=== PATIENT | male | born 1975 | race Caucasian/White ===

== ENCOUNTER → 2016-08-25 | Outpatient (CLI) | payer MEDICARE | LOC: CARD 11:16 | PROVIDERS: ATTEND Physician Assistant | DX: I10 Essential (primary) hypertension (principal); R79.89 Other specified abnormal findings of blood chemistry; H91.8X3 Other specified hearing loss, bilateral; Z72.0 Tobacco use | CPT/HCPCS: 93306 ==

== ENCOUNTER → 2016-10-26 | Outpatient (CLI) | payer MEDICARE | LOC: CARD 08:36 | PROVIDERS: ATTEND Internal Medicine Cardiovascular Disease | DX: I50.1 Left ventricular failure, unspecified (principal); I11.0 Hypertensive heart disease with heart failure; I51.7 Cardiomegaly; L02.214 Cutaneous abscess of groin; Z72.0 Tobacco use | CPT/HCPCS: 93306 ==

== ENCOUNTER → 2018-02-04 | Outpatient (CLI) | payer MEDICARE | LOC: CARD 11:31 | PROVIDERS: ATTEND Internal Medicine Cardiovascular Disease | DX: I11.9 Hypertensive heart disease without heart failure (principal); Z72.0 Tobacco use | CPT/HCPCS: 93306 ==

== ENCOUNTER 2018-04-18 11:38 | Inpatient (IN) | payer MEDICARE ==
[~2018-04-18] VITALS: Ht 160 cm; Wt 38.2 kg
[2018-04-18 12:02] LABS: BASOPHILS # (AUTO) 0.1 10^3/uL (0.0-0.1); BASOPHILS % (AUTO) 1 % (0-10); EOSINOPHILS # (AUTO) 0.1 10^3/uL (0.0-0.3); EOSINOPHILS % (AUTO) 1 % (0-10); HEMATOCRIT 38 % (40-54); HEMOGLOBIN 13.9 G/DL (13.3-17.7); LYMPHOCYTES # (AUTO) 1.9 X 10^3 (1.0-4.0); LYMPHOCYTES % (AUTO) 18 % (12-44); MEAN CORPUSCULAR HEMOGLOBIN 32 PG (25-34); MEAN CORPUSCULAR HGB CONC 37 G/DL (32-36); MEAN CORPUSCULAR VOLUME 88 FL (80-99); MEAN PLATELET VOLUME 11.1 FL (7.4-10.4); MONOCYTES # (AUTO) 0.9 X 10^3 (0.0-1.0); MONOCYTES % (AUTO) 8 % (0-12); NEUTROPHILS # (AUTO) 7.6 X 10^3 (1.8-7.8); NEUTROPHILS % (AUTO) 73 % (42-75); PLATELET COUNT 377 10^3/uL (130-400); RED CELL DISTRIBUTION WIDTH 12.5 % (10.0-14.5); WHITE BLOOD COUNT 10.5 10^3/uL (4.3-11.0)
--- NOTE | 2018-04-18 12:04 | NUR ---
ATTEMPTED FINGER STICK GLUCOSE. TOO HIGH FOR METER TO READ.
[2018-04-18] MEDS ORDERED: NS IV 1000 ML 1,000 ML IV ONE ×2 (12:22)
[2018-04-18 12:23] LABS: BILIRUBIN,URINE NEGATIVE (NEGATIVE); CLARITY,URINE CLEAR; COLOR,URINE YELLOW; GLUCOSE, URINE (UA) 4+ (NEGATIVE); KETONES,URINE 2+ (NEGATIVE); LEUKOCYTE ESTERASE ,URINE NEGATIVE (NEGATIVE); NITRITE,URINE NEGATIVE (NEGATIVE); PH,URINE 5 (5-9); PROTEIN,URINE NEGATIVE (NEGATIVE); UROBILINOGEN,URINE NORMAL (NORMAL)
[2018-04-18 12:25] LABS: ALANINE AMINOTRANSFERASE 27 U/L (0-55); ALBUMIN 4.8 GM/DL (3.2-4.5); ALKALINE PHOSPHATASE 88 U/L (40-136); BILIRUBIN,TOTAL 0.7 MG/DL (0.1-1.0); BUN/CREATININE RATIO 23; CALCIUM 10.2 MG/DL (8.5-10.1); CARBON DIOXIDE 20 MMOL/L (21-32); CHLORIDE 87 MMOL/L (98-107); CREATINE KINASE 187 U/L (30-200); CREATININE SERUM 1.55 MG/DL (0.60-1.30); GFR ESTIMATED 49; POTASSIUM 6.3 MMOL/L (3.6-5.0); TOTAL PROTEIN 7.9 GM/DL (6.4-8.2)
[2018-04-18] MEDS ORDERED: inSUlin (REGULAR) HUMAN 1 UNIT/0.01 ML (CHARGE PER UNIT) IV ONE (12:30)
[2018-04-18 12:31] LABS: GLUCOSE 732 MG/DL (70-105); MYOGLOBIN SERUM 100.3 NG/ML (10.0-92.0); SODIUM 122 MMOL/L (135-145)
[2018-04-18 12:35] LABS: BACTERIA,URINE NEGATIVE /HPF; RBC,URINE RARE /HPF
--- NOTE | 2018-04-18 15:03 | ED General ---
General Chief Complaint: Glucose Problems Stated Complaint: HIGH BLOOD SUGAR-HIGH POTAS Nursing Triage Note: PT SENT FROM [facility] WITH BLOOD SUGAR TO HIGH TO READ. PTS MOTHER STATES THAT HE HAS BEEN LOSING WEIGHT SO DR TOLD THEM HE COULD EAT WHATEVER HE WANTED TO ATTEMPT TO GAIN WEIGHT. PTS DIET HAS CONSISTED OF FAST FOOD INCLUDING A TON OF FRIED CHICKEN AND BANANAS. [facility] ALSO STATED TO PT AND MOTHER THAT HIS POTASSIM WAS ELEVATED. Nursing Sepsis Screen: No Definite Risk Source of Information: Patient Exam Limitations: No Limitations History of Present Illness Date Seen by Provider: Apr 18, 2018 Time Seen by Provider: 11:46 Initial Comments This 42-year-old man presents to the emergency room as directed by the [facility] clinic for reasons of hyperglycemia and hyperkalemia. Labs have been monitored on an outpatient basis. His condition is felt to be too far uncontrolled to be managed as an outpatient. He is diabetic and uses metformin. He has recently had a dental infection and is on clindamycin. He has schizophrenia and possibly some other neuropsych disorders but he does live independently with some assistance from his mother. He has been on Entresto due to history of CHF. Dr. Nash asked him to stop this medication because of the hyperglycemia for at least 3 days. Patient was concerned that he may go back into congestive heart failure, so he took his dose this Entresto dose morning. Blood sugar on initial assessment is too high to read. Patient has never been on insulin in the past. Mother reports that they initially tried to significantly restrict his diet to reduce carbs. She reports this resulted in weight loss and then they tried to increase his caloric intake which probably contributed to his hyperglycemia. Compliance is difficult because who is neuropsych situation. Patient was also reportedly told to stop his statin therapy recently because of proximal leg weakness and elevated CK levels. Allergies and Home Medications Allergies Coded Allergies: No Known Drug Allergies (Unverified , 03/03/13) Patient Home Medication List Home Medication List Reviewed: Yes Review of Systems Review of Systems Constitutional: see HPI, weight loss EENTM: see HPI Respiratory: no symptoms reported Cardiovascular: see HPI Gastrointestinal: no symptoms reported Genitourinary: no symptoms reported Musculoskeletal: see HPI Skin: no symptoms reported Psychiatric/Neurological: No Symptoms Reported Hematologic/Lymphatic: No Symptoms Reported Immunological/Allergic: no symptoms reported Past Wkkzofv-Tbmjrv-Mwqojl Hx Past Med/Social Hx: Reviewed and Corrections made Patient Social History Alcohol Use: Denies Use Recreational Drug Use: No Type Used: Cigarettes Recent Foreign Travel: No Contact w/Someone Who Travel: No Recent Infectious Disease Expo: No Recent Hopitalizations: No Seasonal Allergies Seasonal Allergies: No Past Medical History Surgeries: No Respiratory: Yes Asthma Cardiac: Yes Neurological: No Reproductive Disorders: No Gastrointestinal: No Musculoskeletal: No Endocrine: Yes Diabetes, Non-Insulin dep HEENT: No Cancer: No Psychosocial: Yes (Learning disability) Anxiety, Schizophrenia, Depression Integumentary: No Blood Disorders: No Physical Exam Vital Signs Vital Signs - First Documented 04/18/18 04/18/18 11:46 16:45 Temp 98.0 Pulse 67 Resp 18 B/P (MAP) 137/88 (104) Pulse Ox 99 O2 Delivery Room Air Capillary Refill : Less Than 3 Seconds Height, Weight, BMI Height: 5'3.00" Weight: 79lbs. oz. 35.785832ny; BMI Method:Stated General Appearance: No Apparent Distress, WD/WN, Thin, Other (disheveled) HEENT: PERRL/EOMI, Normal ENT Inspection, Other (mucous membranes moist) Neck: Normal Inspection Respiratory: Lungs Clear, Normal Breath Sounds, No Accessory Muscle Use, No Respiratory Distress Cardiovascular: Regular Rate, Rhythm, No Edema, No Murmur Gastrointestinal: Non Tender, Soft Extremity: Normal Inspection, No Pedal Edema Neurologic/Psychiatric: Alert, Oriented x3, No Motor/Sensory Deficits, Normal Mood/Affect, firmware developer II-XII Norm as Tested Skin: Normal Color, Warm/Dry Progress/Results/Core Measures Suspected Sepsis Recent Fever Within 48 Hours: No Infection Criteria Present: None New/Unexplained Altered Menta: No Sepsis Screen: No Definite Risk SIRS Temperature:98.0 Pulse: 67 Respiratory Rate: 18 Laboratory Tests 04/18/18 11:55: White Blood Count 10.5 Blood Pressure 137 /88 Mean: 104 Laboratory Tests 04/18/18 11:55: Creatinine 1.55H, Platelet Count 377, Total Bilirubin 0.7 Results/Orders Lab Results Laboratory Tests Test 04/18/18 11:55 04/18/18 12:03 04/18/18 12:18 04/18/18 14:07 Range/Units White Blood Count 10.5 4.3-11.0 10^3/uL Red Blood Count 4.31 L 4.35-5.85 10^6/uL Hemoglobin 13.9 13.3-17.7 G/DL Hematocrit 38 L 40-54 % Mean Corpuscular Volume 88 80-99 FL Mean Corpuscular Hemoglobin 32 25-34 PG Mean Corpuscular Hemoglobin Concent 37 H 32-36 G/DL Red Cell Distribution Width 12.5 10.0-14.5 % Platelet Count 377 130-400 10^3/uL Mean Platelet Volume 11.1 H 7.4-10.4 FL Neutrophils (%) (Auto) 73 42-75 % Lymphocytes (%) (Auto) 18 12-44 % Monocytes (%) (Auto) 8 0-12 % Eosinophils (%) (Auto) 1 0-10 % Basophils (%) (Auto) 1 0-10 % Neutrophils # (Auto) 7.6 1.8-7.8 X 10^3 Lymphocytes # (Auto) 1.9 1.0-4.0 X 10^3 Monocytes # (Auto) 0.9 0.0-1.0 X 10^3 Eosinophils # (Auto) 0.1 0.0-0.3 10^3/uL Basophils # (Auto) 0.1 0.0-0.1 10^3/uL Sodium Level 122 *L 135-145 MMOL/L Potassium Level 6.3 H 3.6-5.0 MMOL/L Chloride Level 87 L 98-107 MMOL/L Carbon Dioxide Level 20 L 21-32 MMOL/L Anion Gap 15 H 5-14 MMOL/L Blood Urea Nitrogen 35 H 7-18 MG/DL Creatinine 1.55 H 0.60-1.30 MG/DL Estimat Glomerular Filtration Rate 49 BUN/Creatinine Ratio 23 Glucose Level 732 *H 70-105 MG/DL Calcium Level 10.2 H 8.5-10.1 MG/DL Corrected Calcium 8.5-10.1 MG/DL Total Bilirubin 0.7 0.1-1.0 MG/DL Aspartate Amino Transf (AST/SGOT) 31 5-34 U/L Alanine Aminotransferase (ALT/SGPT) 27 0-55 U/L Alkaline Phosphatase 88 40-136 U/L Total Creatine Kinase 187 30-200 U/L Myoglobin 100.3 H 10.0-92.0 NG/ML Total Protein 7.9 6.4-8.2 GM/DL Albumin 4.8 H 3.2-4.5 GM/DL Beta-Hydroxybutyrate (Chem panel) 1.69 H 0.00-0.27 MMOL/L Glucometer > 600 *H 167 H 70-110 MG/DL Urine Color YELLOW Urine Clarity CLEAR Urine pH 5 5-9 Urine Specific [place] 1.010 L 1.016-1.022 Urine Protein NEGATIVE NEGATIVE Urine Glucose (UA) 4+ H NEGATIVE Urine Ketones 2+ H NEGATIVE Urine Nitrite NEGATIVE NEGATIVE Urine Bilirubin NEGATIVE NEGATIVE Urine Urobilinogen NORMAL NORMAL MG/DL Urine Leukocyte Esterase NEGATIVE NEGATIVE Urine RBC (Auto) NEGATIVE NEGATIVE Urine RBC RARE /HPF Urine WBC NONE /HPF Urine Crystals NONE /LPF Urine Bacteria NEGATIVE /HPF Urine Casts NONE /LPF Urine Mucus NEGATIVE /LPF Urine Culture Indicated NO Test 04/18/18 15:08 04/18/18 16:48 Range/Units Glucometer 120 H 254 H 70-110 MG/DL My Orders Orders - JANICE TARANGO MD Saline Lock/Iv-Start (04/18/18 12:22) Ns Iv 1000 Ml (Sodium Chloride 0.9%) (04/18/18 12:22) Ns Iv 1000 Ml (Sodium Chloride 0.9%) (04/18/18 12:22) Insulin (Regular) Human (Humulin R (Per (04/18/18 12:30) Accucheck Stat ONCE (04/18/18 13:26) Cho 60g/M 3snack (16-2000 Carlton) (04/18/18 Dinner) Accucheck Stat ONCE (04/18/18 15:03) Medications Given in ED Current Medications Medications Dose Ordered Sig/Elan Route Start Time Stop Time Status Last Admin Dose Admin Insulin Human Regular 10 unit ONCE ONCE IV 04/18/18 12:30 04/18/18 12:31 DC 04/18/18 12:30 10 UNIT Sodium Chloride 1,000 ml @ 0 mls/hr Q0M ONCE IV 04/18/18 12:22 04/18/18 12:25 DC 04/18/18 12:30 1,000 MLS/HR Sodium Chloride 1,000 ml @ 0 mls/hr Q0M ONCE IV 04/18/18 12:22 04/18/18 12:25 DC 04/18/18 13:04 1,000 MLS/HR Vital Signs/I&O 04/18/18 04/18/18 04/18/18 04/18/18 11:46 16:36 16:45 16:57 Temp 98.0 98.0 98.4 Pulse 67 67 65 Resp 18 18 14 B/P (MAP) 137/88 (104) 137/88 (104) 111/68 (82) Pulse Ox 99 99 98 98 O2 Delivery Room Air Room Air 04/18/18 04/18/18 17:00 17:29 Temp 98.4 Pulse 65 85 Resp 14 B/P (MAP) 111/68 Pulse Ox 98 O2 Delivery Room Air Capillary Refill : Less Than 3 Seconds Blood Pressure Mean: 104 Point of Care Testing Finger Stick Blood Glucose: 167 Blood Glucose Action Taken: rn notified Progress Note : Progress Note Patient was hydrated with 2 L of IV normal saline and insulin 10 units was administered by IV route. This brought his blood sugar down to 167 and then down to 120. He was allowed to have a meal. Case was discussed with Dr. Nash who requested that he be admitted for assistance in stabilizing his electrolytes and blood sugar. Case was discussed with Dr. Carrion who agreed to admission. Dr. Durand was consulted to help manage congestive heart failure since Entresto may not be a viable treatment option given his hyperkalemia. Departure Communication (Admissions) Time/Spoke to Admitting Phy: 14:50 Dr. Carrion Time/Spoke to Consulting Phy: 15:00 Dr. Durand Impression Primary Impression: Hyperglycemia Additional Impressions: Hyperkalemia Hypovolemia Renal insufficiency Disposition: ADMITTED INPATIENT Condition: Improved Admissions Decision to Admit Reason: Admit from ER (General) Decision to Admit/Date: Apr 18, 2018 Time/Decision to Admit Time: 14:45 Departure-Patient Inst. Referrals: [facility] (PCP/Family) Primary Care Physician JANICE TARANGO MD Apr 18, 2018 15:03
--- NOTE | 2018-04-18 15:53 | NUR ---
ER CALLED AND GOT REPORT FROM [facility]TER
--- NOTE | 2018-04-18 16:50 | NUR ---
TORIE CAMPOS admitted to room 412-1, with an admitting diagnosis of hypoglycemia, hypokalemia, hypovolemia, on 04/18/18 from ER via W/C, accompanied by ER STAFF.TORIE CAMPOS introduced to surroundings, call light, bed controls, phone, TV, temperature control, lights, meal times, smoking policy, visitor policy, side rail policy, bathrooms and showers. Patient Rights given to patient in the handbook. TORIE CAMPOS verbalizes understanding that [facility] is not responsible for the loss or damage to any personal effects or valuables that are kept in the patients posession during their hospitalization. The following Patient Care Plans were discussed with the PT: Discharge Planning, ALT NUTRITION<BODY REQUIRES, FL VOL DEFICIT, IMP SKIN INTEGRITY, ACT INTOL, HIGH RISK OF INJURY, ANXIETY, AND RISK FOR INEFF MGMT OF DIAB. TORIE CAMPOS verbalizes understanding of Interdisciplinary Patient Education. Patient and/or family were informed about the Rapid Response Team and its purpose. CAME TO FLOOR FROM ER W/ SL IN R AC --
[2018-04-18 16:57] VITALS: BP 111/68
[2018-04-18 17:00] VITALS: BP 111/68
[2018-04-18] MEDS ORDERED: NS IV 1000 ML 1,000 ML ONE (17:34)
[2018-04-18] MEDS: NS IV 1000 ML 1,000 ML IV SCH (17:48)
[2018-04-18 20:00] VITALS: BP 118/71
[2018-04-18] MEDS: CLINDAMYCIN 150 MG (CLEOCIN) CAP PO SCH (20:41)
[2018-04-18] MEDS: inSUlin ASPART (NovoLOG) 1 UNIT/0.01 ML (CHARGE PER UNIT) SC SCH (20:41)
[2018-04-19] VITALS: BP 101/64
[2018-04-19] MEDS: NS IV 1000 ML 1,000 ML IV SCH ×3 (01:00→18:07)
[2018-04-19 03:56] VITALS: BP 130/82
[2018-04-19] MEDS: inSUlin ASPART (NovoLOG) 1 UNIT/0.01 ML (CHARGE PER UNIT) SC SCH ×4 (06:08→21:20)
[2018-04-19 08:00] VITALS: BP 114/70
[2018-04-19] MEDS ORDERED: CLIN300C11 PO (08:49)
[2018-04-19] MEDS ORDERED: ALBU18HF2 INH (08:49)
[2018-04-19] MEDS ORDERED: ARIP30TA10 PO (08:49)
[2018-04-19] MEDS ORDERED: SACU1TAB7 PO (08:49)
[2018-04-19] MEDS ORDERED: SERT50TA9 PO (08:49)
[2018-04-19] MEDS ORDERED: METO-333 PO (08:49)
[2018-04-19] MEDS ORDERED: ATOR20TA66 PO (08:49)
[2018-04-19] MEDS ORDERED: NFBIOT1000 PO (08:49)
[2018-04-19] MEDS ORDERED: METF500T8 PO (08:49)
[2018-04-19] MEDS ORDERED: METO-370 PO (08:49)
[2018-04-19] MEDS ORDERED: CYAN10006 PO (08:49)
--- NOTE | 2018-04-19 09:36 | NUR ---
SPOKE WITH THE PATIENT ABOUT HIS MEDICATIONS. I WENT OVER THE EXT MED HX WITH THE PATIENT AND HE VERIFIED HOW HE TAKES THEM. HE FILLED METFORMIN ER 750MG #180 02-20-18 THEN ON 04-02-18 HE FILLED METFORMIN ER 500MG #360 - THE NURSE AT [facility] STATES THE DOSE WAS INCREASED FROM 750MG BID TO 1000MG BID HOWEVER THE PATIENT STATES HE HAS ONLY BEEN TAKING 1 500MG TABLET BID, HE STATES HE DID NOT READ THE DIRECTIONS ON THE BOTTLE. HE STATES HE WAS TAKING SEROQUEL AT BEDTIME HOWEVER HE IS PAST DUE FOR REFILLS. I CALLED AND SPOKE WITH A NURSE, SHE STATES ACCORDING TO THE NOTES THE PATIENT WAS TITRATED OFF HE SEROQUEL AND STARTED ON ABILITY. I DID NOT INCLUDE THE SEROQUEL ON THE MED REC AT THIS TIME. HE TAKES BIOTIN AND B12 OTC DAILY.
[2018-04-19] MEDS: CLINDAMYCIN 150 MG (CLEOCIN) CAP PO SCH ×3 (09:53→21:32)
--- NOTE | 2018-04-19 10:15 | Short Stay Summary-Hospitalist ---
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 Nash at [facility]. PT is very hard of hearing and cannot tell me really any reliable history and he wants to go home and take care of his cats. His mother is involved. He appears to need some sort of assisted living facility so I will consult social work . Pt sugars have been improved but still high. Source: RN/MD, old records Exam Limitations: physical impairment Date Seen 04/19/18 Time Seen by a Provider: 10:00 Attending Physician Tanika Carrion DO [facility] Referring Physician Date of Admission Apr 18, 2018 at 15:00 Home Medications & Allergies Home Medications Reviewed patient Home Medication Reconciliation performed by pharmacy medication reconciliations alarm installation technician and/or nursing. Patients Allergies have been reviewed. Allergies Allergies Coded Allergies No Known Drug Allergies (Unverified03/03/13) Past Yduznyn-Jpzsbq-Rwryww Hx Past Med/Social Hx: Reviewed Nursing Past Med/Soc Hx, Reviewed and Corrections made Patient Social History Marrital Status: single Employed/Student: unemployed Alcohol Use: Denies Use Recreational Drug Use: No Smoking Status: Current Everyday Smoker Type Used: Cigarettes Physical Abuse Screen: No Sexual Abuse: No Recent Hopitalizations: No Immunizations Up To Date Date of Influenza Vaccine: Nov 19, 2017 Seasonal Allergies Seasonal Allergies: No Past Medical History Reproductive: No Endocrine: Diabetes, Non-Insulin dep Psychosocial: Anxiety, Schizophrenia, Depression History of Blood Disorders: No Review of Systems ROS-Unable to Obtain: refuses to answer Constitutional: see HPI Physical Exam Physical Exam Vital Signs Vital Signs - First Documented 04/18/18 04/18/18 11:46 16:45 Temp 98.0 Pulse 67 Resp 18 B/P (MAP) 137/88 (104) Pulse Ox 99 O2 Delivery Room Air Capillary Refill : Less Than 3 Seconds Height, Weight, BMI Height: 5'3.00" Weight: 84lbs. 7.0oz. 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 Short Stay Diagnosis Discharge Diagnosis-Short Stay Admission Diagnosis Severe hyperglycemia Non-compliant DM HTN Smoker Mentally challenged Final Discharge Diagnosis Severe hyperglycemia Non-compliant DM HTN Smoker Mentally challenged Conclusion Plan Insulin administration Appears to need NHP Monitor closely DM education SW consult Diagnosis/Problems Diagnosis/Problems (1) Hyperglycemia Status: Acute (2) Mentally disabled Status: Chronic (3) Renal insufficiency Status: Acute Clinical Quality Measures DVT/VTE Risk/Contraindication: Risk Factor Score Per Nursin RFS Level Per Nursing on Admit: 4+=Very High TANIKA CARRION DO Apr 19, 2018 10:15
[2018-04-19 11:01] LABS: ALANINE AMINOTRANSFERASE 20 U/L (0-55); ALBUMIN 3.4 GM/DL (3.2-4.5); ALKALINE PHOSPHATASE 59 U/L (40-136); BILIRUBIN,TOTAL 0.4 MG/DL (0.1-1.0); BUN/CREATININE RATIO 21; CALCIUM 8.1 MG/DL (8.5-10.1); CARBON DIOXIDE 17 MMOL/L (21-32); CHLORIDE 102 MMOL/L (98-107); CREATININE SERUM 0.92 MG/DL (0.60-1.30); GFR ESTIMATED > 60; GLUCOSE 250 MG/DL (70-105); POTASSIUM 4.9 MMOL/L (3.6-5.0); SODIUM 129 MMOL/L (135-145); TOTAL PROTEIN 5.5 GM/DL (6.4-8.2)
--- NOTE | 2018-04-19 11:22 | NUR ---
Was asked to speak to pt by RN caring for pt in reference Diabetes. During discussion with pt he kept nodding off and didn't appear to comprehend all of our discussion. Pt is [place] so during our teaching I sat at eye level with pt. Pt appeared to hear some things spoke about. Pt was not able to give clear answers of what his normal diet consist of. Spoke with pt the importance of eating 3 times a day no longer than 4 to 5 hours between meals. The importance of 50 to 70 carbs per meal. Attempted to explain to pt how to count carbs but pt appeared to not be interested. Spoke with pt briefly about the possibility of insulin on discharge. Pt did not seem to comprehend short discussion about how to administer insulin injections. Will wait until discharge orders are done and attempted to educate pt further on diet and insulin (if ordered).
[2018-04-19 12:00] VITALS: BP 124/79
--- NOTE | 2018-04-19 13:20 | Consultation-Cardiology ---
HPI-Cardiology Cardiology Consultation Date of Consultation 04/19/18 Date of Admission Time Seen by Provider: 08:00 Indication: Heart failure HPI 42 years old gentleman with history of diabetes, admitted for electrolytes imbalance and renal failure, denied any chest pain or shortness of breath, has history of Depression and heart failure, noted to have hyperkalemia Home Medications & Allergies Allergies: Coded Allergies: No Known Drug Allergies (Unverified , 03/03/13) Home Medication List Reviewed: Yes YEF-Tqfrdi-Nttpzw Hx Patient Social History Marital Status: single Alcohol Use: Denies Use Recreational Drug Use: No Type Used: Cigarettes Recent Hopitalizations: No Physical Abuse Screen: No Sexual Abuse: No Immunizations Up To Date Date of Influenza Vaccine: Nov 19, 2017 Past Medical History Discussed below Family Medical History Family Medical Hx Non contributory Review of Systems Constitutional: see HPI, malaise, weakness EENTM: see HPI, no symptoms reported Respiratory: see HPI; No cough, No dyspnea on exertion, No hemoptysis, No orthopnea, No phlegm, No short of breath, No stridor, No wheezing, No other Cardiovascular: see HPI; No chest pain, No edema, No Hx of Intervention, No palpitations, No syncope, No vascular heart diseas, No other Gastrointestinal: no symptoms reported, see HPI Genitourinary: no symptoms reported, see HPI Musculoskeletal: no symptoms reported, see HPI Skin: no symptoms reported, see HPI Psychiatric/Neurological: See HPI, Depressed, Emotional Problems Reviewed Test Results Reviewed Test Results Lab Laboratory Tests Test 04/18/18 14:07 04/18/18 15:08 04/18/18 16:48 04/18/18 20:18 Range/Units Glucometer 167 H 120 H 254 H 398 H 70-110 MG/DL Test 04/19/18 05:25 04/19/18 10:40 04/19/18 11:13 Range/Units Glucometer 302 H 283 H 70-110 MG/DL Sodium Level 129 L 135-145 MMOL/L Potassium Level 4.9 3.6-5.0 MMOL/L Chloride Level 102 98-107 MMOL/L Carbon Dioxide Level 17 L 21-32 MMOL/L Anion Gap 10 5-14 MMOL/L Blood Urea Nitrogen 19 H 7-18 MG/DL Creatinine 0.92 0.60-1.30 MG/DL Estimat Glomerular Filtration Rate > 60 BUN/Creatinine Ratio 21 Glucose Level 250 H 70-105 MG/DL Calcium Level 8.1 L 8.5-10.1 MG/DL Corrected Calcium 8.6 8.5-10.1 MG/DL Total Bilirubin 0.4 0.1-1.0 MG/DL Aspartate Amino Transf (AST/SGOT) 36 H 5-34 U/L Alanine Aminotransferase (ALT/SGPT) 20 0-55 U/L Alkaline Phosphatase 59 40-136 U/L Total Protein 5.5 L 6.4-8.2 GM/DL Albumin 3.4 3.2-4.5 GM/DL Physical Exam Vital Signs Vital Signs - First Documented 04/18/18 04/18/18 11:46 16:45 Temp 98.0 Pulse 67 Resp 18 B/P (MAP) 137/88 (104) Pulse Ox 99 O2 Delivery Room Air Capillary Refill : Less Than 3 Seconds Height, Weight, BMI Height: 5'3.00" Weight: 84lbs. 7.0oz. 38.555244pa; 14.0 BMI Method:Stated General Appearance: No Apparent Distress, WD/WN Eyes: Bilateral Eye Normal Inspection, Bilateral Eye PERRL, Bilateral Eye EOMI HEENT: PERRL/EOMI, TMs Normal, Normal ENT Inspection, Pharynx Normal Neck: Full Range of Motion, Normal Inspection, Non Tender, Supple, Carotid Bruit Respiratory: Chest Non Tender, Lungs Clear, Normal Breath Sounds, No Accessory Muscle Use, No Respiratory Distress Cardiovascular: Regular Rate, Rhythm, No Edema, No Gallop, No JVD, No Murmur, Normal Peripheral Pulses Gastrointestinal: Normal Bowel Sounds, No Organomegaly, No Pulsatile Mass, Non Tender, Soft Back: Normal Inspection, No CVA Tenderness, No Vertebral Tenderness Extremity: Normal Capillary Refill, Normal Inspection, Normal Range of Motion, Non Tender, No Calf Tenderness, No Pedal Edema Neurologic/Psychiatric: Alert, Oriented x3, No Motor/Sensory Deficits, Normal Mood/Affect Skin: Normal Color, Warm/Dry Lymphatic: No Adenopathy A/P-Cardiology Admission Diagnosis Acute renal failure Diabetes Hyperkalemia Hypertension Assessment/Plan Acute renal failure, dehydration, better now Hyperkalemia, better now Diabetes, poor control, managed by primary care physician History of Coronary artery disease, status post cardiac catheterization February 2013 due to an elevated troponin level. Showing mild disease nonobstructive disease, continue to monitor, no changes. History of Congestive heart failure, Last echo done in January 2018 showing normal LV function, resolved, stop Entresto, continue Metoprolol History of Right groin abscess-resolved. Hypertension, continue Metoprolol and monitor blood pressure Tobaccoism, patient was educated and instructed on smoking cessation. Alcoholism, patient reported that he has stopped drinking, educated on avoiding any alcohol products Bronchial asthma, clinically stable. Continue to monitor. Significant hearing loss. Clinical Quality Measures DVT/VTE Risk/Contraindication: Risk Factor Score Per Nursin RFS Level Per Nursing on Admit: 4+=Very High GLO MCLEOD MD Apr 19, 2018 13:20
[2018-04-19 16:45] VITALS: BP 119/80
[2018-04-19 21:17] VITALS: BP 124/80
[2018-04-19] MEDS ORDERED: inSUlin DETERMIR 1 UNIT/0.01 ML (LEVEMIR) CHARGE PER UNIT SQ ONE (21:28)
[2018-04-19] MEDS: meTOprolol TARTRATE 25 MG (LOPRESSOR) TABLET PO SCH (21:31)
[2018-04-19] MEDS: inSUlin DETERMIR 1 UNIT/0.01 ML (LEVEMIR) CHARGE PER UNIT SQ SCH (21:31)
[2018-04-20] VITALS: BP 120/87
[2018-04-20 04:35] VITALS: BP 101/69
[2018-04-20] MEDS: inSUlin ASPART (NovoLOG) 1 UNIT/0.01 ML (CHARGE PER UNIT) SC SCH ×4 (05:27→21:50)
[2018-04-20 05:54] LABS: BASOPHILS % (AUTO) 0 % (0-10); EOSINOPHILS # (AUTO) 0.3 10^3/uL (0.0-0.3); EOSINOPHILS % (AUTO) 3 % (0-10); HEMATOCRIT 38 % (40-54); HEMOGLOBIN 13.6 G/DL (13.3-17.7); LYMPHOCYTES # (AUTO) 2.2 X 10^3 (1.0-4.0); LYMPHOCYTES % (AUTO) 19 % (12-44); MEAN CORPUSCULAR HEMOGLOBIN 33 PG (25-34); MEAN CORPUSCULAR HGB CONC 36 G/DL (32-36); MEAN CORPUSCULAR VOLUME 90 FL (80-99); MEAN PLATELET VOLUME 10.9 FL (7.4-10.4); MONOCYTES # (AUTO) 0.9 X 10^3 (0.0-1.0); MONOCYTES % (AUTO) 8 % (0-12); NEUTROPHILS # (AUTO) 8.2 X 10^3 (1.8-7.8); NEUTROPHILS % (AUTO) 70 % (42-75); PLATELET COUNT 321 10^3/uL (130-400); RED CELL DISTRIBUTION WIDTH 12.9 % (10.0-14.5); WHITE BLOOD COUNT 11.7 10^3/uL (4.3-11.0)
[2018-04-20 06:13] LABS: CARBON DIOXIDE 20 MMOL/L (21-32); CHLORIDE 108 MMOL/L (98-107); POTASSIUM 4.2 MMOL/L (3.6-5.0); SODIUM 136 MMOL/L (135-145)
[2018-04-20 06:14] LABS: ALANINE AMINOTRANSFERASE 21 U/L (0-55); ALBUMIN 3.5 GM/DL (3.2-4.5); ALKALINE PHOSPHATASE 50 U/L (40-136); BILIRUBIN,TOTAL 0.5 MG/DL (0.1-1.0); BUN/CREATININE RATIO 25; CALCIUM 8.7 MG/DL (8.5-10.1); CREATININE SERUM 0.76 MG/DL (0.60-1.30); GFR ESTIMATED > 60; GLUCOSE 115 MG/DL (70-105); TOTAL PROTEIN 5.7 GM/DL (6.4-8.2)
[2018-04-20 07:23] VITALS: BP 108/66
[2018-04-20] MEDS: CLINDAMYCIN 150 MG (CLEOCIN) CAP PO SCH ×3 (09:19→21:49)
[2018-04-20] MEDS: meTOprolol TARTRATE 25 MG (LOPRESSOR) TABLET PO SCH ×2 (09:19→21:49)
[2018-04-20 11:40] VITALS: BP 127/75
--- NOTE | 2018-04-20 12:48 | Progress Note-Hospitalist ---
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 Nash at [facility]. PT is very hard of hearing and cannot tell me really any reliable history and he wants to go home and take care of his cats. His mother is involved. He appears to need some sort of assisted living facility so I will consult social work . Pt sugars have been improved but still high. Subjective/Events-last exam Wants to go home but the mother refuses to come to hospital to facilitate DC on insulin Patient walking around since IVF were heplocked Sugars are improved but low doses of insulin initiated to prevent complexity once DC is finalized Review of Systems General: Fatigue Objective Exam Vital Signs Vital Signs Date Time Temp Pulse Resp B/P (MAP) Pulse Ox O2 Delivery O2 Flow Rate FiO2 04/20/18 11:40 98.2 57 18 127/75 (92) 98 Room Air Capillary Refill : Less Than 3 Seconds General Appearance: No Apparent Distress, WD/WN, Chronically ill, Thin, Other ( disheveled) HEENT: PERRL/EOMI, Normal ENT Inspection, Other (mucous membranes moist, [place]) Neck: Normal Inspection Respiratory: Lungs Clear, Normal Breath Sounds, No Accessory Muscle Use, No Respiratory Distress Cardiovascular: Regular Rate, Rhythm, No Edema, No Murmur Gastrointestinal: Non Tender, Soft Back: Normal Inspection, No CVA Tenderness, No Vertebral Tenderness Extremity: Normal Inspection, No Pedal Edema Neurologic/Psychiatric: Alert, No Motor/Sensory Deficits, Normal Mood/Affect, whiskey 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 Assessment/Plan Assessment and Plan Assess & Plan/Chief Complaint Assessment: Severe hyperglycemia in need of insulin maintenance Severe mental challenges Insulin administration Appears to need NHP Monitor closely DM education SW consult Diagnosis/Problems Diagnosis/Problems (1) Hyperglycemia Status: Acute (2) Mentally disabled Status: Chronic (3) Renal insufficiency Status: Acute Clinical Quality Measures DVT/VTE Risk/Contraindication: Risk Factor Score Per Nursin RFS Level Per Nursing on Admit: 4+=Very High JOHNATHAN LEOS DO Apr 20, 2018 12:48
[2018-04-20 16:36] VITALS: BP 108/66
[2018-04-20 21:21] VITALS: BP 149/78
[2018-04-20] MEDS: inSUlin DETERMIR 1 UNIT/0.01 ML (LEVEMIR) CHARGE PER UNIT SQ SCH (21:49)
[2018-04-21 01:16] VITALS: BP 111/74
--- OUTSIDE RECORDS SUMMARY | 2018-04-21 02:29 | XMS REPORT ---
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 Name Role Phone ARIC, DAWJOHN Unavailable PROBLEMS Type Condition ICD9-CM Code CQL99-HZ Code Onset Dates Condition Status SNOMED Code Problem Schizoaffective disorder F25.9 Active 35143457 Problem Tobacco use Z72.0 Active 846135520 Problem Elevated cholesterol E78.0 Active 125445880 Problem Type 2 diabetes mellitus with other specified complication E11.69 Active 40738109 Problem Hyperlipidemia, unspecified E78.5 Active 47043510 Problem Schizoaffective disorder, unspecified type F25.9 Active 76085100 Problem Underweight R63.6 Active 722046527 Problem Left ventricular failure I50.1 Active 78910115 Problem Anxiety F41.9 Active 81267218 Problem Essential hypertension I10 Active 59887375 Problem Hearing loss, unspecified laterality H91.90 Active 40121321 Problem Major depressive disorder, recurrent episode, unspecified severity F33.9 Active 95279878 Problem History of alcoholism F10.21 Active 052882174 Problem Left ventricular hypertrophy I51.7 Active 58981238 Problem Mild intermittent asthma without complication J45.20 Active 131068614 ALLERGIES No Information ENCOUNTERS Encounter Location Date Diagnosis [facility] [id number], [place] [address] Feb, [facility] [id number], [place] [address] Jan, Schizoaffective disorder, unspecified type F25.9 [facility] [id number], [place] [address] Jan, [facility] [id number], [place] [address] Dec, Type 2 diabetes mellitus with other specified complication E11.69 and Hyperlipidemia, unspecified E78.5 [facility] [address], [place] [address] Dec, [facility] [address], [place] [address] Dec, [facility] [id number] [place] [address]- [address] Nov, Type 2 diabetes mellitus with other specified complication E11.69 and Hyperlipidemia, unspecified E78.5 [facility] [address], [place] [address] Nov, Type 2 diabetes mellitus with other specified complication E11.69 [facility] [id number], [place] [address] Nov, [facility] [id number] [place] [address]- [address] Nov, [facility] [address], [place] [address] Nov, Schizoaffective disorder, unspecified type F25.9 ; Anxiety F41.9 and 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 [facility] [address], [place] [address] Nov, [facility] [address], [place] [address] Oct, [facility] [id number], [place] [address] Oct, [facility] [id number] [place] [address]- 8942 Oct, Schizoaffective disorder, unspecified type F25.9 ; Anxiety F41.9 and 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 [facility] [address], [place] [address] Oct, Essential hypertension I10 ; Schizoaffective disorder F25.9 ; Left ventricular failure I50.1 ; Type 2 diabetes mellitus with other specified complication E11.69 and Hyperlipidemia, unspecified E78.5 [address] [facility] [id number] [place] [address]- 5007 Aug, Schizoaffective disorder F25.9 [facility] [id number] [place] [address] 9[address]- 78[address] Aug, [address] [address] [address] June, Medicare annual wellness visit, initial Z00.00 ; Type 2 diabetes mellitus with other specified complication E11.69 ; Major depressive disorder, recurrent episode, unspecified severity F33.9 ; Anxiety F41.9 ; Schizoaffective disorder F25.9 ; Hyperlipidemia, unspecified E78.5 ; Mild intermittent asthma without complication J45.20 and Encounter for immunization Z23 [address] [address] [address]- [address] Apr, Schizoaffective disorder F25.9 [facility] [facility] [id number] [place] [address] 7[address]83- 4964 Apr, Essential hypertension I10 ; Schizoaffective disorder F25.9 ; Left ventricular failure I50.1 and Type 2 diabetes mellitus with other specified complication E11.69 [facility] [facility] [id number] [place] [address] 9[address]60- 8808 Apr, Schizoaffective disorder F25.9 [facility] [place] [address] Aug, [address] [place] [id number] [place] [address]- [address] Aug, [facility] [place] [address] Aug, [address] [place] [id number] [place] [address]- 0064 Jul, Type 2 diabetes mellitus without complication, without long- term current use of insulin E11.9 ; Essential hypertension I10 and Elevated cholesterol E78.0 [address] [place] [id number] [place] [address]- [address] June, [address] [address] [address] May, Schizoaffective disorder, unspecified type F25.9 ; Anxiety F41.9 and 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 [address] [address] [address]- [address]558 Apr, Type 2 diabetes mellitus without complication, without long- term current use of insulin E11.9 [address] [address] [address] Mar, [place] [address] [address]- [address]643 Mar, [address] [address] [address]- [address] Mar, [address] [id number] [place] [address]- 6230 Mar, Essential hypertension I10 ; Elevated cholesterol E78.0 ; Prediabetes R73.09 ; Underweight R63.6 ; Type 2 diabetes mellitus without complication, without long-term current use of insulin E11.9 and Schizoaffective disorder F25.9 [address] [place] [address] [address] Jan, Schizoaffective disorder F25.9 and Essential hypertension I10 [address] [place] [id number] [place] [address]- 1642 Jan, Bronchitis J40 [address] [address] Dec, Prediabetes R73.09 [address] [address] [address]- [address] Oct, Abscess L02.[address] [place] [address] Oct, [facility] [id number] [place] [address] 290775- 5346 June, Prediabetes R73.09 and Elevated cholesterol E78.0 [facility] [id number] [place] [address] 10968- 7486 June, Schizoaffective disorder F25.9 ; Essential hypertension I10 ; Prediabetes R73.09 ; Elevated cholesterol E78.0 and Tobacco use Z72.0 [facility] [id number] [place] [address]- 7888 May, [facility] [id number] [place] [address]- 2001 Apr, [facility] [id number] [place] [address] 09345- 9044 Apr, [facility] [id number] [place] [address] 00482- 7648 Apr, [facility] [id number] [place] [address] 85179- 5026 Mar, [facility] [id number] [place] [id number] Feb, Dental examination Z01.20 [facility] [id number] [place] [address] 93419- 3506 Jan, [facility] [id number] [place] [address] 67014- 5763 Jan, Abscess L02.91 [facility] [id number] [place] [address] 94837- 5576 Jan, [facility] [id number] [place] [address] 628279- 2943 Dec, [facility] [id number] [place] [address] 07967- 1530 Dec, Abscess L02.91 [facility] [address], [place] [address] Nov, Elevated cholesterol E78.0 [facility] [id number] [place] [address] 96118- 9669 Nov, [facility] [id number] [place] [address] 35257- 5810 Nov, [facility] [id number] [place] [address] 12193- 8062 Nov, Essential hypertension I10 ; Schizoaffective disorder F25.9 ; History of alcoholism F10.21 and Mild intermittent asthma without complication J45.20 [facility] [id number] [place] [address] 64667- 6710 Nov, [facility] [id number] [place] [address] 87208- 5743 Nov, [facility] [id number] [place] [address] 794[address]- 1983 May, [facility] [id number] [place] [address] 54546- 2992 May, [facility] [id number] [place] [address] 03214- 3927 Apr, [facility] [address], [place] [address]- 8569 Apr, [facility] [id number] [place] [address] 18306- 3590 Mar, [facility] [id number] [place] [address] 93379- 9131 Mar, [facility] [id number] [place] [address] 38575- 2137 Mar, [facility] [address], [place] [address]- 3643 Mar, [facility] [id number] [place] [address]- 37[address] Mar, [facility] [place] [facility] [address] [id number] [place] [address]- 2136 Mar, [facility] [place] [facility] [address] [id number] [place] [address]- 4783 Jan, [facility] [place] [facility] [address] [id number] [place] [address] Jan, [facility] [place] [facility] [address] [id number] [place] [address]- 1391 Jan, [facility] [place] [facility] [address] [id number] [place] [address]- 4345 Jan, [facility] [place] [facility] [address] [facility] [id number] [place] [address]- 9875 Nov, [facility] [place] [facility] [address] [facility] [id number] [place] [address]- 3300 Nov, [facility] [place] [facility] [address] [id number] [place] [address]- 5044 Oct, [facility] [place] [facility] [address] [id number] [place] [address]- 3953 Oct, [facility] [place] [facility] [address] [facility] [id number] [place] [address]- 1698 Sep, [facility] [place] [facility] [address] [id number] [place] [address]- 0339 Sep, [facility] [place] [facility] [address] [id number] [place] [address]- 8266 Sep, [facility] [place] [facility] [address] [id number] [place] [address]- 3987 Sep, [facility] [place] [facility] [address] [facility] [id number] [place] [address]- 4971 Sep, [facility] [place] [facility] [address] [id number] [place] [address]- 1161 Sep, [facility] [place] [facility] [address] [id number] [place] [address]- 4453 May, [facility] [place] [facility] [address] [id number] [place] [address]- 5862 May, [facility] [place] [facility] [address] [id number] [place] [address]- 4016 May, [facility] [place] [facility] [address] [id number] [place] [address]- 5996 May, [facility] [place] [facility] [address] [id number] [place] [address]- 4791 Apr, [facility] [place] [facility] [address] [id number] [place] [address]- 3746 Apr, [facility] [place] [facility] [address] [id number] [place] [address]- 9237 Apr, [facility] [place] [facility] [address] [id number] [place] [address]- 1413 Apr, [facility] [place] [facility] [address] [id number] [place] [address]- 2667 Apr, [facility] [place] [facility] [address] [id number] [place] [address]- 2356 Apr, [facility] [place] [facility] [address] [id number] [place] [address]- 8836 Apr, [facility] [place] [facility] [address] [id number] [place] [address]- 0026 Apr, [facility] [place] [facility] [address] [id number] [place] [address]- 7897 Mar, [facility] [place] [facility] [address] [id number] [place] [address]- 0956 Mar, [facility] [place] [facility] [address] [id number] [place] [address]- 5256 Feb, [facility] [place] [facility] [address] [id number] [place] [address]- 0066 Feb, [facility] [address] [facility] [id number] [place] [address]- 5525 Jan, [facility] [address] [facility] [id number] [address]- 4829 Jan, IMMUNIZATIONS No Known Immunizations SOCIAL HISTORY Never Assessed REASON FOR VISIT Medication refill request PLAN OF CARE VITAL SIGNS MEDICATIONS Medication Instructions Dosage Frequency Start Date End Date Duration Status Seroquel XR 300 MG Orally Once a day 1 tablet in the evening 24h 30 day(s) Active RESULTS No Results PROCEDURES No Known procedures INSTRUCTIONS MEDICATIONS ADMINISTERED No Known Medications MEDICAL (GENERAL) HISTORY Type Description Date Medical History hypertension Medical History asthma Surgical History appendectomy Surgical History heart cath--[facility] 02/2013 Hospitalization History HTN , heart cath 02/2013
--- OUTSIDE RECORDS SUMMARY | 2018-04-21 02:29 | XMS REPORT ---
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 Name Role Phone ARIC, DAWJOHN Unavailable PROBLEMS Type Condition ICD9-CM Code GNI65-AJ Code Onset Dates Condition Status SNOMED Code Problem Schizoaffective disorder F25.9 Active 69351134 Problem Tobacco use Z72.0 Active 788018925 Problem Elevated cholesterol E78.0 Active 461082582 Problem Type 2 diabetes mellitus with other specified complication E11.69 Active 45664342 Problem Hyperlipidemia, unspecified E78.5 Active 27772919 Problem Schizoaffective disorder, unspecified type F25.9 Active 20359817 Problem Underweight R63.6 Active 329416503 Problem Left ventricular failure I50.1 Active 72099318 Problem Anxiety F41.9 Active 43817098 Problem Essential hypertension I10 Active 80364710 Problem Hearing loss, unspecified laterality H91.90 Active 50408554 Problem Major depressive disorder, recurrent episode, unspecified severity F33.9 Active 62888000 Problem History of alcoholism F10.21 Active 314332813 Problem Left ventricular hypertrophy I51.7 Active 63890180 Problem Mild intermittent asthma without complication J45.20 Active 787931664 ALLERGIES No Information ENCOUNTERS Encounter Location Date Diagnosis [facility] [id number] [address] Feb, [facility] [address] [address] Feb, [facility] [id number] [place] [address]6549- 4456 Jan, Schizoaffective disorder, unspecified type F25.9 [facility] [id number], [place] [address] Jan, Schizoaffective disorder, unspecified type F25.9 [facility] [id number] [place] [address] 97748- 7194 Jan, [facility] [id number] [place] [address] 980723- 7216 Dec, Type 2 diabetes mellitus with other specified complication E11.69 and Hyperlipidemia, unspecified E78.5 [facility] [id number] [place] [address] 06049- 4904 Dec, [facility] [id number] [place] [address] 37691- 2794 Dec, [facility] [id number] [place] [address] 26019- 7462 Nov, Type 2 diabetes mellitus with other specified complication E11.69 and Hyperlipidemia, unspecified E78.5 [facility] [id number] [place] [address] 76593- 4458 Nov, Type 2 diabetes mellitus with other specified complication E11.69 [facility] [id number] [place] [address] 29654- 8020 Nov, [facility] [id number] [place] [address] 27946- 4160 Nov, [facility] [id number] [place] [address] 81735- 1507 Nov, Schizoaffective disorder, unspecified type F25.9 ; Anxiety F41.9 and 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 [facility] [id number] [place] [address] 66342- 8385 Nov, [facility] [id number] [place] [address] 82871- 3671 Oct, [facility] [id number] [place] [address] 74354- 7505 Oct, [facility] [id number] [place] [address] 10309- 8911 Oct, Schizoaffective disorder, unspecified type F25.9 ; Anxiety F41.9 and 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 [place] [address] [address]- [address]95 Oct, Essential hypertension I10 ; Schizoaffective disorder F25.9 ; Left ventricular failure I50.1 ; Type 2 diabetes mellitus with other specified complication E11.69 and Hyperlipidemia, unspecified E78.5 [place] [address] [address]- 8439 Aug, Schizoaffective disorder F25.9 [place] [address] [address]- 5614 Aug, [place] [address] 39372- 1314 June, Medicare annual wellness visit, initial Z00.00 ; Type 2 diabetes mellitus with other specified complication E11.69 ; Major depressive disorder, recurrent episode, unspecified severity F33.9 ; Anxiety F41.9 ; Schizoaffective disorder F25.9 ; Hyperlipidemia, unspecified E78.5 ; Mild intermittent asthma without complication J45.20 and Encounter for immunization Z23 [place] [id number] [place] [address] 90922- 8102 Apr, Schizoaffective disorder F25.9 [place] [id number] [place] [address] 58826- 6082 Apr, Essential hypertension I10 ; Schizoaffective disorder F25.9 ; Left ventricular failure I50.1 and Type 2 diabetes mellitus with other specified complication E11.69 [place] [id number] [place] [address] 97990- 5565 Apr, Schizoaffective disorder F25.9 [address] [place] [address] Aug, [place] [address] 62[address]- 7654 Aug, [place] [address] [place] [address] Aug, [place] [address] [address]- [address]60 Jul, Type 2 diabetes mellitus without complication, without long- term current use of insulin E11.9 ; Essential hypertension I10 and Elevated cholesterol E78.0 [place] [address] [address]91- 8310 June, [place] [address] 59048- 5208 May, Schizoaffective disorder, unspecified type F25.9 ; Anxiety F41.9 and 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 [place] [address] 69668- 5127 Apr, Type 2 diabetes mellitus without complication, without long- term current use of insulin E11.9 [place] [address] 74480- 4926 Mar, [place] [address] 61044- 7616 Mar, [place] [address] [address]38- 7550 Mar, [place] [address] 63233- 1020 Mar, Essential hypertension I10 ; Elevated cholesterol E78.0 ; Prediabetes R73.09 ; Underweight R63.6 ; Type 2 diabetes mellitus without complication, without long-term current use of insulin E11.9 and Schizoaffective disorder F25.9 [place] [address] [address]- 6518 Jan, Schizoaffective disorder F25.9 and Essential hypertension I10 [place] [address] [address]- 2010 Jan, Bronchitis J40 [place] [address] [place] [address]49 Dec, Prediabetes R73.09 [facility] [id number] [place] [address] 32382- 5144 Oct, Abscess L02.91 [facility] [address] [place] [address] 292138- 4592 Oct, [facility] [address] [place] [address] 25540- 9920 June, Prediabetes R73.09 and Elevated cholesterol E78.0 [facility] [address] [place] [address] 516028- 4043 June, Schizoaffective disorder F25.9 ; Essential hypertension I10 ; Prediabetes R73.09 ; Elevated cholesterol E78.0 and Tobacco use Z72.0 [facility] [address] [place] [address] 02079- 8115 May, [facility] [id number] [place] [address] 26259- 7199 Apr, [facility] [address] [place] [address] 27134- 4508 Apr, [facility] [address] [place] [address] 87948- 9755 Apr, [facility] [address] [place] [address] 17716- 0373 08 Mar, 2015 [facility] [address] [place] [address] [id number] Feb, Dental examination Z01.20 [facility] [address] [place] [address] 211988- 3771 Jan, [facility] [address] [place] [address] 27941 2546 Jan, Abscess L02.91 [facility] [address] [place] [address] 10382- 1518 Jan, [facility] [address], [place] [address] 0717 Dec, [facility] [address] [place] [address] 35216- 7016 Dec, Abscess L02.91 [facility] [address] [place] [address] 45274- 7656 Nov, Elevated cholesterol E78.0 [facility] [address] [place] [address] 05649- 0733 Nov, [facility] [address] [place] [address] 35967- 3457 Nov, [facility] [address] [place] [address] 03401- 2607 Nov, Essential hypertension I10 ; Schizoaffective disorder F25.9 ; History of alcoholism F10.21 and Mild intermittent asthma without complication J45.20 [facility] [address], [place] [address]- 9466 Nov, [facility] [id number] [place] [address] 12868- 4425 Nov, [facility] [address], [place] [address]- [address] 14 May, 2014 [facility] [address] [place] [address] 71116- 3298 13 May, 2014 [facility] [address], [place] [address]- 7049 Apr, [facility] [address] [place] [address] 569434- 0574 Apr, [facility] [address] 1067 Mar, [facility] [address] [place] [address] 79790- 3895 Mar, [facility] [place] [facility] [address] [id number] [place] [address]- 2428 Mar, 2014 [facility] [place] [facility] [address] [id number] [place] [address]- 2476 Mar, 2014 [facility] [place] [facility] [address] [id number] [place] [address]- 3518 Mar, 2014 [facility] [place] [facility] [address] [id number] [place] [address]- 3824 Mar, 2014 [facility] [place] [facility] [address] [id number] [place] [address]- 6738 Jan, [facility] [place] [facility] [address] [id number] [place] [address]- 3183 Jan, [facility] [place] [facility] [address] [id number] [place] [address]- 2404 Jan, [facility] [place] [facility] [address] [id number] [place] [address]- 6407 Jan, [facility] [place] [facility] [address] [id number] [place] [address]- 1767 Nov, [facility] [place] [facility] [address] [id number] [place] [address]- 8172 Nov, [facility] [place] [facility] [address] [id number] [place] [address]- 3188 Oct, [facility] [place] [facility] [address] [id number] [place] [address]- 5308 Oct, [facility] [place] [facility] [address] [id number] [place] [address]- 5031 Sep, [facility] [place] [facility] [address] [id number] [place] [address]- 4860 Sep, [facility] [place] [facility] [address] [id number] [place] [address]- 1160 Sep, [facility] [place] [facility] [address] [id number], [place] [address]- 2525 Sep, [facility] [place] [facility] [address] [id number] [place] [address]- 5827 Sep, [facility] [place] [facility] [address] [id number] [place] [address]- 5277 Sep, [facility] [place] [facility] [address] [id number] [place] [address]- 8178 May, [facility] [place] [facility] [address] [id number] [place] [address]- 2227 May, [facility] [place] [facility] [address] [id number] [place] [address]- 1713 May, [facility] [place] [facility] [address] [id number] [place] [address]- 6879 May, [facility] [place] [facility] [address] [id number] [place] [address]- 7623 Apr, [facility] [place] [facility] [address] [id number] [place] [address]- 3154 Apr, [facility] [place] [facility] [address] [id number] [place] [address]- 7438 Apr, [facility] [place] [facility] [address] [facility] [id number] [place] [address]- 5047 Apr, [facility] [place] [facility] [address] [id number] [place] [address]- 7697 Apr, [facility] [place] [facility] [address] [id number] [place] [address]- 0043 Apr, [facility] [place] [facility] [address] [id number] [place] [address]- 1699 Apr, [facility] [place] [facility] [address] [facility] [id number] [place] [address]- 4582 Apr, [facility] [place] [facility] [address] [facility] [id number] [place] [address]- 4207 Mar, [facility] [place] [facility] [address] [facility] [id number], [place] [address]- 7176 Mar, [facility] [address] [facility] [id number], [place] [address]- 0296 Feb, [facility] [address] [facility] [id number], [place] [address]- 8136 Feb, [facility] [address] [facility] [id number], [place] [address]- 5459 Jan, [facility] [address] [facility] [id number], [place] [address]- 0703 Jan, IMMUNIZATIONS No Known Immunizations SOCIAL HISTORY Never Assessed REASON FOR VISIT med refill PLAN OF CARE VITAL SIGNS MEDICATIONS Medication Instructions Dosage Frequency Start Date End Date Duration Status Zoloft 50 mg Orally Once a day 1 tablet 24h 30 day(s) Active RESULTS No Results PROCEDURES No Known procedures INSTRUCTIONS MEDICATIONS ADMINISTERED No Known Medications MEDICAL (GENERAL) HISTORY Type Description Date Medical History hypertension Medical History asthma Surgical History appendectomy Surgical History heart cath--[facility] 02/2013 Hospitalization History HTN , heart cath 02/2013
--- OUTSIDE RECORDS SUMMARY | 2018-04-21 02:29 | XMS REPORT ---
Author Author MILLICENT JONES [facility] Address [address] [place] [address] Care Team Providers Care Order Make Up Clerk Name Role Phone MILLICENT JONES Unavailable PROBLEMS Type Condition ICD9-CM Code KOF29-LZ Code Onset Dates Condition Status SNOMED Code Problem Schizoaffective disorder F25.9 Active 67020575 Problem Tobacco use Z72.0 Active 840415869 Problem Elevated cholesterol E78.0 Active 461263180 Problem Type 2 diabetes mellitus with other specified complication E11.69 Active 48126569 Problem Hyperlipidemia, unspecified E78.5 Active 04725969 Problem Schizoaffective disorder, unspecified type F25.9 Active 59051194 Problem Underweight R63.6 Active 648371141 Problem Left ventricular failure I50.1 Active 00075630 Problem Anxiety F41.9 Active 67867654 Problem Essential hypertension I10 Active 56075062 Problem Hearing loss, unspecified laterality H91.90 Active 79518545 Problem Major depressive disorder, recurrent episode, unspecified severity F33.9 Active 59277124 Problem History of alcoholism F10.21 Active 305200801 Problem Left ventricular hypertrophy I51.7 Active 59723452 Problem Mild intermittent asthma without complication J45.20 Active 908954716 ALLERGIES No Information ENCOUNTERS Encounter Location Date Diagnosis [facility] [id number] [address] Feb, [facility] [id number] [place] [address]970- [address]244 Dec, Type 2 diabetes mellitus with other specified complication E11.69 and Hyperlipidemia, unspecified E78.5 [facility] [id number], [place] [address] Dec, [facility] [id number] [place] [address] 78740- 1952 Dec, [facility] [address], [place] [address] Nov, Type 2 diabetes mellitus with other specified complication E11.69 and Hyperlipidemia, unspecified E78.5 [facility] [id number] [place] [address] 63098- 9889 Nov, Type 2 diabetes mellitus with other specified complication E11.69 [facility] [id number] [place] [address] 18585- 9915 Nov, [facility] [id number] [place] [address] 04357- 8087 Nov, [facility] [id number] [place] [address] 88936- 0106 Nov, Schizoaffective disorder, unspecified type F25.9 ; Anxiety F41.9 and 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 [facility] [id number] [place] [address] 56410- 5291 Nov, [facility] [id number] [place] [address] 69752- 0168 Oct, [facility] [id number] [place] [address] 61853- 9429 Oct, [facility] [id number] [place] [address] 35158- 1254 Oct, Schizoaffective disorder, unspecified type F25.9 ; Anxiety F41.9 and 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 [facility] [id number] [place] [address] 85881- 7435 Oct, Essential hypertension I10 ; Schizoaffective disorder F25.9 ; Left ventricular failure I50.1 ; Type 2 diabetes mellitus with other specified complication E11.69 and Hyperlipidemia, unspecified E78.5 [facility] [address], [place] [address] Aug, Schizoaffective disorder F25.9 [facility] [id number] [place] [address] 84713- 7388 Aug, [place] [address] [address] June, Medicare annual wellness visit, initial Z00.00 ; Type 2 diabetes mellitus with other specified complication E11.69 ; Major depressive disorder, recurrent episode, unspecified severity F33.9 ; Anxiety F41.9 ; Schizoaffective disorder F25.9 ; Hyperlipidemia, unspecified E78.5 ; Mild intermittent asthma without complication J45.20 and Encounter for immunization Z23 [place] [address] [address]- 8[address] Apr, Schizoaffective disorder F25.9 [place] [address] [address]- 2750 Apr, Essential hypertension I10 ; Schizoaffective disorder F25.9 ; Left ventricular failure I50.1 and Type 2 diabetes mellitus with other specified complication E11.69 [place] [id number] [place] [address] 44739- 2406 Apr, Schizoaffective disorder F25.[address] [address] Aug, [place] [address] [address]- 6558 Aug, [facility] [place] [address] Aug, [place] [id number] [place] [address] 03748- 3990 Jul, Type 2 diabetes mellitus without complication, without long- term current use of insulin E11.9 ; Essential hypertension I10 and Elevated cholesterol E78.[address] [address]- [address] June, [place] [address] [address] May, Schizoaffective disorder, unspecified type F25.9 ; Anxiety F41.9 and 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 [place] [id number] [place] [address] 96467- 6570 Apr, Type 2 diabetes mellitus without complication, without long- term current use of insulin E11.9 [place] [id number] [place] [address] 39778- 3376 Mar, [place] [address] [address]- 7[address] Mar, [place] [address] [address]46[address] 8[address] Mar, [place] [address] [address] 5309 Mar, Essential hypertension I10 ; Elevated cholesterol E78.0 ; Prediabetes R73.09 ; Underweight R63.6 ; Type 2 diabetes mellitus without complication, without long-term current use of insulin E11.9 and Schizoaffective disorder F25.9 [place] [id number] [place] [address] 94804- 7700 Jan, Schizoaffective disorder F25.9 and Essential hypertension I10 [place] [address] [address] 8862 Jan, Bronchitis J40 [place] [address] 62312- 5488 Dec, Prediabetes R73.09 [place] [id number] [place] [address] 20068- 3003 Oct, Abscess L02.91 [place] [address] 96[address]- 4614 Oct, [place] [address] 31756- 9982 June, Prediabetes R73.09 and Elevated cholesterol E78.0 [place] [address] [place] [address] June, Schizoaffective disorder F25.9 ; Essential hypertension I10 ; Prediabetes R73.09 ; Elevated cholesterol E78.0 and Tobacco use Z72.0 [facility] [address], [place] [address] 74[address] May, [facility] [id number] [place] [address] 709388- 9525 Apr, [facility] [id number] [place] [address] 41278- 1985 Apr, [facility] [id number] [place] [address] 126488- 4392 Apr, [facility] [id number] [place] [address] 98713- 5494 Mar, [facility] [id number] [place] [address] [id number] Feb, Dental examination Z01.20 [facility] [id number] [place] [address] 52588- 7190 Jan, [facility] [id number] [place] [address] 69456- 0093 Jan, Abscess L02.91 [facility] [id number] [place] [address] 66153- 8246 Jan, [facility] [id number] [place] [address] 05211- 6682 Dec, [facility] [id number] [place] [address] 632865- 4291 Dec, Abscess L02.91 [facility] [id number] [place] [address] 253310- 5436 Nov, Elevated cholesterol E78.0 [facility] [address], [place] [address]- 6938 Nov, [facility] [id number], [place] [address]- 0912 Nov, [facility] [id number] [place] [address] 72251- 0298 Nov, Essential hypertension I10 ; Schizoaffective disorder F25.9 ; History of alcoholism F10.21 and Mild intermittent asthma without complication J45.20 [facility] [id number] [place] [address] 77152- 8639 Nov, [facility] [id number] [place] [address] 10237- 7718 Nov, [facility] [id number] [place] [address] 31746- 9011 May, [facility] [id number] [place] [address] 81244- 8509 May, [facility] [id number] [place] [address] 85808- 8535 Apr, [facility] [id number] [place] [address] 34732- 1738 Apr, [facility] [id number] [place] [address] 56392- 1883 Mar, [facility] [id number] [place] [address] 61280- 3613 Mar, [facility] [id number] [place] [address] 47255- 3187 Mar, [facility] [id number] [place] [address] 69592- 8843 Mar, [facility] [id number] [place] [address] 860949- 4509 Mar, [facility] [address] [address] Mar, [facility] [id number] [place] [address] 12642- 3822 Jan, [facility] [place] [facility] [address] [id number] [place] [address] Jan, [facility] [place] [facility] [address] [id number] [place] [address]- 2847 Jan, [facility] [place] [facility] [address] [id number] [place] [address]- 0664 Jan, [facility] [place] [facility] [address] [id number] [place] [address]- 6377 Nov, [facility] [place] [facility] [address] [id number] [place] 3070 Nov, [facility] [place] [facility] [address] [id number] [place] [address]- 6494 Oct, [facility] [place] [facility] [address] [id number] [place] [address]- 5098 Oct, [facility] [place] [facility] [address] [id number] [place] [address]- 4710 Sep, [facility] [place] [facility] [address] [id number] [place] [address]- 0283 Sep, [facility] [place] [facility] [address] [id number] [place] [address]- 8073 Sep, [facility] [place] [facility] [address] [id number], [place] [address]- 7527 Sep, [facility] [place] [facility] [address] [id number], [place] [address]- 1670 Sep, [facility] [place] [facility] [address] [id number] [place] [address]- 9547 Sep, [facility] [place] [facility] [address] [id number] [place] [address]- 0089 May, [facility] [place] [facility] [address] [id number] [place] [address]- 1462 May, [facility] [place] [facility] [address] [id number] [place] [address]- 9898 07 May, 2013 [facility] [address] [id number] [place] [address]- 6346 May, [facility] [address] [id number] [place] [address]- 2956 Apr, [facility] [address] [facility] [id number] [place] [address]- 7086 Apr, [facility] [address] [id number] [place] [address]- 3896 Apr, [facility] [address] [id number] [place] [address]- 5756 Apr, [facility] [address] [facility] [id number] [place] [address]- 4756 Apr, [facility] [address] [facility] [id number] [place] [address]- 7486 Apr, [facility] [address] [facility] [id number] [place] [address]- 8328 Apr, [facility] [address] [facility] [id number] [place] [address]- 6333 Apr, [facility] [address] [facility] [id number] [place] [address]- 4636 Mar, [facility] [address] [facility] [id number] [place] [address]- 9426 Mar, [facility] [address] [facility] [id number] [place] [address]- 7248 Feb, [facility] [address] [id number] [place] [address]- 3856 Feb, [facility] [address] [facility] [id number] [place] [address]- 3583 Jan, [facility] [address] [facility] [id number] [place] [address]- 8066 Jan, IMMUNIZATIONS No Known Immunizations SOCIAL HISTORY Never Assessed REASON FOR VISIT DM education PLAN OF CARE VITAL SIGNS MEDICATIONS Unknown Medications RESULTS No Results PROCEDURES Procedure Date Ordered Result Body Site [facility] VISIT ESTABLISHED PATIENT Dec 17, 2017 DM OP SLF-MGMT TRN SRVC ESTABLISHED PT 30 MIN Dec 17, 2017 INSTRUCTIONS MEDICATIONS ADMINISTERED No Known Medications MEDICAL (GENERAL) HISTORY Type Description Date Medical History hypertension Medical History asthma Surgical History appendectomy Surgical History heart cath--[facility] 02/2013 Hospitalization History HTN , heart cath 02/2013
--- OUTSIDE RECORDS SUMMARY | 2018-04-21 02:30 | XMS REPORT ---
Author Author WAYNE CATHY [facility] Address [address] [place] [address] Care Team Providers Care Extracorporeal Technician Name Role Phone WAYNEMONISHA KWONGHANY Unavailable PROBLEMS Type Condition ICD9-CM Code YYL50-IK Code Onset Dates Condition Status SNOMED Code Problem Schizoaffective disorder F25.9 Active 86373111 Problem Tobacco use Z72.0 Active 297534411 Problem Elevated cholesterol E78.0 Active 135169419 Problem Type 2 diabetes mellitus with other specified complication E11.69 Active 28263815 Problem Hyperlipidemia, unspecified E78.5 Active 29304866 Problem Schizoaffective disorder, unspecified type F25.9 Active 90217530 Problem Underweight R63.6 Active 863234223 Problem Left ventricular failure I50.1 Active 90734789 Problem Anxiety F41.9 Active 69696508 Problem Essential hypertension I10 Active 97911941 Problem Hearing loss, unspecified laterality H91.90 Active 03219227 Problem Major depressive disorder, recurrent episode, unspecified severity F33.9 Active 40029934 Problem History of alcoholism F10.21 Active 266609212 Problem Left ventricular hypertrophy I51.7 Active 49941906 Problem Mild intermittent asthma without complication J45.20 Active 999789590 ALLERGIES No Information ENCOUNTERS Encounter Location Date Diagnosis [facility] [id number] [address] Feb, [facility] [id number] [address] Dec, [facility] [id number] [place] [address]4527- 7645 Dec, [facility] [id number] [address] Nov, Type 2 diabetes mellitus with other specified complication E11.69 and Hyperlipidemia, unspecified E78.5 [facility] [id number] [place] [address] 58722- 5305 Nov, Type 2 diabetes mellitus with other specified complication E11.69 [facility] [id number] [place] [address] 48638- 8790 Nov, [facility] [id number] [place] [address] 60008- 5396 Nov, [facility] [id number] [place] [address] 48175- 3795 Nov, Schizoaffective disorder, unspecified type F25.9 ; Anxiety F41.9 and 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 [facility] [id number] [place] [address] 95075- 8894 Nov, [facility] [id number] [place] [address] 74255- 9402 Oct, [facility] [id number] [place] [address] 24989- 6220 Oct, [facility] [id number] [place] [address] 46876- 5626 Oct, Schizoaffective disorder, unspecified type F25.9 ; Anxiety F41.9 and 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 [facility] [id number] [place] [address] 85966- 6946 Oct, Essential hypertension I10 ; Schizoaffective disorder F25.9 ; Left ventricular failure I50.1 ; Type 2 diabetes mellitus with other specified complication E11.69 and Hyperlipidemia, unspecified E78.5 [facility] [id number] [place] [address] 25752- 1624 Aug, Schizoaffective disorder F25.9 [facility] [id number] [place] [address] 38507- 6701 Aug, [facility] [id number] [place] [address] 32441- 3376 June, Medicare annual wellness visit, initial Z00.00 ; Type 2 diabetes mellitus with other specified complication E11.69 ; Major depressive disorder, recurrent episode, unspecified severity F33.9 ; Anxiety F41.9 ; Schizoaffective disorder F25.9 ; Hyperlipidemia, unspecified E78.5 ; Mild intermittent asthma without complication J45.20 and Encounter for immunization Z23 [facility] [id number] [place] [address] 86826- 1204 Apr, Schizoaffective disorder F25.9 [facility] [address] [address]- 4187 Apr, Essential hypertension I10 ; Schizoaffective disorder F25.9 ; Left ventricular failure I50.1 and Type 2 diabetes mellitus with other specified complication E11.69 [facility] [address] [address]606- 1695 Apr, Schizoaffective disorder F25.9 [facility] [address] [place] [address] Aug, [facility] [address] 8[address]96- 0714 Aug, [facility] [address] [place] [address] Aug, [facility] [id number] [place] [address] 46368- 5489 Jul, Type 2 diabetes mellitus without complication, without long- term current use of insulin E11.9 ; Essential hypertension I10 and Elevated cholesterol E78.0 [facility] [id number] [place] [address] 47640- 1847 June, [facility] [address] [address]51- 0624 May, Schizoaffective disorder, unspecified type F25.9 ; Anxiety F41.9 and 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 [facility] [id number] [place] [address] 00026- 7820 Apr, Type 2 diabetes mellitus without complication, without long- term current use of insulin E11.9 [facility] [id number] [address] 0106 Mar, [facility] [id number] [place] [address] 44232- 8356 Mar, [facility] [id number] [place] [address] 39141- 5364 Mar, [facility] [id number] [place] [address] 52728- 6007 Mar, Essential hypertension I10 ; Elevated cholesterol E78.0 ; Prediabetes R73.09 ; Underweight R63.6 ; Type 2 diabetes mellitus without complication, without long-term current use of insulin E11.9 and Schizoaffective disorder F25.9 [facility] [id number] [place] [address] 58021- 0968 Jan, Schizoaffective disorder F25.9 and Essential hypertension I10 [facility] [id number] [place] [address] 79637- 2556 Jan, Bronchitis J40 [facility] [id number] [place] [address] 77013- 0695 Dec, Prediabetes R73.09 [facility] [id number] [place] [address] 11124- 0337 Oct, Abscess L02.91 [facility] [id number] [place] [address] 43304- 2815 Oct, [facility] [id number] [place] [address] 79349- 3737 June, Prediabetes R73.09 and Elevated cholesterol E78.0 [facility] [id number] [place] [address] 69118- 2404 June, Schizoaffective disorder F25.9 ; Essential hypertension I10 ; Prediabetes R73.09 ; Elevated cholesterol E78.0 and Tobacco use Z72.0 [facility] [id number] [address] 9[address] May, [facility] [id number] [place] [address] 863392- 3512 Apr, [facility] [id number] Apr, [facility] [id number] [place] [address] 450415- 9689 Apr, [facility] [id number] [place] [address] 09573- 6799 Mar, [facility] [id number] [place] [address] [id number] Feb, Dental examination Z01.20 [facility] [id number] [place] [address] 85678- 9619 Jan, [facility] [id number] [place] [address] 18727- 7831 Jan, Abscess L02.91 [facility] [id number] [place] [address] 10479- 9699 Jan, [facility] [id number] [place] [address] 75281- 7701 Dec, [facility] [id number] [place] [address] 74484- 1035 Dec, Abscess L02.91 [facility] [id number] [place] [address] 38511- 0525 Nov, Elevated cholesterol E78.0 [facility] [id number] [place] [address] 20315- 5514 Nov, [facility] [id number] [place] [address] 10789- 5669 Nov, [facility] [id number] [place] [address] 63299- 9372 Nov, Essential hypertension I10 ; Schizoaffective disorder F25.9 ; History of alcoholism F10.21 and Mild intermittent asthma without complication J45.20 [facility] [id number] [place] [address] 89493- 4646 08 Nov, 2014 [facility] [id number] [place] [address] 90982- 7254 08 Nov, 2014 [facility] [id number] [place] [address] 10790- 9858 14 May, 2014 [facility] [id number] [place] [address] 20495- 6999 May, [facility] [id number] [place] [address] 18228- 8414 Apr, [facility] [id number] [place] [address] 39461- 5963 Apr, [facility] [id number] [place] [address] 07337- 9886 Mar, [facility] [id number] [place] [address] 33954- 1155 Mar, [facility] [id number] [place] [address] 60444- 9085 Mar, [facility] [id number] [address]- 8592 Mar, [facility] [id number] [place] [address] 34821- 3518 Mar, [facility] [id number] 7[address] Mar, [facility] [id number] [place] [address] 522734- 9363 Jan, [facility] [id number] 6462 Jan, [facility] [id number] [place] [address]- 5787 Jan, [facility] [place] [facility] [address] [id number] [place] [address]- 7638 Jan, [facility] [place] [facility] [address] [id number] [place] [address]- 5636 Nov, [facility] [place] [facility] [address] [id number] [place] [address]- 8224 Nov, [facility] [place] [facility] [address] [id number] [place] [address]- 1210 Oct, [facility] [place] [facility] [address] [id number] [place] [address]- 6149 Oct, [facility] [place] [facility] [address] [id number] [place] [address]- 3362 Sep, [facility] [place] [facility] [address] [id number] [place] [address]- 5976 Sep, [facility] [place] [facility] [address] [id number] [place] [address]- 8083 Sep, [facility] [place] [facility] [address] [id number] [place] [address]- 8641 Sep, [facility] [place] [facility] [address] [id number] [place] [address]- 5090 Sep, [facility] [place] [facility] [address] [id number] [place] [address]- 0820 Sep, [facility] [place] [facility] [address] [id number] [place] [address]- 1437 May, [facility] [place] [facility] [address] [id number] [place] [address]- 5328 May, [facility] [place] [facility] [address] [id number] [place] [address]- 3252 May, [facility] [place] [facility] [address] [id number] [place] [address]- 2372 May, [facility] [id number] [address]- 3261 Apr, [facility] [address] [facility] [id number] 1207 Apr, [facility] [id number] 4776 Apr, [facility] [address] [address]- 7443 Apr, [facility] [address] [facility] [id number] [address]- 7723 Apr, [facility] [address] [facility] [id number] [address]- 5173 Apr, [facility] [address] 0789 Apr, [facility] [address] [address]- 4494 Apr, [facility] [id number] [address]- 1796 Mar, [facility] [id number] [address]- 3934 Mar, [facility] [id number] [address]- 3105 Feb, [facility] [id number] [address]- 3493 Feb, [facility] [id number] [address]- 5215 Jan, [facility] [id number] [address]- 5731 Jan, IMMUNIZATIONS No Known Immunizations SOCIAL HISTORY Never Assessed REASON FOR VISIT reminder call PLAN OF CARE VITAL SIGNS MEDICATIONS Unknown Medications RESULTS No Results PROCEDURES No Known procedures INSTRUCTIONS MEDICATIONS ADMINISTERED No Known Medications MEDICAL (GENERAL) HISTORY Type Description Date Medical History hypertension Medical History asthma Surgical History appendectomy Surgical History heart cath--[facility] 02/2013 Hospitalization History HTN , heart cath 02/2013
--- OUTSIDE RECORDS SUMMARY | 2018-04-21 02:30 | XMS REPORT ---
Author Author WAYNE CATHY [facility] Address [address] [place] [address] Care Team Providers Care Barn Operator Name Role Phone MONISHA BLACKHANY Unavailable PROBLEMS Type Condition ICD9-CM Code GUB52-TO Code Onset Dates Condition Status SNOMED Code Problem Schizoaffective disorder F25.9 Active 21224007 Problem Tobacco use Z72.0 Active 856046747 Problem Elevated cholesterol E78.0 Active 105370472 Problem Type 2 diabetes mellitus with other specified complication E11.69 Active 41629236 Problem Hyperlipidemia, unspecified E78.5 Active 14593686 Problem Schizoaffective disorder, unspecified type F25.9 Active 00207072 Problem Underweight R63.6 Active 943987682 Problem Left ventricular failure I50.1 Active 36279431 Problem Anxiety F41.9 Active 64573345 Problem Essential hypertension I10 Active 88152743 Problem Hearing loss, unspecified laterality H91.90 Active 25720137 Problem Major depressive disorder, recurrent episode, unspecified severity F33.9 Active 18839487 Problem History of alcoholism F10.21 Active 462317462 Problem Left ventricular hypertrophy I51.7 Active 64343426 Problem Mild intermittent asthma without complication J45.20 Active 161778989 ALLERGIES No Information ENCOUNTERS Encounter Location Date Diagnosis [facility] [id number] [address] Feb, [facility] [address] [address] Dec, Type 2 diabetes mellitus with other specified complication E11.69 and Hyperlipidemia, unspecified E78.5 [facility] [id number] [address] Dec, [facility] [address] [address] Dec, [facility] [address] [address] Nov, Type 2 diabetes mellitus with other specified complication E11.69 and Hyperlipidemia, unspecified E78.5 [facility] [id number] [place] [address] 58302- 6711 Nov, Type 2 diabetes mellitus with other specified complication E11.69 [facility] [id number] [place] [address] 05831- 7796 Nov, [facility] [id number] [place] [address] 27315- 8422 Nov, [facility] [id number] [place] [address] 31096- 2233 Nov, Schizoaffective disorder, unspecified type F25.9 ; Anxiety F41.9 and 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 [facility] [id number] [place] [address] 91528- 9669 Nov, [facility] [id number] [place] [address] 92449- 5481 Oct, [facility] [id number] [place] [address] 44509- 7710 Oct, [facility] [id number] [place] [address] 45546- 2730 Oct, Schizoaffective disorder, unspecified type F25.9 ; Anxiety F41.9 and 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 [facility] [id number] [place] [address] 82892- 8742 Oct, Essential hypertension I10 ; Schizoaffective disorder F25.9 ; Left ventricular failure I50.1 ; Type 2 diabetes mellitus with other specified complication E11.69 and Hyperlipidemia, unspecified E78.5 [facility] [id number] [place] [address] 25832- 4692 Aug, Schizoaffective disorder F25.9 [facility] [id number] [place] [address] 16097- 6521 Aug, [address] [address] [address]- [address] June, Medicare annual wellness visit, initial Z00.00 ; Type 2 diabetes mellitus with other specified complication E11.69 ; Major depressive disorder, recurrent episode, unspecified severity F33.9 ; Anxiety F41.9 ; Schizoaffective disorder F25.9 ; Hyperlipidemia, unspecified E78.5 ; Mild intermittent asthma without complication J45.20 and Encounter for immunization Z23 [place] [address] [address]22- 9453 Apr, Schizoaffective disorder F25.9 [place] [id number] [place] [address] 33139- 0189 Apr, Essential hypertension I10 ; Schizoaffective disorder F25.9 ; Left ventricular failure I50.1 and Type 2 diabetes mellitus with other specified complication E11.69 [place] [id number] [place] [address] 12251- 1114 Apr, Schizoaffective disorder F25.9 [facility] [place] [address] Aug, [place] [id number] [place] [address] 17671- 6714 Aug, [facility] [address] [place] [address] Aug, [place] [id number] [place] [address] 08571- 7097 Jul, Type 2 diabetes mellitus without complication, without long- term current use of insulin E11.9 ; Essential hypertension I10 and Elevated cholesterol E78.0 [place] [address] 27310- 6547 June, [place] [id number] [place] [address] 97289- 4338 May, Schizoaffective disorder, unspecified type F25.9 ; Anxiety F41.9 and 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 [place] [id number] [place] [address] 48972- 0839 Apr, Type 2 diabetes mellitus without complication, without long- term current use of insulin E11.9 [place] [address] 85625- 2927 Mar, [place] [address] 04879- 4179 Mar, [place] [address] 94747- 9904 Mar, [place] [address] 15144- 1517 Mar, Essential hypertension I10 ; Elevated cholesterol E78.0 ; Prediabetes R73.09 ; Underweight R63.6 ; Type 2 diabetes mellitus without complication, without long-term current use of insulin E11.9 and Schizoaffective disorder F25.9 [place] [address] 65875- 9739 Jan, Schizoaffective disorder F25.9 and Essential hypertension I10 [place] [address] 38112- 6322 Jan, Bronchitis J40 [place] [address] 86405- 1118 Dec, Prediabetes R73.09 [place] [address] 81465- 3163 Oct, Abscess L02.91 [place] [address] 70101- 0721 Oct, [place] [address] 87760- 1659 June, Prediabetes R73.09 and Elevated cholesterol E78.0 [place] [address] [place] [address] [address] June, Schizoaffective disorder F25.9 ; Essential hypertension I10 ; Prediabetes R73.09 ; Elevated cholesterol E78.0 and Tobacco use Z72.0 [facility] [id number] [address] 4[address] May, [facility] [id number] [place] [address] 09225- 3837 Apr, [facility] [id number] [place] [address] 09684- 0308 Apr, [facility] [id number] [place] [address] 34938- 2732 Apr, [facility] [id number] [place] [address] 02120- 1076 Mar, [facility] [id number] [place] [address] [id number] Feb, Dental examination Z01.20 [facility] [id number] [place] [address] 973117- 1433 Jan, [facility] [id number] [place] [address] 12079- 5192 Jan, Abscess L02.91 [facility] [id number] [place] [address] 97293- 3947 Jan, [facility] [id number] [place] [address] 56051- 7741 Dec, [facility] [id number] [place] [address] 95947- 5497 Dec, Abscess L02.91 [facility] [id number] [place] [address] 30263- 8046 Nov, Elevated cholesterol E78.0 [facility] [id number] [place] [address] 85729- 2024 Nov, [facility] [id number] [place] [address] 13880- 3831 Nov, [facility] [id number] [place] [address] 86616- 8142 Nov, Essential hypertension I10 ; Schizoaffective disorder F25.9 ; History of alcoholism F10.21 and Mild intermittent asthma without complication J45.20 [facility] [id number] [place] [address] 43817- 9053 Nov, [facility] [id number] [place] [address] 23442- 2665 Nov, [facility] [id number] [place] [address] 08299- 2307 May, [facility] [id number] [place] [address] 39544- 7649 May, [facility] [id number] [place] [address] 44118- 1741 Apr, [facility] [id number] [place] [address] 35658- 4433 Apr, [facility] [id number] [place] [address] 34478- 1113 Mar, [facility] [id number] [place] [address] 95437- 9305 Mar, [facility] [id number] [place] [address] 64402- 6480 Mar, [facility] [id number] [place] [address] 33815- 3491 Mar, [facility] [id number] [place] [address] 95911- 8932 Mar, [facility] [id number] [place] [address] 69071- 9362 Mar, [facility] [id number] [place] [address] 01247- 4213 Jan, [facility] [place] [facility] [address] [id number] [place] [address]- 6395 Jan, [facility] [place] [facility] [address] [id number] [place] [address]- 9838 Jan, [facility] [place] [facility] [address] [id number] [place] [address]- 2115 Jan, [facility] [place] [facility] [address] [id number] [place] [address]- 2271 Nov, [facility] [place] [facility] [address] [id number] [place] [address]157 Nov, [facility] [place] [facility] [address] [id number] [place] [address]- 9036 Oct, [facility] [place] [facility] [address] [id number] [place] [address]- 4561 Oct, [facility] [place] [facility] [address] [id number] [place] [address]- 8145 Sep, [facility] [place] [facility] [address] [id number] [place] [address]- 4241 Sep, [facility] [place] [facility] [address] [id number] [place] [address]- 9624 Sep, [facility] [place] [facility] [address] [id number] [place] [address]- 4167 Sep, [facility] [place] [facility] [address] [id number] [address]- 1982 Sep, [facility] [place] [facility] [address] [id number] [place] [address]- 5117 Sep, [facility] [place] [facility] [address] [id number] [place] [address]- 6764 May, [facility] [place] [facility] [address] [id number] [place] [address]- 5046 May, [facility] [place] [facility] [address] [id number] [place] [address]- 1836 07 May, 2013 [facility] [address] [id number] [place] [address]- 6156 May, [facility] [address] [id number] [place] [address]- 5056 Apr, [facility] [address] [id number] [place] [address]- 8356 Apr, [facility] [address] [id number] [place] [address]- 7900 Apr, [facility] [address] [id number] [place] [address]- 1376 Apr, [facility] [address] [id number] [place] [address]- 6956 Apr, [facility] [address] [id number] [place] [address]- 9266 Apr, [facility] [address] [id number] [place] [address]- 6375 Apr, [facility] [address] [id number] [place] [address]- 8454 Apr, [facility] [address] [id number] [place] [address]- 8424 Mar, [facility] [address] [id number] [place] [address]- 0306 Mar, [facility] [address] [id number] [place] [address]- 5426 Feb, [facility] [address] [id number] [place] [address]- 6946 Feb, [facility] [address] [id number] [place] [address]- 7026 Jan, [facility] [address] [id number] [place] [address]- 3816 Jan, IMMUNIZATIONS No Known Immunizations SOCIAL HISTORY Never Assessed REASON FOR VISIT Lab (walk-in) PLAN OF CARE Activity Details Pending Test LIPID PANEL Pending Test CMP Pending Test CBC Pending Test TSH Future/Pending Procedure ROUTINE VENIPUNCTURE VITAL SIGNS MEDICATIONS Unknown Medications RESULTS No Results PROCEDURES Procedure Date Ordered Result Body Site [facility] Jan 11, 2018 VENIPUNCT, ROUTINE* Jan 11, 2018 INSTRUCTIONS MEDICATIONS ADMINISTERED No Known Medications MEDICAL (GENERAL) HISTORY Type Description Date Medical History hypertension Medical History asthma Surgical History appendectomy Surgical History heart cath--[facility] 02/2013 Hospitalization History HTN , heart cath 02/2013
--- OUTSIDE RECORDS SUMMARY | 2018-04-21 02:30 | XMS REPORT ---
Author Author WAYNE CATHY [facility] Address [address] [place] [address] Care Team Providers Care Screener Perfumer Name Role Phone MONISHA BLACKHANY Unavailable PROBLEMS Type Condition ICD9-CM Code KDY71-HQ Code Onset Dates Condition Status SNOMED Code Problem Schizoaffective disorder F25.9 Active 60439750 Problem Tobacco use Z72.0 Active 358689511 Problem Elevated cholesterol E78.0 Active 821740122 Problem Type 2 diabetes mellitus with other specified complication E11.69 Active 65315652 Problem Hyperlipidemia, unspecified E78.5 Active 41417095 Problem Schizoaffective disorder, unspecified type F25.9 Active 59066386 Problem Underweight R63.6 Active 191820626 Problem Left ventricular failure I50.1 Active 58333908 Problem Anxiety F41.9 Active 46058826 Problem Essential hypertension I10 Active 19434433 Problem Hearing loss, unspecified laterality H91.90 Active 76509949 Problem Major depressive disorder, recurrent episode, unspecified severity F33.9 Active 24855948 Problem History of alcoholism F10.21 Active 268253397 Problem Left ventricular hypertrophy I51.7 Active 66757008 Problem Mild intermittent asthma without complication J45.20 Active 309281166 ALLERGIES No Information ENCOUNTERS Encounter Location Date Diagnosis [facility] [id number] [address] Feb, [facility] [id number], [place] [address] Dec, [place] [id number] [place] [address]- [address] Nov, Type 2 diabetes mellitus with other specified complication E11.69 and Hyperlipidemia, unspecified E78.5 [facility] [id number], [place] [address] Nov, [facility] [address] [address] Nov, [facility] [id number] [place] [address] 06288- 0192 Nov, [facility] [id number] [place] [address]35- 4862 Nov, Schizoaffective disorder, unspecified type F25.9 ; Anxiety F41.9 and 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 [facility] [address], [place] [address] Nov, [facility] [id number] [place] [address] 26145- 7223 Oct, [facility] [id number] [place] [address] 87601- 2507 Oct, [facility] [id number] [place] [address] 12763- 1210 Oct, Schizoaffective disorder, unspecified type F25.9 ; Anxiety F41.9 and 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 [facility] [id number] [place] [address] 79096- 7302 Oct, Essential hypertension I10 ; Schizoaffective disorder F25.9 ; Left ventricular failure I50.1 ; Type 2 diabetes mellitus with other specified complication E11.69 and Hyperlipidemia, unspecified E78.5 [facility] [id number] [place] [address] 16693- 9852 Aug, Schizoaffective disorder F25.9 [facility] [id number] [place] [address] 87361- 8513 Aug, [facility] [id number] [place] [address] 28796- 0865 June, Medicare annual wellness visit, initial Z00.00 ; Type 2 diabetes mellitus with other specified complication E11.69 ; Major depressive disorder, recurrent episode, unspecified severity F33.9 ; Anxiety F41.9 ; Schizoaffective disorder F25.9 ; Hyperlipidemia, unspecified E78.5 ; Mild intermittent asthma without complication J45.20 and Encounter for immunization Z23 [place] [address] [address]- [address] Apr, Schizoaffective disorder F25.9 [place] [address] [address]- 1202 Apr, Essential hypertension I10 ; Schizoaffective disorder F25.9 ; Left ventricular failure I50.1 and Type 2 diabetes mellitus with other specified complication E11.69 [place] [address] [address]- [address]13 Apr, Schizoaffective disorder F25.9 [place] [address] [place] [address] Aug, [place] [address] [address]- [address] Aug, [place] [address] [place] [address] Aug, [place] [address] [address]- [address] Jul, Type 2 diabetes mellitus without complication, without long- term current use of insulin E11.9 ; Essential hypertension I10 and Elevated cholesterol E78.0 [place] [address] [address]- 9037 June, [place] [address] [address]- [address]145 May, Schizoaffective disorder, unspecified type F25.9 ; Anxiety F41.9 and 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 [place] [address] [address]- 7997 Apr, Type 2 diabetes mellitus without complication, without long- term current use of insulin E11.9 [place] [address] [address]- 4[address] Mar, [place] [id number] [place] [address] 88059- 6938 Mar, [place] [id number] [place] [address] 60571- 6369 Mar, [place] [id number] [place] [address] 71033- 5311 Mar, Essential hypertension I10 ; Elevated cholesterol E78.0 ; Prediabetes R73.09 ; Underweight R63.6 ; Type 2 diabetes mellitus without complication, without long-term current use of insulin E11.9 and Schizoaffective disorder F25.9 [place] [id number] [place] [address]37- 2688 Jan, Schizoaffective disorder F25.9 and Essential hypertension I10 [place] [id number] [place] [address] 75208- 0098 Jan, Bronchitis J40 [place] [address] 82789- 9933 Dec, Prediabetes R73.09 [place] [id number] [place] [address] 60635- 6189 Oct, Abscess L02.91 [place] [id number] [place] [address] 84227- 2149 Oct, [place] [id number] [place] [address] 92677- 8201 June, Prediabetes R73.09 and Elevated cholesterol E78.0 [place] [id number] [place] [address] 41491- 6080 June, Schizoaffective disorder F25.9 ; Essential hypertension I10 ; Prediabetes R73.09 ; Elevated cholesterol E78.0 and Tobacco use Z72.0 [place] [id number] [place] [address] 18543- 7432 May, [place] [address] [address] Apr, [facility] [id number] [place] [address] 56851- 4412 Apr, [facility] [id number] [place] [address] 875564- 4559 Apr, [facility] [id number] [place] [address] 20191- 7889 Mar, [facility] [id number] [place] [address] [id number] Feb, Dental examination Z01.20 [facility] [id number] [place] [address] 290060- 6079 Jan, [facility] [id number] [place] [address] 35811- 5107 Jan, Abscess L02.91 [facility] [id number] [place] [address] 25985- 0039 Jan, [facility] [id number] [place] [address] 83434- 6340 Dec, [facility] [id number] [place] [address] 69590- 9214 Dec, Abscess L02.91 [facility] [id number] [place] [address] 35160- 1791 Nov, Elevated cholesterol E78.0 [facility] [id number] [place] [address] 81975- 2005 Nov, [facility] [id number] [place] [address] 43425- 1971 Nov, [facility] [id number] [place] [address] 30313- 9075 Nov, Essential hypertension I10 ; Schizoaffective disorder F25.9 ; History of alcoholism F10.21 and Mild intermittent asthma without complication J45.20 [facility] [id number] [place] [address]- 1746 08 Nov, 2014 [facility] [place] [facility] [address] [id number] [place] [address]- 9590 08 Nov, 2014 [facility] [place] [facility] [address] [id number] [place] [address]- 9808 14 May, 2014 [facility] [place] [facility] [address] [id number] [place] [address]- 6306 May, [facility] [place] [facility] [address] [id number] [place] [address]- 3681 Apr, [facility] [place] [facility] [address] [id number] [place] [address]- 9627 Apr, [facility] [place] [facility] [address] [facility] [id number] [place] [address]- 6794 Mar, 2014 [facility] [place] [facility] [address] [facility] [id number] [place] [address]- 3926 Mar, 2014 [facility] [place] [facility] [address] [facility] [id number] [place] [address]- 6992 Mar, 2014 [facility] [place] [facility] [address] [facility] [id number] [place] [address]- 3158 Mar, 2014 [facility] [place] [facility] [address] [facility] [id number] [place] [address]- 2122 Mar, 2014 [facility] [place] [facility] [address] [facility] [id number] [place] [address]- 0656 Mar, 2014 [facility] [place] [facility] [address] [facility] [id number] [place] 1992 Jan, [facility] [place] [facility] [address] [id number] [place] [address]- 0537 Jan, [facility] [place] [facility] [address] [facility] [id number] [place] [address]- 4230 Jan, [facility] [place] [facility] [address] [facility] [id number] [place] [address]- 9616 Jan, [facility] [place] [facility] [address] [id number] [place] [address]- 7857 Nov, [facility] [place] [facility] [address] [id number] [place] [address] Nov, [facility] [place] [facility] [address] [id number] [place] [address]- 0774 Oct, [facility] [place] [facility] [address] [id number] [place] [address]- 4631 Oct, [facility] [place] [facility] [address] [id number] [place] [address]- 0911 Sep, [facility] [place] [facility] [address] [id number] [place] [address]- 9079 Sep, [facility] [place] [facility] [address] [id number] [place] [address]- 8903 Sep, [facility] [place] [facility] [address] [id number] [place] [address]- 0690 Sep, [facility] [place] [facility] [address] [id number] [place] [address]- 7385 Sep, [facility] [place] [facility] [address] [id number] [place] [address]- 6655 Sep, [facility] [place] [facility] [address] [id number] [place] [address]- 8919 May, [facility] [place] [facility] [address] [id number] [place] [address]- 3003 May, [facility] [place] [facility] [address] [id number] [place] [address]- 6076 May, [facility] [place] [facility] [address] [id number] [place] [address]- 6702 May, [facility] [place] [facility] [address] [id number] [place] [address]- 4582 Apr, [facility] [place] [facility] [address], [place] [address]- 4476 Apr, [facility] [id number], [place] [address]- 5072 Apr, [facility] [address] [facility] [id number], [place] [address]- 8928 Apr, [facility] [address], [place] [address]- 3522 Apr, [facility] [address] [facility] [id number], [place] [address]- 1356 Apr, [facility] [address], [place] [address]- 5430 Apr, [facility] [address], [place] [address]- 7526 Apr, [facility] [address], [place] [address]- 3703 Mar, [facility] [address], [place] [address]- 9601 Mar, [facility] [address], [place] [address]- 3699 Feb, [facility] [id number], [place] [address]- 3066 Feb, [facility] [id number], [place] [address]- 4775 Jan, [facility] [id number], [place] [address]- 9051 Jan, IMMUNIZATIONS No Known Immunizations SOCIAL HISTORY Never Assessed REASON FOR VISIT 1 wk f/u DM Ed PLAN OF CARE VITAL SIGNS MEDICATIONS Unknown Medications RESULTS No Results PROCEDURES No Known procedures INSTRUCTIONS MEDICATIONS ADMINISTERED No Known Medications MEDICAL (GENERAL) HISTORY Type Description Date Medical History hypertension Medical History asthma Surgical History appendectomy Surgical History heart cath--[facility] 02/2013 Hospitalization History HTN , heart cath 02/2013
--- OUTSIDE RECORDS SUMMARY | 2018-04-21 02:31 | XMS REPORT ---
Author Author TRISTAN CORBETT [facility] [address] Address [address] [place] [address] Care Team Providers Care Cracking Still Operator Name Role Phone TRISTAN CORBETT Unavailable PROBLEMS Type Condition ICD9-CM Code VVL70-TP Code Onset Dates Condition Status SNOMED Code Problem Schizoaffective disorder F25.9 Active 24757195 Problem Tobacco use Z72.0 Active 300560010 Problem Elevated cholesterol E78.0 Active 784569931 Problem Type 2 diabetes mellitus with other specified complication E11.69 Active 06159055 Problem Hyperlipidemia, unspecified E78.5 Active 41277531 Problem Schizoaffective disorder, unspecified type F25.9 Active 33063719 Problem Underweight R63.6 Active 128998400 Problem Left ventricular failure I50.1 Active 37322070 Problem Anxiety F41.9 Active 93797716 Problem Essential hypertension I10 Active 60447897 Problem Hearing loss, unspecified laterality H91.90 Active 25463202 Problem Major depressive disorder, recurrent episode, unspecified severity F33.9 Active 03741145 Problem History of alcoholism F10.21 Active 859119450 Problem Left ventricular hypertrophy I51.7 Active 69190705 Problem Mild intermittent asthma without complication J45.20 Active 071169067 ALLERGIES No Information ENCOUNTERS Encounter Location Date Diagnosis [facility] [id number] [address] Nov, [facility] [address] [address] Nov, [facility] [address] [address] Oct, [facility] [id number] [address] Oct, [facility] [id number] [place] [address] Oct, Schizoaffective disorder, unspecified type F25.9 ; Anxiety F41.9 and 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 [address] [id number] [place] [address] 59[address] Oct, Essential hypertension I10 ; Schizoaffective disorder F25.9 ; Left ventricular failure I50.1 ; Type 2 diabetes mellitus with other specified complication E11.69 and Hyperlipidemia, unspecified E78.5 [place] [address] [address] Aug, Schizoaffective disorder F25.9 [place] [address] [address] Aug, [place] [address] [address] June, Medicare annual wellness visit, initial Z00.00 ; Type 2 diabetes mellitus with other specified complication E11.69 ; Major depressive disorder, recurrent episode, unspecified severity F33.9 ; Anxiety F41.9 ; Schizoaffective disorder F25.9 ; Hyperlipidemia, unspecified E78.5 ; Mild intermittent asthma without complication J45.20 and Encounter for immunization Z23 [place] [id number] [place] [address]- [address] Apr, Schizoaffective disorder F25.9 [place] [id number] [place] [address]87- 1396 Apr, Essential hypertension I10 ; Schizoaffective disorder F25.9 ; Left ventricular failure I50.1 and Type 2 diabetes mellitus with other specified complication E11.69 [address] [address] Apr, Schizoaffective disorder F25.9 [address] [place] [address] Aug, [place] [address] [address] Aug, [address] [place] [address] Aug, [place] [address] [address] Jul, Type 2 diabetes mellitus without complication, without long- term current use of insulin E11.9 ; Essential hypertension I10 and Elevated cholesterol E78.0 [place] [address] [address] June, [place] [address] [address] May, Schizoaffective disorder, unspecified type F25.9 ; Anxiety F41.9 and 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 [place] [address] [address] Apr, Type 2 diabetes mellitus without complication, without long- term current use of insulin E11.9 [place] [id number] [place] [address]- 9[address] Mar, [place] [address] [address] Mar, [place] [id number] [place] [address] 240[address] Mar, [place] [id number] [place] [address] Mar, Essential hypertension I10 ; Elevated cholesterol E78.0 ; Prediabetes R73.09 ; Underweight R63.6 ; Type 2 diabetes mellitus without complication, without long-term current use of insulin E11.9 and Schizoaffective disorder F25.9 [place] [id number] [place] [address]- 6[address] Jan, Schizoaffective disorder F25.9 and Essential hypertension I10 [place] [id number] [place] [address] Jan, Bronchitis J40 [facility] [address] [address] Dec, Prediabetes R73.09 [facility] [id number] [place] [address]76- 5760 Oct, Abscess L02.91 [facility] [id number] [place] [address]- 7547 Oct, [facility] [id number] [place] [address] 66[address]- [address] June, Prediabetes R73.09 and Elevated cholesterol E78.0 [facility] [id number] [place] [address] 82337- 2[address] June, Schizoaffective disorder F25.9 ; Essential hypertension I10 ; Prediabetes R73.09 ; Elevated cholesterol E78.0 and Tobacco use Z72.0 [facility] [id number] [place] [address] 14097- 4889 May, [facility] [id number] [place] [address] 32684- 1327 Apr, [facility] [id number] [place] [address] 67651- 2[address] Apr, [facility] [address] [place] [address] 13165- 9652 Apr, [facility] [address] [place] [address] 92967- 65[address] Mar, [facility] [address] [place] [id number] Feb, Dental examination Z01.20 [facility] [id number] [place] [address] 34712- 0[address] Jan, [facility] [address] [place] [address] 82166- 0921 Jan, Abscess L02.91 [facility] [id number] [place] [address] 42093- 5981 Jan, [facility] [id number] [place] [address] 54687- 9616 Dec, [facility] [id number] [place] [address] 50744- 4392 Dec, Abscess L02.91 [facility] [address] [address]- [address] Nov, Elevated cholesterol E78.0 [facility] [address] 21543- [address] Nov, [facility] [address] [address]- 8[address] Nov, [facility] [id number] [place] [address] 54523- 1875 Nov, Essential hypertension I10 ; Schizoaffective disorder F25.9 ; History of alcoholism F10.21 and Mild intermittent asthma without complication J45.20 [facility] [id number] [place] [address] 34621- 2806 Nov, [facility] [id number] [place] [address] 30752- 2554 Nov, [facility] [id number] [place] [address] 45339- 3670 14 May, 2014 [facility] [id number] [place] [address] 70751- 0503 13 May, 2014 [facility] [id number] [place] [address] 88480- 5841 Apr, [facility] [address] [address]- [address] Apr, [facility] [id number] [place] [address] 80659- 8819 Mar, [facility] [address] [address]- [address]30 Mar, 2014 [facility] [place] [facility] [address] [id number] [place] [address]- [address] Mar, 2014 [facility] [place] [facility] [address] [id number] [place] [address]- 2573 Mar, 2014 [facility] [place] [facility] [address] [facility] [id number] [place] [address]- 0[address] Mar, 2014 [facility] [place] [facility] [address] [facility] [id number] [place] [address]- 8276 Mar, 2014 [facility] [place] [facility] [address] [facility] [id number] [place] [address]- 7523 Jan, [facility] [place] [facility] [address] [facility] [id number] [place] [address]- 1657 Jan, [facility] [place] [facility] [address] [facility] [id number] [place] [address]- 7168 Jan, [facility] [place] [facility] [address] [facility] [id number] [place] [address]- 2543 Jan, [facility] [place] [facility] [address] [facility] [id number] [place] [address]- 5810 Nov, [facility] [place] [facility] [address] [facility] [id number] [place] [address]- 4517 Nov, [facility] [place] [facility] [address] [facility] [id number] [address]- 8[address] Oct, [facility] [place] [facility] [address] [facility] [id number] [address]- 9937 Oct, [facility] [place] [facility] [address] [facility] [id number] [place] [address]- 3123 Sep, [facility] [place] [facility] [address] [facility] [id number] [place] [address]- 4444 Sep, [facility] [place] [facility] [address] [facility] [id number] [address]- 4460 Sep, [facility] [place] [facility] [address] [id number] [place] [address]- 0235 Sep, [facility] [place] [facility] [address] [id number] [place] [address]- 3866 Sep, [facility] [place] [facility] [address] [id number] [place] [address]- 8096 Sep, [facility] [place] [facility] [address] [id number] [place] [address]- 4656 May, [facility] [place] [facility] [address] [id number] [place] [address]- 9929 May, [facility] [place] [facility] [address] [id number] [place] [address]- 7292 May, [facility] [place] [facility] [address] [id number] [place] [address]- 1038 May, [facility] [place] [facility] [address] [id number] [place] [address]- 4779 Apr, [facility] [place] [facility] [address] [id number] [place] [address]- 5322 Apr, [facility] [place] [facility] [address] [id number] [place] [address]- 4409 Apr, [facility] [place] [facility] [address] [id number] [place] [address]- 4890 Apr, [facility] [place] [facility] [address] [id number] [place] [address]- 7949 Apr, [facility] [place] [facility] [address] [id number] [place] [address]- 4918 Apr, [facility] [place] [facility] [address] [id number] [place] [address]- 5286 Apr, [facility] [place] [facility] [address] [id number] [place] [address]- 5876 Apr, [facility] [place] [facility] [address] [id number] [place] [address]- 2772 Mar, [facility] [address] [facility] [id number] [place] [address]- 7984 Mar, [facility] [address] [facility] [id number] [address]- 6846 Feb, [facility] [address] [facility] [id number] [address]- 1494 Feb, [facility] [address] [facility] [id number] [address]- 7196 Jan, [facility] [address] [facility] [id number] [address]- 3185 Jan, IMMUNIZATIONS No Known Immunizations SOCIAL HISTORY Never Assessed REASON FOR VISIT BH f/u-AB/GORDY PLAN OF CARE Activity Details Follow Up 4 Weeks Reason: VITAL SIGNS Height 65 in 2017-11-09 Weight 94 lbs 2017-11-09 Heart Rate 63 bpm 2017-11-09 Respiratory Rate 20 2017-11-09 BMI 15.64 kg/m2 2017-11-09 Blood pressure systolic 124 mmHg 2017-11-09 Blood pressure diastolic 90 mmHg 2017-11-09 MEDICATIONS Medication Instructions Dosage Frequency Start Date End Date Duration Status Entresto 49-51 MG Orally Twice a day 1 tablet 12h Active Seroquel XR 300 MG Orally Once a day 1 tablet in the evening 24h Oct, 30 day(s) Active Atorvastatin Calcium 20 mg Orally Once a day 1 tablet 24h June, Active Seroquel 100 mg Orally 2 times a day 1 tablet 12h Apr, 90 days Active Ventolin HFA 108 (90 Base) MCG/ACT Inhalation every 4 hrs prn 1-2 puffs as needed Oct, Active Metoprolol Succinate ER 50 mg Orally Once a day 1 tablet 24h Oct, 90 days Active Zoloft 50 mg Orally Once a day 1 tablet 24h Oct, 30 day(s) Active RESULTS No Results PROCEDURES Procedure Date Ordered Result Body Site [facility] VISIT ESTABLISHED PATIENT Nov 09, 2017 INSTRUCTIONS MEDICATIONS ADMINISTERED No Known Medications MEDICAL (GENERAL) HISTORY Type Description Date Medical History hypertension Medical History asthma Surgical History appendectomy Surgical History heart cath--[facility] 02/2013 Hospitalization History HTN , heart cath 02/2013
--- OUTSIDE RECORDS SUMMARY | 2018-04-21 02:31 | XMS REPORT ---
Author Author WAYNE CATHY [facility] Address [address] [place] [address] Care Team Providers Care Waste Reclaimer Name Role Phone MONISHA BLACKHANY Unavailable PROBLEMS Type Condition ICD9-CM Code VAS69-ZQ Code Onset Dates Condition Status SNOMED Code Problem Schizoaffective disorder F25.9 Active 32121550 Problem Tobacco use Z72.0 Active 027405406 Problem Elevated cholesterol E78.0 Active 429006272 Problem Type 2 diabetes mellitus with other specified complication E11.69 Active 75538734 Problem Hyperlipidemia, unspecified E78.5 Active 93662302 Problem Schizoaffective disorder, unspecified type F25.9 Active 38464879 Problem Underweight R63.6 Active 791900849 Problem Left ventricular failure I50.1 Active 49806228 Problem Anxiety F41.9 Active 02328350 Problem Essential hypertension I10 Active 82516541 Problem Hearing loss, unspecified laterality H91.90 Active 26655459 Problem Major depressive disorder, recurrent episode, unspecified severity F33.9 Active 68928984 Problem History of alcoholism F10.21 Active 929885366 Problem Left ventricular hypertrophy I51.7 Active 52359813 Problem Mild intermittent asthma without complication J45.20 Active 507604519 ALLERGIES No Information ENCOUNTERS Encounter Location Date Diagnosis [facility] [id number] [address] Feb, [facility] [id number] [place] [address]- [address]16 Nov, Type 2 diabetes mellitus with other specified complication E11.69 and Hyperlipidemia, unspecified E78.5 [facility] [id number], [place] [address] Nov, [facility] [id number] [place] [address]103- 1391 Nov, [place] [address], [place] [address] Nov, [facility] [id number] [place] [address] 86293- 9449 Nov, Schizoaffective disorder, unspecified type F25.9 ; Anxiety F41.9 and 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 [place] [id number] [place] [address] 04922- 8646 Nov, [place] [id number] [place] [address] 82895- 1665 Oct, [place] [id number] [place] [address] 55101- 0083 Oct, [place] [id number] [place] [address] 10672- 8464 Oct, Schizoaffective disorder, unspecified type F25.9 ; Anxiety F41.9 and 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 [place] [address], [place] [address] Oct, Essential hypertension I10 ; Schizoaffective disorder F25.9 ; Left ventricular failure I50.1 ; Type 2 diabetes mellitus with other specified complication E11.69 and Hyperlipidemia, unspecified E78.5 [place] [address], [place] [address] Aug, Schizoaffective disorder F25.9 [place] [address], [place] [address] Aug, [place] [id number] [place] [address] 60108- 7628 June, Medicare annual wellness visit, initial Z00.00 ; Type 2 diabetes mellitus with other specified complication E11.69 ; Major depressive disorder, recurrent episode, unspecified severity F33.9 ; Anxiety F41.9 ; Schizoaffective disorder F25.9 ; Hyperlipidemia, unspecified E78.5 ; Mild intermittent asthma without complication J45.20 and Encounter for immunization Z23 [place] [address] [address] Apr, Schizoaffective disorder F25.9 [place] [address] [address]- [address] Apr, Essential hypertension I10 ; Schizoaffective disorder F25.9 ; Left ventricular failure I50.1 and Type 2 diabetes mellitus with other specified complication E11.69 [place] [address] [address] Apr, Schizoaffective disorder F25.[address] [address] Aug, [place] [address] [address] Aug, [facility] [address] [place] [address] Aug, [address] [address] Jul, Type 2 diabetes mellitus without complication, without long- term current use of insulin E11.9 ; Essential hypertension I10 and Elevated cholesterol E78.0 [address] [id number] [place] [address] 19894- 93[address] June, [address] [address] May, Schizoaffective disorder, unspecified type F25.9 ; Anxiety F41.9 and 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 [place] [id number] [place] [address] 40635- 2242 Apr, Type 2 diabetes mellitus without complication, without long- term current use of insulin E11.9 [place] [id number] [place] [address] 39868- 4660 Mar, [address] [address] Mar, [place] [id number] [place] [address] 55792- 5400 Mar, [place] [id number] [place] [address] 34019- 6770 Mar, Essential hypertension I10 ; Elevated cholesterol E78.0 ; Prediabetes R73.09 ; Underweight R63.6 ; Type 2 diabetes mellitus without complication, without long-term current use of insulin E11.9 and Schizoaffective disorder F25.9 [place] [id number] [place] [address]- 6218 Jan, Schizoaffective disorder F25.9 and Essential hypertension I10 [place] [id number] [place] [address] 92728- 8510 Jan, Bronchitis J40 [place] [address] [address] Dec, Prediabetes R73.09 [place] [id number] [place] [address] 22450- 6798 Oct, Abscess L02.91 [place] [address] [address]- 47[address] Oct, [place] [id number] [place] [address] 49900- 0596 June, Prediabetes R73.09 and Elevated cholesterol E78.0 [place] [id number] [place] [address] 93379- 6239 June, Schizoaffective disorder F25.9 ; Essential hypertension I10 ; Prediabetes R73.09 ; Elevated cholesterol E78.0 and Tobacco use Z72.0 [place] [id number] [place] [address] 17847- 6667 May, [place] [id number] [place] [address] 81558- 1808 Apr, [place] [address] [address] [address] Apr, [facility] [id number] [place] [address] 24392- 8062 Apr, [facility] [id number] [place] [address] 74047- 9972 Mar, [facility] [id number] [place] [id number] Feb, Dental examination Z01.20 [facility] [id number] [place] [address] 85822- 3737 Jan, [facility] [address] [address]- 8065 Jan, Abscess L02.91 [facility] [id number] [place] [address] 64340- 9666 Jan, [facility] [id number] [place] [address] 24271- 9721 Dec, [facility] [id number] [place] [address] 99913- 5988 Dec, Abscess L02.91 [facility] [id number] [place] [address] 76511- 3978 Nov, Elevated cholesterol E78.0 [facility] [id number] [place] [address] 82654- 6751 Nov, [facility] [id number] [place] [address] 12030- 8886 Nov, [facility] [id number] [place] [address] 93526- 1899 Nov, Essential hypertension I10 ; Schizoaffective disorder F25.9 ; History of alcoholism F10.21 and Mild intermittent asthma without complication J45.20 [facility] [id number] [place] [address] 58403- 7879 Nov, [facility] [id number] [place] [address]- [address]110 08 Nov, 2014 [facility] [place] [facility] [address] [id number] [place] [address]- 6895 14 May, 2014 [facility] [place] [facility] [address] [id number] [place] [address]- 8327 13 May, 2014 [facility] [place] [facility] [address] [id number] [place] [address]- 3085 Apr, [facility] [place] [facility] [address] [id number] [place] [address]- 3981 Apr, [facility] [place] [facility] [address] [id number] [place] [address]- 0343 Mar, 2014 [facility] [place] [facility] [address] [facility] [id number] [place] [address]- 7477 Mar, 2014 [facility] [place] [facility] [address] [facility] [id number] [place] [address]- 4794 Mar, 2014 [facility] [place] [facility] [address] [facility] [id number] [place] [address]- 9260 Mar, 2014 [facility] [place] [facility] [address] [facility] [id number] [place] [address]- 8608 Mar, 2014 [facility] [place] [facility] [address] [facility] [id number] [place] [address]- 3856 Mar, [facility] [place] [facility] [address] [facility] [id number] [place] [address]- 9790 Jan, [facility] [place] [facility] [address] [id number] [place] 3807 Jan, [facility] [place] [facility] [address] [id number] [place] [address]- 7638 Jan, [facility] [place] [facility] [address] [facility] [id number] [place] [address]- 6343 Jan, [facility] [place] [facility] [address] [facility] [id number] [place] [address]- 0176 Nov, [facility] [place] [facility] [address] [id number] [place] [address] Nov, [facility] [place] [facility] [address] [id number] [place] [address]- 0773 Oct, [facility] [place] [facility] [address] [id number] [place] [address]- 0596 Oct, [facility] [place] [facility] [address] [id number] [place] [address]- 5702 Sep, [facility] [place] [facility] [address] [id number] [place] [address]- 1728 Sep, [facility] [place] [facility] [address] [id number] [place] [address]- 0258 Sep, [facility] [place] [facility] [address] [id number] [place] [address]- 5371 Sep, [facility] [place] [facility] [address] [id number] [place] [address]- 3872 Sep, [facility] [place] [facility] [address] [id number] [place] [address]- 9859 Sep, [facility] [place] [facility] [address] [id number] [place] [address]- 4693 May, [facility] [place] [facility] [address] [id number] [place] [address]- 3604 May, [facility] [place] [facility] [address] [id number] [place] [address]- 5335 May, [facility] [place] [facility] [address] [id number] [place] [address]- 8629 May, [facility] [place] [facility] [address] [id number] [place] [address]- 8115 Apr, [facility] [place] [facility] [address] [id number] [place] [address]- 9103 Apr, [facility] [place] [facility] [address], [place] [address]- 7132 Apr, [facility] [address], [place] [address]- 2693 Apr, [facility] [address] [id number] 4568 Apr, [facility] [address] [address] Apr, [facility] [address] [id number] 2859 Apr, [facility] [id number] [place] [address] 31691- 4056 Apr, [facility] [address], [place] [address]- 3458 Mar, [facility] [address], [place] [address]- 0118 Mar, [facility] [address], [place] [address]- 7669 Feb, [facility] [address] 8941 Feb, [facility] [address], [place] [address]- 3397 Jan, [facility] [id number] [address] [address] Jan, IMMUNIZATIONS No Known Immunizations SOCIAL HISTORY Never Assessed REASON FOR VISIT new RX for DM med PLAN OF CARE VITAL SIGNS MEDICATIONS Medication Instructions Dosage Frequency Start Date End Date Duration Status MetFORMIN HCl ER 500 mg DX E11.69 twice a day 1 tablet with food 12h 30 Nov Active RESULTS No Results PROCEDURES No Known procedures INSTRUCTIONS MEDICATIONS ADMINISTERED No Known Medications MEDICAL (GENERAL) HISTORY Type Description Date Medical History hypertension Medical History asthma Surgical History appendectomy Surgical History heart cath--[facility] 02/2013 Hospitalization History HTN , heart cath 02/2013
--- OUTSIDE RECORDS SUMMARY | 2018-04-21 02:31 | XMS REPORT ---
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 Name Role Phone ARICTRISTAN Unavailable PROBLEMS Type Condition ICD9-CM Code [id number] Code Onset Dates Condition Status SNOMED Code Problem Schizoaffective disorder F25.9 Active 93221451 Problem Tobacco use Z72.0 Active 925167983 Problem Elevated cholesterol E78.0 Active 964139556 Problem Type 2 diabetes mellitus with other specified complication E11.69 Active 11773609 Problem Hyperlipidemia, unspecified E78.5 Active 62729180 Problem Schizoaffective disorder, unspecified type F25.9 Active 69052608 Problem Underweight R63.6 Active 385830026 Problem Left ventricular failure I50.1 Active 99930884 Problem Anxiety F41.9 Active 18787730 Problem Essential hypertension I10 Active 53361636 Problem Hearing loss, unspecified laterality H91.90 Active 08717943 Problem Major depressive disorder, recurrent episode, unspecified severity F33.9 Active 04873690 Problem History of alcoholism F10.21 Active 500349738 Problem Left ventricular hypertrophy I51.7 Active 53376317 Problem Mild intermittent asthma without complication J45.20 Active 767751153 ALLERGIES No Known Allergies ENCOUNTERS Encounter Location Date Diagnosis [facility] [id number] [address] Feb, [facility] [id number] [address] Nov, [facility] [address] [address] Nov, [facility] [id number] [address] Nov, [facility] [id number] [place] [address] 18069- 8894 Nov, Schizoaffective disorder, unspecified type F25.9 ; Anxiety F41.9 and 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 [facility] [id number] [place] [address] 99908- 7285 Nov, [facility] [id number] [place] [address] 66935- 2737 Oct, [address] [facility] [address] [address]- [address] Oct, [facility] [id number] [place] [address] 61186- 9210 Oct, Schizoaffective disorder, unspecified type F25.9 ; Anxiety F41.9 and 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 [facility] [id number] [place] [address] 18886- 7936 Oct, Essential hypertension I10 ; Schizoaffective disorder F25.9 ; Left ventricular failure I50.1 ; Type 2 diabetes mellitus with other specified complication E11.69 and Hyperlipidemia, unspecified E78.5 [facility] [id number] [place] [address] 63878- 9495 Aug, Schizoaffective disorder F25.9 [facility] [id number] [place] [address] 28455- 9001 Aug, [facility] [id number] [place] [address] 93702- 1403 June, Medicare annual wellness visit, initial Z00.00 ; Type 2 diabetes mellitus with other specified complication E11.69 ; Major depressive disorder, recurrent episode, unspecified severity F33.9 ; Anxiety F41.9 ; Schizoaffective disorder F25.9 ; Hyperlipidemia, unspecified E78.5 ; Mild intermittent asthma without complication J45.20 and Encounter for immunization Z23 [facility] [id number] [place] [address] 70047- 6487 Apr, Schizoaffective disorder F25.9 [facility] [id number] [place] [address] 91082- 1809 Apr, Essential hypertension I10 ; Schizoaffective disorder F25.9 ; Left ventricular failure I50.1 and Type 2 diabetes mellitus with other specified complication E11.69 [facility] [id number] [place] [address] 48686- 9073 Apr, Schizoaffective disorder F25.9 [facility] [address] [place] [address] Aug, [facility] [id number] [place] [address] 56171- 2087 Aug, [facility] [address] [place] [address] Aug, [facility] [id number] [place] [address] 96592- 7521 Jul, Type 2 diabetes mellitus without complication, without long- term current use of insulin E11.9 ; Essential hypertension I10 and Elevated cholesterol E78.0 [facility] [id number] [place] [address] 09324- 8288 June, [facility] [id number] [place] [address] 15129- 1380 May, Schizoaffective disorder, unspecified type F25.9 ; Anxiety F41.9 and 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 [facility] [id number] [place] [address] 07549- 7236 Apr, Type 2 diabetes mellitus without complication, without long- term current use of insulin E11.9 [facility] [id number] [place] [address] 98956- 2791 Mar, [facility] [id number] [place] [address] 41815- 5203 Mar, [facility] [id number] [place] [address] 78543- 7923 Mar, [address] [address] [place] [address] 08 Mar, 2016 Essential hypertension I10 ; Elevated cholesterol E78.0 ; Prediabetes R73.09 ; Underweight R63.6 ; Type 2 diabetes mellitus without complication, without long-term current use of insulin E11.9 and Schizoaffective disorder F25.9 [address] [id number] [place] [address] 21635- 2533 Jan, Schizoaffective disorder F25.9 and Essential hypertension I10 [facility] [id number] [place] [address] 40025- 1624 Jan, Bronchitis J40 [facility] [address] 76593- 3136 Dec, Prediabetes R73.09 [facility] [id number] [place] [address] 99927- 8717 Oct, Abscess L02.91 [facility] [id number] [place] [address] 84002- 6333 Oct, [facility] [id number] [place] [address] 09925- 8642 June, Prediabetes R73.09 and Elevated cholesterol E78.0 [facility] [id number] [place] [address] 36520- 8501 June, Schizoaffective disorder F25.9 ; Essential hypertension I10 ; Prediabetes R73.09 ; Elevated cholesterol E78.0 and Tobacco use Z72.0 [facility] [id number] [place] [address] 87782- 9159 May, [facility] [address] [address]- 0867 Apr, [facility] [id number] [place] [address] 18449- 8458 Apr, [facility] [id number] [place] [address] 14877- 5108 Apr, [facility] [address] [address] Mar, [facility] [id number] [place] [address] [id number] Feb, Dental examination Z01.20 [facility] [id number] [place] [address] 50088- 6164 Jan, [facility] [id number] [place] [address] 715837- 5022 Jan, Abscess L02.91 [facility] [id number] [place] [address] 938546- 1041 Jan, [facility] [id number] [place] [address] 97762- 7434 Dec, [facility] [id number] [place] [address] 63429- 1954 Dec, Abscess L02.91 [facility] [id number] [place] [address] 29856- 8854 Nov, Elevated cholesterol E78.0 [facility] [id number] [place] [address] 12398- 1857 Nov, [facility] [id number] [place] [address] 59800- 7455 Nov, [facility] [id number] [place] [address] 45542- 5307 Nov, Essential hypertension I10 ; Schizoaffective disorder F25.9 ; History of alcoholism F10.21 and Mild intermittent asthma without complication J45.20 [facility] [id number] [place] [address] 83499- 5444 Nov, [facility] [id number] [place] [address] 106782- 6742 Nov, [facility] [id number] [place] [address] 04663- 8585 May, [facility] [place] [facility] [address] [id number] [place] [address]- 5954 13 May, 2014 [facility] [place] [facility] [address] [id number] [place] [address] Apr, 2014 [facility] [place] [facility] [address] [id number] [place] [address]- 3562 Apr, 2014 [facility] [place] [facility] [address] [id number] [place] [address]- 6706 Mar, 2014 [facility] [place] [facility] [address] [id number] [place] [address]- 7074 Mar, 2014 [facility] [place] [facility] [address] [id number] [place] [address]- 4767 Mar, 2014 [facility] [place] [facility] [address] [id number] [place] [address]- 8672 Mar, 2014 [facility] [place] [facility] [address] [id number] [place] [address]- 6332 Mar, 2014 [facility] [place] [facility] [address] [id number] [place] [address]- 8676 Mar, 2014 [facility] [place] [facility] [address] [facility] [id number] [place] [address]- 6515 Jan, [facility] [place] [facility] [address] [id number] [place] [address]- 4330 Jan, [facility] [place] [facility] [address] [id number] [place] [address]- 0238 Jan, [facility] [place] [facility] [address] [id number] [place] [address] Jan, [facility] [place] [facility] [address] [facility] [id number] [place] 2000 Nov, [facility] [place] [facility] [address] [facility] [id number] [place] [address]- 6850 Nov, [facility] [place] [facility] [address] [id number] [place] [address]- 2927 Oct, [facility] [place] [facility] [address] [id number] [place] [address]- 1797 Oct, [facility] [place] [facility] [address] [id number] [place] [address]- 9081 Sep, [facility] [place] [facility] [address] [id number] [place] [address]- 9386 Sep, [facility] [place] [facility] [address] [id number] [place] [address]- 2869 Sep, [facility] [place] [facility] [address] [id number] [place] [address]- 8384 Sep, [facility] [place] [facility] [address] [id number] [place] [address]- 9837 Sep, [facility] [place] [facility] [address] [id number] [place] [address]- 8285 Sep, [facility] [place] [facility] [address] [id number] [place] [address]- 0681 May, [facility] [place] [facility] [address] [id number] [place] [address]- 8394 May, [facility] [address] [id number] [place] [address]- 7801 May, [facility] [place] [facility] [address] [id number] [place] [address]- 6881 May, [facility] [place] [facility] [address] [id number] [place] [address]- 9228 Apr, [facility] [place] [facility] [address] [id number] [place] [address]- 1671 Apr, [facility] [place] [facility] [address] [id number] [place] [address]- 8834 Apr, [facility] [place] [facility] [address] [id number] [place] [address]- 7196 Apr, [facility] [address] [facility] [id number] [address]- 8994 Apr, [facility] [id number] [address]- 1572 Apr, [facility] [id number] [address]- 4253 Apr, [facility] [address] [facility] [id number] [address]- 6487 Apr, [facility] [id number] [address]- 2965 Mar, [facility] [address] [address]- 4810 Mar, [facility] [address] [address]- 1158 Feb, [facility] [address] [address]- 5592 Feb, [facility] [id number] [address]- 9527 Jan, [facility] [id number] [address]- 6990 Jan, IMMUNIZATIONS No Known Immunizations SOCIAL HISTORY Never Assessed REASON FOR VISIT f/u John PLAN OF CARE Activity Details Follow Up 2 Months--must see face to face feb 20 Reason: VITAL SIGNS Height 65 in 2017-12-05 Weight 91.8 lbs 2017-12-05 Heart Rate 64 bpm 2017-12-05 Respiratory Rate 20 2017-12-05 BMI 15.27 kg/m2 2017-12-05 Blood pressure systolic 100 mmHg 2017-12-05 Blood pressure diastolic 64 mmHg 2017-12-05 MEDICATIONS Medication Instructions Dosage Frequency Start Date End Date Duration Status Metoprolol Succinate ER 50 mg Orally Once a day 1 tablet 24h Oct, 90 days Active Entresto 49-51 MG Orally Twice a day 1 tablet 12h Active Atorvastatin Calcium 20 mg Orally Once a day 1 tablet 24h June, Active Seroquel XR 300 MG Orally Once a day 1 tablet in the evening 24h 30 day(s) Active Zoloft 50 mg Orally Once a day 1 tablet 24h 30 day(s) Active Ventolin HFA 108 (90 Base) MCG/ACT Inhalation every 4 hrs prn 1-2 puffs as needed Oct, Active RESULTS No Results PROCEDURES Procedure Date Ordered Result Body Site [facility] VISIT ESTABLISHED PATIENT Dec 05, 2017 INSTRUCTIONS MEDICATIONS ADMINISTERED No Known Medications MEDICAL (GENERAL) HISTORY Type Description Date Medical History hypertension Medical History asthma Surgical History appendectomy Surgical History heart cath--[facility] 02/2013 Hospitalization History HTN , heart cath 02/2013
--- OUTSIDE RECORDS SUMMARY | 2018-04-21 02:31 | XMS REPORT ---
Author Author WAYNE CATHY [facility] Address [address] [place] [address] Care Team Providers Care Check Airman Name Role Phone WAYNEMONISHA KWONGHANY Unavailable PROBLEMS Type Condition ICD9-CM Code FQW85-YC Code Onset Dates Condition Status SNOMED Code Problem Schizoaffective disorder F25.9 Active 37339222 Problem Tobacco use Z72.0 Active 420590335 Problem Elevated cholesterol E78.0 Active 029782103 Problem Type 2 diabetes mellitus with other specified complication E11.69 Active 53381048 Problem Hyperlipidemia, unspecified E78.5 Active 85684865 Problem Schizoaffective disorder, unspecified type F25.9 Active 42637154 Problem Underweight R63.6 Active 819011132 Problem Left ventricular failure I50.1 Active 20750556 Problem Anxiety F41.9 Active 11080260 Problem Essential hypertension I10 Active 94935160 Problem Hearing loss, unspecified laterality H91.90 Active 58417314 Problem Major depressive disorder, recurrent episode, unspecified severity F33.9 Active 21921224 Problem History of alcoholism F10.21 Active 714900360 Problem Left ventricular hypertrophy I51.7 Active 35032174 Problem Mild intermittent asthma without complication J45.20 Active 863882338 ALLERGIES No Information ENCOUNTERS Encounter Location Date Diagnosis [facility] [id number] [address] Feb, [facility] [id number] [address] Nov, [facility] [address] [address] Nov, [facility] [id number] [address] Nov, [facility] [id number] [place] [address] 19776- 9423 Nov, Schizoaffective disorder, unspecified type F25.9 ; Anxiety F41.9 and 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 [facility] [id number] [place] [address] 68968- 7848 Nov, [facility] [id number] [place] [address] 35132- 8981 Oct, [facility] [id number] [place] [address] 31269- 6815 Oct, [facility] [id number] [place] [address] 21565- 3618 Oct, Schizoaffective disorder, unspecified type F25.9 ; Anxiety F41.9 and 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 [facility] [facility] [id number] [place] [address] 72653- 3487 Oct, Essential hypertension I10 ; Schizoaffective disorder F25.9 ; Left ventricular failure I50.1 ; Type 2 diabetes mellitus with other specified complication E11.69 and Hyperlipidemia, unspecified E78.5 [facility] [facility] [id number] [place] [address] 84616- 9073 Aug, Schizoaffective disorder F25.9 [facility] [id number] [place] [address] 34609- 9817 Aug, [facility] [id number] [place] [address] 47643- 6329 June, Medicare annual wellness visit, initial Z00.00 ; Type 2 diabetes mellitus with other specified complication E11.69 ; Major depressive disorder, recurrent episode, unspecified severity F33.9 ; Anxiety F41.9 ; Schizoaffective disorder F25.9 ; Hyperlipidemia, unspecified E78.5 ; Mild intermittent asthma without complication J45.20 and Encounter for immunization Z23 [facility] [facility] [id number] [place] [address] 46703- 0623 Apr, Schizoaffective disorder F25.9 [facility] [id number] [place] [address] 72761- 1003 Apr, Essential hypertension I10 ; Schizoaffective disorder F25.9 ; Left ventricular failure I50.1 and Type 2 diabetes mellitus with other specified complication E11.69 [facility] [id number] [place] [address] 99716- 6137 Apr, Schizoaffective disorder F25.9 [facility] [address] [place] [address] Aug, [facility] [id number] [place] [address] 85496- 5007 Aug, [facility] [address] [place] [address] Aug, [facility] [facility] [id number] [place] [address] 13490- 4392 Jul, Type 2 diabetes mellitus without complication, without long- term current use of insulin E11.9 ; Essential hypertension I10 and Elevated cholesterol E78.0 [facility] [facility] [id number] [place] [address] 04053- 0176 June, [facility] [id number] [place] [address] 21320- 4181 May, Schizoaffective disorder, unspecified type F25.9 ; Anxiety F41.9 and 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 [facility] [facility] [id number] [place] [address] 48603- 1699 Apr, Type 2 diabetes mellitus without complication, without long- term current use of insulin E11.9 [facility] [id number] [place] [address] 14321- 6259 Mar, [facility] [id number] [place] [address] 34426- 5453 Mar, [facility] [facility] [id number] [place] [address] 34438- 8410 Mar, [facility] [facility] [address] [place] [address] 08 Mar, 2016 Essential hypertension I10 ; Elevated cholesterol E78.0 ; Prediabetes R73.09 ; Underweight R63.6 ; Type 2 diabetes mellitus without complication, without long-term current use of insulin E11.9 and Schizoaffective disorder F25.9 [facility] [id number] [place] [address] 23082- 4910 Jan, Schizoaffective disorder F25.9 and Essential hypertension I10 [facility] [address] [address]- [address] Jan, Bronchitis J40 [place] [address] [address]- [address] Dec, Prediabetes R73.09 [place] [address] 71288- 6971 Oct, Abscess L02.91 [place] [facility] [address] 17029- 0732 Oct, [facility] [id number] [place] [address] 78388- 8263 June, Prediabetes R73.09 and Elevated cholesterol E78.0 [facility] [id number] [place] [address] 75413- 0467 June, Schizoaffective disorder F25.9 ; Essential hypertension I10 ; Prediabetes R73.09 ; Elevated cholesterol E78.0 and Tobacco use Z72.0 [facility] [id number] [place] [address] 16760- 5848 May, [facility] [facility] [address] [address]- [address] Apr, [facility] [id number] [place] [address] 78075- 6067 Apr, [place] [address] 8101[address]- 8683 Apr, [facility] [address] [address] 9[address] Mar, [facility] [id number] [place] [id number] Feb, Dental examination Z01.20 [facility] [id number] [place] [address] 91215- 4020 Jan, [facility] [address] 260[address]- 3104 Jan, Abscess L02.91 [facility] [id number] [place] [address] 14316- 4743 Jan, [facility] [id number] [place] [address] 02429- 2957 Dec, [facility] [id number] [place] [address] 71550- 3971 Dec, Abscess L02.91 [facility] [id number] [place] [address] 65078- 7077 Nov, Elevated cholesterol E78.0 [facility] [id number] [place] [address] 56547- 4121 Nov, [facility] [id number] [place] [address] 70011- 0327 Nov, [facility] [id number] [place] [address] 95598- 1150 Nov, Essential hypertension I10 ; Schizoaffective disorder F25.9 ; History of alcoholism F10.21 and Mild intermittent asthma without complication J45.20 [facility] [id number] [place] [address] 73247- 5273 Nov, [facility] [id number] [place] [address] 14846- 2497 Nov, [facility] [id number] [place] [address] 51621- 9450 May, [facility] [place] [facility] [address] [id number] [place] [address]- 0277 13 May, 2014 [facility] [place] [facility] [address] [id number] [place] [address]- 2725 Apr, 2014 [facility] [place] [facility] [address] [facility] [id number] [place] [address]- 3031 Apr, 2014 [facility] [place] [facility] [address] [id number] [place] [address]- 6086 Mar, 2014 [facility] [place] [facility] [address] [id number] [place] [address]- 9035 Mar, 2014 [facility] [place] [facility] [address] [id number] [place] [address]- 5499 Mar, 2014 [facility] [place] [facility] [address] [facility] [id number] [place] [address]- 9353 Mar, 2014 [facility] [place] [facility] [address] [facility] [id number] [place] [address]- 5975 Mar, 2014 [facility] [place] [facility] [address] [facility] [id number] [place] [address]- 6349 Mar, 2014 [facility] [place] [facility] [address] [facility] [id number] [place] [address]- 2520 Jan, [facility] [place] [facility] [address] [facility] [id number] [place] [address]- 6688 Jan, [facility] [place] [facility] [address] [id number] [place] [address]- 2295 Jan, [facility] [place] [facility] [address] [id number] [place] [address]- 7790 Jan, [facility] [place] [facility] [address] [facility] [id number] [place] [address]- 3793 Nov, [facility] [place] [facility] [address] [facility] [id number] [place] [address]- 6998 Nov, [facility] [place] [facility] [address] [id number] [place] [address]- 3255 Oct, [facility] [address] [id number] [place] [address]- 1928 Oct, [facility] [place] [facility] [address] [id number] [place] [address]- 0683 Sep, [facility] [place] [facility] [address] [id number] [place] [address]- 9304 Sep, [facility] [place] [facility] [address] [id number] [place] [address]- 3525 Sep, [facility] [place] [facility] [address] [id number] [place] [address]- 4270 Sep, [facility] [place] [facility] [address] [id number] [place] [address]- 3762 Sep, [facility] [place] [facility] [address] [id number] [place] [address]- 0131 Sep, [facility] [place] [facility] [address] [id number] [place] [address]- 7151 May, [facility] [place] [facility] [address] [id number] [place] [address]- 7015 May, [facility] [address] [id number] [place] [address]- 2528 May, [facility] [place] [facility] [address] [id number] [place] [address]- 1575 May, [facility] [place] [facility] [address] [id number] [place] [address]- 6414 Apr, [facility] [place] [facility] [address] [id number] [place] [address]- 7406 Apr, [facility] [place] [facility] [address] [id number] [place] [address]- 2944 Apr, [facility] [place] [facility] [address] [id number] [place] [address]- 2218 Apr, [facility] [id number] [address]- 0260 Apr, [facility] [id number] [address] Apr, [facility] [id number] [address]- 3609 Apr, [facility] [address] [address]- 8615 Apr, [facility] [id number] [address]- 8443 Mar, [facility] [address] [address]- 3765 Mar, [facility] [address] [address] Feb, [facility] [address] [address]- 0751 Feb, [facility] [id number] [address]- 8426 Jan, [facility] [id number] [address]- 3463 Jan, IMMUNIZATIONS No Known Immunizations SOCIAL HISTORY Never Assessed REASON FOR VISIT Eye Exam PLAN OF CARE VITAL SIGNS MEDICATIONS Unknown Medications RESULTS No Results PROCEDURES No Known procedures INSTRUCTIONS MEDICATIONS ADMINISTERED No Known Medications MEDICAL (GENERAL) HISTORY Type Description Date Medical History hypertension Medical History asthma Surgical History appendectomy Surgical History heart cath--[facility] 02/2013 Hospitalization History HTN , heart cath 02/2013
--- OUTSIDE RECORDS SUMMARY | 2018-04-21 02:32 | XMS REPORT ---
Author Author TRISTAN CORBETT [facility] [address] Address [address] [place] [address] Care Team Providers Care Surgical Instrument Mechanic Name Role Phone TRISTAN CORBETT Unavailable PROBLEMS Type Condition ICD9-CM Code [id number] Code Onset Dates Condition Status SNOMED Code Problem Schizoaffective disorder F25.9 Active 96506480 Problem Tobacco use Z72.0 Active 686474405 Problem Elevated cholesterol E78.0 Active 259901116 Problem Type 2 diabetes mellitus with other specified complication E11.69 Active 43263691 Problem Hyperlipidemia, unspecified E78.5 Active 40002370 Problem Schizoaffective disorder, unspecified type F25.9 Active 15053611 Problem Underweight R63.6 Active 185246955 Problem Left ventricular failure I50.1 Active 29407237 Problem Anxiety F41.9 Active 32387951 Problem Essential hypertension I10 Active 05199309 Problem Hearing loss, unspecified laterality H91.90 Active 52956880 Problem Major depressive disorder, recurrent episode, unspecified severity F33.9 Active 95349984 Problem History of alcoholism F10.21 Active 186753520 Problem Left ventricular hypertrophy I51.7 Active 25874572 Problem Mild intermittent asthma without complication J45.20 Active 347006964 ALLERGIES No Information ENCOUNTERS Encounter Location Date Diagnosis [facility] [id number] [address] Nov, [facility] [address], [place] [address] Nov, [facility] [address], [place] [address] Oct, [facility] [id number], [place] [address] Oct, [facility] [id number] [place] [address]250- [address]270 Oct, Schizoaffective disorder, unspecified type F25.9 ; Anxiety F41.9 and 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 [id number] [place] [address]- [address]192 Oct, Essential hypertension I10 ; Schizoaffective disorder F25.9 ; Left ventricular failure I50.1 ; Type 2 diabetes mellitus with other specified complication E11.69 and Hyperlipidemia, unspecified E78.5 [address] [address] Aug, Schizoaffective disorder F25.9 [place] [address] [address]- [address] Aug, [place] [address] [address] June, Medicare annual wellness visit, initial Z00.00 ; Type 2 diabetes mellitus with other specified complication E11.69 ; Major depressive disorder, recurrent episode, unspecified severity F33.9 ; Anxiety F41.9 ; Schizoaffective disorder F25.9 ; Hyperlipidemia, unspecified E78.5 ; Mild intermittent asthma without complication J45.20 and Encounter for immunization Z23 [place] [id number] [place] [address] 98157- 6179 Apr, Schizoaffective disorder F25.9 [place] [id number] [place] [address] 29715- 9480 Apr, Essential hypertension I10 ; Schizoaffective disorder F25.9 ; Left ventricular failure I50.1 and Type 2 diabetes mellitus with other specified complication E11.69 [address] [address] [address]- 1646 Apr, Schizoaffective disorder F25.9 [address] [address] [place] [address] Aug, [place] [address] [address]- [address] Aug, [place] [address] [place] [address] Aug, [place] [address] [address] Jul, Type 2 diabetes mellitus without complication, without long- term current use of insulin E11.9 ; Essential hypertension I10 and Elevated cholesterol E78.0 [place] [address] [address]- [address] June, [place] [address] [address]- [address] May, Schizoaffective disorder, unspecified type F25.9 ; Anxiety F41.9 and 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 [place] [address] [address]- [address] Apr, Type 2 diabetes mellitus without complication, without long- term current use of insulin E11.9 [place] [id number] [place] [address]757- 2451 Mar, [place] [address] [address] Mar, [place] [id number] [place] [address] 15010- 7491 Mar, [place] [id number] [place] [address] 08925- 4105 Mar, Essential hypertension I10 ; Elevated cholesterol E78.0 ; Prediabetes R73.09 ; Underweight R63.6 ; Type 2 diabetes mellitus without complication, without long-term current use of insulin E11.9 and Schizoaffective disorder F25.9 [place] [place] [id number] [place] [address] 04932- 8754 Jan, Schizoaffective disorder F25.9 and Essential hypertension I10 [place] [id number] [place] [address] 97410- 4540 Jan, Bronchitis J40 [facility] [address], [place] [address] Dec, Prediabetes R73.09 [facility] [id number] [place] [address] 7[address]39- 4806 Oct, Abscess L02.91 [facility] [id number] [place] [address] 79649- 4623 Oct, [facility] [id number] [place] [address] 15795- 3508 June, Prediabetes R73.09 and Elevated cholesterol E78.0 [facility] [id number] [place] [address] 04870- 1795 June, Schizoaffective disorder F25.9 ; Essential hypertension I10 ; Prediabetes R73.09 ; Elevated cholesterol E78.0 and Tobacco use Z72.0 [facility] [id number] [place] [address] 25984- 9889 May, [facility] [id number] [place] [address] 41148- 0136 Apr, [facility] [id number] [place] [address] 86909- 5927 Apr, [facility] [id number] [place] [address] 03622- 2636 Apr, [facility] [id number] [place] [address] 73140- 0818 Mar, [facility] [address] [place] [id number] Feb, Dental examination Z01.20 [facility] [id number] [place] [address] 13662- 7336 Jan, [facility] [id number] [place] [address] 83605- 0393 Jan, Abscess L02.91 [facility] [id number] [place] [address] 03405- 7739 Jan, [facility] [id number] [place] [address] 90273- 3997 Dec, [facility] [id number] [place] [address] 90193- 2495 Dec, Abscess L02.91 [facility] [address] 9[address]32- 8473 Nov, Elevated cholesterol E78.0 [facility] [address] 6[address]01- 3316 Nov, [facility] [address] 63800- 1529 Nov, [facility] [id number] [place] [address] 86247- 1328 Nov, Essential hypertension I10 ; Schizoaffective disorder F25.9 ; History of alcoholism F10.21 and Mild intermittent asthma without complication J45.20 [facility] [id number] [place] [address] 30283- 0011 Nov, [facility] [id number] [place] [address] 18704- 9608 Nov, [facility] [id number] [place] [address] 77475- 5667 14 May, 2014 [facility] [id number] [place] [address] 53570- 3240 13 May, 2014 [facility] [id number] [place] [address] 53446- 3435 Apr, [facility] [address] 16652- 6745 Apr, [facility] [id number] [place] [address] 04876- 4894 Mar, [facility] [address] 57872- 7758 Mar, 2014 [facility] [place] [facility] [address] [id number] [place] [address]- 6468 Mar, 2014 [facility] [place] [facility] [address] [id number] [place] [address]- 4912 Mar, 2014 [facility] [place] [facility] [address] [facility] [id number] [place] [address]- 9552 Mar, 2014 [facility] [place] [facility] [address] [facility] [id number] [place] [address]- 9777 Mar, 2014 [facility] [place] [facility] [address] [facility] [id number] [place] [address]- 2851 Jan, [facility] [place] [facility] [address] [facility] [id number] [place] [address]- 2190 Jan, [facility] [place] [facility] [address] [facility] [id number] [place] [address]- 6397 Jan, [facility] [place] [facility] [address] [facility] [id number] [place] [address]- 7330 Jan, [facility] [place] [facility] [address] [facility] [id number] [place] [address]- 3102 Nov, [facility] [place] [facility] [address] [facility] [id number] [place] [address]- 7694 Nov, [facility] [place] [facility] [address] [facility] [id number], [place] [address]- 4139 Oct, [facility] [place] [facility] [address] [facility] [id number], [place] [address]- 4739 Oct, [facility] [place] [facility] [address] [facility] [id number] [place] [address]- 9994 Sep, [facility] [place] [facility] [address] [facility] [id number] [place] [address]- 7270 Sep, [facility] [place] [facility] [address] [facility] [id number], [place] [address]- 2480 Sep, [facility] [place] [facility] [address] [id number] [place] [address]- 0944 Sep, [facility] [place] [facility] [address] [id number] [place] [address]- 4606 Sep, [facility] [place] [facility] [address] [id number] [place] [address]- 3526 Sep, [facility] [place] [facility] [address] [id number] [place] [address]- 4794 May, [facility] [place] [facility] [address] [id number] [place] [address]- 6135 May, [facility] [place] [facility] [address] [id number] [place] [address]- 6310 May, [facility] [place] [facility] [address] [id number] [place] [address]- 4806 May, [facility] [place] [facility] [address] [id number] [place] [address]- 8484 Apr, [facility] [place] [facility] [address] [id number] [place] [address]- 7070 Apr, [facility] [place] [facility] [address] [id number] [place] [address]- 8582 Apr, [facility] [place] [facility] [address] [id number] [place] [address]- 1827 Apr, [facility] [place] [facility] [address] [id number] [place] [address]- 2095 Apr, [facility] [place] [facility] [address] [id number] [place] [address]- 9772 Apr, [facility] [place] [facility] [address] [id number] [place] [address]- 8496 Apr, [facility] [place] [facility] [address] [id number] [place] [address]- 5866 Apr, [facility] [place] [facility] [address] [id number] [place] [address]- 5223 Mar, [facility] [address] [facility] [id number] [place] [address]- 2156 Mar, [facility] [address] [facility] [id number], [place] [address]- 0276 Feb, [facility] [address] [facility] [id number], [place] [address]- 3476 Feb, [facility] [id number], [place] [address]- 5185 Jan, [facility] [address] [facility] [id number], [place] [address]- 8054 Jan, IMMUNIZATIONS No Known Immunizations SOCIAL HISTORY Never Assessed REASON FOR VISIT PA- Seroquel PLAN OF CARE VITAL SIGNS MEDICATIONS Unknown Medications RESULTS No Results PROCEDURES No Known procedures INSTRUCTIONS MEDICATIONS ADMINISTERED No Known Medications MEDICAL (GENERAL) HISTORY Type Description Date Medical History hypertension Medical History asthma Surgical History appendectomy Surgical History heart cath--[facility] 02/2013 Hospitalization History HTN , heart cath 02/2013
--- OUTSIDE RECORDS SUMMARY | 2018-04-21 02:32 | XMS REPORT ---
Author Author CATHY BLACK [facility] Address [address] [place] [address] Care Team Providers Care Principal Examiner Name Role Phone CATHY BLACK Unavailable PROBLEMS ALLERGIES No Information ENCOUNTERS IMMUNIZATIONS No Known Immunizations SOCIAL HISTORY No smoking Hx information available REASON FOR VISIT PLAN OF CARE VITAL SIGNS MEDICATIONS Unknown Medications RESULTS No Results PROCEDURES No Known procedures INSTRUCTIONS MEDICATIONS ADMINISTERED No Known Medications MEDICAL (GENERAL) HISTORY
--- OUTSIDE RECORDS SUMMARY | 2018-04-21 02:32 | XMS REPORT ---
Author Author WAYNE CATHY [facility] Address [address] [place] [address] Care Team Providers Care Wax Machine Operator Name Role Phone WAYNEMONISHA KWONGHANY Unavailable PROBLEMS Type Condition ICD9-CM Code XUD06-UP Code Onset Dates Condition Status SNOMED Code Problem Schizoaffective disorder F25.9 Active 23425159 Problem Tobacco use Z72.0 Active 122169330 Problem Elevated cholesterol E78.0 Active 664746141 Problem Type 2 diabetes mellitus with other specified complication E11.69 Active 94836651 Problem Hyperlipidemia, unspecified E78.5 Active 55586014 Problem Schizoaffective disorder, unspecified type F25.9 Active 41573389 Problem Underweight R63.6 Active 380383397 Problem Left ventricular failure I50.1 Active 62125283 Problem Anxiety F41.9 Active 71217971 Problem Essential hypertension I10 Active 82501243 Problem Hearing loss, unspecified laterality H91.90 Active 67709206 Problem Major depressive disorder, recurrent episode, unspecified severity F33.9 Active 89767906 Problem History of alcoholism F10.21 Active 689324582 Problem Left ventricular hypertrophy I51.7 Active 88649989 Problem Mild intermittent asthma without complication J45.20 Active 067897256 ALLERGIES No Known Allergies ENCOUNTERS Encounter Location Date Diagnosis [facility] [id number] [address] Nov, [facility] [id number] [address] Nov, [facility] [address] [address] Oct, [facility] [id number] [address] Oct, [facility] [id number] [place] [address]- 2359 Oct, Schizoaffective disorder, unspecified type F25.9 ; Anxiety F41.9 and 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 [id number] [place] [address] 76117- 8477 Oct, Essential hypertension I10 ; Schizoaffective disorder F25.9 ; Left ventricular failure I50.1 ; Type 2 diabetes mellitus with other specified complication E11.69 and Hyperlipidemia, unspecified E78.5 [place] [id number] [place] [address] 9[address]32- 9775 Aug, Schizoaffective disorder F25.9 [place] [address] [address] Aug, [place] [address] [address] June, Medicare annual wellness visit, initial Z00.00 ; Type 2 diabetes mellitus with other specified complication E11.69 ; Major depressive disorder, recurrent episode, unspecified severity F33.9 ; Anxiety F41.9 ; Schizoaffective disorder F25.9 ; Hyperlipidemia, unspecified E78.5 ; Mild intermittent asthma without complication J45.20 and Encounter for immunization Z23 [place] [id number] [place] [address] 25334- 8409 Apr, Schizoaffective disorder F25.9 [place] [id number] [place] [address] 31842- 5531 Apr, Essential hypertension I10 ; Schizoaffective disorder F25.9 ; Left ventricular failure I50.1 and Type 2 diabetes mellitus with other specified complication E11.69 [place] [id number] [place] [address] 95105- 4714 Apr, Schizoaffective disorder F25.9 [address] [place] [address] Aug, [place] [id number] [place] [address] 99616- 5214 Aug, [facility] [address] [place] [address] Aug, [place] [id number] [place] [address] 44142- 1328 Jul, Type 2 diabetes mellitus without complication, without long- term current use of insulin E11.9 ; Essential hypertension I10 and Elevated cholesterol E78.0 [place] [address] [address]- [address]57 June, [place] [address] [address] May, Schizoaffective disorder, unspecified type F25.9 ; Anxiety F41.9 and 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 [place] [id number] [place] [address] 09908- 3329 Apr, Type 2 diabetes mellitus without complication, without long- term current use of insulin E11.9 [place] [id number] [place] [address] 11543- 1715 Mar, [place] [address] [address]- [address]105 Mar, [place] [id number] [place] [address] 32030- 1242 Mar, [place] [id number] [place] [address] 67519- 6608 Mar, Essential hypertension I10 ; Elevated cholesterol E78.0 ; Prediabetes R73.09 ; Underweight R63.6 ; Type 2 diabetes mellitus without complication, without long-term current use of insulin E11.9 and Schizoaffective disorder F25.9 [place] [id number] [place] [address] 04218- 2075 Jan, Schizoaffective disorder F25.9 and Essential hypertension I10 [place] [id number] [place] [address] 31282- 8909 27 Dec, 2016 Bronchitis J40 [facility] [address] [address] Dec, Prediabetes R73.09 [facility] [id number] [place] [address] 61438- 3290 22 Oct, 2015 Abscess L02.91 [facility] [id number] [place] [address] 03052- 5448 Oct, [facility] [id number] [place] [address] 00341- 6501 June, Prediabetes R73.09 and Elevated cholesterol E78.0 [facility] [id number] [place] [address] 78313- 7838 June, Schizoaffective disorder F25.9 ; Essential hypertension I10 ; Prediabetes R73.09 ; Elevated cholesterol E78.0 and Tobacco use Z72.0 [facility] [id number] [place] [address] 85713- 5298 May, [facility] [id number] [place] [address] 47584- 1835 Apr, [facility] [id number] [place] [address] 20769- 7527 Apr, [facility] [address] [place] [address] 94654- 6059 Apr, [facility] [address] [place] [address] 75916- 1091 Mar, [facility] [address] [id number] Feb, Dental examination Z01.20 [facility] [id number] [place] [address] 04419- 8484 Jan, [facility] [address] [address] 70[address] Jan, Abscess L02.91 [facility] [id number] [place] [address] 62612- 7936 Jan, [facility] [id number] [place] [address] 85647- 8951 Dec, [facility] [id number] [place] [address] 34077- 6374 Dec, Abscess L02.91 [facility] [address] 07841- 5208 Nov, Elevated cholesterol E78.0 [facility] [address] 88707- 2667 Nov, [facility] [address] [address]27- 0281 Nov, [facility] [id number] [place] [address] 17582- 2143 Nov, Essential hypertension I10 ; Schizoaffective disorder F25.9 ; History of alcoholism F10.21 and Mild intermittent asthma without complication J45.20 [facility] [id number] [place] [address] 92231- 7515 Nov, [facility] [id number] [place] [address] 25896- 2551 Nov, [facility] [id number] [place] [address] 41075- 2591 14 May, 2014 [facility] [id number] [place] [address] 00974- 0566 13 May, 2014 [facility] [id number] [place] [address] 63048- 4294 Apr, [facility] [id number] [place] [address] 22024- 0844 Apr, [facility] [id number] [place] [address] 66803- 6099 Mar, [facility] [address] 62799- 9937 Mar, 2014 [facility] [place] [facility] [address] [id number] [place] [address]- 2188 Mar, 2014 [facility] [place] [facility] [address] [id number] [place] [address]- 8708 Mar, 2014 [facility] [place] [facility] [address] [facility] [id number] [place] [address]- 2628 Mar, 2014 [facility] [place] [facility] [address] [id number] [place] [address]- 7688 Mar, 2014 [facility] [place] [facility] [address] [id number] [place] [address]- 2378 Jan, [facility] [place] [facility] [address] [id number] [place] [address]- 5768 Jan, [facility] [place] [facility] [address] [facility] [id number] [place] [address]- 3556 Jan, [facility] [place] [facility] [address] [id number] [place] [address]- 0826 Jan, [facility] [place] [facility] [address] [facility] [id number] [place] [address]- 7520 Nov, [facility] [place] [facility] [address] [facility] [id number] [place] [address]- 8693 Nov, [facility] [place] [facility] [address] [facility] [id number] [place] [address]- 4633 Oct, [facility] [place] [facility] [address] [id number] [place] [address]- 5627 Oct, [facility] [place] [facility] [address] [id number] [place] [address]- 4379 Sep, [facility] [place] [facility] [address] [id number] [place] [address]- 5863 Sep, [facility] [place] [facility] [address] [facility] [id number] [place] [address]- 6343 Sep, [facility] [place] [facility] [address] [id number] [place] [address]- 4380 Sep, [facility] [place] [facility] [address] [id number] [place] [address]- 0226 Sep, [facility] [place] [facility] [address] [id number] [place] [address]- 8346 Sep, [facility] [place] [facility] [address] [id number] [place] [address]- 7963 May, [facility] [place] [facility] [address] [id number] [place] [address]- 7953 May, [facility] [place] [facility] [address] [id number] [place] [address]- 0324 May, [facility] [place] [facility] [address] [id number] [place] [address]- 3313 May, [facility] [place] [facility] [address] [id number] [place] [address]- 7337 Apr, [facility] [place] [facility] [address] [id number] [place] [address]- 1194 Apr, [facility] [place] [facility] [address] [id number] [place] [address]- 4771 Apr, [facility] [place] [facility] [address] [id number] [place] [address]- 1511 Apr, [facility] [place] [facility] [address] [id number] [place] [address]- 3022 Apr, [facility] [place] [facility] [address] [id number] [place] [address]- 7291 Apr, [facility] [place] [facility] [address] [id number] [place] [address]- 6136 Apr, [facility] [place] [facility] [address] [id number] [place] [address]- 4996 Apr, [facility] [place] [facility] [address] [id number] [place] [address]- 7650 Mar, [facility] [address] [facility] [id number] [place] [address]- 0586 Mar, [facility] [address] [facility] [id number] [address]- 8226 Feb, [facility] [address] [facility] [id number] [address]- 7196 Feb, [facility] [address] [facility] [id number] [place] [address]- 2806 Jan, [facility] [address] [facility] [id number] [place] [address]- 7306 Jan, IMMUNIZATIONS No Known Immunizations SOCIAL HISTORY Never Assessed REASON FOR VISIT f/u bp -- aric brandt PLAN OF CARE Activity Details Follow Up 3 Months Reason:DMII VITAL SIGNS Height 65 in 2017-10-26 Weight 91.6 lbs 2017-10-26 Temperature 98.0 degrees Fahrenheit 2017-10-26 Heart Rate 82 bpm 2017-10-26 Respiratory Rate 20 2017-10-26 BMI 15.24 kg/m2 2017-10-26 Blood pressure systolic 142 mmHg 2017-10-26 Blood pressure diastolic 82 mmHg 2017-10-26 MEDICATIONS Medication Instructions Dosage Frequency Start Date End Date Duration Status Ventolin HFA 108 (90 Base) MCG/ACT Inhalation every 4 hrs prn 1-2 puffs as needed Oct, Active Seroquel 100 mg Orally 2 times a day 1 tablet 12h Apr, 90 days Active Entresto 49-51 MG Orally Twice a day 1 tablet 12h Active Metoprolol Succinate ER 50 mg Orally Once a day 1 tablet 24h Oct, 90 days Active Atorvastatin Calcium 20 mg Orally Once a day 1 tablet 24h June, Active RESULTS Name Result Date Reference Range A1C (IN HOUSE) 2017-10-26 A1C IN HOUSE 7.5 4.3 - 5.6 % Previous A1c 6.6 Lot [id number] Exp date 04/2019 PROCEDURES Procedure Date Ordered Result Body Site GLYCATED HEMOGLOBIN TEST Oct 26, 2017 [facility] VISIT ESTABLISHED PATIENT Oct 26, 2017 INSTRUCTIONS MEDICATIONS ADMINISTERED No Known Medications MEDICAL (GENERAL) HISTORY Type Description Date Medical History hypertension Medical History asthma Surgical History appendectomy Surgical History heart cath--[facility] 02/2013 Hospitalization History HTN , heart cath 02/2013
--- OUTSIDE RECORDS SUMMARY | 2018-04-21 02:32 | XMS REPORT ---
Author Author WAYNE CATHY [facility] Address [address] [place] [address] Care Team Providers Care Lead Rider Name Role Phone MARICHUY BLACKY Unavailable PROBLEMS Type Condition ICD9-CM Code [id number] Code Onset Dates Condition Status SNOMED Code Problem Schizoaffective disorder F25.9 Active 07136651 Problem Tobacco use Z72.0 Active 893637828 Problem Elevated cholesterol E78.0 Active 137040497 Problem Type 2 diabetes mellitus with other specified complication E11.69 Active 64514765 Problem Hyperlipidemia, unspecified E78.5 Active 15332603 Problem Schizoaffective disorder, unspecified type F25.9 Active 53244377 Problem Underweight R63.6 Active 054495499 Problem Left ventricular failure I50.1 Active 09802176 Problem Anxiety F41.9 Active 76678894 Problem Essential hypertension I10 Active 15511474 Problem Hearing loss, unspecified laterality H91.90 Active 65277189 Problem Major depressive disorder, recurrent episode, unspecified severity F33.9 Active 77560036 Problem History of alcoholism F10.21 Active 648158135 Problem Left ventricular hypertrophy I51.7 Active 95307020 Problem Mild intermittent asthma without complication J45.20 Active 774779561 ALLERGIES No Information ENCOUNTERS Encounter Location Date Diagnosis [place] [id number], [place] [address] Oct, [facility] [address], [place] [address] Oct, [place] [id number] [place] [address] 07 Oct, 2017 Essential hypertension I10 ; Schizoaffective disorder F25.9 ; Left ventricular failure I50.1 ; Type 2 diabetes mellitus with other specified complication E11.69 and Hyperlipidemia, unspecified E78.5 [place] [id number] [place] [address]659- 8312 Aug, Schizoaffective disorder F25.9 [place] [id number] [place] [address] 25627- 0773 Aug, [place] [id number] [place] [address]454- 1100 June, Medicare annual wellness visit, initial Z00.00 ; Type 2 diabetes mellitus with other specified complication E11.69 ; Major depressive disorder, recurrent episode, unspecified severity F33.9 ; Anxiety F41.9 ; Schizoaffective disorder F25.9 ; Hyperlipidemia, unspecified E78.5 ; Mild intermittent asthma without complication J45.20 and Encounter for immunization Z23 [place] [id number] [place] [address] 15394- 6478 Apr, Schizoaffective disorder F25.9 [place] [id number] [place] [address] 91882- 5926 Apr, Essential hypertension I10 ; Schizoaffective disorder F25.9 ; Left ventricular failure I50.1 and Type 2 diabetes mellitus with other specified complication E11.69 [place] [id number] [place] [address] 59052- 4667 Apr, Schizoaffective disorder F25.9 [place] [address] [place] [address] Aug, [place] [id number] [place] [address] 58645- 9160 Aug, [facility] [place] [address] Aug, [place] [address] [address] Jul, Type 2 diabetes mellitus without complication, without long- term current use of insulin E11.9 ; Essential hypertension I10 and Elevated cholesterol E78.0 [place] [address] [address]- [address] June, [place] [id number] [place] [address] 42382- 7782 May, Schizoaffective disorder, unspecified type F25.9 ; Anxiety F41.9 and 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 [place] [address] [address]- [address]47 Apr, Type 2 diabetes mellitus without complication, without long- term current use of insulin E11.9 [place] [address] [address]- [address]693 Mar, [place] [address] [address]- 3910 Mar, [place] [address] [address]68 Mar, [address] [address] Mar, Essential hypertension I10 ; Elevated cholesterol E78.0 ; Prediabetes R73.09 ; Underweight R63.6 ; Type 2 diabetes mellitus without complication, without long-term current use of insulin E11.9 and Schizoaffective disorder F25.9 [place] [address] [address]- [address] Jan, Schizoaffective disorder F25.9 and Essential hypertension I10 [place] [address] [address]- [address] Jan, Bronchitis J40 [place] [id number] [place] [address]65- 9714 Dec, Prediabetes R73.[address] [address]- [address] Oct, Abscess L02.91 [place] [address] [address]- [address] Oct, [place] [address] [address] June, Prediabetes R73.09 and Elevated cholesterol E78.0 [facility] [id number] [place] [address] 16406- 1820 June, Schizoaffective disorder F25.9 ; Essential hypertension I10 ; Prediabetes R73.09 ; Elevated cholesterol E78.0 and Tobacco use Z72.0 [facility] [id number] [place] [address] 03015- 8161 May, [facility] [id number] [place] [address] 88545- 3834 Apr, [facility] [id number] [place] [address] 96199- 2916 Apr, [facility] [id number] [place] [address] 91411- 1666 Apr, [facility] [id number] [place] [address] 92094- 7225 Mar, [facility] [id number] [place] [address] [id number] Feb, Dental examination Z01.20 [facility] [id number] [place] [address] 72226- 0526 Jan, [facility] [address] [place] [address] 81617- 7236 Jan, Abscess L02.91 [facility] [id number] [place] [address] 367427- 5406 Jan, [facility] [address] [place] [address] 54751- 0746 Dec, [facility] [id number] [place] [address] 29193- 0476 Dec, Abscess L02.91 [facility] [address] [place] [address] 64789- 2526 Nov, Elevated cholesterol E78.0 [facility] [address], [place] [address] Nov, [facility] [address] [place] [address] 37138- 0557 Nov, [facility] [address], [place] [address] Nov, Essential hypertension I10 ; Schizoaffective disorder F25.9 ; History of alcoholism F10.21 and Mild intermittent asthma without complication J45.20 [facility] [address], [place] [address] Nov, [facility] [id number] [place] [address] 34680- 1687 Nov, [facility] [id number] [place] [address] 36719- 9858 14 May, 2014 [facility] [address] [place] [address] 61807- 0806 13 May, 2014 [facility] [address], [place] [address]- [address] Apr, [facility] [address], [place] [address] 9851 Apr, [facility] [address], [place] [address]- 84[address] Mar, [facility] [address], [place] [address] 8[address] Mar, [facility] [address], [place] [address] 0609 Mar, [facility] [address], [place] [address] 2456 Mar, [facility] [address], [place] [address]- 8921 05 Mar, 2014 [facility] [id number] [address]- 117[address] Mar, [facility] [place] [facility] [address] [id number] [place] [address]- 5057 Jan, [facility] [place] [facility] [address] [id number] [place] [address] Jan, [facility] [place] [facility] [address] [id number] [place] [address] Jan, [facility] [place] [facility] [address] [id number] [place] [address]- 7780 Jan, [facility] [place] [facility] [address] [id number] [place] [address]- 5227 Nov, [facility] [place] [facility] [address] [id number] [place] [address]- 0753 Nov, [facility] [place] [facility] [address] [id number] [place] [address]- 5774 Oct, [facility] [place] [facility] [address] [id number] [place] [address]- 9488 Oct, [facility] [place] [facility] [address] [id number] [place] [address]- 6971 Sep, [facility] [place] [facility] [address] [id number] [place] [address]- 0004 Sep, [facility] [place] [facility] [address] [id number] [place] [address]- 6709 Sep, [facility] [place] [facility] [address] [id number] [place] [address]- 1255 Sep, [facility] [place] [facility] [address] [id number] [place] [address]- 2804 Sep, [facility] [place] [facility] [address] [id number] [place] [address]- 6048 Sep, [facility] [place] [facility] [address] [id number] [place] [address]- 2956 May, [facility] [place] [facility] [address] [id number] [place] [address]- 8604 May, [facility] [place] [facility] [address] [id number] [place] [address]- 0179 May, [facility] [place] [facility] [address] [id number] [place] [address]- 6152 May, [facility] [place] [facility] [address] [id number] [place] [address]- 2590 Apr, [facility] [place] [facility] [address] [id number] [place] [address]- 2983 Apr, [facility] [place] [facility] [address] [id number] [place] [address]- 3973 Apr, [facility] [place] [facility] [address] [id number] [place] [address]- 9723 Apr, [facility] [place] [facility] [address] [id number] [place] [address]- 5852 Apr, [facility] [place] [facility] [address] [id number] [place] [address]- 7768 Apr, [facility] [place] [facility] [address] [id number] [place] [address]- 6089 Apr, [facility] [place] [facility] [address] [id number] [place] [address]- 7067 Apr, [facility] [place] [facility] [address] [id number] [place] [address]- 8143 Mar, [facility] [place] [facility] [address] [id number] [place] [address]- 4991 Mar, [facility] [place] [facility] [address] [id number] [place] [address]- 4036 Feb, [facility] [place] [facility] [address] [id number] [place] [address]- 0278 Feb, [facility] [place] [facility] [address] [id number] [place] [address]- 1826 Jan, [facility] [address] [facility] [id number] [place] [address]- 2546 Jan, IMMUNIZATIONS No Known Immunizations SOCIAL HISTORY Never Assessed REASON FOR VISIT refill PLAN OF CARE VITAL SIGNS MEDICATIONS Medication Instructions Dosage Frequency Start Date End Date Duration Status Seroquel 100 mg Orally 2 times a day 1 tablet 12h Apr, 30 days Active RESULTS No Results PROCEDURES No Known procedures INSTRUCTIONS MEDICATIONS ADMINISTERED No Known Medications MEDICAL (GENERAL) HISTORY Type Description Date Medical History hypertension Medical History asthma Surgical History appendectomy Surgical History heart cath--[facility] 02/2013 Hospitalization History HTN , heart cath 02/2013
--- OUTSIDE RECORDS SUMMARY | 2018-04-21 02:33 | XMS REPORT ---
Author Author WAYNE CATHY Licha [facility] Address [address] [place] [address] Care Team Providers Care Jumpbasting Armhole Baster Name Role Phone WAYNEMONISHA KWONGHANY Unavailable PROBLEMS Type Condition ICD9-CM Code BYB25-DY Code Onset Dates Condition Status SNOMED Code Problem Schizoaffective disorder F25.9 Active 78872997 Problem Tobacco use Z72.0 Active 089283522 Problem Elevated cholesterol E78.0 Active 221474596 Problem Type 2 diabetes mellitus with other specified complication E11.69 Active 34852539 Problem Hyperlipidemia, unspecified E78.5 Active 82836972 Problem Schizoaffective disorder, unspecified type F25.9 Active 04934540 Problem Underweight R63.6 Active 118667938 Problem Left ventricular failure I50.1 Active 18878212 Problem Anxiety F41.9 Active 41778748 Problem Essential hypertension I10 Active 57119932 Problem Hearing loss, unspecified laterality H91.90 Active 55613059 Problem Major depressive disorder, recurrent episode, unspecified severity F33.9 Active 28611576 Problem History of alcoholism F10.21 Active 538717341 Problem Left ventricular hypertrophy I51.7 Active 35294562 Problem Mild intermittent asthma without complication J45.20 Active 289196297 ALLERGIES No Known Allergies ENCOUNTERS Encounter Location Date Diagnosis [facility] [id number] [address] June, Medicare annual wellness visit, initial Z00.00 ; Type 2 diabetes mellitus with other specified complication E11.69 ; Major depressive disorder, recurrent episode, unspecified severity F33.9 ; Anxiety F41.9 ; Schizoaffective disorder F25.9 ; Hyperlipidemia, unspecified E78.5 ; Mild intermittent asthma without complication J45.20 and Encounter for immunization Z23 [facility] [address] [facility] [id number] [address] Apr, Schizoaffective disorder F25.9 [facility] [id number] [place] [address] Apr, Essential hypertension I10 ; Schizoaffective disorder F25.9 ; Left ventricular failure I50.1 and Type 2 diabetes mellitus with other specified complication E11.69 [facility] [id number] [place] [address]3048- 59[address] Apr, Schizoaffective disorder F25.9 [facility] [address] [place] [address] Aug, [facility] [id number] [place] [address] 4315 Aug, [facility] [address] [place] [address] Aug, [place] [id number] [place] [address] Jul, Type 2 diabetes mellitus without complication, without long- term current use of insulin E11.9 ; Essential hypertension I10 and Elevated cholesterol E78.0 [place] [id number] [place] [address] 1309 June, [place] [address] [address] May, Schizoaffective disorder, unspecified type F25.9 ; Anxiety F41.9 and 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 [place] [id number] [place] [address]07[address] 4[address] Apr, Type 2 diabetes mellitus without complication, without long- term current use of insulin E11.9 [place] [id number] [place] [address]82- 2158 Mar, [place] [address] [address] Mar, [place] [id number] [place] [address]1491- 6170 Mar, [place] [id number] [place] [address] 6[address] 08 Mar, 2016 Essential hypertension I10 ; Elevated cholesterol E78.0 ; Prediabetes R73.09 ; Underweight R63.6 ; Type 2 diabetes mellitus without complication, without long-term current use of insulin E11.9 and Schizoaffective disorder F25.9 [place] [id number] [place] [address]199[address] 0470 Jan, Schizoaffective disorder F25.9 and Essential hypertension I10 [place] [id number] [place] [address] 75655- 2659 Jan, Bronchitis J40 [place] [id number] [place] [address]4411- 4985 Dec, Prediabetes R73.09 [place] [id number] [place] [address] 98666[address] 3925 Oct, Abscess L02.91 [place] [id number] [place] [address]81- 4220 Oct, [place] [id number] [place] [address] 17937- 8849 June, Prediabetes R73.09 and Elevated cholesterol E78.0 [place] [id number] [place] [address] 60337- 7677 June, Schizoaffective disorder F25.9 ; Essential hypertension I10 ; Prediabetes R73.09 ; Elevated cholesterol E78.0 and Tobacco use Z72.0 [place] [id number] [place] [address] 93445- 6784 May, [place] [id number] [place] [address] 87226[address] Apr, [facility] [id number] [place] [address] 93243- 6135 Apr, [place] [id number] [place] [address] 80549- [address]64 Apr, [facility] [address] [address] Mar, [facility] [address] [id number] Feb, Dental examination Z01.20 [facility] [id number] [place] [address] 47284[address] Jan, [facility] [id number] [place] [address] 91727- 2178 Jan, Abscess L02.91 [facility] [address] [address]36611- [address] Jan, [facility] [id number] [place] [address] 96148- 4336 Dec, [facility] [id number] [place] [address] 03102- 0031 Dec, [address] L02.91 [facility] [id number] [place] [address] 36896- 6409 Nov, Elevated cholesterol E78.0 [facility] [id number] [place] [address] 07889- 5879 Nov, [facility] [id number] [place] [address] 49672- 1796 Nov, [facility] [id number] [place] [address] 83170- 5947 Nov, Essential hypertension I10 ; Schizoaffective disorder F25.9 ; History of alcoholism F10.21 and Mild intermittent asthma without complication J45.20 [facility] [id number] [place] [address] 21969- 7576 Nov, [facility] [id number] [place] [address] 92441- 0621 Nov, [facility] [id number] [place] [address] 93492- 3783 14 May, 2014 [facility] [place] [facility] [address] [id number] [place] [address]28 13 May, 2014 [facility] [place] [facility] [address] [facility] [id number] [place] [address] Apr, 2014 [facility] [place] [facility] [address] [facility] [id number] [place] [address] 0389 Apr, 2014 [facility] [place] [facility] [address] [facility] [id number] [place] [address]- 8906 Mar, 2014 [facility] [place] [facility] [address] [facility] [id number] [place] [address]- 8934 Mar, 2014 [facility] [place] [facility] [address] [facility] [id number] [place] [address]- 3671 Mar, 2014 [facility] [place] [facility] [address] [facility] [id number] [place] [address]- 6954 Mar, 2014 [facility] [place] [facility] [address] [facility] [id number] [place] [address]- 4701 05 Mar, 2014 [facility] [place] [facility] [address] [facility] [id number] [place] [address]- 9249 05 Mar, 2014 [facility] [place] [facility] [address] [facility] [id number] [place] [address]- 1157 Jan, [facility] [place] [facility] [address] [facility] [id number] [place] [address]- 8197 Jan, [facility] [place] [facility] [address] [facility] [id number] [place] [address]- 3084 Jan, [facility] [place] [facility] [address] [facility] [id number] [place] [address]- 7009 Jan, [facility] [place] [facility] [address] [facility] [id number] [place] [address] Nov, [facility] [place] [facility] [address] [facility] [id number] [place] [address]- 7511 Nov, [facility] [place] [facility] [address] [id number] [place] [address]- 0824 Oct, [facility] [place] [facility] [address] [id number] [place] [address]- 7859 Oct, [facility] [place] [facility] [address] [id number] [place] [address]- 7116 Sep, [facility] [place] [facility] [address] [id number] [place] [address]- 5229 Sep, [facility] [place] [facility] [address] [id number] [place] [address]- 3996 Sep, [facility] [place] [facility] [address] [id number] [place] [address]- 9208 Sep, [facility] [place] [facility] [address] [id number] [place] [address]- 1778 Sep, [facility] [place] [facility] [address] [id number] [place] [address]- 1620 Sep, [facility] [place] [facility] [address] [id number] [place] [address]- 9337 May, [facility] [place] [facility] [address] [id number] [place] [address]- 0673 May, [facility] [place] [facility] [address] [id number] [place] [address]- 7902 May, [facility] [place] [facility] [address] [id number] [place] [address]- 0241 May, [facility] [place] [facility] [address] [id number] [place] [address]- 7531 Apr, [facility] [place] [facility] [address] [id number] [place] [address]- 9482 Apr, [facility] [place] [facility] [address] [id number] [place] [address] Apr, [facility] [place] [facility] [address] [id number] [address] Apr, [facility] [address] [address]32 Apr, [facility] [address] Apr, [facility] [address] [address]676 Apr, [facility] [address] [address] Apr, [facility] [address] [address] 7979 Mar, [facility] [address] [address] Mar, [facility] [address] [address]117 Feb, [facility] [address] [address] 9661 Feb, [facility] [address] [address] 3592 Jan, [facility] [id number] [address]- 5419 Jan, IMMUNIZATIONS No Known Immunizations SOCIAL HISTORY Never Assessed REASON FOR VISIT Blood Pressure. Needs scheduled for Medicare SHMUEL--Sudeep, Records requested from Marie at Dr. Durand's office PLAN OF CARE Activity Details Follow Up 6 Months Reason:DMII VITAL SIGNS Height 65 in 2017-05-07 Weight 91.8 lbs 2017-05-07 Temperature 97.4 degrees Fahrenheit 2017-05-07 Heart Rate 86 bpm 2017-05-07 Respiratory Rate 20 2017-05-07 BMI 15.27 kg/m2 2017-05-07 Blood pressure systolic 138 mmHg 2017-05-07 Blood pressure diastolic 90 mmHg 2017-05-07 MEDICATIONS Medication Instructions Dosage Frequency Start Date End Date Duration Status Metoprolol Tartrate 25 MG Orally Twice a day 1 tablet with food 12h 10 Feb , 2015 Active Ventolin HFA 108 (90 Base) MCG/ACT Inhalation every 4 hrs prn 1-2 puffs as needed Oct, Active Seroquel 100 mg Orally 2 times a day 1 tablet 12h Apr, 30 days Active Lisinopril 20 MG Orally Once a day 1 tablet 24h 27 Dec, 2014 Active RESULTS Name Result Date Reference Range A1C (IN HOUSE) 2017-05-07 A1C IN HOUSE 6.6 4.3 - 5.6 % Previous A1c 6.1 Lot [id number] Exp date 12/2018 PROCEDURES Procedure Date Ordered Result Body Site GLYCATED HEMOGLOBIN TEST May 07, 2017 [facility] VISIT ESTABLISHED PATIENT May 07, 2017 INSTRUCTIONS MEDICATIONS ADMINISTERED No Known Medications MEDICAL (GENERAL) HISTORY Type Description Date Medical History hypertension Medical History asthma Surgical History appendectomy Surgical History heart cath--[facility] 02/2013 Hospitalization History HTN , heart cath 02/2013
--- OUTSIDE RECORDS SUMMARY | 2018-04-21 02:33 | XMS REPORT ---
Author Author WAYNE CATHY [facility] Address [address] [place] [address] Care Team Providers Care Child Care Assistant Name Role Phone MARICHUY BLACKY Unavailable PROBLEMS Type Condition ICD9-CM Code AIS79-FM Code Onset Dates Condition Status SNOMED Code Problem Schizoaffective disorder F25.9 Active 66279791 Problem Tobacco use Z72.0 Active 783248133 Problem Elevated cholesterol E78.0 Active 929742709 Problem Type 2 diabetes mellitus with other specified complication E11.69 Active 04894881 Problem Hyperlipidemia, unspecified E78.5 Active 98852437 Problem Schizoaffective disorder, unspecified type F25.9 Active 71970613 Problem Underweight R63.6 Active 418240210 Problem Left ventricular failure I50.1 Active 48684280 Problem Anxiety F41.9 Active 65533780 Problem Essential hypertension I10 Active 08203412 Problem Hearing loss, unspecified laterality H91.90 Active 15262172 Problem Major depressive disorder, recurrent episode, unspecified severity F33.9 Active 56391431 Problem History of alcoholism F10.21 Active 966582657 Problem Left ventricular hypertrophy I51.7 Active 13470811 Problem Mild intermittent asthma without complication J45.20 Active 367069282 ALLERGIES No Information ENCOUNTERS Encounter Location Date Diagnosis [facility] [id number] [address] Oct, [facility] [address] [address] Oct, [facility] [id number] [place] [address] 07 Oct, 2017 Essential hypertension I10 ; Schizoaffective disorder F25.9 ; Left ventricular failure I50.1 ; Type 2 diabetes mellitus with other specified complication E11.69 and Hyperlipidemia, unspecified E78.5 [facility] [id number] [place] [address] Aug, Schizoaffective disorder F25.9 [facility] [id number] [place] [address]45- 4114 Aug, [facility] [id number] [place] [address]81- 3035 June, Medicare annual wellness visit, initial Z00.00 ; Type 2 diabetes mellitus with other specified complication E11.69 ; Major depressive disorder, recurrent episode, unspecified severity F33.9 ; Anxiety F41.9 ; Schizoaffective disorder F25.9 ; Hyperlipidemia, unspecified E78.5 ; Mild intermittent asthma without complication J45.20 and Encounter for immunization Z23 [facility] [id number] [place] [address]- [address] Apr, Schizoaffective disorder F25.9 [facility] [id number] [place] [address]- 4861 Apr, Essential hypertension I10 ; Schizoaffective disorder F25.9 ; Left ventricular failure I50.1 and Type 2 diabetes mellitus with other specified complication E11.69 [facility] [id number] [place] [address]3681- 8324 Apr, Schizoaffective disorder F25.9 [place] [address] [place] [address] Aug, [facility] [id number] [place] [address] Aug, [facility] [place] [address] Aug, [place] [address] [address] Jul, Type 2 diabetes mellitus without complication, without long- term current use of insulin E11.9 ; Essential hypertension I10 and Elevated cholesterol E78.0 [facility] [address] [address] June, [facility] [id number] [place] [address]160- 2879 May, Schizoaffective disorder, unspecified type F25.9 ; Anxiety F41.9 and 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 [facility] [place] [address] [address] Apr, Type 2 diabetes mellitus without complication, without long- term current use of insulin E11.9 [facility] [address] [address] Mar, [facility] [address] [address] Mar, [facility] [place] [address] [address] Mar, [address] [address] Mar, Essential hypertension I10 ; Elevated cholesterol E78.0 ; Prediabetes R73.09 ; Underweight R63.6 ; Type 2 diabetes mellitus without complication, without long-term current use of insulin E11.9 and Schizoaffective disorder F25.9 [facility] [address] [address] Jan, Schizoaffective disorder F25.9 and Essential hypertension I10 [facility] [address] [address] Jan, Bronchitis J40 [facility] [place] [id number] [place] [address]- 0516 Dec, Prediabetes R73.[address] [address] Oct, Abscess L02.91 [facility] [address] [address] Oct, [facility] [place] [address] [address] June, Prediabetes R73.09 and Elevated cholesterol E78.0 [facility] [id number] [place] [address]- [address] June, Schizoaffective disorder F25.9 ; Essential hypertension I10 ; Prediabetes R73.09 ; Elevated cholesterol E78.0 and Tobacco use Z72.0 [facility] [id number] [place] [address]80- 2224 May, [facility] [id number] [place] [address] 09513- 7603 Apr, [facility] [id number] [place] [address] 14676- 4006 Apr, [facility] [id number] [place] [address] 05703- 1276 Apr, [facility] [id number] [place] [address] 13481- 1161 Mar, [facility] [id number] [place] [id number] Feb, Dental examination Z01.20 [facility] [id number] [place] [address] 30227- 6436 Jan, [facility] [address] [place] [address] 68893- 8156 Jan, Abscess L02.91 [facility] [id number] [place] [address] 359069- 7836 Jan, [facility] [address] [place] [address] 05674- 3486 Dec, [facility] [id number] [place] [address] 37406- 3696 Dec, Abscess L02.91 [facility] [address] [place] [address] 59257- 1196 Nov, Elevated cholesterol E78.0 [facility] [address], [place] [address] Nov, [facility] [address] [place] [address] 04364- 8363 Nov, [facility] [address], [place] [address] Nov, Essential hypertension I10 ; Schizoaffective disorder F25.9 ; History of alcoholism F10.21 and Mild intermittent asthma without complication J45.20 [facility] [address], [place] [address] Nov, [facility] [id number] [place] [address] 97539- 6343 Nov, [facility] [id number] [place] [address] 95954- 2956 14 May, 2014 [facility] [address] [place] [address] 86289- 0113 13 May, 2014 [facility] [address], [place] [address] Apr, [facility] [address], [place] [address] 0341 Apr, [facility] [address], [place] [address] 8[address] Mar, [facility] [address], [place] [address] 09[address] Mar, [facility] [address] [place] [address] 17[address] Mar, [facility] [address], [place] [address] 2721 Mar, [facility] [address] [place] [address]- 2[address] 05 Mar, 2014 [facility] [id number] [place] [address]- [address] Mar, [facility] [place] [facility] [address] [id number] [place] [address]- 5730 Jan, [facility] [place] [facility] [address] [id number] [place] [address] Jan, [facility] [place] [facility] [address] [id number] [place] [address] Jan, [facility] [place] [facility] [address] [id number] [place] [address]- 4417 Jan, [facility] [place] [facility] [address] [id number] [place] [address]- 8583 Nov, [facility] [place] [facility] [address] [id number] [place] [address]- 7555 Nov, [facility] [place] [facility] [address] [id number] [place] [address]- 6750 Oct, [facility] [place] [facility] [address] [id number] [place] [address]- 1363 Oct, [facility] [place] [facility] [address] [id number] [place] [address]- 6378 Sep, [facility] [place] [facility] [address] [id number] [place] [address]- 8509 Sep, [facility] [place] [facility] [address] [id number] [place] [address]- 7892 Sep, [facility] [place] [facility] [address] [id number] [place] [address]- 7423 Sep, [facility] [place] [facility] [address] [id number] [place] [address]- 5363 Sep, [facility] [place] [facility] [address] [id number] [place] [address]- 9724 Sep, [facility] [place] [facility] [address] [id number] [place] [address]- 1730 May, [facility] [place] [facility] [address] [id number] [place] [address]- 0058 May, [facility] [place] [facility] [address] [id number] [place] [address]- 5314 May, [facility] [place] [facility] [address] [id number] [place] [address]- 7592 May, [facility] [place] [facility] [address] [id number] [place] [address]- 4220 Apr, [facility] [place] [facility] [address] [id number] [place] [address]- 6024 Apr, [facility] [place] [facility] [address] [id number] [place] [address]- 3704 Apr, [facility] [place] [facility] [address] [id number] [place] [address]- 8792 Apr, [facility] [place] [facility] [address] [id number] [place] [address]- 5265 Apr, [facility] [place] [facility] [address] [id number] [place] [address]- 9695 Apr, [facility] [place] [facility] [address] [id number] [place] [address]- 3714 Apr, [facility] [place] [facility] [address] [id number] [place] [address]- 4889 Apr, [facility] [place] [facility] [address] [id number] [place] [address]- 3175 Mar, [facility] [place] [facility] [address] [id number] [place] [address]- 6935 Mar, [facility] [place] [facility] [address] [id number] [place] [address]- 5146 Feb, [facility] [place] [facility] [address] [id number] [place] [address]- 5575 Feb, [facility] [place] [facility] [address] [id number] [place] [address]- 4365 Jan, [facility] [address] [facility] [id number] [place] [address]- 6995 Jan, IMMUNIZATIONS No Known Immunizations SOCIAL HISTORY Never Assessed REASON FOR VISIT Refill request PLAN OF CARE VITAL SIGNS MEDICATIONS Unknown Medications RESULTS No Results PROCEDURES No Known procedures INSTRUCTIONS MEDICATIONS ADMINISTERED No Known Medications MEDICAL (GENERAL) HISTORY Type Description Date Medical History hypertension Medical History asthma Surgical History appendectomy Surgical History heart cath--[facility] 02/2013 Hospitalization History HTN , heart cath 02/2013
--- OUTSIDE RECORDS SUMMARY | 2018-04-21 02:33 | XMS REPORT ---
Author Author WAYNE CATHY [facility] Address [address] [place] [address] Care Team Providers Care Hardware Engineering Manager Name Role Phone MONISHA BLACKHANY Unavailable PROBLEMS Type Condition ICD9-CM Code [id number] Code Onset Dates Condition Status SNOMED Code Problem Schizoaffective disorder F25.9 Active 77911727 Problem Tobacco use Z72.0 Active 959025654 Problem Elevated cholesterol E78.0 Active 297930720 Problem Type 2 diabetes mellitus with other specified complication E11.69 Active 13919639 Problem Hyperlipidemia, unspecified E78.5 Active 92721697 Problem Schizoaffective disorder, unspecified type F25.9 Active 68175357 Problem Underweight R63.6 Active 316409417 Problem Left ventricular failure I50.1 Active 55598351 Problem Anxiety F41.9 Active 76839635 Problem Essential hypertension I10 Active 85856342 Problem Hearing loss, unspecified laterality H91.90 Active 46995060 Problem Major depressive disorder, recurrent episode, unspecified severity F33.9 Active 93551083 Problem History of alcoholism F10.21 Active 215171040 Problem Left ventricular hypertrophy I51.7 Active 79943215 Problem Mild intermittent asthma without complication J45.20 Active 685136393 ALLERGIES No Known Allergies ENCOUNTERS Encounter Location Date Diagnosis [facility] [id number], [place] [address] Oct, [facility] [id number], [place] [address] Aug, Schizoaffective disorder F25.9 [facility] [id number] [address] Aug, [facility] [id number], [place] [address] June, Medicare annual wellness visit, initial Z00.00 ; Type 2 diabetes mellitus with other specified complication E11.69 ; Major depressive disorder, recurrent episode, unspecified severity F33.9 ; Anxiety F41.9 ; Schizoaffective disorder F25.9 ; Hyperlipidemia, unspecified E78.5 ; Mild intermittent asthma without complication J45.20 and Encounter for immunization Z23 [place] [id number] [place] [address] 85726- 2026 Apr, Schizoaffective disorder F25.9 [place] [facility] [id number] [place] [address] 18908- 7503 Apr, Essential hypertension I10 ; Schizoaffective disorder F25.9 ; Left ventricular failure I50.1 and Type 2 diabetes mellitus with other specified complication E11.69 [place] [id number] [place] [address] 92291- 8335 Apr, Schizoaffective disorder F25.9 [facility] [place] [address] Aug, [place] [id number] [place] [address] 86275- 4407 Aug, [facility] [address] [place] [address] Aug, [place] [id number] [place] [address] 70844- 8818 Jul, Type 2 diabetes mellitus without complication, without long- term current use of insulin E11.9 ; Essential hypertension I10 and Elevated cholesterol E78.0 [place] [id number] [place] [address] 19350- 8294 June, [place] [id number] [place] [address] 17294- 9122 May, Schizoaffective disorder, unspecified type F25.9 ; Anxiety F41.9 and 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 [place] [id number] [place] [address] 95319- 3234 Apr, Type 2 diabetes mellitus without complication, without long- term current use of insulin E11.9 [place] [facility] [id number] [place] [address] 75171- 7489 Mar, [place] [id number] [place] [address] 18862- 9795 Mar, [place] [id number] [place] [address] 47899- 9469 Mar, [place] [address] [address] 6242 Mar, Essential hypertension I10 ; Elevated cholesterol E78.0 ; Prediabetes R73.09 ; Underweight R63.6 ; Type 2 diabetes mellitus without complication, without long-term current use of insulin E11.9 and Schizoaffective disorder F25.9 [place] [id number] [place] [address] 01773- 3563 Jan, Schizoaffective disorder F25.9 and Essential hypertension I10 [place] [id number] [place] [address] 95945- 1136 Jan, Bronchitis J40 [place] [id number] [place] [address] 26130- 7954 Dec, Prediabetes R73.09 [place] [id number] [place] [address] 27762- 0481 Oct, Abscess L02.91 [place] [id number] [place] [address] 12813- 9368 Oct, [place] [id number] [place] [address] 03575- 0275 June, Prediabetes R73.09 and Elevated cholesterol E78.0 [place] [id number] [place] [address] 04503- 7540 June, Schizoaffective disorder F25.9 ; Essential hypertension I10 ; Prediabetes R73.09 ; Elevated cholesterol E78.0 and Tobacco use Z72.0 [place] [address], [place] [address] 7[address] May, [facility] [id number] [place] [address] 04570- 6349 Apr, [facility] [id number] [place] [address] 95382- 9270 Apr, [facility] [id number] [place] [address] 95573- 1893 Apr, [facility] [id number] [place] [address] 70765- 7322 Mar, [facility] [address] [id number] Feb, Dental examination Z01.20 [facility] [id number] [place] [address] 85588- 4820 Jan, [facility] [id number] [place] [address] 76660- 8441 Jan, Abscess L02.91 [facility] [id number] [place] [address] 48130- 8070 Jan, [facility] [id number] [place] [address] 08160- 0418 Dec, [facility] [id number] [place] [address] 91764- 1532 Dec, Abscess L02.91 [facility] [id number] [place] [address] 70986- 4143 Nov, Elevated cholesterol E78.0 [facility] [id number] [place] [address] 66819- 4241 Nov, [facility] [id number] [place] [address] 195538- 1867 Nov, [facility] [id number] [place] [address] 07986- 5157 Nov, Essential hypertension I10 ; Schizoaffective disorder F25.9 ; History of alcoholism F10.21 and Mild intermittent asthma without complication J45.20 [facility] [id number] [place] [address] 87298- 6903 Nov, [facility] [id number] [place] [address] 61660- 2293 Nov, [facility] [id number] [place] [address] 21118- 6839 14 May, 2014 [facility] [id number] [place] [address] 34931- 3251 May, [facility] [id number] [place] [address] 623104- 3704 Apr, [facility] [id number] [place] [address] 24914- 5685 Apr, [facility] [id number] [place] [address] 13699- 5801 Mar, [facility] [id number] [place] [address] 74577- 0801 Mar, [facility] [id number] [place] [address] 99489- 7790 Mar, [facility] [id number] [place] [address] 72793- 6015 Mar, [facility] [id number] [place] [address] 83764- 5760 Mar, [facility] [id number] [place] [address] 23891- 9023 Mar, [facility] [id number] [place] [address] 444488- 9226 Jan, [facility] [id number] [place] [address] 83186- 6733 Jan, [facility] [id number] [place] [address] 39270- 1956 Jan, [facility] [place] [facility] [address] [id number] [place] [address]- 7647 Jan, [facility] [place] [facility] [address] [id number] [place] [address]- 4749 Nov, [facility] [place] [facility] [address] [id number] [place] [address]- 5532 Nov, [facility] [place] [facility] [address] [id number] [place] [address]- 0732 Oct, [facility] [place] [facility] [address] [id number] [place] [address]- 9862 Oct, [facility] [place] [facility] [address] [id number] [place] [address]- 1257 Sep, [facility] [place] [facility] [address] [id number] [place] [address]- 9009 Sep, [facility] [place] [facility] [address] [id number] [place] [address]- 2222 Sep, [facility] [place] [facility] [address] [id number] [place] [address]- 3917 Sep, [facility] [place] [facility] [address] [id number] [place] [address]- 7190 Sep, [facility] [place] [facility] [address] [id number] [place] [address]- 6862 Sep, [facility] [place] [facility] [address] [id number] [place] [address]- 5362 May, [facility] [place] [facility] [address] [id number] [place] [address]- 1622 May, [facility] [place] [facility] [address] [id number] [place] [address]- 1709 May, [facility] [place] [facility] [address] [id number] [place] [address]- 9939 May, [facility] [place] [facility] [address], [place] [address]- 1677 Apr, [facility] [id number], [place] [address]- 1711 Apr, [facility] [address] [facility] [id number] 3477 Apr, [facility] [id number] 3686 Apr, [facility] [address] [facility] [id number] [address]- 2590 Apr, [facility] [address], [place] [address]- 2127 Apr, [facility] [address] 2836 Apr, [facility] [address], [place] [address]- 2232 Apr, [facility] [address], [place] [address]- 3264 Mar, [facility] [id number] [address]- 5567 Mar, [facility] [id number], [place] [address]- 4775 Feb, [facility] [id number], [place] [address]- 2777 Feb, [facility] [id number], [place] [address]- 5924 Jan, [facility] [id number] 4974 Jan, IMMUNIZATIONS Vaccine Route Administration Date Status PPSV23 (PNEUMOVAX) IM Intramuscular June 29, 2017 Administered SOCIAL HISTORY Never Assessed REASON FOR VISIT Medicare AWV - Initial Visit -- aric brandt PLAN OF CARE Activity Details Follow Up 1 Year Reason: VITAL SIGNS Height 65 in 2017-06-29 Weight 92.7 lbs 2017-06-29 Temperature 97.9 degrees Fahrenheit 2017-06-29 Heart Rate 80 bpm 2017-06-29 Respiratory Rate 22 2017-06-29 BMI 15.42 kg/m2 2017-06-29 Blood pressure systolic 130 mmHg 2017-06-29 Blood pressure diastolic 80 mmHg 2017-06-29 MEDICATIONS Medication Instructions Dosage Frequency Start Date End Date Duration Status Metoprolol Tartrate 25 MG Orally Twice a day 1 tablet with food 12h Mar Active Ventolin HFA 108 (90 Base) MCG/ACT Inhalation every 4 hrs prn 1-2 puffs as needed Oct, Active Seroquel 100 mg Orally 2 times a day 1 tablet 12h Apr, 30 days Active Entresto 49-51 MG Orally Twice a day 1 tablet 12h Active Atorvastatin Calcium 20 mg Orally Once a day 1 tablet 24h June, 30 day(s) Active RESULTS No Results PROCEDURES Procedure Date Ordered Result Body Site [facility] VISIT IPPE/AWV June 29, 2017 ANNUAL AZUCENA VST; DOLORES PPS INIT June 29, 2017 SINGLE IMMUNIZATION ADMIN June 29, 2017 PT TOBACCO SCREEN RCVD TLK June 29, 2017 FALL RISK ASSESSMENT DOCD June 29, 2017 ADMN PNEUMCOC VAC NO FEE June 29, 2017 PPSV23 (PNEUMOVAX) June 29, 2017 INSTRUCTIONS MEDICATIONS ADMINISTERED No Known Medications MEDICAL (GENERAL) HISTORY Type Description Date Medical History hypertension Medical History asthma Surgical History appendectomy Surgical History heart cath--[facility] 02/2013 Hospitalization History HTN , heart cath 02/2013
--- OUTSIDE RECORDS SUMMARY | 2018-04-21 02:33 | XMS REPORT ---
Author Author WAYNE CATHY [facility] Address [address] [place] [address] Care Team Providers Care Screening Tech Name Role Phone WAYNEMONISHA KWONGHANY Unavailable PROBLEMS Type Condition ICD9-CM Code SCO54-LR Code Onset Dates Condition Status SNOMED Code Problem Schizoaffective disorder F25.9 Active 45260473 Problem Tobacco use Z72.0 Active 100321271 Problem Elevated cholesterol E78.0 Active 877705358 Problem Type 2 diabetes mellitus with other specified complication E11.69 Active 80237060 Problem Hyperlipidemia, unspecified E78.5 Active 78671660 Problem Schizoaffective disorder, unspecified type F25.9 Active 98144438 Problem Underweight R63.6 Active 955566559 Problem Left ventricular failure I50.1 Active 78252183 Problem Anxiety F41.9 Active 93881207 Problem Essential hypertension I10 Active 83932760 Problem Hearing loss, unspecified laterality H91.90 Active 20081083 Problem Major depressive disorder, recurrent episode, unspecified severity F33.9 Active 30529810 Problem History of alcoholism F10.21 Active 888331397 Problem Left ventricular hypertrophy I51.7 Active 89118967 Problem Mild intermittent asthma without complication J45.20 Active 384156135 ALLERGIES No Information ENCOUNTERS Encounter Location Date Diagnosis [facility] [id number], [place] [address] June, Medicare annual wellness visit, initial Z00.00 ; Type 2 diabetes mellitus with other specified complication E11.69 ; Major depressive disorder, recurrent episode, unspecified severity F33.9 ; Anxiety F41.9 ; Schizoaffective disorder F25.9 ; Hyperlipidemia, unspecified E78.5 ; Mild intermittent asthma without complication J45.20 and Encounter for immunization Z23 [facility] [id number] [address]- 0070 Apr, Schizoaffective disorder F25.9 [facility] [id number] [place] [address] 67533- 7231 Apr, Essential hypertension I10 ; Schizoaffective disorder F25.9 ; Left ventricular failure I50.1 and Type 2 diabetes mellitus with other specified complication E11.69 [facility] [id number] [place] [address] 60595- 8630 Apr, Schizoaffective disorder F25.9 [facility] [address] [place] [address] Aug, [facility] [id number] [place] [address] 75823- 1114 Aug, [facility] [address] [place] [address] Aug, [place] [id number] [place] [address] 92293- 6379 Jul, Type 2 diabetes mellitus without complication, without long- term current use of insulin E11.9 ; Essential hypertension I10 and Elevated cholesterol E78.0 [place] [id number] [place] [address] 26637- 5086 June, [place] [address] 67924- 7280 May, Schizoaffective disorder, unspecified type F25.9 ; Anxiety F41.9 and 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 [place] [id number] [place] [address] 87964- 8890 Apr, Type 2 diabetes mellitus without complication, without long- term current use of insulin E11.9 [place] [id number] [place] [address] 30074- 1567 Mar, [place] [id number] [place] [address] 26102- 0795 Mar, [place] [id number] [place] [address] 08961- 7977 Mar, [place] [address] [place] [address] 61509- 6925 08 Mar, 2016 Essential hypertension I10 ; Elevated cholesterol E78.0 ; Prediabetes R73.09 ; Underweight R63.6 ; Type 2 diabetes mellitus without complication, without long-term current use of insulin E11.9 and Schizoaffective disorder F25.9 [place] [id number] [place] [address] 78980- 4823 Jan, Schizoaffective disorder F25.9 and Essential hypertension I10 [place] [id number] [place] [address] 31450- 8150 Jan, Bronchitis J40 [place] [id number] [place] [address] 29278- 8873 Dec, Prediabetes R73.09 [place] [id number] [place] [address] 64587- 3509 Oct, Abscess L02.91 [place] [id number] [place] [address] 79187- 0022 Oct, [place] [id number] [place] [address] 96115- 7797 June, Prediabetes R73.09 and Elevated cholesterol E78.0 [place] [id number] [place] [address] 56035- 9979 June, Schizoaffective disorder F25.9 ; Essential hypertension I10 ; Prediabetes R73.09 ; Elevated cholesterol E78.0 and Tobacco use Z72.0 [place] [address] [place] [address] 49361- 5771 May, [place] [id number] [place] [address] 62304- 5983 Apr, [facility] [id number] [place] [address] 76771- 1316 Apr, [place] [id number] [place] [address] 40212- 8238 Apr, [facility] [address], [place] [address]- 9581 Mar, [facility] [address] [address] Feb, Dental examination Z01.20 [facility] [id number] [place] [address] 27636- 5777 Jan, [facility] [id number] [place] [address] 14696- 2309 Jan, Abscess L02.91 [facility] [address] 98516- 1225 Jan, [facility] [id number] [place] [address] 41694- 3638 Dec, [facility] [id number] [place] [address] 84706- 4887 Dec, Abscess L02.91 [facility] [id number] [place] [address] 42550- 2410 Nov, Elevated cholesterol E78.0 [facility] [id number] [place] [address] 06685- 2686 Nov, [facility] [id number] [place] [address] 56689- 5643 Nov, [facility] [id number] [place] [address] 09993- 1375 Nov, Essential hypertension I10 ; Schizoaffective disorder F25.9 ; History of alcoholism F10.21 and Mild intermittent asthma without complication J45.20 [facility] [id number] [place] [address] 27375- 1927 Nov, [facility] [address] [place] [address] 76656- 7486 Nov, [facility] [id number] [place] [address] 64979- 6582 14 May, 2014 [facility] [place] [facility] [address] [id number] [place] [address]- 7276 13 May, 2014 [facility] [place] [facility] [address] [id number] [place] [address]- 2526 Apr, 2014 [facility] [place] [facility] [address] [facility] [id number] [place] 5292 Apr, 2014 [facility] [place] [facility] [address] [id number] [place] [address]- 4405 Mar, 2014 [facility] [place] [facility] [address] [id number] [place] 6636 Mar, 2014 [facility] [place] [facility] [address] [id number] [place] [address]- 8711 Mar, 2014 [facility] [place] [facility] [address] [facility] [id number] [place] [address]- 4883 Mar, 2014 [facility] [place] [facility] [address] [facility] [id number] [place] [address]- 0048 05 Mar, 2014 [facility] [place] [facility] [address] [facility] [id number] [place] [address]- 6585 05 Mar, 2014 [facility] [place] [facility] [address] [facility] [id number] [place] [address]- 3052 Jan, [facility] [place] [facility] [address] [facility] [id number] [place] [address]- 0036 Jan, [facility] [place] [facility] [address] [facility] [id number] [place] [address]- 7891 Jan, [facility] [place] [facility] [address] [id number] [place] 9357 Jan, [facility] [place] [facility] [address] [facility] [id number] [place] 2894 Nov, [facility] [place] [facility] [address] [facility] [id number] [place] 4832 Nov, [facility] [place] [facility] [address] [id number] [place] [address]- 3119 Oct, [facility] [place] [facility] [address] [id number] [place] [address]- 7443 Oct, [facility] [place] [facility] [address] [id number] [place] [address]- 0679 Sep, [facility] [place] [facility] [address] [id number] [place] [address]- 4896 Sep, [facility] [place] [facility] [address] [id number] [place] [address]- 3354 Sep, [facility] [place] [facility] [address] [id number] [place] [address]- 3717 Sep, [facility] [place] [facility] [address] [id number] [place] [address] Sep, [facility] [place] [facility] [address] [id number] [place] [address] Sep, [facility] [place] [facility] [address] [id number] [place] [address] May, [facility] [place] [facility] [address] [id number] [place] [address] May, [facility] [place] [facility] [address] [id number] [place] [address] May, [facility] [place] [facility] [address] [id number] [place] [address] May, [facility] [place] [facility] [address] [id number] [place] [address] Apr, [facility] [place] [facility] [address] [id number] [place] [address] Apr, [facility] [place] [facility] [address] [id number] [place] Apr, [facility] [place] [facility] [address] [id number], [place] [address] Apr, [facility] [address] [facility] [id number], [place] [address] Apr, [facility] [address] [facility] [id number], [place] [address] Apr, [facility] [address] [facility] [id number], [place] [address] Apr, [facility] [address] [facility] [id number], [place] [address] Apr, [facility] [address] [facility] [id number] [address] Mar, [facility] [address] [facility] [id number], [place] [address] Mar, [facility] [id number], [place] [address] Feb, [facility] [id number], [place] [address] Feb, [facility] [address] [id number], [place] [address] Jan, [facility] [address] [id number], [place] [address] Jan, IMMUNIZATIONS No Known Immunizations SOCIAL HISTORY [...]
--- OUTSIDE RECORDS SUMMARY | 2018-04-21 02:34 | XMS REPORT ---
Author Author JORGE PILLAI [facility] Address [address] [place] [address] Care Team Providers Care Lan Specialist Name Role Phone JORGE PILLAI Unavailable PROBLEMS Type Condition ICD9-CM Code SDV64-RI Code Onset Dates Condition Status SNOMED Code Problem Mild intermittent asthma without complication J45.20 Active 205780194 Problem Schizoaffective disorder F25.9 Active 91884721 Problem History of alcoholism F10.21 Active 171542589 Problem Hearing loss, unspecified laterality H91.90 Active 09632576 Problem Major depressive disorder, recurrent episode, unspecified severity F33.9 Active 59440491 Problem Essential hypertension I10 Active 07360758 Problem Left ventricular hypertrophy I51.7 Active 23103023 Problem Schizoaffective disorder, unspecified type F25.9 Active 19954412 Problem Anxiety F41.9 Active 50749562 Problem Elevated cholesterol E78.0 Active 083622522 Problem Tobacco use Z72.0 Active 944162552 Problem Underweight R63.6 Active 982267153 Problem Type 2 diabetes mellitus without complication, without long-term current use of insulin E11.9 Active 902659680 ALLERGIES Substance Reaction Event Type Date Status N.K.D.A. Unknown Non Drug Allergy Jan, Unknown SOCIAL HISTORY No smoking Hx information available PLAN OF CARE Activity Details Follow Up 6 Months Reason: VITAL SIGNS Height 65 in 2016-02-15 Weight 99.8 lbs 2016-02-15 Temperature 97.7 degrees Fahrenheit 2016-02-15 Heart Rate 76 bpm 2016-02-15 Respiratory Rate 20 2016-02-15 BMI 16.61 kg/m2 2016-02-15 Blood pressure systolic 118 mmHg 2016-02-15 Blood pressure diastolic 80 mmHg 2016-02-15 MEDICATIONS Medication Instructions Dosage Frequency Start Date End Date Duration Status Metoprolol Tartrate 25 mg take 1 tablet (25 mg) by oral route 2 times per day Mar, Active Doxycycline Hyclate 100 MG Orally Twice a day 1 capsule 12h Jan, Feb, 07 days Active Lisinopril 10 MG Orally Once a day in am 1 tablet Dec, 30 day (s) Active Seroquel 100 MG Orally 2 times a day 1 tablet at bedtime 12h Apr, 30 day(s) Active Ventolin HFA 108 (90 Base) MCG/ACT Inhalation every 4 hrs prn 1-2 puffs as needed Oct, Active RESULTS No Results PROCEDURES Procedure Date Ordered Related Diagnosis Body Site [facility] VISIT ESTABLISHED PATIENT Feb 15, 2016 Office Visit, Est Pt., Level 2 Feb 15, 2016 IMMUNIZATIONS No Known Immunizations
--- OUTSIDE RECORDS SUMMARY | 2018-04-21 02:34 | XMS REPORT ---
Author Author CATHY BLACK [employer] Address Unknown Phone Unavailable Care Team Providers Care Hydraulic Modeling Engineer Name Role Phone CATHY BLACK CP Unavailable Allergies, Adverse Reactions, Alerts Substance Reaction Event Type N.K.D.A. Info Not Available Non Drug Allergy Problems Problem Type Condition Code Onset Dates Condition Status Assessment History of alcoholism F10.21 Active Assessment Essential hypertension I10 Active Assessment Schizoaffective disorder F25.9 Active Assessment Mild intermittent asthma without complication J45.20 Active Problem History of alcoholism F10.21 Active Problem Mild intermittent asthma without complication J45.20 Active Problem Schizoaffective disorder F25.9 Active Problem Major depressive disorder, recurrent episode, unspecified severity F33.9 Active Problem Hearing loss, unspecified laterality H91.90 Active Problem Prediabetes R73.09 Active Problem Essential hypertension I10 Active Medications Medication Code System Code Instructions Start Date End Date Status Dosage Ventolin HFA [facility] [address]-26 90 MCG/ACT Inhalation every 4 hrs prn shortness of breath appt needed with new provider for futher refills. 1-2 puffs as needed Metoprolol Tartrate [facility] [address]-99 25 mg Mar 31, 2014 take 1 tablet (25 mg) by oral route 2 times per day Seroquel [facility] [address]-73 100 mg Mar 31, 2014 1 tablet by Oral route 2 times per day Lisinopril [facility] [address]-94 10 mg Mar 31, 2014 take 1 tablet by Oral route 1 time per day Take in am Procedures Procedure Coding System Code Date [facility] VISIT ESTABLISHED PATIENT CPT-4 G0467 Dec 15, 2014 Office Visit, Est Pt., Level 3 CPT-4 84291 Dec 15, 2014 [facility] NOBLL Dec 15, 2014 VENIPUNCT, ROUTINE* CPT-4 93366 Dec 15, 2014 Vital Signs Date/Time: Dec 15, 2014 Temperature 98.1 F Weight 101.3 lbs Height 65 in BMI 16.86 Index Blood Pressure Diastolic 84 mmHg Blood Pressure Systolic 122 mmHg Cardiac Monitoring Heart Rate 72 bpm Results Name Result Date Reference Range Unit Abnormality Flag ROUTINE VENIPUNCTURE Summary Purpose eClinicalWorks Submission
--- OUTSIDE RECORDS SUMMARY | 2018-04-21 02:34 | XMS REPORT ---
Author Author WAYNE CATHY [facility] Address [address] [place] [address] Care Team Providers Care Flatwork Finisher Name Role Phone WAYNEMONISHA KWONGHANY Unavailable PROBLEMS Type Condition ICD9-CM Code EYD10-TD Code Onset Dates Condition Status SNOMED Code Problem Schizoaffective disorder F25.9 Active 33759202 Problem Tobacco use Z72.0 Active 844991040 Problem Elevated cholesterol E78.0 Active 170423704 Problem Type 2 diabetes mellitus with other specified complication E11.69 Active 41343260 Problem Hyperlipidemia, unspecified E78.5 Active 72870905 Problem Schizoaffective disorder, unspecified type F25.9 Active 03094320 Problem Underweight R63.6 Active 848496002 Problem Left ventricular failure I50.1 Active 65988929 Problem Anxiety F41.9 Active 93094268 Problem Essential hypertension I10 Active 57851248 Problem Hearing loss, unspecified laterality H91.90 Active 17321595 Problem Major depressive disorder, recurrent episode, unspecified severity F33.9 Active 73930569 Problem History of alcoholism F10.21 Active 412899062 Problem Left ventricular hypertrophy I51.7 Active 39084759 Problem Mild intermittent asthma without complication J45.20 Active 834292273 ALLERGIES No Information ENCOUNTERS Encounter Location Date Diagnosis [facility] [place] [facility] [id number] [address] June, Medicare annual wellness visit, initial Z00.00 ; Type 2 diabetes mellitus with other specified complication E11.69 ; Major depressive disorder, recurrent episode, unspecified severity F33.9 ; Anxiety F41.9 ; Schizoaffective disorder F25.9 ; Hyperlipidemia, unspecified E78.5 ; Mild intermittent asthma without complication J45.20 and Encounter for immunization Z23 [facility] [place] [facility] [id number] [address] Apr, Schizoaffective disorder F25.9 [facility] [place] [facility] [id number] [place] [address] Apr, Essential hypertension I10 ; Schizoaffective disorder F25.9 ; Left ventricular failure I50.1 and Type 2 diabetes mellitus with other specified complication E11.69 [facility] [place] [facility] [id number] [place] [address]92- 9[address] Apr, Schizoaffective disorder F25.9 [facility] [address] [place] [address] Aug, [facility] [place] [facility] [id number] [place] [address]- 2907 Aug, [facility] [address] [place] [address] Aug, [place] [id number] [place] [address] Jul, Type 2 diabetes mellitus without complication, without long- term current use of insulin E11.9 ; Essential hypertension I10 and Elevated cholesterol E78.0 [place] [id number] [place] [address]- [address] June, [place] [address] [address] May, Schizoaffective disorder, unspecified type F25.9 ; Anxiety F41.9 and 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 [place] [id number] [place] [address] 9[address]29- 3009 Apr, Type 2 diabetes mellitus without complication, without long- term current use of insulin E11.9 [place] [id number] [place] [address] 63480- 1838 Mar, [place] [id number] [place] [address] 77097- 8181 Mar, [place] [id number] [place] [address]- 7035 Mar, [place] [address] [place] [address] 02952- 2670 08 Mar, 2016 Essential hypertension I10 ; Elevated cholesterol E78.0 ; Prediabetes R73.09 ; Underweight R63.6 ; Type 2 diabetes mellitus without complication, without long-term current use of insulin E11.9 and Schizoaffective disorder F25.9 [place] [id number] [place] [address] 92360- 0872 Jan, Schizoaffective disorder F25.9 and Essential hypertension I10 [place] [id number] [place] [address] 6360 Jan, Bronchitis J40 [place] [id number] [place] [address] 86990- 9976 Dec, Prediabetes R73.09 [place] [id number] [place] [address] 05307- 1844 Oct, Abscess L02.91 [place] [id number] [place] [address] 06420- 6311 Oct, [place] [id number] [place] [address] 40276- 2934 June, Prediabetes R73.09 and Elevated cholesterol E78.0 [place] [id number] [place] [address] 92366- 2416 June, Schizoaffective disorder F25.9 ; Essential hypertension I10 ; Prediabetes R73.09 ; Elevated cholesterol E78.0 and Tobacco use Z72.0 [place] [address] [place] [address]29- 7807 May, [place] [id number] [place] [address] 89289- 2032 Apr, [facility] [place] [facility] [id number] [place] [address] 04638- 3197 Apr, [place] [id number] [place] [address] 68723- 7659 Apr, [facility] [place] [facility] [address] [address] Mar, [facility] [address] [id number] Feb, Dental examination Z01.20 [facility] [place] [facility] [id number] [place] [address] 14282- 5781 Jan, [facility] [place] [facility] [id number] [place] [address] 68379- 9453 Jan, Abscess L02.91 [facility] [place] [facility] [address] [address] Jan, [facility] [place] [facility] [id number] [place] [address] 54292- 5617 Dec, [facility] [place] [facility] [id number] [place] [address] 72274- 3922 Dec, Abscess L02.91 [facility] [place] [facility] [id number] [place] [address] 04428- 4384 Nov, Elevated cholesterol E78.0 [facility] [place] [facility] [id number] [place] [address] 12721- 4433 Nov, [facility] [place] [facility] [id number] [place] [address] 50181- 1746 Nov, [facility] [place] [facility] [id number] [place] [address] 55408- 8924 Nov, Essential hypertension I10 ; Schizoaffective disorder F25.9 ; History of alcoholism F10.21 and Mild intermittent asthma without complication J45.20 [facility] [place] [facility] [id number] [place] [address] 76443- 3559 Nov, [facility] [place] [facility] [address] [place] [address] 50272- 8397 Nov, [facility] [place] [facility] [id number] [place] [address] 05992- 8279 14 May, 2014 [facility] [place] [facility] [address] [id number] [place] [address]- 3846 13 May, 2014 [facility] [place] [facility] [address] [id number] [place] [address]- 2676 Apr, 2014 [facility] [place] [facility] [address] [facility] [id number] [place] [address] Apr, 2014 [facility] [place] [facility] [address] [id number] [place] [address]- 9986 Mar, 2014 [facility] [place] [facility] [address] [id number] [place] [address] Mar, 2014 [facility] [place] [facility] [address] [id number] [place] [address]- 5566 Mar, 2014 [facility] [place] [facility] [address] [facility] [id number] [place] [address]- 6527 Mar, 2014 [facility] [place] [facility] [address] [facility] [id number] [place] [address]- 8588 05 Mar, 2014 [facility] [place] [facility] [address] [facility] [id number] [place] [address]- 4217 05 Mar, 2014 [facility] [place] [facility] [address] [facility] [id number] [place] [address]- 8028 Jan, [facility] [place] [facility] [address] [facility] [id number] [place] [address]- 3216 Jan, [facility] [place] [facility] [address] [facility] [id number] [place] [address]- 5490 Jan, [facility] [place] [facility] [address] [id number] [place] [address] Jan, [facility] [place] [facility] [address] [facility] [id number] [place] [address] Nov, [facility] [place] [facility] [address] [facility] [id number] [place] [address] Nov, [facility] [place] [facility] [address] [id number] [place] [address]- 2162 Oct, [facility] [place] [facility] [address] [id number] [place] [address]- 4430 Oct, [facility] [place] [facility] [address] [id number] [place] [address]- 2441 Sep, [facility] [place] [facility] [address] [id number] [place] [address]- 2863 Sep, [facility] [place] [facility] [address] [id number] [place] [address]- 3572 Sep, [facility] [place] [facility] [address] [id number] [place] [address]- 1455 Sep, [facility] [place] [facility] [address] [id number] [place] [address]- 4186 Sep, [facility] [place] [facility] [address] [id number] [place] [address]- 1048 Sep, [facility] [place] [facility] [address] [id number] [place] [address]- 2451 May, [facility] [place] [facility] [address] [id number] [place] [address]- 9227 May, [facility] [place] [facility] [address] [id number] [place] [address]- 6359 May, [facility] [place] [facility] [address] [id number] [place] [address]- 1683 May, [facility] [place] [facility] [address] [id number] [place] [address]- 9303 Apr, [facility] [place] [facility] [address] [id number] [place] [address]- 0740 Apr, [facility] [place] [facility] [address] [id number] [place]24 Apr, [facility] [place] [facility] [address] [id number] [address]- 3554 Apr, [facility] [place] [facility] [address] [facility] [id number] [address]- 9821 Apr, [facility] [place] [facility] [address] [facility] [id number] [address]- 8065 Apr, [facility] [place] [facility] [address] [facility] [id number] [address]- 8623 Apr, [facility] [place] [facility] [address] [facility] [id number] [address]- 5902 Apr, [facility] [place] [facility] [address] [facility] [id number] Mar, [facility] [place] [facility] [address] [facility] [id number] [address] 4[address] Mar, [facility] [place] [facility] [address] [address]- [address] Feb, [facility] [place] [facility] [address] [address]- 0899 Feb, [facility] [place] [facility] [id number] [address]- 0089 Jan, [facility] [place] [facility] [id number] [address]- 9[address] Jan, IMMUNIZATIONS No Known Immunizations SOCIAL HISTORY [...]
--- OUTSIDE RECORDS SUMMARY | 2018-04-21 02:34 | XMS REPORT ---
Author Author CATHY BLACK Organization [facility] Address [address] [place] [address] Care Team Providers Care Supervisor [employer] Name Role Phone CATHY BLACK Unavailable PROBLEMS Type Condition ICD9-CM Code STG37-WY Code Onset Dates Condition Status SNOMED Code Problem History of alcoholism F10.21 Active 357354014 Problem Schizoaffective disorder F25.9 Active 76716063 Problem Mild intermittent asthma without complication J45.20 Active 185551347 Problem Essential hypertension I10 Active 24789417 Problem Major depressive disorder, recurrent episode, unspecified severity F33.9 Active 56098054 Problem Left ventricular hypertrophy I51.7 Active 16399910 Problem Hearing loss, unspecified laterality H91.90 Active 53532967 Problem Anxiety F41.9 Active 79577448 Problem Schizoaffective disorder, unspecified type F25.9 Active 24041280 Problem Tobacco use Z72.0 Active 722052239 Problem Elevated cholesterol E78.0 Active 257672307 Problem Type 2 diabetes mellitus without complication, without long-term current use of insulin E11.9 Active 845094636 Problem Underweight R63.6 Active 221775835 ALLERGIES No Information SOCIAL HISTORY Never Assessed PLAN OF CARE VITAL SIGNS MEDICATIONS Unknown Medications RESULTS No Results PROCEDURES No Known procedures IMMUNIZATIONS No Known Immunizations MEDICAL (GENERAL) HISTORY Type Description Date Medical History hypertension Medical History asthma Surgical History appendectomy Surgical History heart cath--[facility] 02/2013 Hospitalization History HTN , heart cath 02/2013
--- OUTSIDE RECORDS SUMMARY | 2018-04-21 02:34 | XMS REPORT ---
Author Author WAYNEC[facility]Y [facility] Address [address] [place] [address] Care Team Providers Care Candy Attendant Name Role Phone CATHY BLACK Unavailable PROBLEMS Type Condition ICD9-CM Code GEK18-[id number] Code Onset Dates Condition Status SNOMED Code Problem Schizoaffective disorder F25.9 Active 44860363 Problem Tobacco use Z72.0 Active 741648829 Problem Elevated cholesterol E78.0 Active 945253859 Problem Type 2 diabetes mellitus with other specified complication E11.69 Active 14353025 Problem Hyperlipidemia, unspecified E78.5 Active 89806201 Problem Schizoaffective disorder, unspecified type F25.9 Active 69873258 Problem Underweight R63.6 Active 298886329 Problem Left ventricular failure I50.1 Active 79956257 Problem Anxiety F41.9 Active 63600600 Problem Essential hypertension I10 Active 61607707 Problem Hearing loss, unspecified laterality H91.90 Active 66011618 Problem Major depressive disorder, recurrent episode, unspecified severity F33.9 Active 23983826 Problem History of alcoholism F10.21 Active 327853474 Problem Left ventricular hypertrophy I51.7 Active 89130158 Problem Mild intermittent asthma without complication J45.20 Active 171726544 ALLERGIES No Information ENCOUNTERS Encounter Location Date Diagnosis [place] [id number] [address] June, Medicare annual wellness visit, initial Z00.00 [place] [id number] [place] [address] 82481- 9410 Apr, Schizoaffective disorder F25.9 [place] [id number] [place] [address] 30873- 0990 Apr, Essential hypertension I10 ; Schizoaffective disorder F25.9 ; Left ventricular failure I50.1 and Type 2 diabetes mellitus with other specified complication E11.69 [place] [id number] [place] [address] 65980- 1535 Apr, Schizoaffective disorder F25.9 [facility] [place] [address] Aug, [place] [id number] [place] [address] 11879- 7549 Aug, [facility] [place] [address] Aug, [place] [id number] [place] [address] 57724- 5414 Jul, Type 2 diabetes mellitus without complication, without long- term current use of insulin E11.9 ; Essential hypertension I10 and Elevated cholesterol E78.0 [place] [id number] [place] [address] 46998- 7566 June, [place] [address] [address] May, Schizoaffective disorder, unspecified type F25.9 ; Anxiety F41.9 and 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 [place] [id number] [place] [address] 72425- 6164 Apr, Type 2 diabetes mellitus without complication, without long- term current use of insulin E11.9 [place] [id number] [place] [address] 88095- 6657 Mar, [place] [id number] [place] [address] 06601- 1429 Mar, [place] [id number] [place] [address] 60858- 1886 Mar, [place] [id number] [place] [address] 72772- 6200 Mar, Essential hypertension I10 ; Elevated cholesterol E78.0 ; Prediabetes R73.09 ; Underweight R63.6 ; Type 2 diabetes mellitus without complication, without long-term current use of insulin E11.9 and Schizoaffective disorder F25.9 [facility] [id number] [place] [address] 40153- 0231 Jan, Schizoaffective disorder F25.9 and Essential hypertension I10 [facility] [id number] [place] [address] 46485- 0994 Jan, Bronchitis J40 [facility] [address] 80788- 6591 Dec, Prediabetes R73.09 [facility] [id number] [place] [address] 90612- 4917 Oct, Abscess L02.91 [facility] [id number] [place] [address] 03084- 4237 Oct, [facility] [id number] [place] [address] 14153- 4504 June, Prediabetes R73.09 and Elevated cholesterol E78.0 [facility] [id number] [place] [address] 45232- 7690 June, Schizoaffective disorder F25.9 ; Essential hypertension I10 ; Prediabetes R73.09 ; Elevated cholesterol E78.0 and Tobacco use Z72.0 [facility] [address] [place] [address] 19535- 0461 May, [facility] [id number] [place] [address] 25269- 6744 Apr, [facility] [id number] [place] [address] 00351- 1815 Apr, [facility] [id number] [place] [address] 92814- 1333 Apr, [facility] [id number] [place] [address] 53988- 9321 08 Mar, 2015 [facility] [id number] [place] [address] [id number] Feb, Dental examination Z01.20 [facility] [id number] [place] [address] 69539- 7143 Jan, [facility] [id number] [place] [address] 181009- 2795 Jan, Abscess L02.91 [facility] [id number] [place] [address] 74864- 4060 Jan, [facility] [id number] [place] [address] 15311- 6829 Dec, [facility] [id number] [place] [address] 63617- 0658 Dec, Abscess L02.91 [facility] [id number] [place] [address] 23215- 0795 Nov, Elevated cholesterol E78.0 [facility] [id number] [place] [address] 23633- 5013 Nov, [facility] [id number] [place] [address] 31127- 2814 Nov, [facility] [id number] [place] [address] 40520- 3769 Nov, Essential hypertension I10 ; Schizoaffective disorder F25.9 ; History of alcoholism F10.21 and Mild intermittent asthma without complication J45.20 [facility] [id number] [place] [address] 44555- 5727 Nov, [facility] [id number] [place] [address] 69904- 6449 Nov, [facility] [address] 12247- 7438 14 May, 2014 [facility] [id number] [place] [address] 94900- 6069 13 May, 2014 [facility] [address] 97285- 6936 Apr, 2014 [facility] [place] [facility] [address] [id number] [place] [address]- 2370 Apr, 2014 [facility] [place] [facility] [address] [id number] [place] [address]- 5476 Mar, 2014 [facility] [place] [facility] [address] [facility] [id number] [place] [address]- 0666 Mar, 2014 [facility] [place] [facility] [address] [facility] [id number] [place] [address]- 2240 Mar, 2014 [facility] [place] [facility] [address] [facility] [id number] [place] [address]- 5517 Mar, 2014 [facility] [place] [facility] [address] [facility] [id number] [place] [address]- 6800 Mar, 2014 [facility] [place] [facility] [address] [facility] [id number] [place] [address]- 6716 Mar, 2014 [facility] [place] [facility] [address] [facility] [id number] [place] [address]- 0431 Jan, [facility] [place] [facility] [address] [facility] [id number] [place] [address]- 7080 Jan, [facility] [place] [facility] [address] [facility] [id number] [place] [address]- 6698 Jan, [facility] [place] [facility] [address] [facility] [id number] [place] [address]- 5745 Jan, [facility] [place] [facility] [address] [facility] [id number] [address]- 8131 Nov, [facility] [place] [facility] [address] [facility] [id number] [place] [address]- 7771 Nov, [facility] [place] [facility] [address] [facility] [id number] [place] [address]- 1226 Oct, [facility] [place] [facility] [address] [facility] [id number] [place] [address]- 6836 Oct, [facility] [place] [facility] [address] [id number] [place] [address]- 0712 Sep, [facility] [place] [facility] [address] [id number] [place] [address]- 6095 Sep, [facility] [place] [facility] [address] [id number] [place] [address]- 6566 Sep, [facility] [place] [facility] [address] [id number] [place] [address]- 4206 Sep, [facility] [place] [facility] [address] [id number] [place] [address]- 3907 Sep, [facility] [place] [facility] [address] [id number] [place] [address]- 8679 Sep, [facility] [place] [facility] [address] [id number] [place] [address]- 6386 May, [facility] [place] [facility] [address] [id number] [place] [address]- 2222 May, [facility] [place] [facility] [address] [id number] [place] [address]- 5689 May, [facility] [place] [facility] [address] [id number] [place] [address]- 5471 May, [facility] [place] [facility] [address] [id number] [place] [address]- 0033 Apr, [facility] [place] [facility] [address] [id number] [place] [address]- 9689 Apr, [facility] [place] [facility] [address] [id number] [place] [address]- 2227 Apr, [facility] [place] [facility] [address] [id number] [place] [address]- 0696 Apr, [facility] [place] [facility] [address] [id number] [place] [address]- 1497 Apr, [facility] [place] [facility] [address] [id number] [place] [address]- 7491 Apr, [facility] [address] [facility] [id number][place] [address]- 7240 Apr, [facility] [id number] [address]- 1156 Apr, [facility] [id number] [address]- 1295 Mar, [facility] [address] [address]- 0366 Mar, [facility] [address] [address]- 7961 Feb, [facility] [address] [address]- 3862 Feb, [facility] [address] [address]- 3256 Jan, [facility] [id number], [place] [address]- 2379 Jan, IMMUNIZATIONS No Known Immunizations SOCIAL HISTORY Never Assessed REASON FOR VISIT [facility]-Brief (Mother) PLAN OF CARE VITAL SIGNS MEDICATIONS Unknown Medications RESULTS No Results PROCEDURES Procedure Date Ordered Result Body Site Alcohol and/or drug services September 05, 2016 INSTRUCTIONS MEDICATIONS ADMINISTERED No Known Medications MEDICAL (GENERAL) HISTORY Type Description Date Medical History hypertension Medical History asthma Surgical History appendectomy Surgical History heart cath--[facility] 02/2013 Hospitalization History HTN , heart cath 02/2013
--- OUTSIDE RECORDS SUMMARY | 2018-04-21 02:34 | XMS REPORT ---
Author Author CATHY BLACK [employer] Address Unknown Phone Unavailable Care Team Providers Care Medical Accounts Receivable Specialist Name Role Phone CATHY BLACK CP Unavailable Allergies No Known Allergies Problems Problem Type Condition Code Onset Dates Condition Status Problem Hearing loss, unspecified laterality H91.90 Active Problem Essential hypertension I10 Active Problem Major depressive disorder, recurrent episode, unspecified severity F33.9 Active Assessment Prediabetes R73.09 Active Problem Tobacco use Z72.0 Active Problem Schizoaffective disorder F25.9 Active Problem Elevated cholesterol E78.0 Active Problem Prediabetes R73.09 Active Problem Left ventricular hypertrophy I51.7 Active Problem History of alcoholism F10.21 Active Problem Mild intermittent asthma without complication J45.20 Active Medications No Known Medications Results No Known Results Summary Purpose [employer] Submission
--- OUTSIDE RECORDS SUMMARY | 2018-04-21 02:34 | XMS REPORT ---
Author Author CATHY BLACK [employer] Address Unknown Phone Unavailable Care Team Providers Care Mailing Machine Assistant Name Role Phone CATHY BLACK CP Unavailable Allergies, Adverse Reactions, Alerts Substance Reaction Event Type N.K.D.A. Info Not Available Non Drug Allergy Problems Problem Type Condition Code Onset Dates Condition Status Assessment Abscess L02.91 Active Problem History of alcoholism F10.21 Active Problem Mild intermittent asthma without complication J45.20 Active Problem Schizoaffective disorder F25.9 Active Problem Major depressive disorder, recurrent episode, unspecified severity F33.9 Active Problem Hearing loss, unspecified laterality H91.90 Active Problem Prediabetes R73.09 Active Problem Essential hypertension I10 Active Medications Medication Code System Code Instructions Start Date End Date Status Dosage Bactrim DS [facility] [address]-27 800-160 MG Orally Twice a day Jan 28, 2015 Feb 07, 2015 1 tablet Seroquel [facility] [address]-39 100 mg Mar 31, 2014 1 tablet by Oral route 2 times per day ProAir HFA [facility] [address]-84 108 (90 Base) MCG/ACT Inhalation every 4 hrs Dec 16, 2014 1-2 puffs as needed Lisinopril [facility] [address]-97 10 MG Orally Once a day in am Jan 15, 2015 1 tablet Metoprolol Tartrate [facility] [address]-18 25 mg Mar 31, 2014 take 1 tablet (25 mg) by oral route 2 times per day Procedures Procedure Coding System Code Date Office Visit, Est Pt., Level 3 CPT-4 79467 Jan 28, 2015 [facility] VISIT ESTABLISHED PATIENT CPT-4 G0467 Jan 28, 2015 Vital Signs Date/Time: Jan 28, 2015 Temperature 98.6 F Weight 101.5 lbs Height 65 in BMI 16.89 Index Blood Pressure Diastolic 84 mmHg Blood Pressure Systolic 122 mmHg Cardiac Monitoring Heart Rate 80 bpm Results No Known Results Summary Purpose [employer]Clinical[employer] Submission
--- OUTSIDE RECORDS SUMMARY | 2018-04-21 02:34 | XMS REPORT ---
Author Author WAYNECATHY [facility] Address [address] [place] [address] Care Team Providers Care Business Technology Teacher Name Role Phone CATHY BLACK Unavailable PROBLEMS Type Condition ICD9-CM Code GNR70-HE Code Onset Dates Condition Status SNOMED Code Problem Schizoaffective disorder F25.9 Active 21694319 Problem Tobacco use Z72.0 Active 887496852 Problem Elevated cholesterol E78.0 Active 995169428 Problem Type 2 diabetes mellitus with other specified complication E11.69 Active 80785463 Problem Hyperlipidemia, unspecified E78.5 Active 41583990 Problem Schizoaffective disorder, unspecified type F25.9 Active 96310708 Problem Underweight R63.6 Active 075844029 Problem Left ventricular failure I50.1 Active 87462482 Problem Anxiety F41.9 Active 80981745 Problem Essential hypertension I10 Active 39502628 Problem Hearing loss, unspecified laterality H91.90 Active 01165501 Problem Major depressive disorder, recurrent episode, unspecified severity F33.9 Active 53455846 Problem History of alcoholism F10.21 Active 958920915 Problem Left ventricular hypertrophy I51.7 Active 86054027 Problem Mild intermittent asthma without complication J45.20 Active 953084417 ALLERGIES No Information ENCOUNTERS Encounter Location Date Diagnosis [place] [id number] [address] June, Medicare annual wellness visit, initial Z00.00 [place] [id number] [place] [address] 70388- [address] Apr, Schizoaffective disorder F25.9 [place] [id number] [place] [address] 74462- 4071 Apr, Essential hypertension I10 ; Schizoaffective disorder F25.9 ; Left ventricular failure I50.1 and Type 2 diabetes mellitus with other specified complication E11.69 [place] [id number] [place] [address] 52224- 5926 Apr, Schizoaffective disorder F25.9 [facility] [place] [address] Aug, [place] [id number] [place] [address] 82583- 5408 Aug, [facility] [place] [address] Aug, [place] [id number] [place] [address] 20576- 6213 Jul, Type 2 diabetes mellitus without complication, without long- term current use of insulin E11.9 ; Essential hypertension I10 and Elevated cholesterol E78.0 [place] [id number] [place] [address] 58306[address] 79[address] June, [place] [address] [address] May, Schizoaffective disorder, unspecified type F25.9 ; Anxiety F41.9 and 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 [place] [id number] [place] [address] 53456- 6071 Apr, Type 2 diabetes mellitus without complication, without long- term current use of insulin E11.9 [place] [id number] [place] [address] 69430- 4694 Mar, [place] [id number] [place] [address] 21560- 2782 Mar, [place] [id number] [place] [address] 87449- 0253 Mar, [place] [id number] [place] [address] 69177- 3065 Mar, Essential hypertension I10 ; Elevated cholesterol E78.0 ; Prediabetes R73.09 ; Underweight R63.6 ; Type 2 diabetes mellitus without complication, without long-term current use of insulin E11.9 and Schizoaffective disorder F25.9 [facility] [place] [id number] [place] [address] 53705- 9363 Jan, Schizoaffective disorder F25.9 and Essential hypertension I10 [facility] [place] [id number] [place] [address] 82284- 7990 Jan, Bronchitis J40 [facility] [place] [address] [address] Dec, Prediabetes R73.09 [facility] [place] [id number] [place] [address] 06864- 2198 Oct, Abscess L02.91 [facility] [place] [id number] [place] [address] 25503- 9127 Oct, [facility] [place] [id number] [place] [address] 37995- 5509 June, Prediabetes R73.09 and Elevated cholesterol E78.0 [facility] [place] [id number] [place] [address] 07949- 7095 June, Schizoaffective disorder F25.9 ; Essential hypertension I10 ; Prediabetes R73.09 ; Elevated cholesterol E78.0 and Tobacco use Z72.0 [facility] [place] [address] [place] [address] 88963- 2564 May, [facility] [place] [id number] [place] [address] 88269- 9823 Apr, [facility] [place] [id number] [place] [address] 68852- 5724 Apr, [facility] [place] [id number] [place] [address] 74572- 7567 Apr, [facility] [place] [address] [place] [address] 75159- 0553 08 Mar, 2015 [facility] [id number] [place] [address] [id number] Feb, Dental examination Z01.20 [facility] [place] [id number] [place] [address] 71653- 1751 Jan, [facility] [place] [id number] [place] [address] 651990- 8385 Jan, Abscess L02.91 [facility] [place] [id number] [place] [address] 57169- 0263 Jan, [facility] [place] [id number] [place] [address] 05524- 7885 Dec, [facility] [place] [id number] [place] [address] 16087- 0418 Dec, Abscess L02.91 [facility] [place] [id number] [place] [address] 80368- 0644 Nov, Elevated cholesterol E78.0 [facility] [place] [id number] [place] [address] 38024- 2430 Nov, [facility] [place] [id number] [place] [address] 61813- 9970 Nov, [facility] [place] [id number] [place] [address] 31290- 8703 Nov, Essential hypertension I10 ; Schizoaffective disorder F25.9 ; History of alcoholism F10.21 and Mild intermittent asthma without complication J45.20 [facility] [place] [id number] [place] [address] 57541- 4488 Nov, [facility] [place] [id number] [place] [address] 34095- 5880 Nov, [facility] [place] [address] 38037- 5627 14 May, 2014 [facility] [place] [id number] [place] [address] 46401- 1054 13 May, 2014 [facility] [place] [address] 17185- 9206 Apr, 2014 [facility] [place] [facility] [address] [id number] [place] [address]- 8816 Apr, 2014 [facility] [place] [facility] [address] [id number] [place] [address]- 9546 Mar, 2014 [facility] [place] [facility] [address] [facility] [id number] [place] [address]- 7346 Mar, 2014 [facility] [place] [facility] [address] [facility] [id number] [place] [address]- 8515 Mar, 2014 [facility] [place] [facility] [address] [facility] [id number] [place] [address]- 4725 Mar, 2014 [facility] [place] [facility] [address] [facility] [id number] [place] [address]- 7105 Mar, 2014 [facility] [place] [facility] [address] [facility] [id number] [place] [address]- 8889 Mar, 2014 [facility] [place] [facility] [address] [facility] [id number] [place] [address]- 5215 Jan, [facility] [place] [facility] [address] [facility] [id number] [place] [address]- 0973 Jan, [facility] [place] [facility] [address] [facility] [id number] [place] [address]- 6353 Jan, [facility] [place] [facility] [address] [facility] [id number] [place] [address]- 5506 Jan, [facility] [place] [facility] [address] [facility] [id number] [address]- 3811 Nov, [facility] [place] [facility] [address] [facility] [id number] [place] [address]- 7281 Nov, [facility] [place] [facility] [address] [facility] [id number] [place] [address]- 7115 Oct, [facility] [place] [facility] [address] [facility] [id number] [place] [address]- 7654 Oct, [facility] [place] [facility] [address] [id number] [place] [address]- 0273 Sep, [facility] [place] [facility] [address] [id number] [place] [address]- 7759 Sep, [facility] [place] [facility] [address] [id number] [place] [address]- 7696 Sep, [facility] [place] [facility] [address] [id number] [place] [address]- 1705 Sep, [facility] [place] [facility] [address] [id number] [place] [address]- 8308 Sep, [facility] [place] [facility] [address] [id number] [place] [address]- 8703 Sep, [facility] [place] [facility] [address] [id number] [place] [address]- 4940 May, [facility] [place] [facility] [address] [id number] [place] [address]- 9885 May, [facility] [place] [facility] [address] [id number] [place] [address]- 8307 May, [facility] [place] [facility] [address] [id number] [place] [address]- 8838 May, [facility] [place] [facility] [address] [id number] [place] [address]- 9478 Apr, [facility] [place] [facility] [address] [id number] [place] [address]- 9255 Apr, [facility] [place] [facility] [address] [id number] [place] [address]- 8764 Apr, [facility] [place] [facility] [address] [id number] [place] [address]- 7256 Apr, [facility] [place] [facility] [address] [id number] [place] [address]- 7648 Apr, [facility] [place] [facility] [address] [id number] [place] [address]- 0414 Apr, [facility] [place] [id number] [address]- [address] Apr, [facility] [place] [id number] [address]- 7646 Apr, [facility] [place] [id number], [place] [address]- 5152 Mar, [facility] [place] [address] [address]- 0758 Mar, [facility] [place] [address] [address]- 7826 Feb, [facility] [place] [address], [place] [address]- 6204 Feb, [facility] [place] [address] [address]- 5841 Jan, [facility] [place] [id number] [address]- 4374 Jan, IMMUNIZATIONS No Known Immunizations SOCIAL HISTORY Never Assessed REASON FOR VISIT SOCWK-FU(MOTHER) PLAN OF CARE VITAL SIGNS MEDICATIONS Unknown Medications RESULTS No Results PROCEDURES Procedure Date Ordered Result Body Site Alcohol and/or drug services September 07, 2016 INSTRUCTIONS MEDICATIONS ADMINISTERED No Known Medications MEDICAL (GENERAL) HISTORY Type Description Date Medical History hypertension Medical History asthma Surgical History appendectomy Surgical History heart cath--[facility] 02/2013 Hospitalization History HTN , heart cath 02/2013
--- OUTSIDE RECORDS SUMMARY | 2018-04-21 02:34 | XMS REPORT ---
Author Author CATHY BLACK [employer] Address Unknown Phone Unavailable Care Team Providers Care Electronic Assembler Group Leader Name Role Phone CATHY BLACK CP Unavailable Allergies No Known Allergies Problems Problem Type Condition Code Onset Dates Condition Status Assessment Elevated cholesterol E78.0 Active Problem History of alcoholism F10.21 Active Problem Mild intermittent asthma without complication J45.20 Active Problem Schizoaffective disorder F25.9 Active Problem Major depressive disorder, recurrent episode, unspecified severity F33.9 Active Problem Hearing loss, unspecified laterality H91.90 Active Problem Prediabetes R73.09 Active Problem Essential hypertension I10 Active Medications No Known Medications Results No Known Results Summary Purpose eClinicalWorks Submission
--- OUTSIDE RECORDS SUMMARY | 2018-04-21 02:34 | XMS REPORT ---
Author Author CATHY BLACK [employer] Address Unknown Phone Unavailable Care Team Providers Care Graphic Art Technician Name Role Phone CATHY BLACK CP Unavailable Allergies No Known Allergies Problems Problem Type Condition Code Onset Dates Condition Status Problem Hearing loss, unspecified laterality H91.90 Active Problem History of alcoholism F10.21 Active Problem Mild intermittent asthma without complication J45.20 Active Problem Schizoaffective disorder F25.9 Active Problem Essential hypertension I10 Active Problem Major depressive disorder, recurrent episode, unspecified severity F33.9 Active Problem Prediabetes R73.09 Active Problem Left ventricular hypertrophy I51.7 Active Medications Medication Code System Code Instructions Start Date End Date Status Dosage Lisinopril [facility] [address]-31 10 MG Orally Once a day in am Jan 15, 2015 1 tablet Seroquel [facility] [address]-34 100 MG Orally 2 times a day April 21, 2015 1 tablet at bedtime Results No Known Results Summary Purpose eClinicalWorks Submission
--- OUTSIDE RECORDS SUMMARY | 2018-04-21 02:35 | XMS REPORT ---
Author Author CATHY BLACK [employer] Address Unknown Phone Unavailable Care Team Providers Care Pathology Laboratory Director Name Role Phone CATHY BLACK CP Unavailable Allergies No Known Allergies Problems Problem Type Condition Code Onset Dates Condition Status Problem History of alcoholism F10.21 Active Problem [...]
--- OUTSIDE RECORDS SUMMARY | 2018-04-21 02:35 | XMS REPORT ---
Author Author CATHY BLACK [employer] Address Unknown Phone Unavailable Care Team Providers Care Strategic Marketing Associate Name Role Phone CATHY BLACK CP Unavailable [...] Start Date End Date Status Dosage Lisinopril [facility] [address]-08 10 MG Orally Once a day in am Jan 15, 2015 1 tablet Results No Known Results Summary Purpose eClinicalWorks Submission
--- OUTSIDE RECORDS SUMMARY | 2018-04-21 02:35 | XMS REPORT ---
Author Author CATHY BLACK Organization [facility] Address [address] [place] [address] Care Team Providers Care Truck Operator Name Role Phone CATHY BLACK Unavailable PROBLEMS Type Condition ICD9-CM Code BTU56-EV Code Onset Dates Condition Status SNOMED Code Problem History of alcoholism F10.21 Active 177681270 Problem Schizoaffective disorder F25.9 Active 17452525 Problem Mild intermittent asthma without complication J45.20 Active 645815215 Problem Essential hypertension I10 Active 52442250 Problem Major depressive disorder, recurrent episode, unspecified severity F33.9 Active 18846361 Problem Left ventricular hypertrophy I51.7 Active 31868212 Problem Hearing loss, unspecified laterality H91.90 Active 54606249 Problem Anxiety F41.9 Active 36008383 Problem Schizoaffective disorder, unspecified type F25.9 Active 32472299 Problem Tobacco use Z72.0 Active 600381500 Problem Elevated cholesterol E78.0 Active 340559229 Problem Type 2 diabetes mellitus without complication, without long-term current use of insulin E11.9 Active 961010601 Problem Underweight R63.6 Active 012326270 ALLERGIES No Information SOCIAL HISTORY Never Assessed PLAN OF CARE VITAL SIGNS MEDICATIONS Unknown Medications RESULTS No Results PROCEDURES No Known procedures IMMUNIZATIONS No Known Immunizations MEDICAL (GENERAL) HISTORY Type Description Date Medical History hypertension Medical History asthma Surgical History appendectomy Surgical History heart cath--[facility] 02/2013 Hospitalization History HTN , heart cath 02/2013
--- OUTSIDE RECORDS SUMMARY | 2018-04-21 02:35 | XMS REPORT ---
Author Author WAYNE CATHY Organization [facility] Address [address] [place] [address] Care Team Providers Care Tubing Mill Setter Name Role Phone CATHY BLACK Unavailable PROBLEMS Type Condition ICD9-CM Code FXK64-QT Code Onset Dates Condition Status SNOMED Code Problem Mild intermittent asthma without complication J45.20 Active 137204297 Problem Schizoaffective disorder F25.9 Active 21642662 Problem History of alcoholism F10.21 Active 958239784 Problem Hearing loss, unspecified laterality H91.90 Active 94428412 Problem Major depressive disorder, recurrent episode, unspecified severity F33.9 Active 27721573 Problem Essential hypertension I10 Active 92760711 Problem Left ventricular hypertrophy I51.7 Active 88343991 Problem Schizoaffective disorder, unspecified type F25.9 Active 80996787 Problem Anxiety F41.9 Active 22114435 Problem Elevated cholesterol E78.0 Active 503572484 Problem Tobacco use Z72.0 Active 140806625 Problem Underweight R63.6 Active 556551790 Problem Type 2 diabetes mellitus without complication, without long-term current use of insulin E11.9 Active 578458129 ALLERGIES Unknown Allergies SOCIAL HISTORY No smoking Hx information available PLAN OF CARE VITAL SIGNS MEDICATIONS Medication Instructions Dosage Frequency Start Date End Date Duration Status Seroquel 100 MG Orally 2 times a day 1 tablet at bedtime 12h Apr, 30 day(s) Active Lisinopril 10 mg Orally Once a day in am 1 tablet Dec, 30 day (s) Active RESULTS No Results PROCEDURES No Known procedures IMMUNIZATIONS No Known Immunizations
--- OUTSIDE RECORDS SUMMARY | 2018-04-21 02:35 | XMS REPORT ---
Author Author CATHY BLACK eClinical[employer] Address Unknown Phone Unavailable Care Team Providers Care Mold Making Plastics Sheets Supervisor Name Role Phone CATHY BLACK CP Unavailable [...] Instructions Start Date End Date Status Dosage ProAir HFA [facility] [address]-05 108 (90 Base) MCG/ACT Inhalation every 4 hrs Dec 16, 2014 1-2 puffs as needed Results No Known Results Summary Purpose eClinicalWorks Submission
--- OUTSIDE RECORDS SUMMARY | 2018-04-21 02:35 | XMS REPORT ---
Author Author JUNIE HAYES e[employer] Address Unknown Phone Unavailable Care Team Providers Care Tile Erector Name Role Phone JUNIE HAYES CP Unavailable Allergies No Known Allergies Problems Problem Type Condition Code Onset Dates Condition Status Problem Major depressive disorder, recurrent episode, moderate 296.32 Active Problem Cellulitis and abscess of unspecified site 682.9 Active Problem Counseling on substance use and abuse V65.42 Active Problem Other and unspecified alcohol dependence, unspecified drunkenness 303.90 Active Problem Unspecified hearing loss 389.9 Active Problem Essential hypertension, benign 401.1 Active Problem Nondependent alcohol abuse, unspecified drunkenness 305.00 Active Problem Asthma, unspecified, unspecified status 493.90 Active Medications No Known Medications Results No Known Results Summary Purpose eClinicalWorks Submission
--- OUTSIDE RECORDS SUMMARY | 2018-04-21 02:35 | XMS REPORT ---
Author Author SOSA SETH [facility] eClinicalWorks Address Unknown Phone Unavailable Care Team Providers Care Rewrite Editor Name Role Phone SOSA SETH CP Unavailable Allergies, Adverse Reactions, Alerts Substance Reaction Event Type N.K.D.A. Info Not Available Non Drug Allergy Problems Problem Type Condition Code Onset Dates Condition Status Assessment Dental examination Z01.20 Active Problem History of alcoholism F10.21 Active Problem Mild intermittent asthma without complication J45.20 Active Problem Schizoaffective disorder F25.9 Active Problem Major depressive disorder, recurrent episode, unspecified severity F33.9 Active Problem Hearing loss, unspecified laterality H91.90 Active Problem Prediabetes R73.09 Active Problem Essential hypertension I10 Active Medications Medication Code System Code Instructions Start Date End Date Status Dosage Metoprolol Tartrate [facility] [address]-97 25 mg Mar 31, 2014 take 1 tablet (25 mg) by oral route 2 times per day ProAir HFA [facility] [address]-13 108 (90 Base) MCG/ACT Inhalation every 4 hrs Dec 16, 2014 1-2 puffs as needed Seroquel [facility] [address]-94 100 mg Mar 31, 2014 1 tablet by Oral route 2 times per day Lisinopril [facility] [address]-27 10 MG Orally Once a day in am Jan 15, 2015 1 tablet Procedures Procedure Coding System Code Date INTRAORL-PERIAPICAL 1 FILM 78801 CPT-4 D0220 Mar 09, 2015 BITEWING - SINGLE FILM CPT-4 D0270 Mar 09, 2015 LTD ORAL EVALUATION - PROBLEM FOCUS CPT-4 D0140 Mar 09, 2015 Vital Signs Date/Time: Mar 09, 2015 Blood Pressure Diastolic 80 mmHg Blood Pressure Systolic 132 mmHg Results No Known Results Summary Purpose eClinicalWorks Submission
--- OUTSIDE RECORDS SUMMARY | 2018-04-21 02:35 | XMS REPORT ---
Author JUNIE Medina eClinicalWorks Address Unknown Phone Unavailable Care Team Providers Care Business Communications Instructor Name Role Phone JUNIE HAYES CP Unavailable [...] Asthma, unspecified, unspecified status 493.90 Active Medications Medication Code System Code Instructions Start Date End Date Status Dosage Ventolin HFA [facility] [address]-10 90 MCG/ACT Inhalation every 4 hrs prn shortness of breath appt needed with new provider for futher refills. 1-2 puffs as needed Results No Known Results Summary Purpose eClinicalWorks Submission
--- OUTSIDE RECORDS SUMMARY | 2018-04-21 02:35 | XMS REPORT ---
Author Author JORGE GILES [facility] Address [address] [place] [address] Care Team Providers Care Manufacturer Name Role Phone JORGE GILES Unavailable PROBLEMS Type Condition ICD9-CM Code [id number] Code Onset Dates Condition Status SNOMED Code Problem Schizoaffective disorder F25.9 Active 71547342 Problem Tobacco use Z72.0 Active 236112505 Problem Elevated cholesterol E78.0 Active 282626657 Problem Type 2 diabetes mellitus with other specified complication E11.69 Active 86609720 Problem Hyperlipidemia, unspecified E78.5 Active 30999974 Problem Schizoaffective disorder, unspecified type F25.9 Active 39682593 Problem Underweight R63.6 Active 998853388 Problem Left ventricular failure I50.1 Active 59999710 Problem Anxiety F41.9 Active 27663630 Problem Essential hypertension I10 Active 92748099 Problem Hearing loss, unspecified laterality H91.90 Active 84792701 Problem Major depressive disorder, recurrent episode, unspecified severity F33.9 Active 42855254 Problem History of alcoholism F10.21 Active 566711149 Problem Left ventricular hypertrophy I51.7 Active 09719988 Problem Mild intermittent asthma without complication J45.20 Active 834766776 ALLERGIES No Information ENCOUNTERS Encounter Location Date Diagnosis [place] [id number] [place] [address] 89189- 0153 June, Medicare annual wellness visit, initial Z00.00 [place] [address] [place] [address] 09739- 6548 Apr, Schizoaffective disorder F25.9 [place] [address] [place] [address] 59953- 3050 Apr, Essential hypertension I10 ; Schizoaffective disorder F25.9 ; Left ventricular failure I50.1 and Type 2 diabetes mellitus with other specified complication E11.69 [place] [address] [place] [id number] [place] [address] 96602- 2159 Apr, Schizoaffective disorder F25.9 [facility] [place] [address] Aug, [place] [address] [place] [id number] [place] [address] 29644- 1766 Aug, [facility] [place] [address] Aug, [place] [address] [address]- [address]287 Jul, Type 2 diabetes mellitus without complication, without long- term current use of insulin E11.9 ; Essential hypertension I10 and Elevated cholesterol E78.0 [place] [address] [place] [id number] [place] [address] 34857- 4503 June, [place] [address] 8[address]- [address]990 May, Schizoaffective disorder, unspecified type F25.9 ; Anxiety F41.9 and 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 [place] [address] [place] [id number] [place] [address] 09435- 0746 Apr, Type 2 diabetes mellitus without complication, without long- term current use of insulin E11.9 [place] [address] [place] [id number] [place] [address] 62332- 7876 Mar, [place] [address] [place] [id number] [place] [address] 37333- 6066 Mar, [place] [address] [place] [id number] [place] [address] 46923- 1498 Mar, [place] [address] [place] [id number] [place] [address] Mar, Essential hypertension I10 ; Elevated cholesterol E78.0 ; Prediabetes R73.09 ; Underweight R63.6 ; Type 2 diabetes mellitus without complication, without long-term current use of insulin E11.9 and Schizoaffective disorder F25.9 [facility] [address] [place] [address] [id number] [place] [address] 32338- 1946 Jan, Schizoaffective disorder F25.9 and Essential hypertension I10 [facility] [address] [place] [id number] [place] [address] 02035- 6944 Jan, Bronchitis J40 [facility] [address] [place] [id number] [place] [address] 87772- 5332 Dec, Prediabetes R73.09 [facility] [address] [place] [id number] [place] [address] 70738- 8444 Oct, Abscess L02.91 [facility] [address] 22553- 8701 Oct, [facility] [address] [place] [id number] [place] [address] 56188- 2877 June, Prediabetes R73.09 and Elevated cholesterol E78.0 [facility] [address] [place] [id number] [place] [address] 44718- 2379 June, Schizoaffective disorder F25.9 ; Essential hypertension I10 ; Prediabetes R73.09 ; Elevated cholesterol E78.0 and Tobacco use Z72.0 [facility] [address] [place] [address] [id number] [place] [address] 69254- 0731 May, [facility] [address] [place] [id number] [place] [address] 12097- 2596 Apr, [facility] [address] [place] [address] [id number] [place] [address] 66216- 0574 Apr, [facility] [address] 65522- 7357 Apr, [facility] [address] [place] [id number] [place] [address] 90670- 7431 08 Mar, 2015 [facility] [address] [place] [id number] [place] [address] [phone] Feb, Dental examination Z01.20 [facility] [address] [place] [id number] [place] [address] 28455- 4929 Jan, [facility] [address] [place] [address] [id number] [place] [address] 41232- 2456 Jan, Abscess L02.91 [facility] [address] [place] [id number] [place] [address] 96468- 1066 Jan, [facility] [address] 16163- 2058 Dec, [facility] [address] 66966- 6391 Dec, Abscess L02.91 [facility] [address] 16264- 1267 Nov, Elevated cholesterol E78.0 [facility] [address] 80910- 0449 Nov, [facility] [address] [place] [id number] [place] [address] 43894- 8387 Nov, [facility] [address] 66683- 1905 Nov, Essential hypertension I10 ; Schizoaffective disorder F25.9 ; History of alcoholism F10.21 and Mild intermittent asthma without complication J45.20 [facility] [address] [place] [id number] [place] [address] 53230- 9096 Nov, [facility] [address] [place] [id number] [place] [address] 03866- 0186 Nov, [facility] [address] 058153- 8096 May, [facility] [address] [place] [id number] [place] [address] 54462- 7096 May, [facility] [address] [place] [id number] [place] [address] 21283- 0052 Apr, [facility] [place] [facility] [address] [id number] [place] [address]- 5333 Apr, 2014 [facility] [place] [facility] [address] [id number] [place] [address]- 2990 Mar, 2014 [facility] [place] [facility] [address] [id number] [place] [address]- 5902 Mar, 2014 [facility] [place] [facility] [address] [id number] [place] [address]- 8862 Mar, 2014 [facility] [place] [facility] [address] [id number] [place] [address]- 9792 Mar, 2014 [facility] [place] [facility] [address] [facility] [id number] [place] [address]- 9320 Mar, 2014 [facility] [place] [facility] [address] [facility] [id number] [place] [address]- 7421 Mar, 2014 [facility] [place] [facility] [address] [facility] [id number] [place] [address]- 7006 Jan, [facility] [place] [facility] [address] [id number] [place] [address]- 1338 Jan, [facility] [place] [facility] [address] [facility] [id number] [place] [address]- 3237 Jan, [facility] [place] [facility] [address] [facility] [id number] [place] [address]- 3190 Jan, [facility] [place] [facility] [address] [id number] [address] 3902 Nov, [facility] [place] [facility] [address] [id number] [place] [address]- 4723 Nov, [facility] [place] [facility] [address] [facility] [id number] [place] [address]- 1584 Oct, [facility] [place] [facility] [address] [facility] [id number] [place] [address]- 5838 Oct, [facility] [place] [facility] [address] [id number] [place] [address]- 3059 Sep, [facility] [address] [id number] [place] [address]- 9076 Sep, [facility] [place] [facility] [address] [id number] [place] [address]- 9036 Sep, [facility] [place] [facility] [address] [id number] [place] [address]- 0482 Sep, [facility] [place] [facility] [address] [id number] [place] [address]- 4819 Sep, [facility] [place] [facility] [address] [id number] [place] [address]- 4060 Sep, [facility] [place] [facility] [address] [id number] [place] [address]- 9529 May, [facility] [place] [facility] [address] [id number] [place] [address]- 7308 May, [facility] [place] [facility] [address] [id number] [place] [address]- 9055 May, [facility] [place] [facility] [address] [id number] [place] [address]- 7924 May, [facility] [place] [facility] [address] [id number] [place] [address]- 4196 Apr, [facility] [place] [facility] [address] [id number] [place] [address]- 5619 Apr, [facility] [place] [facility] [address] [id number] [place] [address]- 2382 Apr, [facility] [place] [facility] [address] [id number] [place] [address]- 6850 Apr, [facility] [place] [facility] [address] [id number] [place] [address]- 0566 Apr, [facility] [place] [facility] [address] [id number] [place] [address]- 1452 Apr, [facility] [address] [id number] [address]- 4986 Apr, [facility] [address] [place] [id number] [address]- 7406 Apr, [facility] [address] [address]- 8536 Mar, [facility] [address] [address]- 7966 Mar, [facility] [address] [address]- 0632 Feb, [facility] [address] [address]- 5366 Feb, [facility] [address] [address]- 8626 Jan, [facility] [address] [id number] [address]- 0056 Jan, IMMUNIZATIONS No Known Immunizations SOCIAL HISTORY Never Assessed REASON FOR VISIT PLAN OF CARE VITAL SIGNS MEDICATIONS Unknown Medications RESULTS No Results PROCEDURES No Known procedures INSTRUCTIONS MEDICATIONS ADMINISTERED No Known Medications MEDICAL (GENERAL) HISTORY Type Description Date Medical History hypertension Medical History asthma Surgical History appendectomy Surgical History heart cath--[facility] 02/2013 Hospitalization History HTN , heart cath 02/2013
--- OUTSIDE RECORDS SUMMARY | 2018-04-21 02:35 | XMS REPORT ---
Author Author CATHY BLACK [employer] Address Unknown Phone Unavailable Care Team Providers Care Management Department Chair Name Role Phone CATHY BLACK CP Unavailable [...] Start Date End Date Status Dosage Lisinopril [facility] [address]-29 10 MG Orally Once a day in am Jan 15, 2015 1 tablet Results No Known Results Summary Purpose [employer] Submission
--- OUTSIDE RECORDS SUMMARY | 2018-04-21 02:35 | XMS REPORT ---
Author Author CATHY BLACK [employer] Address Unknown Phone Unavailable Care Team Providers Care Braider Tender Name Role Phone CATHY BLACK CP Unavailable [...]
--- OUTSIDE RECORDS SUMMARY | 2018-04-21 02:35 | XMS REPORT ---
Author Author WAYNE CATHY [facility] Address [address] [place] [address] Care Team Providers Care Manager Perioperative Name Role Phone MONISHA BLACKHANY Unavailable PROBLEMS Type Condition ICD9-CM Code [id number] Code Onset Dates Condition Status SNOMED Code Problem Major depressive disorder, recurrent episode, unspecified severity F33.9 Active 09161874 Problem Left ventricular hypertrophy I51.7 Active 51861596 Problem Essential hypertension I10 Active 53456417 Assessment Abscess L02.91 Oct, Active 203532613 Problem Hearing loss, unspecified laterality H91.90 Active 65568865 Problem Elevated cholesterol E78.0 Active 092767484 Problem Tobacco use Z72.0 Active 469706129 Problem Mild intermittent asthma without complication J45.20 Active 503018633 Problem Prediabetes R73.09 Active 0125024 Problem Schizoaffective disorder F25.9 Active 07870272 Problem History of alcoholism F10.21 Active 832291036 ALLERGIES Substance Reaction Event Type Date Status N.K.D.A. Unknown Non Drug Allergy Oct, Unknown SOCIAL HISTORY No smoking Hx information available PLAN OF CARE VITAL SIGNS Height 65 in 2015-11-11 Weight 95.8 lbs 2015-11-11 Heart Rate 70 bpm 2015-11-11 Respiratory Rate 18 2015-11-11 BMI 15.94 kg/m2 2015-11-11 Blood pressure systolic 124 mmHg 2015-11-11 Blood pressure diastolic 79 mmHg 2015-11-11 MEDICATIONS Medication Instructions Dosage Frequency Start Date End Date Duration Status Seroquel 100 MG Orally 2 times a day 1 tablet at bedtime 12h Apr, 30 day(s) Active Lisinopril 10 MG Orally Once a day in am 1 tablet Dec, 30 day (s) Active Metoprolol Tartrate 25 mg take 1 tablet (25 mg) by oral route 2 times per day Mar, Active Ventolin HFA 108 (90 Base) MCG/ACT Inhalation every 4 hrs prn 1-2 puffs as needed Oct, Active Sulfamethoxazole-Trimethoprim 800-160 MG Orally Twice a day 1 tablet 12h Oct, Nov, 10 day(s) Active RESULTS No Results PROCEDURES Procedure Date Ordered Related Diagnosis Body Site [facility] VISIT ESTABLISHED PATIENT Nov 11, 2015 Office Visit, Est Pt., Level 3 Nov 11, 2015 IMMUNIZATIONS No Known Immunizations
--- OUTSIDE RECORDS SUMMARY | 2018-04-21 02:35 | XMS REPORT ---
Author Author CATHY BLACK Organization [facility] Address [address] [place] [address] Care Team Providers Care Doctor Of Radiology Name Role Phone CATHY BLACK Unavailable PROBLEMS Type Condition ICD9-CM Code [id number] Code Onset Dates Condition Status SNOMED Code Problem History of alcoholism F10.21 Active 913963495 Problem Schizoaffective disorder F25.9 Active 21474632 Problem Mild intermittent asthma without complication J45.20 Active 668127206 Problem Essential hypertension I10 Active 08661340 Problem Major depressive disorder, recurrent episode, unspecified severity F33.9 Active 46121058 Problem Left ventricular hypertrophy I51.7 Active 72881223 Problem Hearing loss, unspecified laterality H91.90 Active 12098827 Problem Anxiety F41.9 Active 19849301 Problem Schizoaffective disorder, unspecified type F25.9 Active 72215832 Problem Tobacco use Z72.0 Active 523566894 Problem Elevated cholesterol E78.0 Active 426234229 Problem Type 2 diabetes mellitus without complication, without long-term current use of insulin E11.9 Active 631464657 Problem Underweight R63.6 Active 624152636 ALLERGIES No Information SOCIAL HISTORY Never Assessed PLAN OF CARE VITAL SIGNS MEDICATIONS Unknown Medications RESULTS No Results PROCEDURES No Known procedures IMMUNIZATIONS No Known Immunizations MEDICAL (GENERAL) HISTORY Type Description Date Medical History hypertension Medical History asthma Surgical History appendectomy Surgical History heart cath--[facility] 02/2013 Hospitalization History HTN , heart cath 02/2013
--- OUTSIDE RECORDS SUMMARY | 2018-04-21 02:36 | XMS REPORT | Continuity of Care Document ---
Author Author [facility] Address Unknown Phone Unavailable Allergies Active Description Code Type Severity Reaction Onset Reported/Identified Relationship to Patient Clinical Status Yes No Known Drug Allergies [id number] Drug Allergy Unknown N/A 03/03/2013 Medications There is no data. Problems Date Dx Coded Attending Type Code Diagnosis Diagnosed By 05/01/2008 300.02 GENERALIZED ANXIETY DISORDER 05/01/2008 DANITZA RAMIREZ PSYD 300.02 GENERALIZED ANXIETY DISORDER 05/01/2008 JUNIE HAYES DO 300.02 GENERALIZED ANXIETY DISORDER 05/01/2008 JUNIE HAYES DO K 300.02 GENERALIZED ANXIETY DISORDER 05/01/2008 JUNIE HAYES DO K 300.02 GENERALIZED ANXIETY DISORDER 05/01/2008 JUNIE HAYES DO K 300.02 GENERALIZED ANXIETY DISORDER 05/01/2008 JUNIE HAYES DO K 300.02 GENERALIZED ANXIETY DISORDER 05/01/2008 DANITZA RAMIREZ PSYD 300.02 GENERALIZED ANXIETY DISORDER 05/01/2008 DANITZA RAMIREZ PSYD 300.02 GENERALIZED ANXIETY DISORDER 05/01/2008 DANITZA RAMIREZ PSYD 300.02 GENERALIZED ANXIETY DISORDER 05/01/2008 JUNIE HAYES DO K 300.02 GENERALIZED ANXIETY DISORDER 05/26/2008 301.20 PD SCHIZOID 05/26/2008 DANITZA RAMIREZ PSYD 301.20 PD SCHIZOID 05/26/2008 JUNIE HAYES DO K 301.20 PD SCHIZOID 05/26/2008 CARI HAYES DOA K 301.20 PD SCHIZOID 05/26/2008 CARI HAYES DOA K 301.20 PD SCHIZOID 05/26/2008 CARI HAYES DOA K 301.20 PD SCHIZOID 05/26/2008 CARI HAYES DOA K 301.20 PD SCHIZOID 05/26/2008 DANITZA RAMIREZ PSYD 301.20 PD SCHIZOID 05/26/2008 DANITZA RAMIREZ PSYD 301.20 PD SCHIZOID 05/26/2008 DANITZA RAMIREZ PSYD L 301.20 PD SCHIZOID 05/26/2008 HAYES DO, JUNIE K 301.20 PD SCHIZOID 06/23/2008 295.70 P SCHIZO AFFECTIVE 06/23/2008 DANITZA RAMIREZ PSYD L 295.70 P SCHIZO AFFECTIVE 06/23/2008 HAYES DO, JUNIE K 295.70 P SCHIZO AFFECTIVE 06/23/2008 HAYES DO, JUNIE K 295.70 P SCHIZO AFFECTIVE 06/23/2008 HAYES DO, JUNIE K 295.70 P SCHIZO AFFECTIVE 06/23/2008 HAYES DO, JUNIE K 295.70 P SCHIZO AFFECTIVE 06/23/2008 HAYES DO, JUNIE K 295.70 P SCHIZO AFFECTIVE 06/23/2008 DANITZA RAMIREZ PSYD L 295.70 P SCHIZO AFFECTIVE 06/23/2008 DANITZA RAMIREZ PSYD L 295.70 P SCHIZO AFFECTIVE 06/23/2008 DANITZA RAMIREZ PSYD L 295.70 P SCHIZO AFFECTIVE 06/23/2008 HAYES DO, JUNIE K 295.70 P SCHIZO AFFECTIVE 07/03/2008 296.90 MO MOOD DIS NOS 07/03/2008 DANITZA RAMIREZ PSYD L 296.90 MO MOOD DIS NOS 07/03/2008 HAYES DO, JUNIE K 296.90 MO MOOD DIS NOS 07/03/2008 HAYES DO, JUNIE K 296.90 MO MOOD DIS NOS 07/03/2008 HAYES DO, JUNIE K 296.90 MO MOOD DIS NOS 07/03/2008 HAYES DO, JUNIE K 296.90 MO MOOD DIS NOS 07/03/2008 HAYES DO, JUNIE K 296.90 MO MOOD DIS NOS 07/03/2008 DANITZA RAMIREZ PSYD ANN L 296.90 MO MOOD DIS NOS 07/03/2008 DANITZA RAMIREZ PSYD L 296.90 MO MOOD DIS NOS 07/03/2008 DANITZA RAMIREZ PSYD L 296.90 MO MOOD DIS NOS 07/03/2008 HAYES DO, JUNIE K 296.90 MO MOOD DIS NOS 07/22/2008 293.9 UNSPECIFIED TRANSIENT MENTAL DISORDERS DUE TO CONDITIONS CLASSIFIED ELSEWHERE 07/22/2008 V58.69 MEDICATION HIGH RISK 07/22/2008 DANITZA RAMIREZ PSYD L 293.9 UNSPECIFIED TRANSIENT MENTAL DISORDERS DUE TO CONDITIONS CLASSIFIED ELSEWHERE 07/22/2008 DANITZA RAMIREZ PSYD V58.69 MEDICATION HIGH RISK 07/22/2008 CARI HAYES DOA K 293.9 UNSPECIFIED TRANSIENT MENTAL DISORDERS DUE TO CONDITIONS CLASSIFIED ELSEWHERE 07/22/2008 FREDDY DIEZ JUNIE K V58.69 MEDICATION HIGH RISK 07/22/2008 FREDDY DIEZ JUNIE K 293.9 UNSPECIFIED TRANSIENT MENTAL DISORDERS DUE TO CONDITIONS CLASSIFIED ELSEWHERE 07/22/2008 FREDDY DIEZ JUNIE K V58.69 MEDICATION HIGH RISK 07/22/2008 FREDDY DIEZ JUNIE K 293.9 UNSPECIFIED TRANSIENT MENTAL DISORDERS DUE TO CONDITIONS CLASSIFIED ELSEWHERE 07/22/2008 FREDDY DIEZ JUNIE K V58.69 MEDICATION HIGH RISK 07/22/2008 FREDDY DIEZ JUNIE K 293.9 UNSPECIFIED TRANSIENT MENTAL DISORDERS DUE TO CONDITIONS CLASSIFIED ELSEWHERE 07/22/2008 FREDDY DIEZ JUNIE K V58.69 MEDICATION HIGH RISK 07/22/2008 FREDDY DIEZ JUNIE K 293.9 UNSPECIFIED TRANSIENT MENTAL DISORDERS DUE TO CONDITIONS CLASSIFIED ELSEWHERE 07/22/2008 FREDDY DIEZ JUNIE K V58.69 MEDICATION HIGH RISK 07/22/2008 DANITZA RAMIREZ PSYD L 293.9 UNSPECIFIED TRANSIENT MENTAL DISORDERS DUE TO CONDITIONS CLASSIFIED ELSEWHERE 07/22/2008 DANITZA RAMIREZ PSYD L V58.69 MEDICATION HIGH RISK 07/22/2008 DANITZA RAMIREZ PSYD L 293.9 UNSPECIFIED TRANSIENT MENTAL DISORDERS DUE TO CONDITIONS CLASSIFIED ELSEWHERE 07/22/2008 DANITZA RAMIREZ PSYD L V58.69 MEDICATION HIGH RISK 07/22/2008 DANITZA RAMIREZ PSYD L 293.9 UNSPECIFIED TRANSIENT MENTAL DISORDERS DUE TO CONDITIONS CLASSIFIED ELSEWHERE 07/22/2008 DANITZA RAMIREZ PSYD L V58.69 MEDICATION HIGH RISK 07/22/2008 HAYES CARI DIEZA K 293.9 UNSPECIFIED TRANSIENT MENTAL DISORDERS DUE TO CONDITIONS CLASSIFIED ELSEWHERE 07/22/2008 HAYES DO JUNIE K V58.69 MEDICATION HIGH RISK 03/04/2013 GLO DURAND MD Ot 305.1 TOBACCO USE DISORDER 03/04/2013 GLO DURAND MD Ot 315.2 OTH LEARNING DIFFICULTY 03/04/2013 GLO DURAND MD Ot 401.9 HYPERTENSION NOS 03/04/2013 GLO DURAND MD Ot 429.3 CARDIOMEGALY 03/04/2013 GLO DURAND MD Ot 493.90 ASTHMA, UNSPECIFIED 03/04/2013 GLO DURAND MD Ot 790.99 BLOOD EXAM - OTH NONSPECIFIC FINDINGS 03/04/2013 GLO DURAND MD Ot V58.69 OTH MED,LT,CURRENT USE 03/13/2013 DANITZA RAMIREZ PSYD ANN L 296.32 MO DEPRESSIVE RECURRENT MODERATE 03/13/2013 FREDDY DIEZ JUNIE K 296.32 MO DEPRESSIVE RECURRENT MODERATE 03/13/2013 FREDDY DIEZ JUNIE K 296.32 MO DEPRESSIVE RECURRENT MODERATE 03/13/2013 HAYES DO JUNIE K 296.32 MO DEPRESSIVE RECURRENT MODERATE 03/13/2013 HAYES DO JUNIE K 296.32 MO DEPRESSIVE RECURRENT MODERATE 03/13/2013 HAYES DO JUNIE K 296.32 MO DEPRESSIVE RECURRENT MODERATE 03/13/2013 DANITZA RAMIREZ PSYD ANN L 296.32 MO DEPRESSIVE RECURRENT MODERATE 03/13/2013 DANITZA RAMIREZ PSYD ANN L 296.32 MO DEPRESSIVE RECURRENT MODERATE 03/13/2013 DANITZA RAMIREZ PSYD ANN L 296.32 MO DEPRESSIVE RECURRENT MODERATE 03/13/2013 FREDDY DIEZ JUNIE K 296.32 MO DEPRESSIVE RECURRENT MODERATE 04/10/2013 FREDDY DIEZ JUNIE K 305.00 NONDEPENDENT ALCOHOL ABUSE UNSPECIFIED DRINKING BEHAVIOR 04/10/2013 FREDDY DIEZ JUNIE K 389.9 UNSPECIFIED HEARING LOSS 04/10/2013 FREDDY DIEZ JUNIE K 401.1 HYPERTENSION, BENIGN ESSENTIAL 04/10/2013 FREDDY DIEZ JUNIE K 493.90 ASTHMA UNSPECIFIED 04/10/2013 FREDDY DIEZ JUNIE K V65.42 COUNSELING - SMOKING CESSATION 04/10/2013 FREDDY DIEZ JUNIE K 305.00 NONDEPENDENT ALCOHOL ABUSE UNSPECIFIED DRINKING BEHAVIOR 04/10/2013 CARI HAYES DOA K 389.9 UNSPECIFIED HEARING LOSS 04/10/2013 FREDDY DIEZ JUNIE K 401.1 HYPERTENSION, BENIGN ESSENTIAL 04/10/2013 FREDDY DIEZ JUNIE K 493.90 ASTHMA UNSPECIFIED 04/10/2013 HAYES DO JUNIE K V65.42 COUNSELING - SMOKING CESSATION 04/10/2013 FREDDY DIEZ JUNIE K 305.00 NONDEPENDENT ALCOHOL ABUSE UNSPECIFIED DRINKING BEHAVIOR 04/10/2013 HAYES DO, JUNIE K 389.9 UNSPECIFIED HEARING LOSS 04/10/2013 HAYES DO, JUNIE K 401.1 HYPERTENSION, BENIGN ESSENTIAL 04/10/2013 HAYES DO, JUNIE K 493.90 ASTHMA UNSPECIFIED 04/10/2013 HAYES DO, JUNIE K V65.42 COUNSELING - SMOKING CESSATION 04/10/2013 HAYES DO, JUNIE K 305.00 NONDEPENDENT ALCOHOL ABUSE UNSPECIFIED DRINKING BEHAVIOR 04/10/2013 HAYES DO, JUNIE K 389.9 UNSPECIFIED HEARING LOSS 04/10/2013 HAYES DO, JUNIE K 401.1 HYPERTENSION, BENIGN ESSENTIAL 04/10/2013 HAYES DO, JUNIE K 493.90 ASTHMA UNSPECIFIED 04/10/2013 HAYES DO, JUNIE K V65.42 COUNSELING - SMOKING CESSATION 04/10/2013 HAYES DO, JUNIE K 305.00 NONDEPENDENT ALCOHOL ABUSE UNSPECIFIED DRINKING BEHAVIOR 04/10/2013 HAYES DO, JUNIE K 389.9 UNSPECIFIED HEARING LOSS 04/10/2013 HAYES DO, JUNIE K 401.1 HYPERTENSION, BENIGN ESSENTIAL 04/10/2013 HAYES DO, JUNIE K 493.90 ASTHMA UNSPECIFIED 04/10/2013 HAYES DO, JUNIE K V65.42 COUNSELING - SMOKING CESSATION 04/10/2013 DANITZA RAMIREZ PSYD ANN L 305.00 NONDEPENDENT ALCOHOL ABUSE UNSPECIFIED DRINKING BEHAVIOR 04/10/2013 DANITZA RAMIREZ PSYD ANN L 389.9 UNSPECIFIED HEARING LOSS 04/10/2013 DANITZA RAMIREZ PSYD ANN L 401.1 HYPERTENSION, BENIGN ESSENTIAL 04/10/2013 DANITZA RAMIREZ PSYD ANN L 493.90 ASTHMA UNSPECIFIED 04/10/2013 DANITZA RAMIREZ PSYD ANN L V65.42 COUNSELING - SMOKING CESSATION 04/10/2013 DANITZA RAMIREZ PSYD ANN L 305.00 NONDEPENDENT ALCOHOL ABUSE UNSPECIFIED DRINKING BEHAVIOR 04/10/2013 DANITZA RAMIREZ PSYD ANN L 389.9 UNSPECIFIED HEARING LOSS 04/10/2013 DANITZA RAMIREZ PSYD ANN L 401.1 HYPERTENSION, BENIGN ESSENTIAL 04/10/2013 DANITZA RAMIREZ PSYD ANN L 493.90 ASTHMA UNSPECIFIED 04/10/2013 DANITZA RAMIREZ PSYD ANN L V65.42 COUNSELING - SMOKING CESSATION 04/10/2013 DANITZA RAMIREZ PSYD ANN L 305.00 NONDEPENDENT ALCOHOL ABUSE UNSPECIFIED DRINKING BEHAVIOR 04/10/2013 DANITZA RAMIREZ PSYD L 389.9 UNSPECIFIED HEARING LOSS 04/10/2013 DANITZA RAMIREZ PSYD L 401.1 HYPERTENSION, BENIGN ESSENTIAL 04/10/2013 DANITZA RAMIREZ PSYD L 493.90 ASTHMA UNSPECIFIED 04/10/2013 DANITZA RAMIREZ PSYD L V65.42 COUNSELING - SMOKING CESSATION 04/10/2013 FREDDY DEIZ JUNIE K 305.00 NONDEPENDENT ALCOHOL ABUSE UNSPECIFIED DRINKING BEHAVIOR 04/10/2013 HAYES DO JUNIE K 389.9 UNSPECIFIED HEARING LOSS 04/10/2013 HAYES DO JUNIE K 401.1 HYPERTENSION, BENIGN ESSENTIAL 04/10/2013 HAYES DO JUNIE K 493.90 ASTHMA UNSPECIFIED 04/10/2013 HAYES DO JUNIE K V65.42 COUNSELING - SMOKING CESSATION 04/24/2013 FREDDY DO JUNIE K 303.90 OTHER AND UNSPECIFIED ALCOHOL DEPENDENCE UNSPECIFIED DRINKING BEHAVIOR 04/24/2013 FREDDY DIEZ JUNIE K 303.90 OTHER AND UNSPECIFIED ALCOHOL DEPENDENCE UNSPECIFIED DRINKING BEHAVIOR 04/24/2013 HAYES DO JUNIE K 303.90 OTHER AND UNSPECIFIED ALCOHOL DEPENDENCE UNSPECIFIED DRINKING BEHAVIOR 04/24/2013 HAYES DO JUNIE K 303.90 OTHER AND UNSPECIFIED ALCOHOL DEPENDENCE UNSPECIFIED DRINKING BEHAVIOR 04/24/2013 DANITZA RAMIREZ PSYD L 303.90 OTHER AND UNSPECIFIED ALCOHOL DEPENDENCE UNSPECIFIED DRINKING BEHAVIOR 04/24/2013 DANITZA RAMIREZ PSYD L 303.90 OTHER AND UNSPECIFIED ALCOHOL DEPENDENCE UNSPECIFIED DRINKING BEHAVIOR 04/24/2013 DANITZA RAMIREZ PSYD L 303.90 OTHER AND UNSPECIFIED ALCOHOL DEPENDENCE UNSPECIFIED DRINKING BEHAVIOR 04/24/2013 HAYES DO JUNIE K 303.90 OTHER AND UNSPECIFIED ALCOHOL DEPENDENCE UNSPECIFIED DRINKING BEHAVIOR 01/14/2014 GLO DURAND MD Ot 397.0 01/14/2014 GLO DURAND MD Ot 401.9 01/14/2014 GLO DURAND MD Ot 424.0 01/14/2014 GLO DURAND MD Ot 429.3 03/31/2014 CARI HAYES DOA K 682.9 CELLULITIS AND ABSCESS OF UNSPECIFIED SITES 04/14/2014 GLO DURAND MD Ot 397.0 04/14/2014 SHANI NARVAEZ, GLO Gupta Ot 401.9 04/14/2014 SHANI NARVAEZ, GLO Gupta Ot 424.0 04/14/2014 SHANI NARVAEZ, GLO Gupta Ot 429.3 05/24/2015 Ot H91.8X3 05/24/2015 Ot I10 05/24/2015 Ot I51.7 05/24/2015 Ot Z72.0 05/24/2015 Ot H91.8X3 05/24/2015 Ot I10 05/24/2015 Ot I51.7 05/24/2015 Ot Z72.0 05/24/2015 Ot H91.8X3 05/24/2015 Ot I10 05/24/2015 Ot I51.7 05/24/2015 Ot Z72.0 05/27/2015 Ot H91.8X3 05/27/2015 Ot I10 05/27/2015 Ot I51.7 05/27/2015 Ot Z72.0 05/28/2015 Ot H91.8X3 05/28/2015 Ot I10 05/28/2015 Ot I51.7 05/28/2015 Ot Z72.0 05/28/2015 Ot 305.1 05/28/2015 Ot 493.90 05/28/2015 NOELLE NARVAEZ, BRANDEN Harrell Ot 682.2 05/28/2015 RENE MACHADO Ot 397.0 05/28/2015 RENE MACHADO Ot 401.9 05/28/2015 RENE MACHADO Ot 424.0 05/28/2015 RENE MACHADO Ot 429.3 05/28/2015 RENE MACHADO Ot 786.09 05/28/2015 SHANI NARVAEZ, GLO Gupta Ot 397.0 05/28/2015 SHANI NARVAEZ, GLO Gupta Ot 401.9 05/28/2015 SHANI NARVAEZ, GLO Gupta Ot 424.0 05/28/2015 SHANI NARVAEZ, GLO Gupta Ot 429.3 05/28/2015 Ot H91.8X3 05/28/2015 Ot I10 05/28/2015 Ot I51.7 05/28/2015 Ot Z72.0 06/18/2015 Ot H91.8X3 OTHER SPECIFIED HEARING LOSS, BILATERAL 06/18/2015 Ot I10 ESSENTIAL ( PRIMARY) HYPERTENSION 06/18/2015 Ot I51.7 CARDIOMEGALY 06/18/2015 Ot Z72.0 TOBACCO USE 08/19/2015 Ot H91.8X3 OTHER SPECIFIED HEARING LOSS, BILATERAL 08/19/2015 Ot I10 ESSENTIAL ( PRIMARY) HYPERTENSION 08/19/2015 Ot I51.7 CARDIOMEGALY 08/19/2015 Ot Z72.0 TOBACCO USE 12/20/2015 RENE MACHADO Ot H91.8X3 OTHER SPECIFIED HEARING LOSS, BILATERAL 12/20/2015 RENE MACHADO Ot I10 ESSENTIAL (PRIMARY) HYPERTENSION 12/20/2015 RENE MACHADO Ot I51.7 CARDIOMEGALY 12/20/2015 RENE MACHADO Ot R79.89 OTHER SPECIFIED ABNORMAL FINDINGS OF BLO 12/20/2015 Ot 305.1 TOBACCO USE DISORDER 12/20/2015 Ot 493.90 ASTHMA, UNSPECIFIED 12/20/2015 NOELLE NARVAEZ, BRANDEN Harrell Ot 682.2 CELLULITIS OF TRUNK 12/20/2015 RENE MACHADO Ot 397.0 TRICUSPID VALVE DISEASE 12/20/2015 RENE MACHADO Ot 401.9 HYPERTENSION NOS 12/20/2015 RENE MACHADO Ot 424.0 MITRAL VALVE DISORDER 12/20/2015 RENE MACHADO Ot 429.3 CARDIOMEGALY 12/20/2015 RENE MACHADO Ot 786.09 RESPIRATORY ABNORM NEC 12/20/2015 GLO DURAND MD Ot 397.0 TRICUSPID VALVE DISEASE 12/20/2015 GLO DURAND MD Ot 401.9 HYPERTENSION NOS 12/20/2015 GLO DURAND MD Ot 424.0 MITRAL VALVE DISORDER 12/20/2015 GLO DURAND MD Ot 429.3 CARDIOMEGALY 12/20/2015 Ot H91.8X3 OTHER SPECIFIED HEARING LOSS, BILATERAL 12/20/2015 Ot I10 ESSENTIAL ( PRIMARY) HYPERTENSION 12/20/2015 Ot I51.7 CARDIOMEGALY 12/20/2015 Ot Z72.0 TOBACCO USE 12/20/2015 RENE MACHADO Ot H91.8X3 OTHER SPECIFIED HEARING LOSS, BILATERAL 12/20/2015 JORGE LUIS JOSUE RENE K Ot I10 ESSENTIAL (PRIMARY) HYPERTENSION 12/20/2015 JORGE LUIS JOSUE RENE K Ot I51.7 CARDIOMEGALY 12/20/2015 JORGE LUIS JOSUE RENE K Ot R79.89 OTHER SPECIFIED ABNORMAL FINDINGS OF BLO 01/07/2016 JORGE LUIS JOSUE RENE K Ot H91.8X3 OTHER SPECIFIED HEARING LOSS, BILATERAL 01/07/2016 JORGE LUIS JOSUE RENE K Ot I10 ESSENTIAL (PRIMARY) HYPERTENSION 01/07/2016 JORGE LUIS JOSUE RENE K Ot I51.7 CARDIOMEGALY 01/07/2016 JORGE LUIS JOSUE RENE K Ot R79.89 OTHER SPECIFIED ABNORMAL FINDINGS OF BLO 08/21/2016 Ot 305.1 TOBACCO USE DISORDER 08/21/2016 Ot 493.90 ASTHMA, UNSPECIFIED 08/21/2016 NOELLE NARVAEZ, BRANDEN Harrell Ot 682.2 CELLULITIS OF TRUNK 08/21/2016 JORGE LUIS JOSUE RENE K Ot 397.0 TRICUSPID VALVE DISEASE 08/21/2016 JORGE LUIS JOSUE RENE K Ot 401.9 HYPERTENSION NOS 08/21/2016 JORGE LUIS JOSUE RENE K Ot 424.0 MITRAL VALVE DISORDER 08/21/2016 JORGE LUIS JOSUE RENE K Ot 429.3 CARDIOMEGALY 08/21/2016 JORGE LUIS JOSUE RENE K Ot 786.09 RESPIRATORY ABNORM NEC 08/21/2016 SHANI NARVAEZ, GLO Gupta Ot 397.0 TRICUSPID VALVE DISEASE 08/21/2016 GLO UDRAND MD Ot 401.9 HYPERTENSION NOS 08/21/2016 GLO DURAND MD Ot 424.0 MITRAL VALVE DISORDER 08/21/2016 GLO DURAND MD Ot 429.3 CARDIOMEGALY 08/21/2016 Ot H91.8X3 OTHER SPECIFIED HEARING LOSS, BILATERAL 08/21/2016 Ot I10 ESSENTIAL ( PRIMARY) HYPERTENSION 08/21/2016 Ot I51.7 CARDIOMEGALY 08/21/2016 Ot Z72.0 TOBACCO USE 08/21/2016 RENE MACHADO Ot H91.8X3 OTHER SPECIFIED HEARING LOSS, BILATERAL 08/21/2016 RENE MACHADO Ot I10 ESSENTIAL (PRIMARY) HYPERTENSION 08/21/2016 RENE MACHADO Ot I51.7 CARDIOMEGALY 08/21/2016 RENE MACHADO Ot R79.89 OTHER SPECIFIED ABNORMAL FINDINGS OF BLO 08/25/2016 Ot 305.1 TOBACCO USE DISORDER 08/25/2016 Ot 493.90 ASTHMA, UNSPECIFIED 08/25/2016 NOELLE NARVAEZ, BRANDEN Harrell Ot 682.2 CELLULITIS OF TRUNK 08/25/2016 RENE MACHADO Ot 397.0 TRICUSPID VALVE DISEASE 08/25/2016 RENE MACHADO Ot 401.9 HYPERTENSION NOS 08/25/2016 RENE MACHADO Ot 424.0 MITRAL VALVE DISORDER 08/25/2016 RENE MACHADO Ot 429.3 CARDIOMEGALY 08/25/2016 RENE MACHADO Ot 786.09 RESPIRATORY ABNORM NEC 08/25/2016 SHANI NARVAEZ, GLO Gupta Ot 397.0 TRICUSPID VALVE DISEASE 08/25/2016 SHANI NARVAEZ, GLO Gupta Ot 401.9 HYPERTENSION NOS 08/25/2016 SHANI NARVAEZ, GLO Gupta Ot 424.0 MITRAL VALVE DISORDER 08/25/2016 SHANI NARVAEZ, GLO Gupta Ot 429.3 CARDIOMEGALY 08/25/2016 Ot H91.8X3 OTHER SPECIFIED HEARING LOSS, BILATERAL 08/25/2016 Ot I10 ESSENTIAL ( PRIMARY) HYPERTENSION 08/25/2016 Ot I51.7 CARDIOMEGALY 08/25/2016 Ot Z72.0 TOBACCO USE 08/25/2016 RENE MACHADO Ot H91.8X3 OTHER SPECIFIED HEARING LOSS, BILATERAL 08/25/2016 RENE MACHADO Ot I10 ESSENTIAL (PRIMARY) HYPERTENSION 08/25/2016 RENE MACHADO Ot I51.7 CARDIOMEGALY 08/25/2016 RENE MACHADO Ot R79.89 OTHER SPECIFIED ABNORMAL FINDINGS OF BLO 08/28/2016 RENE MACHADO Ot H91.8X3 OTHER SPECIFIED HEARING LOSS, BILATERAL 08/28/2016 RENE MACHADO Ot I10 ESSENTIAL (PRIMARY) HYPERTENSION 08/28/2016 RENE MACHADO Ot R79.89 OTHER SPECIFIED ABNORMAL FINDINGS OF BLO 08/28/2016 RENE MACHADO Ot Z72.0 TOBACCO USE 09/15/2016 RENE MACHADO Ot H91.8X3 OTHER SPECIFIED HEARING LOSS, BILATERAL 09/15/2016 RENE MACHADO Ot I10 ESSENTIAL (PRIMARY) HYPERTENSION 09/15/2016 RENE MACHADO Ot R79.89 OTHER SPECIFIED ABNORMAL FINDINGS OF BLO 09/15/2016 RENE MACHADO Ot Z72.0 TOBACCO USE 10/25/2016 Ot 305.1 TOBACCO USE DISORDER 10/25/2016 Ot 493.90 ASTHMA, UNSPECIFIED 10/25/2016 NOELLE NARVAEZ, BRANDEN Harrell Ot 682.2 CELLULITIS OF TRUNK 10/25/2016 RENE MACHADO Ot 397.0 TRICUSPID VALVE DISEASE 10/25/2016 RENE MACHADO Ot 401.9 HYPERTENSION NOS 10/25/2016 RENE MACHADO Ot 424.0 MITRAL VALVE DISORDER 10/25/2016 RENE MACHADO Ot 429.3 CARDIOMEGALY 10/25/2016 RENE MACHADO Ot 786.09 RESPIRATORY ABNORM NEC 10/25/2016 GLO DURAND MD Ot 397.0 TRICUSPID VALVE DISEASE 10/25/2016 GLO DURAND MD Ot 401.9 HYPERTENSION NOS 10/25/2016 GLO DURAND MD Ot 424.0 MITRAL VALVE DISORDER 10/25/2016 GLO DURAND MD Ot 429.3 CARDIOMEGALY 10/25/2016 Ot H91.8X3 OTHER SPECIFIED HEARING LOSS, BILATERAL 10/25/2016 Ot I10 ESSENTIAL ( PRIMARY) HYPERTENSION 10/25/2016 Ot I51.7 CARDIOMEGALY 10/25/2016 Ot Z72.0 TOBACCO USE 10/25/2016 RENE MACHADO Ot H91.8X3 OTHER SPECIFIED HEARING LOSS, BILATERAL 10/25/2016 RENE MACHADO Ot I10 ESSENTIAL (PRIMARY) HYPERTENSION 10/25/2016 RENE MACHADO Ot I51.7 CARDIOMEGALY 10/25/2016 RENE MACHADO Ot R79.89 OTHER SPECIFIED ABNORMAL FINDINGS OF BLO 10/25/2016 RENE MACHADO Ot H91.8X3 OTHER SPECIFIED HEARING LOSS, BILATERAL 10/25/2016 RENE MACHADO Ot I10 ESSENTIAL (PRIMARY) HYPERTENSION 10/25/2016 RENE MACHADO Ot R79.89 OTHER SPECIFIED ABNORMAL FINDINGS OF BLO 10/25/2016 RENE MACHADO Ot Z72.0 TOBACCO USE 11/01/2016 GLO DURAND MD Ot I11.0 HYPERTENSIVE HEART DISEASE WITH HEART FA 11/01/2016 GLO DURAND MD Ot I50.1 LEFT VENTRICULAR FAILURE 11/01/2016 GLO DURAND MD Ot I51.7 CARDIOMEGALY 11/01/2016 GLO DURAND MD Ot L02.214 CUTANEOUS ABSCESS OF GROIN 11/01/2016 GLO DURAND MD Ot Z72.0 TOBACCO USE 11/28/2016 GLO DURAND MD Ot I11.0 HYPERTENSIVE HEART DISEASE WITH HEART FA 11/28/2016 GLO DURAND MD Ot I50.1 LEFT VENTRICULAR FAILURE 11/28/2016 GLO DURAND MD Ot I51.7 CARDIOMEGALY 11/28/2016 GLO DURAND MD Ot L02.214 CUTANEOUS ABSCESS OF GROIN 11/28/2016 GLO DURAND MD Ot Z72.0 TOBACCO USE 02/04/2018 NOELLE NARVAEZ, BRANDEN Harrell Ot 682.2 CELLULITIS OF TRUNK 02/04/2018 RENE MACHADO Ot 397.0 TRICUSPID VALVE DISEASE 02/04/2018 RENE MACHADO Ot 401.9 HYPERTENSION NOS 02/04/2018 RENE MACHADO Ot 424.0 MITRAL VALVE DISORDER 02/04/2018 RENE MACHADO Ot 429.3 CARDIOMEGALY 02/04/2018 RENE MACHADO Ot 786.09 RESPIRATORY ABNORM NEC 02/04/2018 GLO DURAND MD Ot 397.0 TRICUSPID VALVE DISEASE 02/04/2018 GLO DURAND MD Ot 401.9 HYPERTENSION NOS 02/04/2018 GLO DURAND MD Ot 424.0 MITRAL VALVE DISORDER 02/04/2018 GLO DURAND MD Ot 429.3 CARDIOMEGALY 02/04/2018 Ot H91.8X3 OTHER SPECIFIED HEARING LOSS, BILATERAL 02/04/2018 Ot I10 ESSENTIAL ( PRIMARY) HYPERTENSION 02/04/2018 Ot I51.7 CARDIOMEGALY 02/04/2018 Ot Z72.0 TOBACCO USE 02/04/2018 JORGE LUIS JOSUE, RENE K Ot H91.8X3 OTHER SPECIFIED HEARING LOSS, BILATERAL 02/04/2018 MENESES-MILES PA, RENE K Ot I10 ESSENTIAL (PRIMARY) HYPERTENSION 02/04/2018 JORGE LUIS JOSUE, RENE K Ot I51.7 CARDIOMEGALY 02/04/2018 JORGE LUIS JOSUE, RENE K Ot R79.89 OTHER SPECIFIED ABNORMAL FINDINGS OF BLO 02/04/2018 MENESES-MILES JOSUE, RENE K Ot H91.8X3 OTHER SPECIFIED HEARING LOSS, BILATERAL 02/04/2018 MENESES-MILES PA, RENE K Ot I10 ESSENTIAL (PRIMARY) HYPERTENSION 02/04/2018 MENESESNEIL JOSUE, RENE K Ot R79.89 OTHER SPECIFIED ABNORMAL FINDINGS OF BLO 02/04/2018 JORGE LUIS JOSUE, RENE K Ot Z72.0 TOBACCO USE 02/04/2018 GLO DURAND MD Ot I11.0 HYPERTENSIVE HEART DISEASE WITH HEART FA 02/04/2018 GLO DURAND MD Ot I50.1 LEFT VENTRICULAR FAILURE 02/04/2018 GLO DURAND MD Ot I51.7 CARDIOMEGALY 02/04/2018 GLO DURAND MD Ot L02.214 CUTANEOUS ABSCESS OF GROIN 02/04/2018 GLO DURAND MD Ot Z72.0 TOBACCO USE 02/05/2018 GLO DURAND MD Ot I11.9 HYPERTENSIVE HEART DISEASE WITHOUT HEART 02/05/2018 GLO DURAND MD Ot Z72.0 TOBACCO USE 02/27/2018 GLO DURAND MD Ot I11.9 HYPERTENSIVE HEART DISEASE WITHOUT HEART 02/27/2018 GLO DURAND MD Ot Z72.0 TOBACCO USE Procedures Code Description [place] [address] [facility] DIAGNOSTIC EVALUATION 03/13/2013 76957 CMP 04/10/2013 THYANA THYROID ANALYZER 04/10/2013 85933 PSYTX PT&/FAMILY 30 MINUTES 04/14/2013 62203 NO CHARGE 05/08/2013 Cardiolog Glo Durand 06/12/2013 80946 CMP 09/19/2013 THYANA THYROID ANALYZER 09/19/2013 14832 PSYTX PT&/FAMILY 30 MINUTES 10/10/2013 35967 PSYTX PT&/FAMILY 30 MINUTES 2013 Results Test Result Range TSH - 01/11/18 08:41 TSH 0.83 mIU/L 0.40-4.50 Complete blood count (CBC) with automated white blood cell (WBC) differential - 04/18/18 11:55 Blood leukocytes automated count (number/volume) 10.5 10*3/uL 4.3-11.0 Blood erythrocytes automated count (number/volume) 4.31 10*6/uL 4.35-5.85 Venous blood hemoglobin measurement (mass/volume) 13.9 g/dL 13.3-17.7 Blood hematocrit (volume fraction) 38 % 40-54 Automated erythrocyte mean corpuscular volume 88 [foz_us] 80-99 Automated erythrocyte mean corpuscular hemoglobin (mass per erythrocyte) 32 pg 25-34 Automated erythrocyte mean corpuscular hemoglobin concentration measurement ( mass/volume) 37 g/dL 32-36 Automated erythrocyte distribution width ratio 12.5 % 10.0-14.5 Automated blood platelet count (count/volume) 377 10*3/uL 130-400 Automated blood platelet mean volume measurement 11.1 [foz_us] 7.4-10.4 Automated blood neutrophils/100 leukocytes 73 % 42-75 Automated blood lymphocytes/100 leukocytes 18 % 12-44 Blood monocytes/100 leukocytes 8 % 0-12 Automated blood eosinophils/100 leukocytes 1 % 0-10 Automated blood basophils/100 leukocytes 1 % 0-10 Blood neutrophils automated count (number/volume) 7.6 10*3 1.8-7.8 Blood lymphocytes automated count (number/volume) 1.9 10*3 1.0-4.0 Blood monocytes automated count (number/volume) 0.9 10*3 0.0-1.0 Automated eosinophil count 0.1 10*3/uL 0.0-0.3 Automated blood basophil count (count/volume) 0.1 10*3/uL 0.0-0.1 Comprehensive metabolic panel - 04/18/18 11:55 Serum or plasma sodium measurement (moles/volume) 122 mmol/L 135-145 Serum or plasma potassium measurement (moles/volume) 6.3 mmol/L 3.6-5.0 Serum or plasma chloride measurement (moles/volume) 87 mmol/L 98-107 Carbon dioxide 20 mmol/L 21-32 Serum or plasma anion gap determination (moles/volume) 15 mmol/L 5-14 Serum or plasma urea nitrogen measurement (mass/volume) 35 mg/dL 7-18 Serum or plasma creatinine measurement (mass/volume) 1.55 mg/dL 0.60-1.30 Serum or plasma urea nitrogen/creatinine mass ratio 23 NRG Serum or plasma creatinine measurement with calculation of estimated glomerular filtration rate 49 NRG Serum or plasma glucose measurement (mass/volume) 732 mg/dL 70-105 Serum or plasma calcium measurement (mass/volume) 10.2 mg/dL 8.5-10.1 Serum or plasma total bilirubin measurement (mass/volume) 0.7 mg/dL 0.1-1.0 Serum or plasma alkaline phosphatase measurement (enzymatic activity/volume) 88 U/L 40-136 Serum or plasma aspartate aminotransferase measurement (enzymatic activity/ volume) 31 U/L 5-34 Serum or plasma alanine aminotransferase measurement (enzymatic activity/volume ) 27 U/L 0-55 Serum or plasma protein measurement (mass/volume) 7.9 g/dL 6.4-8.2 Serum or plasma albumin measurement (mass/volume) 4.8 g/dL 3.2-4.5 Serum or plasma creatine kinase measurement (enzymatic activity/volume) - 04/18 11:55 Serum or plasma creatine kinase measurement (enzymatic activity/volume) 187 U/L 30-200 Myoglobin, serum - 04/18/18 11:55 Myoglobin, serum 100.3 ng/mL 10.0-92.0 Beta-hydroxybutyric acid measurement - 04/18/18 11:55 Beta-hydroxybutyric acid measurement 1.69 mmol/L 0.00- 0.27 Capillary blood glucose measurement by glucometer (mass/volume) - 04/18/18 12: 03 Capillary blood glucose measurement by glucometer (mass/volume) > mg /dL 70-110 Complete urinalysis with reflex to culture - 04/18/18 12:18 Urine color determination YELLOW NRG Urine clarity determination CLEAR NRG Urine pH measurement by test strip 5 5-9 Specific gravity of urine by test strip 1.010 1.016- 1.022 Urine protein assay by test strip, semi-quantitative NEGATIVE NEGATIVE Urine glucose detection by automated test strip 4+ NEGATIVE Erythrocytes detection in urine sediment by light microscopy NEGATIVE NEGATIVE Urine ketones detection by automated test strip 2+ NEGATIVE Urine nitrite detection by test strip NEGATIVE NEGATIVE Urine total bilirubin detection by test strip NEGATIVE NEGATIVE Urine urobilinogen measurement by automated test strip (mass/volume) NORMAL NORMAL Urine leukocyte esterase detection by dipstick NEGATIVE NEGATIVE Automated urine sediment erythrocyte count by microscopy (number/high power field) RARE NRG Automated urine sediment leukocyte count by microscopy (number/high power field ) NONE NRG Bacteria detection in urine sediment by light microscopy NEGATIVE NRG Crystals detection in urine sediment by light microscopy NONE NRG Casts detection in urine sediment by light microscopy NONE NRG Mucus detection in urine sediment by light microscopy NEGATIVE NRG Complete urinalysis with reflex to culture NO NRG Capillary blood glucose measurement by glucometer (mass/volume) - 04/18/18 14: 07 Capillary blood glucose measurement by glucometer (mass/volume) 167 mg/dL 70-110 Capillary blood glucose measurement by glucometer (mass/volume) - 04/18/18 15: 08 Capillary blood glucose measurement by glucometer (mass/volume) 120 mg/dL 70-110 Capillary blood glucose measurement by glucometer (mass/volume) - 04/18/18 16: 48 Capillary blood glucose measurement by glucometer (mass/volume) 254 mg/dL 70-110 Capillary blood glucose measurement by glucometer (mass/volume) - 04/18/18 20: 18 Capillary blood glucose measurement by glucometer (mass/volume) 398 mg/dL 70-110 Encounters ACCT No. Visit Date/Time Discharge Status Pt. Type Provider Facility Loc./Unit Complaint [id number] 03/31/2014 13:11:00 03/31/2014 23:59:59 CLS Outpatient JUNIE HAYES DO [id number] 02/18/2014 00:00:00 02/18/2014 23:59:59 CLS Outpatient DANITZA RAMIREZ PSYD [id number] 2013 07:52:00 2013 23:59:59 CLS Outpatient DANITZA RAMIREZ PSYD [id number] 10/10/2013 10:41:00 10/10/2013 23:59:59 CLS Outpatient DANITZA RAMIREZ PSYD [id number] 09/19/2013 14:37:00 09/19/2013 23:59:59 CLS Outpatient JUNIE HAYES DO [id number] 05/26/2013 09:42:00 05/26/2013 23:59:59 CLS Outpatient JUNIE HAYES DO [id number] 05/08/2013 09:14:00 05/08/2013 23:59:59 CLS Outpatient JUNIE HAYES DO [id number] 04/10/2013 10:33:00 04/10/2013 23:59:59 CLS Outpatient JUNIE HAYES DO [id number] 04/10/2013 10:33:00 04/10/2013 23:59:59 CLS Outpatient JUNIE HAYES DO [id number] 03/13/2013 09:00:00 03/13/2013 23:59:59 CLS Outpatient DANITZA RAMIREZ PSYD [id number] 06/01/2010 16:32:00 06/01/2010 23:59:59 CLS Outpatient [id number] 02/04/2018 11:31:00 02/04/2018 23:59:59 CLS Outpatient GLO DURAND MD Via [facility] CARD HTN,LVH [id number] 10/26/2016 08:36:00 10/26/2016 23:59:59 CLS Outpatient GLO DURAND MD [facility] CARD CHF I50.1 [id number] 08/25/2016 11:16:00 08/25/2016 23:59:59 CLS Outpatient RENE MACHADO [facility] CARD R79.89 ELEVATED TROPONIN [id number] 12/17/2015 08:17:00 12/17/2015 23:59:59 CLS Outpatient RENE MACHADO [facility] LAB [place],HTN,LVH [id number] 12/17/2013 12:16:00 12/17/2013 23:59:59 CLS Outpatient GLO DURAND MD [facility] CARD HTN,LVH, [id number] 06/23/2013 08:54:00 06/23/2013 23:59:59 CLS Outpatient RENE MACHADO [facility] CARD HTN,LVH, TOBACCO USE [id number] 03/10/2013 17:43:00 03/10/2013 23:59:59 CLS Outpatient NOELLE NARVAEZ, BRANDEN Harrell [facility] LABNPT ABSCESS (R) GROIN [id number] 03/03/2013 19:56:00 03/04/2013 09:00:00 DIS Outpatient GLO DURAND MD [facility] CATH HIGH BLOOD PRESSURE [id number] 04/18/2018 16:13:00 Document Registration [id number] 04/18/2018 15:00:00 ACT Inpatient JOHNATHAN LEOS DO [facility] 4TH HYPERGLYCEMIA;HYPERKALEMIA;HYPOVOLEMIA [id number] 05/21/2015 11:46:00 Document Registration [id number] 03/06/2012 08:31:00 Document Registration [id number] 04/18/2018 11:00:00 ACT Outpatient WAYNE NARVAEZ, CATHY Ziegler [facility] [id number] 01/11/2018 08:20:00 Document Registration
--- OUTSIDE RECORDS SUMMARY | 2018-04-21 02:36 | XMS REPORT ---
Author Author WAYNE CATHY Organization [facility] Address [address] [place] [address] Care Team Providers Care Fuel Cell Builder Name Role Phone WAYNE CATHY Unavailable PROBLEMS Type Condition ICD9-CM Code CCS23-SN Code Onset Dates Condition Status SNOMED Code Problem History of alcoholism F10.21 Active 847177104 Problem Schizoaffective disorder F25.9 Active 21353436 Problem Mild intermittent asthma without complication J45.20 Active 696410366 Problem Essential hypertension I10 Active 48235558 Problem Major depressive disorder, recurrent episode, unspecified severity F33.9 Active 97752232 Problem Left ventricular hypertrophy I51.7 Active 46121899 Problem Hearing loss, unspecified laterality H91.90 Active 17779527 Problem Anxiety F41.9 Active 72084056 Problem Schizoaffective disorder, unspecified type F25.9 Active 50398478 Problem Tobacco use Z72.0 Active 437501313 Problem Elevated cholesterol E78.0 Active 209143432 Problem Type 2 diabetes mellitus without complication, without long-term current use of insulin E11.9 Active 523592967 Problem Underweight R63.6 Active 717174536 ALLERGIES No Known Allergies SOCIAL HISTORY Never Assessed PLAN OF CARE Activity Details Follow Up 4 Weeks Reason:DMII Pending Test TSH VITAL SIGNS Height 65 in 2016-03-29 Weight 98.0 lbs 2016-03-29 Temperature 97.8 degrees Fahrenheit 2016-03-29 Heart Rate 84 bpm 2016-03-29 Respiratory Rate 18 2016-03-29 BMI 16.31 kg/m2 2016-03-29 Blood pressure systolic 118 mmHg 2016-03-29 Blood pressure diastolic 70 mmHg 2016-03-29 MEDICATIONS Medication Instructions Dosage Frequency Start Date End Date Duration Status Seroquel 100 mg Orally 2 times a day 1 tablet 12h Apr, 90 days Active Ventolin HFA 108 (90 Base) MCG/ACT Inhalation every 4 hrs prn 1-2 puffs as needed Oct, Active Metoprolol Tartrate 25 MG Orally Twice a day 1 tablet with food 12h 10 Mar 90 days Active Lisinopril 10 MG Orally Once a day 1 tablet 24h Dec, 90 days Active RESULTS Name Result Date Reference Range A1C (IN HOUSE) 2016-03-29 A1C IN HOUSE 6.6 4.3 - 5.6 % Previous A1c n/a Lot [id number] Exp date 12/2017 PROCEDURES Procedure Date Ordered Result Body Site GLYCATED HEMOGLOBIN TEST Mar 29, 2016 [facility] VISIT ESTABLISHED PATIENT Mar 29, 2016 LAB NOT BILLED BY [facility] Mar 29, 2016 IMMUNIZATIONS No Known Immunizations MEDICAL (GENERAL) HISTORY Type Description Date Medical History hypertension Medical History asthma Surgical History appendectomy Surgical History heart cath--[facility] 02/2013 Hospitalization History HTN , heart cath 02/2013
--- OUTSIDE RECORDS SUMMARY | 2018-04-21 02:36 | XMS REPORT ---
Author Author WAYNE CATHY Organization [facility] Address [address] [place] [address] Care Team Providers Care Package Car Driver Name Role Phone CATHY BLACK Unavailable PROBLEMS Type Condition ICD9-CM Code ZVS52-FV Code Onset Dates Condition Status SNOMED Code Problem History of alcoholism F10.21 Active 096394223 Problem Schizoaffective disorder F25.9 Active 03880627 Problem Mild intermittent asthma without complication J45.20 Active 832211489 Problem Essential hypertension I10 Active 64994733 Problem Major depressive disorder, recurrent episode, unspecified severity F33.9 Active 02071391 Problem Left ventricular hypertrophy I51.7 Active 89396139 Problem Hearing loss, unspecified laterality H91.90 Active 97257182 Problem Anxiety F41.9 Active 54227645 Problem Schizoaffective disorder, unspecified type F25.9 Active 69432308 Problem Tobacco use Z72.0 Active 394917434 Problem Elevated cholesterol E78.0 Active 983185772 Problem Type 2 diabetes mellitus without complication, without long-term current use of insulin E11.9 Active 104657550 Problem Underweight R63.6 Active 257617609 ALLERGIES No Known Allergies SOCIAL HISTORY Never Assessed PLAN OF CARE Activity Details Follow Up 3 Months Reason: VITAL SIGNS Height 65 in 2016-04-26 Weight 97.4 lbs 2016-04-26 Temperature 98.0 degrees Fahrenheit 2016-04-26 Heart Rate 84 bpm 2016-04-26 Respiratory Rate 18 2016-04-26 BMI 16.21 kg/m2 2016-04-26 Blood pressure systolic 126 mmHg 2016-04-26 Blood pressure diastolic 82 mmHg 2016-04-26 MEDICATIONS Medication Instructions Dosage Frequency Start Date End Date Duration Status Seroquel 100 mg Orally 2 times a day 1 tablet 12h 02 Apr, 2015 90 days Active Lisinopril 10 MG Orally Once a day 1 tablet 24h Dec, 90 days Active Metoprolol Tartrate 25 MG Orally Twice a day 1 tablet with food 12h 10 Mar 90 days Active RESULTS Name Result Date Reference Range MICROALBUMIN, URINE (IN HOUSE) 2016-04-26 MICROALBUMIN abnormal Lot # [id number] Exp date 03/2017 Clarity clear Color yellow ALB 10 CRE 50 A:C (IN HOUSE) 30-300 Control + Control Lot # Exp date MICROALBUMIN/CREATININE RATIO, URINE 2016-04-26 Creatinine, Urine 52.0 Not Estab. Microalbumin, Urine 14.1 Not Estab. Microalb/Creat Ratio 27.1 0.0-30.0 PROCEDURES Procedure Date Ordered Result Body Site MICROALBUMIN, SEMIQUANT April 26, 2016 LAB NOT BILLED BY [facility] April 26, 2016 [facility] VISIT ESTABLISHED PATIENT April 26, 2016 IMMUNIZATIONS No Known Immunizations MEDICAL (GENERAL) HISTORY Type Description Date Medical History hypertension Medical History asthma Surgical History appendectomy Surgical History heart cath--[facility] 02/2013 Hospitalization History HTN , heart cath 02/2013
--- OUTSIDE RECORDS SUMMARY | 2018-04-21 02:36 | XMS REPORT ---
Author Author CATHY BLACK [employer] Address Unknown Phone Unavailable Care Team Providers Care Powerhouse Mechanic Name Role Phone CATHY BLACK CP Unavailable [...]
--- OUTSIDE RECORDS SUMMARY | 2018-04-21 03:22 | XMS REPORT | Continuity of Care Document ---
Author Author [facility] Address Unknown Phone Unavailable Allergies Active Description Code Type Severity Reaction Onset Reported/Identified Relationship to Patient Clinical Status Yes No Known Drug Allergies [id number] Drug Allergy Unknown N/A 03/03/2013 Medications There [...] Ot I51.7 CARDIOMEGALY 01/07/2016 JORGE LUIS JOSUE ERNE K Ot R79.89 OTHER SPECIFIED ABNORMAL FINDINGS [...] Ot 397.0 TRICUSPID VALVE DISEASE 08/21/2016 GLO DURAND MD Ot 401.9 HYPERTENSION NOS 08/21/2016 GLO [...] Procedures Code [place] [address] [facility] DIAGNOSTIC EVALUATION 03/13/2013 19815 CMP 04/10/2013 THYANA THYROID ANALYZER 04/10/2013 00320 PSYTX PT&/FAMILY 30 MINUTES 04/14/2013 60988 NO CHARGE 05/08/2013 Cardiolog Glo Durand 06/12/2013 99991 CMP 09/19/2013 THYANA THYROID ANALYZER 09/19/2013 93225 PSYTX PT&/FAMILY 30 MINUTES 10/10/2013 02645 PSYTX PT&/FAMILY 30 MINUTES 2013 Results Test [...] measurement by glucometer (mass/volume) 398 mg/dL 70-110 Capillary blood glucose measurement by glucometer (mass/volume) - 04/19/18 05: 25 Capillary blood glucose measurement by glucometer (mass/volume) 302 mg/dL 70-110 Comprehensive metabolic panel - 04/19/18 10:40 Serum or plasma sodium measurement (moles/volume) 129 mmol/L 135-145 Serum or plasma potassium measurement (moles/volume) 4.9 mmol/L 3.6-5.0 Serum or plasma chloride measurement (moles/volume) 102 mmol/L 98-107 Carbon dioxide 17 mmol/L 21-32 Serum or plasma anion gap determination (moles/volume) 10 mmol/L 5-14 Serum or plasma urea nitrogen measurement (mass/volume) 19 mg/dL 7-18 Serum or plasma creatinine measurement (mass/volume) 0.92 mg/dL 0.60-1.30 Serum or plasma urea nitrogen/creatinine mass ratio 21 NRG Serum or plasma creatinine measurement with calculation of estimated glomerular filtration rate > NRG Serum or plasma glucose measurement (mass/volume) 250 mg/dL 70-105 Serum or plasma calcium measurement (mass/volume) 8.1 mg/dL 8.5-10.1 Serum or plasma total bilirubin measurement (mass/volume) 0.4 mg/dL 0.1-1.0 Serum or plasma alkaline phosphatase measurement (enzymatic activity/volume) 59 U/L 40-136 Serum or plasma aspartate aminotransferase measurement (enzymatic activity/ volume) 36 U/L 5-34 Serum or plasma alanine aminotransferase measurement (enzymatic activity/volume ) 20 U/L 0-55 Serum or plasma protein measurement (mass/volume) 5.5 g/dL 6.4-8.2 Serum or plasma albumin measurement (mass/volume) 3.4 g/dL 3.2-4.5 CALCIUM CORRECTED 8.6 mg/dL 8.5-10.1 Capillary blood glucose measurement by glucometer (mass/volume) - 04/19/18 11: 13 Capillary blood glucose measurement by glucometer (mass/volume) 283 mg/dL 70-110 Capillary blood glucose measurement by glucometer (mass/volume) - 04/19/18 16: 55 Capillary blood glucose measurement by glucometer (mass/volume) 230 mg/dL 70-110 Encounters ACCT No. Visit Date/Time Discharge Status Pt. Type Provider Facility Loc./Unit Complaint [id number] 03/31/2014 13:11:00 03/31/2014 23:59:59 CLS Outpatient JUNIE HAYES DO [id number] 02/18/2014 00:00:00 02/18/2014 23:59:59 CLS Outpatient DANITZA RAMIREZ PSYD [id number] 2013 07:52:00 2013 23:59:59 CLS Outpatient DANITZA RAMIREZ PSYD [id number] 10/10/2013 10:41:00 10/10/2013 23:59:59 CLS Outpatient DANITZA RAMIREZ PSYD [id number] 09/19/2013 14:37:00 09/19/2013 23:59:59 CLS Outpatient JUNIE HAYES DO [id number] 05/26/2013 09:42:00 05/26/2013 23:59:59 CLS Outpatient JUNIE HAYES DO [id number] 05/08/2013 09:14:00 05/08/2013 23:59:59 CLS Outpatient JUNIE HAYES DO [id number] 04/10/2013 10:33:00 04/10/2013 23:59:59 CLS Outpatient JUNIE HAYES DO [id number] 04/10/2013 10:33:00 04/10/2013 23:59:59 CLS Outpatient JUNIE HAYES DO [id number] 03/13/2013 09:00:00 03/13/2013 23:59:59 CLS Outpatient DANITZA RAMIREZ PSYD [id number] 06/01/2010 16:32:00 06/01/2010 23:59:59 CLS Outpatient [id number] 02/04/2018 11:31:00 02/04/2018 23:59:59 CLS Outpatient GLO DURAND MD [facility] CARD HTN,LVH [id number] 10/26/2016 08:36:00 10/26/2016 23:59:59 CLS Outpatient GLO DURAND MD [facility] CARD CHF I50.1 [id number] 08/25/2016 11:16:00 08/25/2016 23:59:59 CLS Outpatient RENE MACHADO [facility] CARD R79.89 ELEVATED TROPONIN [id number] 12/17/2015 08:17:00 12/17/2015 23:59:59 CLS Outpatient RENE MACHADO [facility] LAB [place]ASS,HTN,LVH [id number] 12/17/2013 12:16:00 12/17/2013 23:59:59 CLS Outpatient GLO DURAND MD [facility] CARD HTN,LVH, [id number] 06/23/2013 08:54:00 06/23/2013 23:59:59 CLS Outpatient JORGE LUIS JOSUE, RENE Flores [facility] CARD HTN,LVH, TOBACCO USE [id number] 03/10/2013 17:43:00 03/10/2013 23:59:59 CLS Outpatient NOELLE NARVAEZ, BRANDEN Harrell [facility] LABNPT ABSCESS (R) GROIN [id number] 03/03/2013 19:56:00 03/04/2013 09:00:00 DIS Outpatient SHANI NARVAEZ, GLO Gupta [facility] CATH HIGH BLOOD PRESSURE [id number] 04/18/2018 16:13:00 Document Registration [id number] 04/18/2018 15:00:00 ACT Inpatient JOHNATHAN LEOS DO [facility] 4TH HYPERGLYCEMIA;HYPERKALEMIA;HYPOVOLEMIA [id number] 05/21/2015 11:46:00 Document Registration [id number] 03/06/2012 08:31:00 Document Registration [id number] 04/18/2018 11:00:00 ACT Outpatient WAYNE NARVAEZ, CATHY Ziegler [facility] [id number] 01/11/2018 08:20:00 Document Registration
[2018-04-21 04:22] VITALS: BP 102/62
[2018-04-21] MEDS: inSUlin ASPART (NovoLOG) 1 UNIT/0.01 ML (CHARGE PER UNIT) SC SCH ×4 (06:41→22:28)
--- NOTE | 2018-04-21 07:43 | NUR ---
0107-pt requesting food-this rn checked pt blood sugar resulted 44 pt was given 8 oz milk 2 antoinette cracker per hypoglycemic protocol 0127-bs 62-pt was given 8 oz juice 1 package of saltines 0205-bs 161 0636-bs 509-this rn called dr. العراقي to inform her of this value & the hypoglycemic episode through the night. this rn received order to give NovoLog 9 units
[2018-04-21 08:00] VITALS: BP 105/66
[2018-04-21] MEDS: meTOprolol TARTRATE 25 MG (LOPRESSOR) TABLET PO SCH ×3 (09:37→22:32)
[2018-04-21] MEDS: CLINDAMYCIN 150 MG (CLEOCIN) CAP PO SCH ×3 (09:37→22:28)
--- NOTE | 2018-04-21 12:53 | Progress Note-Hospitalist ---
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 Nash at [facility]. PT is very hard of hearing and cannot tell me really any reliable history and he wants to go home and take care of his cats. His mother is involved. He appears to need some sort of assisted living facility so I will consult social work . Pt sugars have been improved but still high. Subjective/Events-last exam Patient had severe hypoglycemia this morning Decrease long-acting significantly to avoid hypoglycemia Brittle diabetes noted Patient wants to go home Mother has not arrived in order to receive instruction for insulin administration Review of Systems General: Fatigue Objective Exam Vital Signs Vital Signs Date Time Temp Pulse Resp B/P (MAP) Pulse Ox O2 Delivery O2 Flow Rate FiO2 04/21/18 16:24 99.8 56 17 105/61 (76) 98 Room Air Capillary Refill : Less Than 3 Seconds General Appearance: No Apparent Distress, WD/WN, Chronically ill, Thin, Other ( disheveled) HEENT: PERRL/EOMI, Normal ENT Inspection, Other (mucous membranes moist, KALISPEL) Neck: Normal Inspection Respiratory: Lungs Clear, Normal Breath Sounds, No Accessory Muscle Use, No Respiratory Distress Cardiovascular: Regular Rate, Rhythm, No Edema, No Murmur Gastrointestinal: Non Tender, Soft Back: Normal Inspection, No CVA Tenderness, No Vertebral Tenderness Extremity: Normal Inspection, No Pedal Edema Neurologic/Psychiatric: Alert, No Motor/Sensory Deficits, Normal Mood/Affect, flanging roll operator II-XII Norm as Tested, Disoriented (chronic) Skin: Normal Color, Warm/Dry Lymphatic: No Adenopathy Results/Procedures Lab Patient resulted labs reviewed. Assessment/Plan Assessment and Plan Assess & Plan/Chief Complaint Assessment: Severe hyperglycemia in need of insulin maintenance Severe mental challenges Hypoglycemia this morning Insulin administration Appears to need NHP Monitor closely DM education SW consult Decrease Levemir at night Diagnosis/Problems Diagnosis/Problems (1) Hyperglycemia Status: Acute (2) Mentally disabled Status: Chronic (3) Renal insufficiency Status: Acute (4) Hypoglycemia due to insulin Status: Resolved Resolution Date/Time: 04/21/18 @ 19:54 Clinical Quality Measures DVT/VTE Risk/Contraindication: Risk Factor Score Per Nursin RFS Level Per Nursing on Admit: 4+=Very High JOHNATHAN LEOS DO Apr 21, 2018 12:53
[2018-04-21 16:24] VITALS: BP 105/61
[2018-04-21 20:24] VITALS: BP 118/65
[2018-04-21] MEDS: inSUlin DETERMIR 1 UNIT/0.01 ML (LEVEMIR) CHARGE PER UNIT SQ SCH (22:28)
[2018-04-21 22:33] VITALS: BP 114/64
--- NOTE | 2018-04-21 23:15 | NUR ---
2113 BS 438 2123-THIS RN CALLED DR LEOS TO INFORM HER OF HIGH BS-ORDER RECEIVED-DO NOT CALL FOR HIGH BS JUST GIVE MAX DOSE ON THE NOVOLOG SLIDING SCALE
[2018-04-22] VITALS: BP 110/72
[2018-04-22] MEDS: inSUlin ASPART (NovoLOG) 1 UNIT/0.01 ML (CHARGE PER UNIT) SC SCH ×4 (05:57→21:11)
[2018-04-22 08:00] VITALS: BP 110/65
--- NOTE | 2018-04-22 08:27 | Cardiology Progress Note ---
Subjective Date Seen by Provider: Apr 22, 2018 Time Seen by Provider: 08:25 Subjective/Events-last exam Patient asleep in bed, no apparent distress. Easily awakens to answer questions. Voices frustration that he wants to go home. Denies any chest pain or dyspnea. Objective-Cardiology Exam Last Set of Vital Signs Vital Signs 04/22/18 00:00 Temp 98.7 Pulse 63 Resp 18 B/P (MAP) 110/72 (85) Pulse Ox 97 O2 Delivery Room Air Capillary Refill : Less Than 3 Seconds I&O Intake and Output 04/22/18 00:00 Intake Total 4420 ml Balance 4420 ml Intake Oral 4420 ml # Voids 16 # Bowel Movements 1 General: Alert, Oriented X3, Cooperative HEENT: Atraumatic, PERRLA Neck: Supple, No JVD, No Thyromegaly Lungs: Clear to Auscultation, Normal Air Movement Heart: Regular Rate, Normal S1, Normal S2, No Murmurs Abdomen: Normal Bowel Sounds, Soft, No Tenderness, No Hepatosplenomegaly, No Masses Extremities: No Clubbing, No Cyanosis, No Edema, Normal Pulses, No Tenderness/ Swelling Skin: No Rashes, No Breakdown, No Significant Lesion Neuro: Normal Gait, Normal Speech, Strength at 5/5 X4 Ext, Normal Tone, Sensation Intact A/P-Cardiology Admission Diagnosis Acute renal failure Diabetes Hyperkalemia Hypertension Assessment/Plan Acute renal failure, dehydration, better now, continue to monitor. Hyperkalemia, better now Diabetes, poor control, managed by primary care physician History of Coronary artery disease, status post cardiac catheterization February 2013 due to an elevated troponin level. Showing mild disease nonobstructive disease, continue to monitor, no changes. History of Congestive heart failure, Last echo done in January 2018 showing normal LV function, resolved, Entresto was discontinued secondary to Hyperkalemia and ARF, continue Metoprolol History of Right groin abscess-resolved. Hypertension, continue Metoprolol and monitor blood pressure Tobaccoism, patient was educated and instructed on smoking cessation. Alcoholism, patient reported that he has stopped drinking, educated on avoiding any alcohol products Bronchial asthma, clinically stable. Continue to monitor. Significant hearing loss. Clinical Quality Measures DVT/VTE Risk/Contraindication: Risk Factor Score Per Nursin RFS Level Per Nursing on Admit: 4+=Very High RENE KANG Apr 22, 2018 08:27
[2018-04-22] MEDS: SERTRALINE 50 MG (ZOLOFT) TABLET PO SCH (08:59)
[2018-04-22] MEDS: meTOprolol TARTRATE 25 MG (LOPRESSOR) TABLET PO SCH ×2 (08:59→21:10)
[2018-04-22] MEDS: CLINDAMYCIN 150 MG (CLEOCIN) CAP PO SCH ×3 (08:59→21:10)
[2018-04-22] MEDS ORDERED: metFORMIN XR 500 MG (GLUCOPHAGE XR) TAB PO SCH (09:00)
--- NOTE | 2018-04-22 09:14 | Cardiology Progress Note ---
Subjective Date Seen by Provider: Apr 22, 2018 Time Seen by Provider: 09:13 Subjective/Events-last exam Patient is in bed, feeling better, asking to go home Review of Systems General: No Chills, No Night Sweats; Fatigue; No Malaise, No Appetite, No Other HEENT: No Head Aches, No Visual Changes, No Eye Pain, No Ear Pain, No Dysphasia , No Sinus Congestion, No Post Nasal Drip, No Sore Throat, No Other Pulmonary: No Dyspnea, No Cough, No Pleuritic Chest Pain, No Other Cardiovascular: No: Chest Pain, Palpitations, Orthopnea, Paroxysmal Noc. Dyspnea, Edema, Lt Headedness, Other Objective-Cardiology Exam Last Set of Vital Signs Vital Signs 04/22/18 00:00 Temp 98.7 Pulse 63 Resp 18 B/P (MAP) 110/72 (85) Pulse Ox 97 O2 Delivery Room Air Capillary Refill : Less Than 3 Seconds I&O Intake and Output 04/22/18 00:00 Intake Total 4420 ml Balance 4420 ml Intake Oral 4420 ml # Voids 16 # Bowel Movements 1 General: Alert, Oriented X3, Cooperative HEENT: Atraumatic, PERRLA Neck: Supple, No JVD, No Thyromegaly Lungs: Clear to Auscultation, Normal Air Movement Heart: Regular Rate, Normal S1, Normal S2, No Murmurs Abdomen: Normal Bowel Sounds, Soft, No Tenderness, No Hepatosplenomegaly, No Masses Extremities: No Clubbing, No Cyanosis, No Edema, Normal Pulses, No Tenderness/ Swelling Skin: No Rashes, No Breakdown, No Significant Lesion Neuro: Normal Gait, Normal Speech, Strength at 5/5 X4 Ext, Normal Tone, Sensation Intact Results Lab Laboratory Tests Test 04/21/18 11:29 04/21/18 16:23 04/21/18 21:10 04/22/18 05:08 Range/Units Glucometer 242 H 179 H 438 *H 245 H 70-110 MG/DL A/P-Cardiology Admission Diagnosis Acute renal failure Diabetes Hyperkalemia Hypertension Assessment/Plan Acute renal failure, dehydration, better now, continue to monitor. Hyperkalemia, better now Diabetes, poor control, managed by primary care physician History of Coronary artery disease, status post cardiac catheterization February 2013 due to an elevated troponin level. Showing mild disease nonobstructive disease, continue to monitor, no changes. History of Congestive heart failure, Last echo done in January 2018 showing normal LV function, resolved, Entresto was discontinued secondary to Hyperkalemia and ARF, continue Metoprolol History of Right groin abscess-resolved. Hypertension, continue Metoprolol and monitor blood pressure Tobaccoism, patient was educated and instructed on smoking cessation. Alcoholism, patient reported that he has stopped drinking, educated on avoiding any alcohol products Bronchial asthma, clinically stable. Continue to monitor. Significant hearing loss. Clinical Quality Measures DVT/VTE Risk/Contraindication: Risk Factor Score Per Nursin RFS Level Per Nursing on Admit: 4+=Very High GLO MCLEOD MD Apr 22, 2018 09:14
--- NOTE | 2018-04-22 09:33 | NUR ---
CM/SS attempted to call patient's mother Caterina urias [phone], there was no answer and message with call back information left.
[2018-04-22 10:44] LABS: BUN/CREATININE RATIO 18; CALCIUM 9.2 MG/DL (8.5-10.1); CARBON DIOXIDE 25 MMOL/L (21-32); CHLORIDE 98 MMOL/L (98-107); CREATININE SERUM 0.92 MG/DL (0.60-1.30); GFR ESTIMATED > 60; GLUCOSE 269 MG/DL (70-105); POTASSIUM 4.7 MMOL/L (3.6-5.0); SODIUM 130 MMOL/L (135-145)
--- NOTE | 2018-04-22 12:00 | NUR ---
CM/SS spoke with the patient's mother Caterina. Discussed discharge planning. She is not sure how he will do with giving himself shots and she stated that she would be helping some. Caterina stated that he lives at home alone and does good caring for his animals and paying bills. She stated that he does not like people and didn't think a [place] [facility] or [place] would be good for him at this time. Discussed and encouraged her to see about [facility] and to get on their waiting list, provided her with the address. Also, that if she could make herself available in the hospital then Education could come by to teach on how to give insulin shots, she does not want to visit until he is ready to discharge. Information had to be explained several times to Caterina.
--- NOTE | 2018-04-22 12:11 | Progress Note (SOAP) ---
[facility] MED STUDENT 04/22/18 1211: Subjective Subjective/Events-last exam The patient is resting comfortably in his room. He states that he is not having any pain at this time. He denies nausea, vomiting, diarrhea, shortness of breath , chest pains, headache, or changes in vision. He reports that he has a good appetite and is eating and drinking well. He is asking to go home. Objective Exam Last Set of Vital Signs Vital Signs Date Time Temp Pulse Resp B/P (MAP) Pulse Ox O2 Delivery O2 Flow Rate FiO2 04/22/18 08:00 99.1 74 18 110/65 (80) 98 Room Air Capillary Refill : Less Than 3 Seconds I&O Intake and Output 04/22/18 00:00 Intake Total 4420 ml Balance 4420 ml Intake Oral 4420 ml # Voids 16 # Bowel Movements 1 General: Alert, Oriented X3, Cooperative HEENT: Mucous Memb Moist/[place] Neck: Supple Lungs: Clear to Auscultation Heart: Regular Rate, No Murmurs Abdomen: Normal Bowel Sounds Skin: No Rashes Neuro: Normal Speech Results/Procedures Lab Laboratory Tests 04/21/18 16:23: Glucometer 179H 04/21/18 21:10: Glucometer 438*H 04/22/18 05:08: Glucometer 245H 04/22/18 10:15: Sodium Level 130L, Potassium Level 4.7, Chloride Level 98, Carbon Dioxide Level 25, Anion Gap 7, Blood Urea Nitrogen 17, Creatinine 0.92, Estimat Glomerular Filtration Rate > 60, BUN/Creatinine Ratio 18, Glucose Level 269H, Calcium Level 9.2 04/22/18 10:59: Glucometer 268H Assessment/Plan Assessment/Plan Assessment & Plan Assessment: 1) Hypoglycemia 2) Weight loss 3) Weakness 4) Medication noncompliance Plan: 1) Continue insulin therapy 2) Monitor blood sugars 3) Consult physical therapy 4) Consult socially responsible investment adviser Clinical Quality Measures DVT/VTE Risk/Contraindication: Risk Factor Score Per Nursin RFS Level Per Nursing on Admit: 4+=Very High CATHY BLACK MD 04/22/18 1550: Subjective Review of Systems Time Seen by Provider: 10:38 Objective Exam General: Alert Neuro: Normal Speech Other physical findings Markedly hearing impaired Assessment/Plan Assessment/Plan (1) Hypovolemia Status: Acute Assessment & Plan: 3/4- Resolved with IVF, appears to be euvolemic at this time. (2) Hyperkalemia Status: Resolved Assessment & Plan: Stopped Entresto. (3) Hyperglycemia Status: Acute Assessment & Plan: 3/4 Known DMII, glucose over 700 on admission, continues to have fluctuating sugar and is unlikely he will be able to manage insulin well on his own at home, but he does not want to go to another setting. Will resume/ increase his home metformin and monitor closely. Consider other oral or weekly injectable to help with outpatient management. (4) Renal insufficiency Status: Resolved Assessment & Plan: Secondary to hyperglycemia/hypovolemia. (5) Hyponatremia Status: Acute Assessment & Plan: 3/4 Likely combination of hypovolemia and hyperglycemia. Currently near normal. (6) Weight loss Status: Acute Assessment & Plan: 3/4 Rapid onset in the last few weeks, suspect due to marked hyperglycemia. Outpatient CXR, TSH and PSA okay. CK elevated, statin held. Recheck CK. (7) Schizoaffective disorder Status: Chronic Assessment & Plan: Lives independently, but does seem to have limited understanding of medical conditions. Will have home health on d/c. Mother also helps and will come for insulin teaching before d/c. Will resume aripiprazole to further evaluate sugar control as it will need to be outpatient. (8) Heart failure Status: Chronic Assessment & Plan: History of marked systolic heart failure, however last echo with normal EF. Cardiology consulted, appreciate recs. Stopped Entresto due to hyperkalemia. Qualifiers: Qualified Codes: I50.22 - Chronic systolic (congestive) heart failure (9) DVT prophylaxis Status: Acute Assessment & Plan: Enoxaparin Supervisory-Addendum Brief Supervisory Addendum Patient seen and evaluated by me along with [facility] [place], agree with documentation except as mine differs. See problem list for my assessment and plan. [facility] STUDENT Apr 22, 2018 12:11 CATHY BALCK MD Apr 22, 2018 15:50
--- NOTE | 2018-04-22 14:46 | Physical Therapy Evaluation ---
PT Evaluation-General Medical Diagnosis Admission Date Apr 18, 2018 at 15:00 Medical Diagnosis: hyperglycemia Onset Date: Apr 18, 2018 Therapy Diagnosis Therapy Diagnosis: weakness; abn gait Height/Weight Height (Feet): 5 Height (Inches): 3.00 Weight (Pounds): 84 Weight (Ounces): 9.0 Precautions Precautions/Isolations: Standard Precautions Referral Physician: Saad Reason for Referral: Evaluation/Treatment Medical History Pertinent Medical History: CAD, DM Additional Medical History acute renal failure; mentally disabled, [place] Current History Pt admitted to [facility] for severe hyperglycemia. 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 Patient completes activity by themselves 4 Supervision or touching assist (CGA). [place] provide cues , steadying assist 3 The helper provides less than half the effort to complete the activity 2 The helper provides more than half the effort to complete the activity 1 Dependent. The helper does all the effort to complete an activity 7 Patient refused to complete or attempt activity 9 The patient did not perform the activity before the current illness or injury 88 Not attempted due to Medical conditions or safety concerns Functional Abilities and Goals: Independent: Patient completed the activities by him/herself, with or without an assistive device, with no assistance from a helper. Needed Some Help: Patient needed partial assistance from another person to complete activities. Dependent: A helper completed the activities for the patient. Unknown: Not Applicable: Bed Mobility: 7 Transfers (B,C,W/C) (FIM): 7 Gait: 7 Indoor Mobility (Ambulation): Independent Stairs: Independent pt lives alone; does not drive. PT Evaluation-Current Subjective pt agreeable to walk. Pt reports he walked approx 4 miles 2 saturdays ago. Pain Numeric Pain Scale: 0-No Pain Location: No Pain Reported Objective Patient Orientation: Person, Place, Time, Situation Problem Solving: Fair ROM/Strength ROM Lower Extremities WFL Strength Lower Extremities WFL Integumentary/Posture Integumentary Refer to nursing notes. Bowel Incontinence: No Bladder Incontinence: No Posture thin and frail; rounded shoulder with head forward. Neuromuscular (Tone, Coordination, Reflexes) WFL Sensory Vision: Functional Hearing: Functional Hand Dominance: Right Sensation Right Lower Extremit: Intact Sensation Left Lower Extremity: Intact Transfers Therapy Code Descriptions/Definitions Functional [place] Measure: 0=Not Assessed/NA 4=Minimal Assistance 1=Total Assistance 5=Supervision or Setup 2=Maximal Assistance 6=Modified [place] 3=Moderate Assistance 7=Complete [place] Pt able to perform all bed mobility without assist. Pt able to stand up EOB with supervision only. Gait Mode of Locomotion: Walk Anticipated Mode of Locomotion: Walk Gait (FIM): 5 Distance: 275 Gait Assistive Device: None Comments/Gait Description Pt ambulated with SBA for safety monitoring. Pt tends to have a fairly narrow ARSLAN with toe in gait pattern; slightly unsteady but likely due to him not being up much in the past few days. no sachin LOB episodes. Balance Sitting Static: Good Sitting Dynamic: Good Standing Static: Fair Standing Dynamic: Fair Assessment/Needs Pt will benefit from PT to promote functional mobioltiy to increase strength and safety to allow him to return home alone as before. Rehab Potential: Good PT Penitentiary Goals Penitentiary Goals PT Penitentiary Goals Time Frame: Apr 26, 2018 Transfers (B,C,W/C) (FIM): 7 Gait (FIM): 7 PT Plan Problem List Problem List: Activity Tolerance, Functional Strength, Safety, Balance, Gait, Transfer Treatment/Plan Treatment Plan: Continue Plan of Care Treatment Plan: Education, Functional Activity Chris, Functional Strength, Gait , Safety, Therapeutic Exercise, Transfers Treatment Duration: Apr 26, 2018 Frequency: 6 times per week Estimated Hrs Per Day: .5 hour per day Patient and/or Family Agrees t: Yes Safety Risks/Education Patient Education: Transfer Techniques, Safety Issues Teaching Recipient: Patient Teaching Methods: Demonstration, Discussion Response to Teaching: Reinforcement Needed Time/GCodes Time In: 1425 Time Out: 1436 Total Billed Treatment Time: 11 Total Billed Treatment visit EVL 11 JAYLIN CLARKE PT Apr 22, 2018 14:46
[2018-04-22 15:33] VITALS: BP 91/50
[2018-04-22] MEDS: metFORMIN XR 500 MG (GLUCOPHAGE XR) TAB PO SCH (16:09)
[2018-04-22] MEDS ORDERED: ENOXAPARIN 30 MG/0.3 ML (LOVENOX) SYR SC SCH (17:00)
[2018-04-22] MEDS: inSUlin DETERMIR 1 UNIT/0.01 ML (LEVEMIR) CHARGE PER UNIT SQ SCH (21:11)
[2018-04-22 23:22] VITALS: BP 109/73
[2018-04-23 03:51] VITALS: BP 116/76
[2018-04-23] MEDS: inSUlin ASPART (NovoLOG) 1 UNIT/0.01 ML (CHARGE PER UNIT) SC SCH ×2 (05:25→11:30)
[2018-04-23] MEDS: metFORMIN XR 500 MG (GLUCOPHAGE XR) TAB PO SCH (06:02)
[2018-04-23 06:29] LABS: HEMOGLOBIN 13.1 G/DL (13.3-17.7); MEAN PLATELET VOLUME 10.6 FL (7.4-10.4); WHITE BLOOD COUNT 10.9 10^3/uL (4.3-11.0)
[2018-04-23 06:40] LABS: BUN/CREATININE RATIO 21; CALCIUM 9.5 MG/DL (8.5-10.1); CARBON DIOXIDE 23 MMOL/L (21-32); CHLORIDE 103 MMOL/L (98-107); CREATININE SERUM 0.75 MG/DL (0.60-1.30); GFR ESTIMATED > 60; GLUCOSE 109 MG/DL (70-105); POTASSIUM 4.8 MMOL/L (3.6-5.0); SODIUM 136 MMOL/L (135-145)
--- NOTE | 2018-04-23 07:39 | Cardiology Progress Note ---
Subjective Date Seen by Provider: Apr 23, 2018 Time Seen by Provider: 07:38 Subjective/Events-last exam patient is laying down in bed, asking to go home. Feeling well. Review of Systems General: No Chills, No Night Sweats, No Fatigue, No Malaise, No Appetite, No Other HEENT: No Head Aches, No Visual Changes, No Eye Pain, No Ear Pain, No Dysphasia , No Sinus Congestion, No Post Nasal Drip, No Sore Throat, No Other Pulmonary: No Dyspnea, No Cough, No Pleuritic Chest Pain, No Other Cardiovascular: No: Chest Pain, Palpitations, Orthopnea, Paroxysmal Noc. Dyspnea, Edema, Lt Headedness, Other Objective-Cardiology Exam Last Set of Vital Signs Vital Signs 04/23/18 03:51 Temp 96.6 Pulse 63 Resp 20 B/P (MAP) 116/76 (89) Pulse Ox 98 O2 Delivery Room Air Capillary Refill : Less Than 3 Seconds I&O Intake and Output 04/23/18 00:00 Intake Total 2750 ml Output Total 6 ml Balance 2744 ml Intake Oral 2750 ml Output Urine Total 6 ml # Voids 12 # Bowel Movements 1 General: Alert, No Acute Distress HEENT: Atraumatic, PERRLA, Mucous Memb Moist/[place] Neck: Supple, No JVD Lungs: Clear to Auscultation Heart: Regular Rate, Normal S1, Normal S2, No Murmurs Abdomen: Normal Bowel Sounds Extremities: No Clubbing, No Cyanosis, No Edema, Normal Pulses, No Tenderness/ Swelling Skin: No Rashes Neuro: Normal Speech Results Lab Laboratory Tests 04/22/18 10:15 04/23/18 06:12 A/P-Cardiology Admission Diagnosis Acute renal failure Diabetes Hyperkalemia Hypertension Assessment/Plan Acute renal failure, dehydration, better now, continue to monitor. Hyperkalemia, better now Diabetes, managed by primary care physician History of Coronary artery disease, status post cardiac catheterization February 2013 due to an elevated troponin level. Showing mild disease nonobstructive disease, continue to monitor, no changes. History of Congestive heart failure, Last echo done in January 2018 showing normal LV function, resolved, Entresto was discontinued secondary to Hyperkalemia and ARF, continue Metoprolol History of Right groin abscess-resolved. Hypertension, continue Metoprolol and monitor blood pressure Tobaccoism, patient was educated and instructed on smoking cessation. Alcoholism, patient reported that he has stopped drinking, educated on avoiding any alcohol products Bronchial asthma, clinically stable. Continue to monitor. Significant hearing loss. Clinical Quality Measures DVT/VTE Risk/Contraindication: Risk Factor Score Per Nursin RFS Level Per Nursing on Admit: 4+=Very High GLO MCLEOD MD Apr 23, 2018 07:39
[2018-04-23 08:00] VITALS: BP 117/71
[2018-04-23] MEDS ORDERED: INSU100V5 SQ (08:54)
[2018-04-23] MEDS ORDERED: METF500T8 PO (08:54)
[2018-04-23] MEDS: CLINDAMYCIN 150 MG (CLEOCIN) CAP PO SCH ×2 (09:31→13:21)
[2018-04-23] MEDS: meTOprolol TARTRATE 25 MG (LOPRESSOR) TABLET PO SCH (09:31)
[2018-04-23] MEDS: SERTRALINE 50 MG (ZOLOFT) TABLET PO SCH (09:31)
--- NOTE | 2018-04-23 11:06 | D/C HH Face to Face Order ---
D/C Face to Face Orders Instructions for Patient Via [facility], Patient Instructions/FollowUp: Follow up with Dr. Nash Apr 25 at 1:20 pm. Physician to follow Patient: Saad Discharge Diet for Home: ADA Diet Patient Problems: Diabetes Schizoaffective disorder Heart failure Goals for Patient: Strengthening, diabetic diet education, insulin education, blood sugar control Patient Data-Allergies,Ht & Wt Patient Allergies: Coded Allergies: No Known Drug Allergies (Unverified , 03/03/13) Height (Feet): 5 Height (Inches): 3.00 Weight (Pounds): 84 Weight (Ounces): 4.0 Home Health Need/Face to Face Date of Face to Face: Apr 23, 2018 Clinical Findings: Generalized weakness and fatigue, Instability, Muscle weakness, Unsteady gait I have seen Pt [id number]: Yes Discharged To: Home Diagnosis/Conditions: Diabetes, schizoaffective disorder, heart failure Patient is Homebound due to: CognItive deficits, Muscle weakness Homebound Status Due to the above stated illness, injury or surgical procedure (medical condition or diagnosis) and associated clinical findings, the patient is homebound because of his/her inability to leave home except with aid of a supportive device and/or person AND leaving the home requires a considerable and taxing effort or is medically contraindicated. Pt req the following assistanc: Aid of another person Home Health Nursing Orders Home Health Services Order: Nursing Services, Physical Therapy-Evaluate & Treat Therapy Orders Therapy Orders: Physical Therapy Therapy Specific Orders: Eval assistive deivces, Teach strategies/cognitive deficits, Teach enviro modifications/safety, Gait training, Increase strength/ endurance Certify Stmt I certify that this patient is under my care and that I, a nurse practitioner or a physician; a surgical physician assistant working with me, had a face to face encounter that - meets the physician face to face encounter requirements with this patient as dated. CATHY NASH MD Apr 23, 2018 08:56
--- NOTE | 2018-04-23 11:53 | NUR ---
Attempted to educate pt on his discharge insulin dose and how to administer insulin injection via insulin pen. Attempted to assist pt with his afternoon dose of insulin of 3 units drawn up by RN caring for pt. Pt was unable to inject himself with insulin. Attempt to assistant tennis coach pt with injection pt just kept saying "I am not giving myself a shot." Pt was unable to comprehend using the plunger after he stuck needle in his abd. Attempted to educate pt on how to dial 10units of insulin via a practice pen. Pt just kept trying to inject himself with the button side of the practice pen. Pt finally attempted to dial up 10 units in which he just kept randomly dialing different dosage. Attmepted to explain to him how to and where 10 units are on insulin pen. Unable to get pt to dial just 10 units. Spoke with BETHANY about attempt to educate pt. SS is going to let me know when pt mom is available to teach carb counting and insulin injection.
--- NOTE | 2018-04-23 11:57 | Discharge Summary ---
Diagnosis/Chief Complaint Date of Admission Apr 18, 2018 at 15:00 Date of Discharge Admission Diagnosis Admission Diagnosis Hyperglycemia Renal insufficiency Debility Discharge Diagnosis See problem list Problems/Diagnosis: (1) Hypovolemia Assessment & Plan: 3/4- Resolved with IVF, appears to be euvolemic at this time. Status: Acute (2) Hyperkalemia Assessment & Plan: Stopped Entresto. Status: Resolved Resolution Date/Time: 04/22/18 @ 15:58 (3) Hyperglycemia Assessment & Plan: 3/4 Known DMII, glucose over 700 on admission, continues to have fluctuating sugar and is unlikely he will be able to manage insulin well on his own at home, but he does not want to go to another setting. Will resume/ increase his home metformin and monitor closely. Consider other oral or weekly injectable to help with outpatient management. 35 plan for d/c on increased dose of metformin and 10 units of levemir daily. Home health ordered and diabetic education with patient and mother. Status: Acute (4) Renal insufficiency Assessment & Plan: Secondary to hyperglycemia/hypovolemia. Status: Resolved Resolution Date/Time: 04/22/18 @ 15:59 (5) Hyponatremia Assessment & Plan: 3/4 Likely combination of hypovolemia and hyperglycemia. Currently near normal. Status: Acute (6) Weight loss Assessment & Plan: 3/4 Rapid onset in the last few weeks, suspect due to marked hyperglycemia. Outpatient CXR, TSH and PSA okay. CK elevated, statin held. Recheck CK was normal. Status: Acute (7) Schizoaffective disorder Assessment & Plan: Lives independently, but does seem to have limited understanding of medical conditions. Will have home health on d/c. Mother also helps and will come for insulin teaching before d/c. Will resume aripiprazole to further evaluate sugar control as it will need to be outpatient. Status: Chronic (8) Heart failure Assessment & Plan: History of marked systolic heart failure, however last echo with normal EF. Cardiology consulted, appreciate recs. Stopped Entresto due to hyperkalemia. Qualifiers: Qualified Codes: I50.22 - Chronic systolic (congestive) heart failure Status: Chronic Discharge Summary-Simple/Stand Consultations Discharge Physical Examination Allergies: Coded Allergies: No Known Drug Allergies (Unverified , 03/03/13) Vitals & I&Os Vital Sign - Last 12Hours Date Time Temp Pulse Resp B/P (MAP) Pulse Ox O2 Delivery O2 Flow Rate FiO2 04/23/18 08:00 Room Air 04/23/18 08:00 98.6 63 18 117/71 (86) 96 Intake and Output 04/23/18 00:00 Intake Total 1870 ml Output Total 6 ml Balance 1864 ml General Appearance: Alert, No Acute Distress Respiratory: Clear to Auscultation, Normal Air Movement Cardiovascular: Regular Rate, No Murmurs Neuro: Normal Speech Psych/Mental Status: Mood NL Hospital Course See final discharge diagnosis. Labs Laboratory Tests Test 04/21/18 16:23 04/21/18 21:10 04/22/18 05:08 04/22/18 10:15 Range/Units Glucometer 179 H 438 *H 245 H 70-110 MG/DL Sodium Level 130 L 135-145 MMOL/L Potassium Level 4.7 3.6-5.0 MMOL/L Chloride Level 98 98-107 MMOL/L Carbon Dioxide Level 25 21-32 MMOL/L Anion Gap 7 5-14 MMOL/L Blood Urea Nitrogen 17 7-18 MG/DL Creatinine 0.92 0.60-1.30 MG/DL Estimat Glomerular Filtration Rate > 60 BUN/Creatinine Ratio 18 Glucose Level 269 H 70-105 MG/DL Calcium Level 9.2 8.5-10.1 MG/DL Test 04/22/18 10:59 04/22/18 15:32 04/22/18 20:43 04/23/18 05:12 Range/Units Glucometer 268 H 229 H 167 H 138 H 70-110 MG/DL Test 04/23/18 06:12 Range/Units White Blood Count 10.9 4.3-11.0 10^3/uL Red Blood Count 4.12 L 4.35-5.85 10^6/uL Hemoglobin 13.1 L 13.3-17.7 G/DL Hematocrit 38 L 40-54 % Mean Corpuscular Volume 92 80-99 FL Mean Corpuscular Hemoglobin 32 25-34 PG Mean Corpuscular Hemoglobin Concent 35 32-36 G/DL Red Cell Distribution Width 13.0 10.0-14.5 % Platelet Count 341 130-400 10^3/uL Mean Platelet Volume 10.6 H 7.4-10.4 FL Sodium Level 136 135-145 MMOL/L Potassium Level 4.8 3.6-5.0 MMOL/L Chloride Level 103 98-107 MMOL/L Carbon Dioxide Level 23 21-32 MMOL/L Anion Gap 10 5-14 MMOL/L Blood Urea Nitrogen 16 7-18 MG/DL Creatinine 0.75 0.60-1.30 MG/DL Estimat Glomerular Filtration Rate > 60 BUN/Creatinine Ratio 21 Glucose Level 109 H 70-105 MG/DL Calcium Level 9.5 8.5-10.1 MG/DL Discharge Instructions to patient/family Please see electronic discharge instructions given to patient. Discharge Medications Reviewed and agree with Discharge Medication list on patient's Discharge Instruction sheet Clinical Quality Measures DVT/VTE Risk/Contraindication: Risk Factor Score Per Nursin RFS Level Per Nursing on Admit: 4+=Very High Copy Copies To 1: CATHY BLACK MD, BETHANY N MD Apr 23, 2018 11:57
--- NOTE | 2018-04-23 12:10 | NUR ---
CM/SS calls to mother and voicemail left with call back information. Mukesh with [facility] will be glad to meet with mom when she is available. Patient had HHC with [facility] starting before he became inpatien, will resume those services at discharge.
--- NOTE | 2018-04-23 13:16 | Physical Therapy Daily Note ---
PT Daily Note-Current Subjective Patient in bed pre tx, reluctantly agrees to PT, states that he has some pain but is unable to locate or rate it. Patient is agitated, states that he wants to go home. Appearance Patient sitting EOB post tx with nurse call, phone, tray, all needs met. Mental Status Patient Orientation: Person, Confused Transfers Therapy Code Descriptions/Definitions Functional [place] Measure: 0=Not Assessed/NA 4=Minimal Assistance 1=Total Assistance 5=Supervision or Setup 2=Maximal Assistance 6=Modified [place] 3=Moderate Assistance 7=Complete [place] Therapy Quality Codes: 6 Independent with activity with or without an assistive device 5 Patient requires set up or clean up by helper. Patient completes activity by themselves 4 Supervision or touching assist (CGA). [place] provide cues , steadying assist 3 The helper provides less than half the effort to complete the activity 2 The helper provides more than half the effort to complete the activity 1 Dependent. The helper does all the effort to complete an activity 7 Patient refused to complete or attempt activity 9 The patient did not perform the activity before the current illness or injury 88 Not attempted due to Medical conditions or safety concerns Transfers (B, C, W/C) (FIM): 5 Scootin Rollin Supine to/from Sit: 6 Sit to/from Stand: 5 Bed to/from Chair: 5 Gait Training Gait (FIM): 5 Distance: 150' Gait Level of Assist: 5 Gait Persons Needed: 1 Gait Assistive Device: None Patient had no LOB with ambulation. Treatments bed mobility and transfers, ambulation Assessment Current Status: Poor Progress Patient not motivated, refused further treatment. PT Business Services Associate Goals Custodial Goals PT Business Services Associate Goals Time Frame: Apr 26, 2018 Transfers (B,C,W/C) (FIM): 7 Gait (FIM): 7 PT Plan Problem List Problem List: Activity Tolerance, Functional Strength, Safety, Balance, Gait, Transfer Treatment/Plan Treatment Plan: Continue Plan of Care Treatment Plan: Education, Functional Activity Chris, Functional Strength, Gait , Safety, Therapeutic Exercise, Transfers Treatment Duration: Apr 26, 2018 Frequency: 6 times per week Estimated Hrs Per Day: .5 hour per day Patient and/or Family Agrees t: Yes Safety Risks/Education Patient Education: Gait Training, Transfer Techniques, Correct Positioning, Safety Issues Teaching Recipient: Patient Teaching Methods: Demonstration, Discussion Response to Teaching: Reinforcement Needed Time/GCodes Time In: 1300 Time Out: 1311 Total Billed Treatment Time: 11 Total Billed Treatment 1 visit GT 11' MARIE BATRES PT Apr 23, 2018 13:16
--- NOTE | 2018-04-23 13:49 | NUR ---
CM/SS spoke with patient and got a different number for his mother (Caterina, ). Called and left a message with call back information.
--- NOTE | 2018-04-23 15:38 | NUR ---
CM/SS mom Tonny) is here and meeting with Education for administration of the insulin. Dr. Nash stated that he has follow up tomorrow with her. [facility] orders and discharge information sent to [facility]. Addendum: 04/23/18 at 1541 by LUCY HORVATH Confirmed with the mother that she could help the patient daily with the insulin administration and she stated "yes, she'd have to". Discussed options of NH placement and how some like [facility] allow small animal and have private rooms.
--- NOTE | 2018-04-23 16:01 | NUR ---
Spoke with pt mom reference diabetic education and administration of Insulin pen. Discussed with pt mom carb counting, meal planning, monitoring BS and physical activity. Taught pt mom how to dial insulin dose and injection along with injection sites. Pt mom demonstrated proper dose and injection technique. Pt mom also demonstrated proper technique for glucometer.
[2018-04-23 16:10] VITALS: BP 117/71
--- NOTE | 2018-04-24 15:32 | Physician Query Clarification ---
PQ-Conflicting Diagnosis Admission/Discharge Admission Date: Apr 18, 2018 at 15:00 Discharge Date: Apr 23, 2018 at 16:10 The medical record reflects the following clinical scenario: History/Risk Factors: DM with hyperglycemia Clinical Findings: dehydration, DM Treatment: IV dehydration Question: Do you agree with the impression of the Acute Renal Failure per Dr. Durand. Please document a response below. PHYSICIAN RESPONSE Do you agree w/Consulting Dx?: Other,explanation/clincal findings Explanation of clincal finding As I documented in discharge summar, patient had acute kidney injury (acute renal insufficiency), term sometimes used interchangeabley with acute renal failure, but patient did not have true renal failure. In responding to this query, please exercise your independent professional judgment. The purpose of this communication is to more accurately reflect the complexity of your patients condition. The fact that a question is asked does not imply that any particular answer is desired or expected. Thank you for your timely response to this clarification. Requestors name: [ ] Phone # [ ] THIS PHYSICIAN QUERY FORM IS A PERMANENT PART OF THE MEDICAL RECORD DEEP ANDERSON Apr 24, 2018 15:32 CATHY BLACK MD Apr 24, 2018 21:31
== END 2018-04-23 16:10 | disposition home health service (06) | DRG 638 ==
LOC: EDUNIT# 11:38 → ER 11:41 → 4TH 15:00
PROVIDERS: ADMIT Internal Medicine; ATTEND Internal Medicine
DX: E11.65 Type 2 diabetes mellitus with hyperglycemia (principal); E87.1 Hypo-osmolality and hyponatremia; I50.22 Chronic systolic (congestive) heart failure; E87.5 Hyperkalemia; E86.1 Hypovolemia; E86.0 Dehydration; N28.9 Disorder of kidney and ureter, unspecified; F25.9 Schizoaffective disorder, unspecified; F41.9 Anxiety disorder, unspecified; F32.9 Major depressive disorder, single episode, unspecified; F17.210 Nicotine dependence, cigarettes, uncomplicated; I10 Essential (primary) hypertension; J45.909 Unspecified asthma, uncomplicated; I25.10 Atherosclerotic heart disease of native coronary artery without angina pectoris; R63.4 Abnormal weight loss; F81.9 Developmental disorder of scholastic skills, unspecified; F10.21 Alcohol dependence, in remission; H91.90 Unspecified hearing loss, unspecified ear; Z86.79 Personal history of other diseases of the circulatory system; Z91.19 Patient's noncompliance with other medical treatment and regimen
CPT/HCPCS: 36415; 80048; 80053; 81000; 82010; 82550; 82962; 83874; 85025; 85027; 96361; 96374

== ENCOUNTER 2018-11-12 11:24 | Inpatient (IN) | payer MEDICARE ==
[2018-11-12] VITALS (8 sets, daily range): BP systolic 95–121; BP diastolic 64–90
[~2018-11-12] VITALS: Ht 165.1 cm; Wt 40.9 kg
[~2018-11-12 11:24] MED LIST: ALBU18HF2 INH; ARIP30TA10 PO; ATOR20TA66 PO; CLIN300C11 PO; CYAN-41 PO; INSU100V5 SQ; METF500T8 PO; METO-333 PO; METO-370 PO; NFBIOT1000 PO; SACU1TAB7 PO; SERT50TA9 PO
--- NOTE | 2018-11-12 11:30 | NUR ---
unable to complete safety assessment due to pt's mental status at this time
--- NOTE | 2018-11-12 11:35 | NUR ---
400 ml of D 10 infused via EMS. Infusion stopped per Emil Schaeffer.
[2018-11-12 11:41] LABS: BASOPHILS % (AUTO) 0 % (0-10); EOSINOPHILS % (AUTO) 0 % (0-10); HEMATOCRIT 42 % (40-54); HEMOGLOBIN 14.5 G/DL (13.3-17.7); LYMPHOCYTES # (AUTO) 0.9 X 10^3 (1.0-4.0); LYMPHOCYTES % (AUTO) 3 % (12-44); MEAN CORPUSCULAR HEMOGLOBIN 32 PG (25-34); MEAN CORPUSCULAR HGB CONC 35 G/DL (32-36); MEAN CORPUSCULAR VOLUME 93 FL (80-99); MEAN PLATELET VOLUME 10.3 FL (7.4-10.4); MONOCYTES # (AUTO) 1.9 X 10^3 (0.0-1.0); MONOCYTES % (AUTO) 7 % (0-12); NEUTROPHILS # (AUTO) 25.6 X 10^3 (1.8-7.8); NEUTROPHILS % (AUTO) 90 % (42-75); PLATELET COUNT 384 10^3/uL (130-400); RED CELL DISTRIBUTION WIDTH 14.4 % (10.0-14.5); WHITE BLOOD COUNT 28.5 10^3/uL (4.3-11.0)
--- NOTE | 2018-11-12 11:42 | ED General ---
General Stated Complaint: FALL Source of Information: Patient Exam Limitations: No Limitations History of Present Illness Date Seen by Provider: Nov 12, 2018 Time Seen by Provider: 11:40 Initial Comments To ER per EMS from home with reports of a fall. [employer] delivered his food today and found him on the floor. EMS was summoned and found a glucose of 27. He is a known diabetic, he was given D10, upon arrival to the ER blood sugar 189. History of congestive heart failure, was previously on interest though, however that was stopped because his most recent echocardiogram showed normal EF. History of diabetes, renal insufficiency and significant mental disorder and schizoaffective disorder. has laceration of the right eyebrow Timing/Duration: Other Severity: Moderate Associated Systoms: Headaches Allergies and Home Medications Allergies Coded Allergies: No Known Drug Allergies (Unverified , 03/03/13) Home Medications Albuterol Sulfate 18 Gm Hfa.aer.ad, 2 PUFF INH Q4H PRN for SHORTNESS OF BREATH, (Reported) Aripiprazole 30 Mg Tablet, 30 MG PO DAILY, (Reported) Biotin 1,000 Mcg Tablet, 1,000 MCG PO DAILY, (Reported) Clindamycin HCl 300 Mg Capsule, 300 MG PO TID, (Reported) 10 DAY SUPPLY FILLED 04-13-18 Cyanocobalamin (Vitamin B-12) 1,000 Mcg Tablet, 1,000 MCG PO DAILY, (Reported) Insulin Determir 1,000 Units/10 Ml Soln, 10 UNIT SQ HS Prescribed by: CATHY BLACK on 04/23/18 0854 Metformin HCl 500 Mg Tab.er.24h, 1,000 MG PO BID Prescribed by: CATHY BLACK on 04/23/18 0854 Metoprolol Tartrate 25 Mg Tablet, 25 MG PO BID, (Reported) Sertraline HCl 50 Mg Tablet, 50 MG PO DAILY, (Reported) Patient Home Medication List Home Medication List Reviewed: Yes Review of Systems Review of Systems Constitutional: see HPI EENTM: see HPI Respiratory: no symptoms reported Cardiovascular: no symptoms reported Genitourinary: see HPI Musculoskeletal: no symptoms reported Skin: no symptoms reported Psychiatric/Neurological: No Symptoms Reported Hematologic/Lymphatic: No Symptoms Reported Past Tedjkjl-Bzzwip-Paacaa Hx Patient Social History Type Used: Cigarettes Recent Hopitalizations: No Immunizations Up To Date Date of Influenza Vaccine: Nov 19, 2017 Seasonal Allergies Seasonal Allergies: No Past Medical History Surgeries: No Respiratory: Yes Asthma Cardiac: Yes Neurological: No Reproductive Disorders: No Gastrointestinal: No Musculoskeletal: No Endocrine: Yes (HYPOGLYCEMIA THIS STAY-- NEW ONSET) Diabetes, Non-Insulin dep HEENT: No Cancer: No Psychosocial: Yes (Learning disability) Anxiety, Schizophrenia, Depression Integumentary: No Blood Disorders: No Physical Exam Vital Signs Vital Signs - First Documented 11/12/18 11:26 Temp 36.2 Pulse 100 Resp 22 B/P (MAP) 126/100 (109) Pulse Ox 97 O2 Delivery Room Air Capillary Refill : Height, Weight, BMI Height: 5'3.00" Weight: 84lbs. 4.0oz. 38.568542zg; 14.0 BMI Method:Stated General Appearance: No Apparent Distress, WD/WN, Other (patient talks nonstop in a loud pressured voice about a variety of topics, asking about his cat, asking for a cigarette and a food tray) HEENT: PERRL/EOMI, TMs Normal, Other (2 semi-laceration over the lateral aspect of the right eyebrow) Neck: Full Range of Motion, Normal Inspection, Other (is in a rigid cervical collar which is serving entirely no purposes as he refuses to hold still) Respiratory: No Accessory Muscle Use, No Respiratory Distress Cardiovascular: Regular Rate, Rhythm, Normal Peripheral Pulses Gastrointestinal: Non Tender, Soft Extremity: Normal Capillary Refill, Normal Inspection Neurologic/Psychiatric: Alert, Oriented x3, Other (manic-appearing, talks nonstop at a high rate of speed about a variety of subjects, yelling out from the room, moving about the bed not holding still. Mother states he gets worked up like this from time to time, he was just told that he was having $110/month taken away from him by the government and this has upset him.) Skin: Normal Color, Warm/Dry (breathing treatment and a) Focused Exam Lactate Level 11/12/18 12:00: Lactic Acid Level 8.69*H 11/12/18 14:00: Lactic Acid Level 5.24*H Lactic Acid Level Laboratory Tests Test 11/12/18 12:00 11/12/18 14:00 Lactic Acid Level 8.69 MMOL/L (0.50-2.00) *H 5.24 MMOL/L (0.50-2.00) *H Progress/Results/Core Measures Suspected Sepsis SIRS Temperature: Pulse: Respiratory Rate: Laboratory Tests 11/12/18 11:30: White Blood Count 28.5H Blood Pressure / Mean: 11/12/18 12:00: Lactic Acid Level 8.69*H 11/12/18 14:00: Lactic Acid Level 5.24*H Laboratory Tests 11/12/18 11:30: Creatinine 0.81, Platelet Count 384, Total Bilirubin 0.7 Results/Orders Lab Results Laboratory Tests Test 11/12/18 11:30 11/12/18 11:31 11/12/18 12:00 11/12/18 13:02 Range/Units White Blood Count 28.5 H 4.3-11.0 10^3/uL Red Blood Count 4.48 4.35-5.85 10^6/uL Hemoglobin 14.5 13.3-17.7 G/DL Hematocrit 42 40-54 % Mean Corpuscular Volume 93 80-99 FL Mean Corpuscular Hemoglobin 32 25-34 PG Mean Corpuscular Hemoglobin Concent 35 32-36 G/DL Red Cell Distribution Width 14.4 10.0-14.5 % Platelet Count 384 130-400 10^3/uL Mean Platelet Volume 10.3 7.4-10.4 FL Neutrophils (%) (Auto) 90 H 42-75 % Lymphocytes (%) (Auto) 3 L 12-44 % Monocytes (%) (Auto) 7 0-12 % Eosinophils (%) (Auto) 0 0-10 % Basophils (%) (Auto) 0 0-10 % Neutrophils # (Auto) 25.6 H 1.8-7.8 X 10^3 Lymphocytes # (Auto) 0.9 L 1.0-4.0 X 10^3 Monocytes # (Auto) 1.9 H 0.0-1.0 X 10^3 Eosinophils # (Auto) 0.0 0.0-0.3 10^3/uL Basophils # (Auto) 0.0 0.0-0.1 10^3/uL Neutrophils % (Manual) 88 % Lymphocytes % (Manual) 4 % Monocytes % (Manual) 6 % Eosinophils % (Manual) 0 % Basophils % (Manual) 0 % Band Neutrophils 2 % Toxic Granulation 1+ Blood Morphology Comment NORMAL Sodium Level 134 L 135-145 MMOL/L Potassium Level 3.9 3.6-5.0 MMOL/L Chloride Level 96 L 98-107 MMOL/L Carbon Dioxide Level 20 L 21-32 MMOL/L Anion Gap 18 H 5-14 MMOL/L Blood Urea Nitrogen 14 7-18 MG/DL Creatinine 0.81 0.60-1.30 MG/DL Estimat Glomerular Filtration Rate > 60 BUN/Creatinine Ratio 17 Glucose Level 176 H 70-105 MG/DL Calcium Level 8.9 8.5-10.1 MG/DL Corrected Calcium 8.5-10.1 MG/DL Total Bilirubin 0.7 0.1-1.0 MG/DL Aspartate Amino Transf (AST/SGOT) 60 H 5-34 U/L Alanine Aminotransferase (ALT/SGPT) 21 0-55 U/L Alkaline Phosphatase 81 40-136 U/L Total Creatine Kinase 1142 H 30-200 U/L Total Protein 7.7 6.4-8.2 GM/DL Albumin 4.7 H 3.2-4.5 GM/DL Serum Alcohol < 10 <10 MG/DL Glucometer 189 H 70-110 MG/DL Lactic Acid Level 8.69 *H 0.50-2.00 MMOL/L Urine Color YELLOW Urine Clarity CLEAR Urine pH 5 5-9 Urine Specific [place] 1.015 L 1.016-1.022 Urine Protein 2+ H NEGATIVE Urine Glucose (UA) 3+ H NEGATIVE Urine Ketones 1+ H NEGATIVE Urine Nitrite NEGATIVE NEGATIVE Urine Bilirubin NEGATIVE NEGATIVE Urine Urobilinogen NORMAL NORMAL MG/DL Urine Leukocyte Esterase NEGATIVE NEGATIVE Urine RBC (Auto) 2+ H NEGATIVE Urine RBC RARE /HPF Urine WBC NONE /HPF Urine Squamous Epithelial Cells RARE /HPF Urine Crystals PRESENT H /LPF Urine Amorphous Sediment RARE JEFFREY URATES H /LPF Urine Bacteria NEGATIVE /HPF Urine Casts PRESENT /LPF Urine Hyaline Casts 2-5 H /LPF Urine Mucus SMALL H /LPF Urine Culture Indicated NO Urine Opiates Screen NEGATIVE NEGATIVE Urine Oxycodone Screen NEGATIVE NEGATIVE Urine Methadone Screen NEGATIVE NEGATIVE Urine Propoxyphene Screen NEGATIVE NEGATIVE Urine Barbiturates Screen NEGATIVE NEGATIVE Ur Tricyclic Antidepressants Screen NEGATIVE NEGATIVE Urine Phencyclidine Screen NEGATIVE NEGATIVE Urine Amphetamines Screen NEGATIVE NEGATIVE Urine Methamphetamines Screen NEGATIVE NEGATIVE Urine Benzodiazepines Screen NEGATIVE NEGATIVE Urine Cocaine Screen NEGATIVE NEGATIVE Urine Cannabinoids Screen NEGATIVE NEGATIVE Test 11/12/18 14:00 11/12/18 14:12 Range/Units Lactic Acid Level 5.24 *H 0.50-2.00 MMOL/L Glucometer 24 *L 70-110 MG/DL My Orders Orders - ALLEGRA SCHAEFFER APRN Cbc With Automated Diff (11/12/18 11:35) Comprehensive Metabolic Panel (11/12/18 11:35) Alcohol (11/12/18 11:35) Ed Iv/Invasive Line Start (11/12/18 11:35) Ct Head/Cervical Spine Wo (11/12/18 11:35) Lorazepam Injection (Ativan Injection) (11/12/18 11:45) Dipht,Pertuss(Acell),Tet Adult (Boostrix (11/12/18 11:45) Lidocaine/Epi 2% 1:100,000 (Xylocaine/Ep (11/12/18 11:45) General/Regular (11/12/18 Lunch) Manual Differential (11/12/18 11:30) Lactated Ringers (Lr 1000 Ml Iv Solution (11/12/18 12:00) Ua Culture If Indicated (11/12/18 11:53) Drug Screen Stat (Urine) (11/12/18 11:53) Creatine Kinase (11/12/18 11:53) Blood Culture (11/12/18 12:12) Lactic Acid Analyzer (11/12/18 12:12) Ns Iv 1000 Ml (Sodium Chloride 0.9%) (11/12/18 12:15) Ziprasidone Injection (Geodon Injection) (11/12/18 12:30) Water (Sterile) For Injection (Sterile W (11/12/18 12:27) Chest 1 View, Ap/Pa Only (11/12/18 12:49) Ns Iv 1000 Ml (Sodium Chloride 0.9%) (11/12/18 14:00) D50w (Emergency) Syringe (Dextrose 50% 5 (11/12/18 14:13) Shoulder Immoblizer (11/12/18 14:27) Shoulder, Right, 3 Views (11/12/18 14:27) Medications Given in ED Current Medications Medications Dose Ordered Sig/Elan Route Start Time Stop Time Status Last Admin Dose Admin Dextrose 50 ml STK-MED ONCE .ROUTE 11/12/18 14:13 11/12/18 14:15 DC 11/12/18 14:14 50 ML Diphtheria/ Tetanus/Acell Pertussis 0.5 ml ONCE ONCE IM 11/12/18 11:45 11/12/18 11:46 DC 11/12/18 13:26 0.5 ML Lidocaine/ Epinephrine 20 ml ONCE ONCE INJ 11/12/18 11:45 11/12/18 11:46 DC 11/12/18 13:10 20 ML Lorazepam 1 mg ONCE PRN IVP 11/12/18 11:45 11/12/18 11:50 1 MG Sterile Water 10 ml @ STK-MED ONCE .ROUTE 11/12/18 12:27 11/12/18 12:28 DC 11/12/18 12:41 0.05 MLS/HR Ziprasidone 10 mg ONCE ONCE IM 11/12/18 12:30 11/12/18 12:31 DC 11/12/18 12:41 10 MG Vital Signs/I&O 11/12/18 11:26 Temp 36.2 Pulse 100 Resp 22 B/P (MAP) 126/100 (109) Pulse Ox 97 O2 Delivery Room Air Capillary Refill : Diagnostic Imaging Diagonstic Imaging: CT Comments NAME: TORIE CAMPOS [facility] REC#: [id number] PT STATUS: REG ER : 1975 PHYSICIAN: ALLEGRA SCHAEFFER APRN ADMIT DATE: 11/12/18/ER Draft Date of Exam:11/12/18 CT HEAD/CERVICAL SPINE WO CLINICAL INDICATION: Patient found on the floor. Patient has laceration to right eye and is covered in blood. EXAM: Head CT without IV contrast. Axial CT scan of the cervical spine with sagittal and coronal reformations. Auto Exposure Controls were utilized during the CT exam to meet ALARA standards for radiation dose reduction. COMPARISON: None. FINDINGS: Head CT: There is no evidence of acute cerebral infarct, intracranial hemorrhage, or gross mass effect. There is brain parenchymal volume loss which appears slightly advanced for patient's age. There is minimal chronic-appearing calcification in the left caudate head and globus pallidus regions bilaterally. There is normal aguiar-white matter distinction. There is no significant midline shift or herniation. There is no evidence of hydrocephalus. The basal cisterns are unremarkable. There is a medially displaced fracture involving the frontal process of the right maxilla. There is a nondisplaced fracture of the frontal process of the left maxilla. There is also some fracture disruption involving the right nasal maxillary suture region superiorly. There is no other skull or maxillofacial fracture. There is extracranial soft tissue swelling involving the right forehead/superior periorbital region. Otherwise, the skull, extracranial soft tissue, and orbits are unremarkable. The paranasal sinuses are unremarkable. Temporal bones show no significant abnormality. Cervical spine: There is no acute cervical spine fracture or dislocation. There are chronic compression deformities involving the C5 and C6 vertebra. There is no significant bony central canal or neural foramen narrowing. The neck soft tissue structures are unremarkable. There are emphysematous changes involving the visualized lung apices. IMPRESSION: 1: There is a displaced fracture of the frontal process of the right maxilla and a nondisplaced fracture of the frontal process of the left maxilla. 2: There is no acute intracranial process or intracranial hemorrhage. 3: There is no acute cervical spine fracture or dislocation. There are chronic compression deformities involving the C5 and C6 vertebra. 4: There is brain parenchymal volume loss which appears slightly advanced for patient's age. Results of this report were discussed with Allegra Schaeffer APRN via the telephone on 11/12/2018 at 1320 hrs. Dictated on workstation # [id number] Dict: 11/12/18 1315 Trans: 11/12/18 1329 [facility] [id number] Interpreted by: FLACA DANIELLE MD Electronically signed by: Departure Communication (Admissions) 1334-cervical collar was removed at [address] report, fractures of the maxillary process bilaterally which is essentially nasal bone fractures. He has a 1 cm vertically oriented laceration to the second thing is tissue buccal surface top lip midline. This was anesthetized with 2 mL of lidocaine 2% with epinephrine, closed with 1 buried suture size 4-0 chromic and one simple interrupted 4-0 chromic. There is a laceration 2 cm over the lateral aspect of the right eyebrow depth to the subcutaneous cutaneous tissue anesthetized locally with 2 mL of 2% lidocaine with epinephrine, dry blood was removed with peroxide and wound cavity was then irrigated with saline. 3 simple interrupted sutures size 5-0 Prolene and 2 horizontal mattress size 5-0 Prolene were placed. After the lorazepam and Geodon he is now sleeping. Blood pressure 104/56, heart rate 72, oxygen 94% room air. 1439-blood sugar was rechecked and found to be 24, patient was not diaphoretic but he was lethargic. He is given 25 g of dextrose. He was given a meal tray. Chest x-ray showed no infiltrates but a questionable fracture of the distal third of the clavicle. He is placed in a shoulder immobilizer. Impression Primary Impression: Amanda Additional Impressions: Leukocytosis Qualified Codes: D72.829 - Elevated white blood cell count, unspecified Rhabdomyolysis Qualified Codes: T79.6XXA - Traumatic ischemia of muscle, initial encounter Facial fracture Qualified Codes: S02.40DA - Maxillary fracture, left side, initial encounter for closed fracture Disposition: ADMITTED INPATIENT Condition: Stable Admissions Decision to Admit Reason: Admit from ER (General) Decision to Admit/Date: Nov 12, 2018 Time/Decision to Admit Time: 13:39 Departure-Patient Inst. Referrals: [facility] (PCP/Family) Primary Care Physician ALLEGRA SCHAEFFER APRN Nov 12, 2018 11:42
[2018-11-12] MEDS ORDERED: LORazepam INJ 2 MG/ML (ATIVAN) VIAL IVP PRN (11:45)
[2018-11-12] MEDS ORDERED: TETANUS,DIPTH,PERTUSS P/F (BOOSTRIX) 0.5 ML VIAL IM ONE (11:45)
[2018-11-12] MEDS ORDERED: LIDOCAINE/EPI 2% 1:100,00 (XYLOCAINE) 20 ML VIAL INJ ONE (11:45)
[2018-11-12 12:10] LABS: ALANINE AMINOTRANSFERASE 21 U/L (0-55); ALBUMIN 4.7 GM/DL (3.2-4.5); ALKALINE PHOSPHATASE 81 U/L (40-136); BILIRUBIN,TOTAL 0.7 MG/DL (0.1-1.0); BUN/CREATININE RATIO 17; CALCIUM 8.9 MG/DL (8.5-10.1); CARBON DIOXIDE 20 MMOL/L (21-32); CHLORIDE 96 MMOL/L (98-107); CREATININE SERUM 0.81 MG/DL (0.60-1.30); GFR ESTIMATED > 60; GLUCOSE 176 MG/DL (70-105); POTASSIUM 3.9 MMOL/L (3.6-5.0); SODIUM 134 MMOL/L (135-145); TOTAL PROTEIN 7.7 GM/DL (6.4-8.2)
[2018-11-12] MEDS ORDERED: NS IV 1000 ML 1,000 ML IV SCH ×2 (12:15→14:00)
[2018-11-12] MEDS ORDERED: WATER (STERILE) FOR INJECTION 10 ML ONE (12:27)
[2018-11-12] MEDS ORDERED: ZIPRASIDONE 20 MG INJ (GEODON) VIAL IM ONE (12:30)
[2018-11-12 12:39] LABS: BAND NEUTROPHILS 2 %; BASOPHILS % (MANUAL) 0 %; EOSINOPHILS % (MANUAL) 0 %; LYMPHOCYTES % (MANUAL) 4 %; MONOCYTES % (MANUAL) 6 %; NEUTROPHILS % (MANUAL) 88 %
[2018-11-12 12:40] LABS: RBC MORPH NORMAL; TOXIC GRANULATION/VACUOLAZATIO 1+
[2018-11-12] MEDS: LACTATED RINGERS 1,000 ML IV SCH ×2 (12:42→13:28)
[2018-11-12 13:08] LABS: BILIRUBIN,URINE NEGATIVE (NEGATIVE); CLARITY,URINE CLEAR; COLOR,URINE YELLOW; GLUCOSE, URINE (UA) 3+ (NEGATIVE); KETONES,URINE 1+ (NEGATIVE); LEUKOCYTE ESTERASE ,URINE NEGATIVE (NEGATIVE); NITRITE,URINE NEGATIVE (NEGATIVE); PH,URINE 5 (5-9); PROTEIN,URINE 2+ (NEGATIVE); UROBILINOGEN,URINE NORMAL (NORMAL)
--- NOTE | 2018-11-12 13:15 | NUR ---
Pt calm and sleeping at this time. Will continue to monitor.
--- NOTE | 2018-11-12 13:20 | NUR ---
c-collar removed by Emil Schaeffer at this time.
[2018-11-12 13:23] LABS: AMPHETAMINE SCREEN, URINE NEGATIVE (NEGATIVE); BARBITURATE SCREEN URINE NEGATIVE (NEGATIVE); BENZODIAZEPINES SCREEN URINE NEGATIVE (NEGATIVE); CANNABINOID SCREEN, URINE NEGATIVE (NEGATIVE); COCAINE SCREEN URINE NEGATIVE (NEGATIVE); METHADONE STAT NEGATIVE (NEGATIVE); METHAMPHETAMINE SCREEN URINE S NEGATIVE (NEGATIVE); OPIATE SCREEN URINE NEGATIVE (NEGATIVE); OXYCODONE STAT NEGATIVE (NEGATIVE); PROPOXYPHENE STAT NEGATIVE (NEGATIVE); TRICYCLIC ANTIDEPRESSANTS SCRE NEGATIVE (NEGATIVE)
[2018-11-12 13:24] LABS: AMORPHOUS SEDIMENT,UR RARE AMOR URATES /LPF; BACTERIA,URINE NEGATIVE /HPF; RBC,URINE RARE /HPF; SQUAMOUS EPITHELIAL CELL,UR RARE /HPF
--- NOTE | 2018-11-12 13:29 | Diagnostic Imaging Report ---
CLINICAL INDICATION: Patient found on the floor. Patient has laceration to right eye and is covered in blood. EXAM: Head CT without IV contrast. Axial CT scan of the cervical spine with sagittal and coronal reformations. Auto Exposure Controls were utilized during the CT exam to meet ALARA standards for radiation dose reduction. COMPARISON: None. FINDINGS: Head CT: There is no evidence of acute cerebral infarct, intracranial hemorrhage, or gross mass effect. There is brain parenchymal volume loss which appears slightly advanced for patient's age. There is minimal chronic-appearing calcification in the left caudate head and globus pallidus regions bilaterally. There is normal aguiar-white matter distinction. There is no significant midline shift or herniation. There is no evidence of hydrocephalus. The basal cisterns are unremarkable. There is a medially displaced fracture involving the frontal process of the right maxilla. There is a nondisplaced fracture of the frontal process of the left maxilla. There is also some fracture disruption involving the right nasal maxillary suture region superiorly. There is no other skull or maxillofacial fracture. There is extracranial soft tissue swelling involving the right forehead/superior periorbital region. Otherwise, the skull, extracranial soft tissue, and orbits are unremarkable. The paranasal sinuses are unremarkable. Temporal bones show no significant abnormality. Cervical spine: There is no acute cervical spine fracture or dislocation. There are chronic compression deformities involving the C5 and C6 vertebra. There is no significant bony central canal or neural foramen narrowing. The neck soft tissue structures are unremarkable. There are emphysematous changes involving the visualized lung apices. IMPRESSION: 1: There is a displaced fracture of the frontal process of the right maxilla and a nondisplaced fracture of the frontal process of the left maxilla. 2: There is no acute intracranial process or intracranial hemorrhage. 3: There is no acute cervical spine fracture or dislocation. There are chronic compression deformities involving the C5 and C6 vertebra. 4: There is brain parenchymal volume loss which appears slightly advanced for patient's age. Results of this report were discussed with Emil Schaeffer APRN via the telephone on 11/12/2018 at 1320 hrs. Dictated by: Dictated on workstation # [id number]
--- NOTE | 2018-11-12 14:02 | NUR ---
Pt's mother took pt's glasses home.
--- NOTE | 2018-11-12 14:12 | NUR ---
Pt's blood sugar 24 at this time. Emil Schaeffer in the room. Verbal order for D50 at this time.
[2018-11-12] MEDS ORDERED: DEXTROSE 50% 50 ML (IMS) SYR ONE (14:13)
--- NOTE | 2018-11-12 14:28 | Diagnostic Imaging Report ---
Indication: Fall Findings: There is suspicion for fracture distal third right clavicle. Dedicated radiographs of that structure recommended. No other potential fracture found. No lung contusion, pneumothorax or hemothorax. Impression: Suspicion for fracture distal third right clavicle, suboptimally evaluated at this exam. No other potential injury apparent. Report was called to Emil Schaeffer APRN [facility] ER by shae at 2:27 p.m. Dictated by: Dictated on workstation # [id number]
--- NOTE | 2018-11-12 14:59 | Diagnostic Imaging Report ---
INDICATION: Fall. Right shoulder pain. COMPARISON: None. FINDINGS: Three radiographic views of the right shoulder were obtained. There is acute-appearing mildly comminuted fracture involving the distal right clavicular shaft approximately 2 cm proximal to the AC joint. There may be a few minimally displaced small fracture fragments. AC joint appears appropriate. Glenohumeral joint is also maintained. Included portions of the right hemithorax are clear. No unexpected radiopaque foreign bodies are seen. IMPRESSION: 1. Acute-appearing fracture of the right distal clavicle as described above. Dictated by: Dictated on workstation # [id number]
[2018-11-12] MEDS ORDERED: CATHETER FLUSH 10 ML SYR IV PRN (16:45)
[2018-11-12] MEDS ORDERED: ZIPRASIDONE 20 MG INJ (GEODON) VIAL IM PRN (16:45)
[2018-11-12] MEDS: DEXTROSE 10% IV SOLUTION 1,000 ML IV SCH (19:50)
[2018-11-12] MEDS: NS IV 1000 ML 1,000 ML IV SCH (19:51)
[2018-11-12] MEDS: inSUlin ASPART (NovoLOG) 1 UNIT/0.01 ML (CHARGE PER UNIT) SC SCH (20:35)
[2018-11-13] VITALS (10 sets, daily range): BP systolic 104–129; BP diastolic 69–84
[2018-11-13] MEDS ORDERED: ACETAMINOPHEN 325 MG TABLET ONE (00:38)
[2018-11-13] MEDS: inSUlin ASPART (NovoLOG) 1 UNIT/0.01 ML (CHARGE PER UNIT) SC SCH ×5 (00:41→21:17)
[2018-11-13] MEDS: ACETAMINOPHEN 325 MG TABLET PO PRN ×2 (00:44→17:00)
[2018-11-13 04:09] LABS: BASOPHILS % (AUTO) 0 % (0-10); EOSINOPHILS # (AUTO) 0.1 10^3/uL (0.0-0.3); EOSINOPHILS % (AUTO) 0 % (0-10); HEMATOCRIT 37 % (40-54); HEMOGLOBIN 12.9 G/DL (13.3-17.7); LYMPHOCYTES # (AUTO) 2.8 X 10^3 (1.0-4.0); LYMPHOCYTES % (AUTO) 20 % (12-44); MEAN CORPUSCULAR HEMOGLOBIN 32 PG (25-34); MEAN CORPUSCULAR HGB CONC 35 G/DL (32-36); MEAN CORPUSCULAR VOLUME 93 FL (80-99); MONOCYTES # (AUTO) 1.6 X 10^3 (0.0-1.0); MONOCYTES % (AUTO) 12 % (0-12); NEUTROPHILS # (AUTO) 9.6 X 10^3 (1.8-7.8); NEUTROPHILS % (AUTO) 68 % (42-75); PLATELET COUNT 282 10^3/uL (130-400)
[2018-11-13 04:35] LABS: ALANINE AMINOTRANSFERASE 24 U/L (0-55); ALBUMIN 3.5 GM/DL (3.2-4.5); ALKALINE PHOSPHATASE 62 U/L (40-136); BILIRUBIN,TOTAL 0.6 MG/DL (0.1-1.0); BUN/CREATININE RATIO 18; CALCIUM 8.4 MG/DL (8.5-10.1); CARBON DIOXIDE 22 MMOL/L (21-32); CHLORIDE 107 MMOL/L (98-107); CREATININE SERUM 0.68 MG/DL (0.60-1.30); GFR ESTIMATED > 60; GLUCOSE 70 MG/DL (70-105); MAGNESIUM 1.6 MG/DL (1.6-2.4); PHOSPHORUS 2.5 MG/DL (2.3-4.7); POTASSIUM 3.5 MMOL/L (3.6-5.0); SODIUM 140 MMOL/L (135-145); TOTAL PROTEIN 5.8 GM/DL (6.4-8.2)
--- NOTE | 2018-11-13 05:07 | Pulmonary Consultation ---
JUMA GUERRERO,MED STUDENT 11/13/18 0507: History of Present Illness History of Present Illness Date of Consultation 11/13/18 04:59 Time Seen by Provider: 04:59 Date of Admission Reason for Visit: trauma to face, upper extremities and hypoglycemia History of Present Illness Patient is a 42 yo male that presented to the ER from EMS. Patient did not respond when asked if I could interveiw him. He just said to turn the lights off. Note per Emil Schaeffer from ER " To ER per EMS from home with reports of a fall. [employer] delivered his food today and found him on the floor. EMS was summoned and found a glucose of 27. He is a known diabetic, he was given D10, upon arrival to the ER blood sugar 189. History of congestive heart failure, was previously on interest though, however that was stopped because his most recent echocardiogram showed normal EF. History of diabetes, renal insufficiency and significant mental disorder and schizoaffective disorder. has laceration of the right eyebrow" According to his nurse, patient has been mentioned decreased vision out of R eye and that patient is slight disoriented. Patient has been voiding well but may have some incontinence according to the nurse. Allergies and Home Medications Allergies Coded Allergies: No Known Drug Allergies (Unverified , 03/03/13) Home Medications Albuterol Sulfate 18 Gm Hfa.aer.ad, 2 PUFF INH Q4H PRN for SHORTNESS OF BREATH, (Reported) Aripiprazole 20 Mg Tablet, 20 MG PO DAILY, (Reported) #30 FILLED 08-30-18 Empagliflozin 10 Mg Tablet, 10 MG PO DAILY, (Reported) Insulin Detemir 100 Unit/1 Ml Insuln.pen, 25 UNITS SC HS, (Reported) Metformin HCl 500 Mg Tab.er.24, 1,000 MG PO BID, (Reported) LAST FILLED #360 04-02-18 Mirtazapine 15 Mg Tablet, 15 MG PO HS, (Reported) Sertraline HCl 50 Mg Tablet, 50 MG PO DAILY, (Reported) LAST FILLED #30 08-30-18 Past Xdjbbld-Lpnlbp-Xbneix Hx Patient Social History Alcohol Use: Occasionally Uses Recreational Drug Use: No Type Used: Cigarettes 2nd Hand Smoke Exposure: Yes Recent Foreign Travel: No Contact w/Someone Who Travel: No Recent Infectious Disease Expo: No Recent Hopitalizations: No Immunizations Up To Date Date of Influenza Vaccine: Nov 19, 2017 Seasonal Allergies Seasonal Allergies: No Past Medical History Surgeries: No Respiratory: Yes Asthma Cardiac: Yes Neurological: No Reproductive Disorders: No Gastrointestinal: No Musculoskeletal: No Endocrine: Yes (HYPOGLYCEMIA THIS STAY-- NEW ONSET) Diabetes, Non-Insulin dep HEENT: No Cancer: No Psychosocial: Yes (Learning disability) Anxiety, Schizophrenia, Depression Integumentary: No Blood Disorders: No Family Medical History Patient reports no known family medical history. Sepsis Event Evaluation Height, Weight, BMI Height: 5'3.00" Weight: 84lbs. 4.0oz. 38.639176kd; 16.32 BMI Method:Stated Exam Exam Vital Signs Date Time Temp Pulse Resp B/P (MAP) Pulse Ox O2 Delivery O2 Flow Rate FiO2 11/13/18 01:00 80 11/13/18 00:00 Room Air 11/13/18 00:00 80 11 104/74 (84) Room Air 11/13/18 00:00 37.9 11/12/18 23:00 80 16 101/67 (78) Room Air 11/12/18 22:00 82 14 101/67 (78) 96 Room Air 11/12/18 21:00 79 14 95/64 (74) 94 Room Air 11/12/18 20:31 37.7 82 15 95/64 (74) 96 Room Air 11/12/18 20:00 Room Air 11/12/18 19:00 105 26 121/81 (94) 98 Room Air 11/12/18 19:00 105 11/12/18 18:00 111 19 115/90 (98) 98 Room Air 11/12/18 17:00 82 113/76 (88) 99 Room Air 11/12/18 16:30 82 106/76 (86) 99 Room Air 11/12/18 16:24 96 11/12/18 16:20 100 Room Air 11/12/18 16:07 36.2 88 20 118/98 (109) 95 Room Air 11/12/18 11:26 36.2 100 22 126/100 (109) 97 Room Air I & O 11/13/18 07:00 Intake Total 3360 ml Output Total 200 ml Balance 3160 ml Height & Weight Height: 5'3.00" Weight: 84lbs. 4.0oz. 38.530853fn; 16.32 BMI Method:Stated General Appearance: No Apparent Distress, WD/WN, Other (patient talks nonstop in a loud pressured voice about a variety of topics, asking about his cat, asking for a cigarette and a food tray) HEENT: Other (2 semi-laceration over the lateral aspect of the right eyebrow) Neck: Full Range of Motion, Other (is in a rigid cervical collar which is serving entirely no purposes as he refuses to hold still) Respiratory: No Accessory Muscle Use, No Respiratory Distress Cardiovascular: Regular Rate, Rhythm, Normal Peripheral Pulses Capillary Refill: Less Than 3 Seconds Extremity: Normal Capillary Refill, Normal Inspection Neurologic/Psychiatric: Alert, Other (manic-appearing, talks nonstop at a high rate of speed about a variety of subjects, yelling out from the room, moving about the bed not holding still. Mother states he gets worked up like this from time to time, he was just told that he was having $110/month taken away from him by the government and this has upset him.) Skin: Normal Color, Warm/Dry (breathing treatment and a) Results Lab Laboratory Tests 11/12/18 11:30 11/13/18 03:40 Assessment/Plan Assessment/Plan Hypoglycemia - dextros @ 50mL/h IV - ISS Q4h Facial and upper extremity trauma CT of head - facial fracture - brain parenchymal loss greater than average for age CXR of chest and Right upper extrmity - fracture of distal clavicle on right - monitor for MS changes - ortho consult Rhabdomyolsis and lactic acidosis (8.69 @ 1200 --> 5.24 @ 1400 on 11/12) - monitor electrolytes and creatine replace potassium 50mEq KCl - received 2L of NS and is currently on 3rd L running at 100ml/hr - repeat labs Q12 Leukocytosis - improved - likely d/t trauma - repeat QD Schizoaffective and mentation disorder - ziprasidone 10mg q8H PRN - last 2 doses give 1241, 1645 on 11/12 1mg Ativan IV given at 1150 11/12 - magnesium sulfate IV 100ml starting at 0600 QD FENGIPPx - see above - replace as above - NPO until speech BIANCA Varner DO 11/13/18 0601: History of Present Illness History of Present Illness History of Present Illness 42yo with hx of DM, renal failure, and schizoaffective disorder presented to ED via EMS secondary to being found unresponsive by meals on wheels. Pt found unresponsive on floor. Allergies and Home Medications Allergies Coded Allergies: No Known Drug Allergies (Unverified , 03/03/13) Home Medications Albuterol Sulfate 18 Gm Hfa.aer.ad, 2 PUFF INH Q4H PRN for SHORTNESS OF BREATH, (Reported) Aripiprazole 20 Mg Tablet, 20 MG PO DAILY, (Reported) #30 FILLED 08-30-18 Empagliflozin 10 Mg Tablet, 10 MG PO DAILY, (Reported) Insulin Detemir 100 Unit/1 Ml Insuln.pen, 25 UNITS SC HS, (Reported) Metformin HCl 500 Mg Tab.er.24, 1,000 MG PO BID, (Reported) LAST FILLED #360 04-02-18 Mirtazapine 15 Mg Tablet, 15 MG PO HS, (Reported) Sertraline HCl 50 Mg Tablet, 50 MG PO DAILY, (Reported) LAST FILLED #30 08-30-18 Past Hcdrdvp-Pufxvv-Xgzmfj Hx Family Medical History Patient reports no known family medical history. Review of Systems Time Seen by Provider: 06:44 Constitutional: Sweats, Weakness, Malaise; No: Fever, Chills, Other Eyes: No: Pain, Vision change, Conjunctivae inflammation, Eyelid inflammation, Other, Redness ENT: No: Ear pain, Ear discharge, Nose pain, Nose discharge, Nose congestion, Mouth pain, Mouth swelling, Throat pain, Throat swelling, Other Respiratory: No: Cough, Dry, Shortness of breath, SOB with excertion, Wheezing, Hemoptysis, Pleuritic Pain, Sputum, Wheezing, Other Cardiovascular: No: Chest Pain, Palpitations, Orthopnea, Paroxysmal Noc. Dyspnea, Edema, Lt Headedness, Other Exam Exam General Appearance: No Apparent Distress, WD/WN HEENT: Other (2 semi-laceration over the lateral aspect of the right eyebrow) Neck: Full Range of Motion, Other (is in a rigid cervical collar which is s erving entirely no purposes as he refuses to hold still) Respiratory: No Accessory Muscle Use, No Respiratory Distress Cardiovascular: Regular Rate, Rhythm, Normal Peripheral Pulses Extremity: Normal Capillary Refill, Normal Inspection Neurologic/Psychiatric: Alert Skin: Normal Color, Warm/Dry (breathing treatment and a) Assessment/Plan Assessment/Plan Hypoglycemia upon presentation - dextros @ 50mL/h IV - ISS Q4h Facial and upper extremity trauma CT of head - reviewed CXR of chest and Right upper extrmity - fracture of distal clavicle on right - ortho consult Rhabdomyolsis and lactic acidosis (8.69 @ 1200 --> 5.24 @ 1400 on 11/12) - IVF - received 2L of NS and is currently on 3rd L running at 100ml/hr - repeat labs Q12 Leukocytosis - improved - likely d/t trauma - repeat QD Schizoaffective and mentation disorder - ziprasidone 10mg q8H PRN - last 2 doses give 1241, 1645 on 11/12 1mg Ativan IV given at 1150 11/12 - magnesium sulfate IV 100ml starting at 0600 QD FENGIPPx - see above - replace as above - NPO until speech eval Supervisory-Addendum Brief Verification & Attestation Participated in pt care: history Personally performed: exam, history Care discussed with: Medical Student Procedures: n/a Verification and Attestation of Medical Student E/M Service A medical student performed and documented this service in my presence. I reviewed and verified all information documented by the medical student and made modifications to such information, when appropriate. I personally performed the physical exam and medical decision making. Bianca Rg, Nov 14, 2018,06:47 JUMA GUERRERO,MED STUDENT Nov 13, 2018 05:07 BIANCA RG DO Nov 13, 2018 06:01
[2018-11-13] MEDS ORDERED: KCL 20 MEQ TAB (K-DUR) PO SCH (06:00)
[2018-11-13] MEDS ORDERED: POTASSIUM CL 10MEQ/50ML IVPB 50 ML IV SCH ×2 (06:00→20:00)
[2018-11-13] MEDS ORDERED: MAGNESIUM 1 GM/100 ML IVPB 100 ML IV SCH (06:00)
[2018-11-13] MEDS: NS IV 1000 ML 1,000 ML IV SCH ×3 (06:54→23:00)
[2018-11-13] MEDS ORDERED: NS IV 1000 ML 1,000 ML IV SCH (07:30)
[2018-11-13] MEDS: MAGNESIUM 1 GM/100 ML IVPB 100 ML IV SCH ×2 (08:00→09:54)
[2018-11-13] MEDS: POTASSIUM CL 10MEQ/50ML IVPB 50 ML IV SCH ×4 (08:00→14:13)
--- NOTE | 2018-11-13 08:01 | Diagnostic Imaging Report ---
INDICATION: Dyspnea. TECHNIQUE: Single view chest 4:04 AM. CORRELATION STUDY: 11/12/2018 FINDINGS: Heart size and mediastinum stable. Vasculature very slightly increased from prior study along with mildly prominent interstitial markings. No consolidating infiltrate. Comminuted, slightly obliquely oriented fracture at the distal right clavicle is again demonstrated. IMPRESSION: 1. Vasculature slightly increased from prior study. However, no definitive evidence of overt failure at this time. Chronic appearing change about the lung parenchyma. Dictated by: Dictated on workstation # [id number]
--- NOTE | 2018-11-13 10:19 | History & Physical-Hospitalist ---
History of Present Illness HPI/Chief Complaint CC: Found down at home HPI: This is a 42yoWM with severe chronic disability who presents to the ER after being found down for an undetermined amount of time. Pt was found to have mild rhabdomyolysis but the rest of his labs remained normal but he suffered a laceration to his lip and face but no significant facial fractures. He continues to live a lone which social work has been consulted. Accu chek at that point in the ER was 27 and responded to medication Amped D 50, he is on Levemir and Januviance and required a protocol for hypoglycemia of have an Amp of D 50 very four hrs prn. Currently the pt is cursing because he has so much pain but he appears to be stable, Labs were reviewed and overall appears stable enough to be transferred to the 4th floor. Source: patient Exam Limitations: no limitations Date Seen 11/13/18 Time Seen by a Provider: 09:15 Attending Physician Tanika Carrion DO [facility] [place],[facility] Referring Physician Date of Admission Nov 12, 2018 at 12:28 Home Medications & Allergies Home Medications Reviewed patient Home Medication Reconciliation performed by pharmacy medication reconciliations laundry technician and/or nursing. Patients Allergies have been reviewed. Allergies Allergies Coded Allergies No Known Drug Allergies (Unverified03/03/13) Past Izngcuk-Joqcfl-Qdausa Hx Past Med/Social Hx: Reviewed Nursing Past Med/Soc Hx, Reviewed and Corrections made Patient Social History Marrital Status: single Employed/Student: unemployed Alcohol Use: Occasionally Uses Recreational Drug Use: No Smoking Status: Current Everyday Smoker Type Used: Cigarettes 2nd Hand Smoke Exposure: Yes Recent Foreign Travel: No Contact w/other who traveled: No Recent Hopitalizations: No Recent Infectious Disease Expo: No Immunizations Up To Date Date of Influenza Vaccine: Nov 19, 2017 Seasonal Allergies Seasonal Allergies: No Past Medical History Neurological: Developmental Disorder Reproductive: No Endocrine: Diabetes, Insulin dep, Diabetes, Non-Insulin dep Psychosocial: Anxiety, Schizophrenia, Depression History of Blood Disorders: No Family History Patient reports no known family medical history. Review of Systems Constitutional: see HPI, malaise, weakness Musculoskeletal: back pain, joint pain Physical Exam Physical Exam Vital Signs Vital Signs - First Documented 11/12/18 11:26 Temp 36.2 Pulse 100 Resp 22 B/P (MAP) 126/100 (109) Pulse Ox 97 O2 Delivery Room Air Capillary Refill : Less Than 3 SecondsLess Than 3 Seconds Height, Weight, BMI Height: 5'3.00" Weight: 84lbs. 4.0oz. 38.083772yt; 16.32 BMI Method:Stated General Appearance: WD/WN, Chronically ill, Cachetic, Mild Distress, Other Eyes: Right Eye Normal Inspection, Right Eye PERRL HEENT: PERRL/EOMI, Normal ENT Inspection (except upper lip laceration), Pharynx Normal, Moist Mucous Membranes Neck: Full Range of Motion, Normal Inspection, Non Tender Respiratory: Chest Non Tender, Lungs Clear, Normal Breath Sounds, No Accessory Muscle Use, No Respiratory Distress Cardiovascular: Regular Rate, Rhythm, No Edema, No Gallop, No JVD, No Murmur, Normal Peripheral Pulses Gastrointestinal: Normal Bowel Sounds, No Organomegaly, No Pulsatile Mass, Non Tender, Soft Back: Normal Inspection, No CVA Tenderness, No Vertebral Tenderness Extremity: Normal Capillary Refill, Normal Inspection, Normal Range of Motion, Non Tender, No Calf Tenderness, No Pedal Edema Neurologic/Psychiatric: Alert, Oriented x3, No Motor/Sensory Deficits, Normal Mood/Affect Skin: Normal Color, Warm/Dry Lymphatic: No Adenopathy Results Results/Procedures Labs Laboratory Tests 11/12/18 11:30 11/13/18 03:40 Patient resulted labs reviewed. Assessment/Plan Admission Diagnosis Assessment: Found down Hypoglycemia due to insulin and PO DM meds Mentally challenged Rhabdomyolysis Plan: Hold insulin and home DM meds Lovenox SW consult Home meds Admission Status: Inpatient Order (span 2 midnights) Reason for Inpatient Admission: Found down with severe refractory hypoglycemia in need of close monitoring Diagnosis/Problems Diagnosis/Problems (1) Fall Status: Acute (2) Facial fracture Status: Acute Qualifiers: Encounter type: initial encounter Facial bone/location: unspecified site of maxillary bone Fracture type: closed Laterality: left Qualified Codes: S02.40DA - Maxillary fracture, left side, initial encounter for closed fracture (3) Rhabdomyolysis Status: Acute Qualifiers: Rhabdomyolysis type: traumatic Encounter type: initial encounter Qualified Codes: T79.6XXA - Traumatic ischemia of muscle, initial encounter (4) Leukocytosis Status: Acute Qualifiers: Leukocytosis type: unspecified Qualified Codes: D72.829 - Elevated white blood cell count, unspecified (5) Mentally disabled Status: Chronic (6) DVT prophylaxis Status: Acute (7) Hypertension Status: Chronic (8) Schizoaffective disorder Status: Chronic (9) Diabetes mellitus Status: Chronic (10) Hyperlipidemia Status: Chronic (11) Anxiety Status: Chronic (12) Hearing loss Status: Chronic (13) Major depressive disorder Status: Chronic Clinical Quality Measures DVT/VTE Risk/Contraindication: Risk Factor Score Per Nursin RFS Level Per Nursing on Admit: 4+=Very High TANIKA CARRION DO Nov 13, 2018 10:19
[2018-11-13] MEDS ORDERED: ARIP20TA9 PO (11:31)
[2018-11-13] MEDS ORDERED: INSU100I29 SC (11:31)
[2018-11-13] MEDS ORDERED: EMPA10TA PO (11:31)
[2018-11-13] MEDS ORDERED: MIRT15TA6 PO (11:31)
[2018-11-13] MEDS ORDERED: METF-478 PO (11:44)
--- NOTE | 2018-11-13 11:45 | NUR ---
PATIENT IS UNABLE TO ANSWER QUESTIONS ABOUT HIS MEDICATIONS AT THIS TIME. I CALLED AND SPOKE WITH HIS MOM. SHE SATES HE GETS HIS MEDS FROM [facility] OR [facility]. SHE IS GOING TO CALL ME WHEN SHE GETS TO HIS HOUSE TO GO OVER MEDS BUT ASKED THAT I GET A LIST FROM THE PHARMACIES AND THE OFFICE. I CALLED [facility], THEY HAVE ONLY FILLED LEVEMIR 25 UNITS HS ON 11-04-18 THIS YEAR FOR THE PATIENT. I CALLED AND SPOKE WITH NURSE VERA AT [facility]. SHE STATES THE PATIENT WAS LAST SEEN 09-17-18 AND THERE IS NO DOCUMENTATION THAT HE RECEIVED ANYTHING THROUGH PALS OR REPOSITORY. HE HAS INSURANCE SO THIS WOULD NOT LIKELY BE THE CASE. SHE DID FAX ME A CURRENT MEDICATION LIST. I DID NOT INCLUDE THE FOLLOWING MEDS ON THE MED REC THAT WERE ON THE LIST FROM [facility] BECAUSE THEY HAVE NOT BEEN FILLED IN QUITE SOME TIME: METOPROLOL TARTRATE (LIST FROM [facility] HAS METOPROLOL SUCCINATE 50MG DAILY) 02-20-18 LIPITOR 20MG #90 METFORMIN IS ALSO PAST DUE FOR REFILL, I WAS LAST DISPENSED #360 - AT THE LAST ADMISSION THE PATIENT REPORTED HE HAD BEEN TAKING 1 TAB BID BECAUSE HE DID NOT REALIZE THE DOSE HAD BEEN INCREASED TO 2 TABS BID. HE WAS DISCHARGED WITH A NEW SCRIPT STATING 1000MG BID ON 04-23-18 BUT IT WAS NOT PICKED UP, IT IS ON HOLD AT [facility]. EVEN IF HE CONTINUED TO TAKE IT 1 TAB BID HE WOULD BE OUT OF MEDS AT THIS TIME. I LEFT IT ON THE MED REC PRESCRIBED; 1000MG BID HOWEVER I NOTED THE PAST DUE FILL DATE. PREVIOUSLY B12 AND BIOTIN HAD BEEN REPORTED OTC HOWEVER THEY ARE NOT ON THE LIST FROM [facility] SO I REMOVED THEM FROM THE MED REC AT THIS TIME. I WILL UPDATE IF NECESSARY AFTER MOM CALLS ME BACK FROM THE PATIENTS HOME.
--- NOTE | 2018-11-13 12:04 | Consultation - Surgery ---
[facility] 11/13/18 1204: History of Present Illness History of Present Illness Patient Consulted On(julia/time) 11/13/18 11:53 Date Seen by Provider: Nov 13, 2018 Time Seen by Provider: 11:53 Reason for Visit: trauma to face, upper extremities and hypoglycemia History of Present Illness Patient is a 42 year old male that is moderately agitated and difficult to elicit history from. He responds to physical and verbal stimuli but remains unresponsive to most questions. Patient said he "passed out at home" and was found by meals on wheels. He does not know how he fell or how long he was on the floor before he was found. Patient's right eye is swollen and he is unable to open it and he says he can't see. He has a repaired laceration on his left eyebrow, a 1cm vertically oriented laceration to the buccal surface top lip midline with swelling He is unable to open his mouth wide. Patient does not know what his past medical history is. Patient says he is unsure of wether or not he has pain, but when he tried to move his left arm he said he could not move it and stated he felt pain. Denies shortness of breath. Patient is very warm and clammy to touch and mildly diaphoretic. ED summary states that EMS was called when meals on wheels found him on the floor. When EMS arrived his glucose level was 27 and he was given D10, upon arrival to ER his glucose was 189. PMH accor ding to ED summary is diabetes, schizoaffective disorder, renal insufficiency and CHF. Xray of shoulder shows R clavicle fracture 2cm proximal to AC joint, comminuted and with slight oblique orientation. CT of head shows displaced fracture of the frontal process of the R maxilla and non displaced fracture of the frontal process of the L maxillary, as well as chronic C5-C6 compression deformities. Toxicology was negative. Allergies and Home Medications Allergies Coded Allergies: No Known Drug Allergies (Unverified , 03/03/13) Home Medications Albuterol Sulfate 18 Gm Hfa.aer.ad, 2 PUFF INH Q4H PRN for SHORTNESS OF BREATH, (Reported) Aripiprazole 20 Mg Tablet, 20 MG PO DAILY, (Reported) #30 FILLED 08-30-18 Empagliflozin 10 Mg Tablet, 10 MG PO DAILY, (Reported) Insulin Detemir 100 Unit/1 Ml Insuln.pen, 25 UNITS SC HS, (Reported) Metformin HCl 500 Mg Tab.er.24, 1,000 MG PO BID, (Reported) LAST FILLED #360 04-02-18 Mirtazapine 15 Mg Tablet, 15 MG PO HS, (Reported) Sertraline HCl 50 Mg Tablet, 50 MG PO DAILY, (Reported) LAST FILLED #30 08-30-18 Patient Home Medication List Home Medication List Reviewed: Yes Past Rwsnnfi-Gxggxs-Baluxn Hx Patient Social History Alcohol Use: Occasionally Uses Recreational Drug Use: No Type Used: Cigarettes 2nd Hand Smoke Exposure: Yes Recent Foreign Travel: No Contact w/Someone Who Travel: No Recent Infectious Disease Expo: No Recent Hopitalizations: No Immunizations Up To Date Date of Influenza Vaccine: Nov 19, 2017 Seasonal Allergies Seasonal Allergies: No Surgeries History of Surgeries: No Respiratory History of Respiratory Disorde: Yes Respiratory Disorders: Asthma Cardiovascular History of Cardiac Disorders: Yes Neurological History of Neurological Disord: No Reproductive System Hx Reproductive Disorders: No Gastrointestinal History of Gastrointestinal Di: No Musculoskeletal History of Musculoskeletal Dis: No Endocrine History of Endocrine Disorders: Yes (HYPOGLYCEMIA THIS STAY-- NEW ONSET) Endocrine Disorders: Diabetes, Non-Insulin dep HEENT History of HEENT Disorders: No Cancer History of Cancer: No Psychosocial History of Psychiatric Problem: Yes (Learning disability) Behavioral Health Disorders: Anxiety, Schizophrenia, Depression Integumentary History of Skin or Integumenta: No Blood Transfusions History of Blood Disorders: No Family Medical History Family Medial History: Patient reports no known family medical history. Review of Systems-General Constitutional: see HPI EENTM: see HPI Respiratory: no symptoms reported Cardiovascular: no symptoms reported Gastrointestinal: no symptoms reported Genitourinary: no symptoms reported Musculoskeletal: other (shoulder pain) Skin: see HPI Psychiatric/Neurological: See HPI Physical Exam-General Problems Physical Exam Vital Signs Vital Signs - First Documented 11/12/18 11:26 Temp 36.2 Pulse 100 Resp 22 B/P (MAP) 126/100 (109) Pulse Ox 97 O2 Delivery Room Air Capillary Refill : Less Than 3 SecondsLess Than 3 Seconds General Appearance: no apparent distress Eyes: Bilateral Eye PERRL HEENT: other (Unable to open left eye due to swelling, repaired L eyebrow laceration. Upper lip is swollen. ) Respiratory: no respiratory distress, no accessory muscle use Cardiovascular: regular rate, rhythm, no edema Gastrointestinal: non tender, soft Rectal: deferred Extremities: No normal range of motion (Limited motion of left arm) Skin: diaphoresis (mild, warm and clammy skin) Data Review Labs Laboratory Tests 11/12/18 12:00: Lactic Acid Level 8.69*H 11/12/18 13:02: Urine Color YELLOW, Urine Clarity CLEAR, Urine pH 5, Urine Specific [place] 1.015L, Urine Protein 2+H, Urine Glucose (UA) 3+H, Urine Ketones 1+H, Urine Nitrite NEGATIVE, Urine Bilirubin NEGATIVE, Urine Urobilinogen NORMAL, Urine Leukocyte Esterase NEGATIVE, Urine RBC (Auto) 2+H, Urine RBC RARE, Urine WBC NONE, Urine Squamous Epithelial Cells RARE, Urine Crystals PRESENTH, Urine Amorphous Sediment RARE JEFFREY URATESH, Urine Bacteria NEGATIVE, Urine Casts PRESENT, Urine Hyaline Casts 2-5H, Urine Mucus SMALLH, Urine Culture Indicated NO, Urine Opiates Screen NEGATIVE, Urine Oxycodone Screen NEGATIVE, Urine Methadone Screen NEGATIVE, Urine Propoxyphene Screen NEGATIVE, Urine Barbiturates Screen NEGATIVE, Ur Tricyclic Antidepressants Screen NEGATIVE, Urine Phencyclidine Screen NEGATIVE, Urine Amphetamines Screen NEGATIVE, Urine Methamphetamines Screen NEGATIVE, Urine Benzodiazepines Screen NEGATIVE, Urine Cocaine Screen NEGATIVE, Urine Cannabinoids Screen NEGATIVE 11/12/18 14:00: Lactic Acid Level 5.24*H 11/12/18 14:12: Glucometer 24*L 11/12/18 15:49: Glucometer 91 11/12/18 17:28: Glucometer 135H 11/13/18 03:40: White Blood Count 14.0H, Red Blood Count 3.99L, Hemoglobin 12.9L, Hematocrit 37L , Mean Corpuscular Volume 93, Mean Corpuscular Hemoglobin 32, Mean Corpuscular Hemoglobin Concent 35, Red Cell Distribution Width 14.0, Platelet Count 282, Mean Platelet Volume 11.0H, Neutrophils (%) (Auto) 68, Lymphocytes (%) (Auto) 20 , Monocytes (%) (Auto) 12, Eosinophils (%) (Auto) 0, Basophils (%) (Auto) 0, Neutrophils # (Auto) 9.6H, Lymphocytes # (Auto) 2.8, Monocytes # (Auto) 1.6H, Eosinophils # (Auto) 0.1, Basophils # (Auto) 0.0, Sodium Level 140, Potassium Level 3.5L, Chloride Level 107, Carbon Dioxide Level 22, Anion Gap 11, Blood Urea Nitrogen 12, Creatinine 0.68, Estimat Glomerular Filtration Rate > 60, BUN/Creatinine Ratio 18, Glucose Level 70, Calcium Level 8.4L, Corrected Calcium 8.8, Phosphorus Level 2.5, Magnesium Level 1.6, Total Bilirubin 0.6, Aspartate Amino Transf (AST/SGOT) 74H, Alanine Aminotransferase (ALT/SGPT) 24, Alkaline Phosphatase 62, Total Creatine Kinase 1399H, Total Protein 5.8L, Albumin 3.5 11/13/18 06:08: Lactic Acid Level 2.21*H 11/13/18 08:35: Lactic Acid Level 2.29*H 11/13/18 10:06: Glucometer 184H Assessment/Plan Assessment/Plan Assessment/Plan Right clavicle fracture, comminuted with slight oblique orientation displaced frontal process fracture of R maxilla, non displaced fracture of frontal process of L maxilla Leukocytosis 14.0 Anemia Hgb 12.9, RBC 3.99 Increased lactic acid - 2.29 Elevated creatine kinase 1399 Diabetes - Glucose and Ketones in urine Pt refuses to wear sling for R clavicle Continue medical management No surgical trauma C spine has been cleared by ED Clinical Quality Measures DVT/VTE Risk/Contraindication: Risk Factor Score Per Nursin RFS Level Per Nursing on Admit: 4+=Very High JAMES WANG DO 11/14/18 0809: History of Present Illness History of Present Illness History of Present Illness Patient is a 42 year old male with fall and hypoglycemia. Was found by meals on wheels. Patient brought into hospital yesterday and was consulted today for trauma. Patient does answer questions, seems reluctant at times. He has a hard time opening his RIGHT eye. Has some swelling around and has laceration at brow that has been repaired. He has pain at the right clavicle, and refuses to wear a sling. Has facial fractures as noted above. No abdominal complaints. Tolerating diet. Denies n/v fever sweats chills shortness of breath or chest pain. Allergies and Home Medications Allergies Coded Allergies: No Known Drug Allergies (Unverified , 03/03/13) Home Medications Albuterol Sulfate 18 Gm Hfa.aer.ad, 2 PUFF INH Q4H PRN for SHORTNESS OF BREATH, (Reported) Aripiprazole 20 Mg Tablet, 20 MG PO DAILY, (Reported) #30 FILLED 08-30-18 Empagliflozin 10 Mg Tablet, 10 MG PO DAILY, (Reported) Insulin Detemir 100 Unit/1 Ml Insuln.pen, 25 UNITS SC HS, (Reported) Metformin HCl 500 Mg Tab.er.24, 1,000 MG PO BID, (Reported) LAST FILLED #360 04-02-18 Mirtazapine 15 Mg Tablet, 15 MG PO HS, (Reported) Sertraline HCl 50 Mg Tablet, 50 MG PO DAILY, (Reported) LAST FILLED #30 08-30-18 Patient Home Medication List Home Medication List Reviewed: Yes Past Aymmwfe-Toarcx-Dkrttg Hx Patient Social History Type Used: Cigarettes Surgeries History of Surgeries: Yes (maybe appendix) Respiratory Respiratory Disorders: Asthma Cardiovascular History of Cardiac Disorders: No Neurological History of Neurological Disord: No Gastrointestinal History of Gastrointestinal Di: No Musculoskeletal History of Musculoskeletal Dis: No Endocrine History of Endocrine Disorders: Yes Endocrine Disorders: Diabetes, Insulin dep HEENT History of HEENT Disorders: No Cancer History of Cancer: No Psychosocial History of Psychiatric Problem: Yes Behavioral Health Disorders: Anxiety, Schizophrenia, Depression Family Medical History Significant Family History: No Pertinent Family Hx Family Medial History: Patient reports no known family medical history. Review of Systems-General Constitutional: see HPI Respiratory: no symptoms reported Cardiovascular: no symptoms reported Gastrointestinal: no symptoms reported Genitourinary: no symptoms reported Skin: see HPI Psychiatric/Neurological: See HPI Physical Exam-General Problems Physical Exam General Appearance: no apparent distress HEENT: PERRL/EOMI, other (Unable to open right eye due to swelling, repaired R eyebrow laceration. Upper lip is swollen. ) Respiratory: no respiratory distress, no accessory muscle use Cardiovascular: regular rate, rhythm, no edema, other (tender right clavicle ) Gastrointestinal: non tender, soft Rectal: deferred Back: no CVA tenderness Extremities: No normal range of motion (Limited motion of right arm) Neurologic/Psychiatric: digital photographic printer II-XII nml as tested, no motor/sensory deficits, alert, oriented x 3 Skin: normal color, warm/dry Lymphatic: no adenopathy Assessment/Plan Assessment/Plan Assessment/Plan Right clavicle fracture, comminuted with slight oblique orientation displaced frontal process fracture of R maxilla, non displaced fracture of fr ontal process of L maxilla Leukocytosis Diabetes Laceration face already repaired medical management no traumatic surgical issues refused to wear sling, encouraged to wear diet as tolerates c spine cleared in er Supervisory-Addendum Brief Verification & Attestation Participated in pt care: history, MDM, physical Personally performed: exam, history, MDM, supervision of care Care discussed with: Medical Student Procedures: n/a Results interpretation: Verified all documentation Verification and Attestation of Medical Student E/M Service A medical student performed and documented this service in my presence. I reviewed and verified all information documented by the medical student and made modifications to such information, when appropriate. I personally performed the physical exam and medical decision making. James Wang, Nov 13, 2018, 13:12 [facility] Nov 13, 2018 12:04 JAMES WANG DO Nov 14, 2018 08:09
--- NOTE | 2018-11-13 13:00 | NUR ---
PT ICU TRANSFER TO ROOM 405.
[2018-11-13] MEDS: DEXTROSE 10% IV SOLUTION 1,000 ML IV SCH (13:12)
--- NOTE | 2018-11-13 14:00 | NUR ---
PT DENIES ANY PAIN, REPORTS HES JUST BEEN SLEEPING. HRR. BILAT UPPER LOBES CLEAR. PER PCT PT REFUSING TO GET CLEANED UP AT THIS TIME. BED ALARM ON, CALL LIGHT WITHIN REACH.
--- NOTE | 2018-11-13 15:53 | NUR ---
CM/SS. Attempted initial visit with patient who is sleeping soundly, obvious facial injuries. TENTATIVE PLAN: Visit with patient when able, would anticipate patient will return home from hospital with continued parental support. Informed mother of assisted living options, [facility], but patient may not agree to a change in living arrangement and/or can not afford out of pocket. SUMMARY: Lengthy visit with patient's mother to compile psychosocial history due to parental continued support of patient. Per mother, Caterina Rahul: Patient was learning disabled in school. 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 He is no longer employed and is disabled status with Social Security. Caterina reports his income to be $1148 monthly. History of a small amount of food stamps, either discontinued completely or at a very small amount per month. [place] [facility] [place] pet [place]. Caterina indicates the [employer] have been good with patient and respond as needed for rental issues. Patient has a truck and drives at will. Caterina describes that patient is generally depressed, early at times, possibly bipolar, does not handle stress well. Has hearing loss and is underweight, smokes. Diabetic, has Meals on Wheels paid by parents, but does drive to get snacks. Patient has been managing his own diabetic care and maintenance. Patient is established with [facility]. He had financial assistance there but it was terminated because he did not provide necessary update of paperwork. Caterina has spoken with [facility]/Adriana Alston about this and they will partner to correct. Additionally, justowriter operator recommended she ask about applying for [employer] as a supplement to patient's Medicare. This could assist with future options, in home services, assisted living, or support services appropriate to need. Followup in a.m.
[2018-11-13] MEDS ORDERED: HYDROcodone/APAP 5 MG/325 MG (LORTAB) TAB PO PRN (20:00)
[2018-11-13] MEDS ORDERED: LOPERAMIDE 2 MG (IMODIUM) TABLET PO PRN (20:00)
[2018-11-13] MEDS ORDERED: RT-ALBUTEROL SULF 2.5 MG/3 ML PRE-MIX VIAL INH PRN (20:00)
[2018-11-13] MEDS ORDERED: ONDANSETRON 4 MG (ZOFRAN) ORAL DISSOLVE TAB PO PRN (20:00)
[2018-11-13] MEDS ORDERED: diphenhydrAMINE 25 MG TAB (BENADRYL) PO PRN (20:00)
[2018-11-13] MEDS ORDERED: fentaNYL INJECTION 100 MCG/2 ML AMP IVP PRN (20:00)
[2018-11-13] MEDS ORDERED: DOCUSATE SODIUM 100 MG (COLACE) CAP PO PRN (20:00)
[2018-11-13] MEDS ORDERED: ALPRAZolam 0.25 MG (XANAX) TAB PO PRN (20:00)
[2018-11-13] MEDS ORDERED: CALCIUM CARBONATE 500 MG (TUMS) TAB.CHEW PO PRN (20:00)
[2018-11-13] MEDS ORDERED: ONDANSETRON 4 MG/2 ML (SDV) Z0FRAN IVP PRN (20:00)
--- NOTE | 2018-11-13 20:31 | NUR ---
1900 this rn received in report that this pt had received all 5 bags of kcl as prescribed by previous rn yumiko ortiz was not able to document the 5th bag.
[2018-11-13] MEDS: MIRTAZAPINE 15 MG (REMERON) TAB PO SCH (20:39)
[2018-11-13] MEDS: MELATONIN 3 MG TABLET PO PRN (20:39)
[2018-11-13] MEDS: SENNA W/DOCUSATE (SENOKOT S) TABLET PO SCH (20:39)
[2018-11-13] MEDS: ENOXAPARIN 30 MG/0.3 ML (LOVENOX) SYR SC SCH (20:40)
[2018-11-13] MEDS: POLYETHYLENE GLYCOL 17 GM (MIRALAX) PACK PO SCH (20:41)
[2018-11-13] MEDS ORDERED: NON-FORMULARY MEDICATION 1 EA EA (Mirtazapine 15 MG) PO SCH (21:00)
[2018-11-14] VITALS (7 sets, daily range): BP systolic 116–139; BP diastolic 81–101
[2018-11-14] MEDS: inSUlin ASPART (NovoLOG) 1 UNIT/0.01 ML (CHARGE PER UNIT) SC SCH ×7 (00:35→23:59)
[2018-11-14] MEDS: DEXTROSE 10% IV SOLUTION 1,000 ML IV SCH ×3 (01:47→17:26)
--- NOTE | 2018-11-14 01:59 | NUR ---
0030-BS 44 PT ALERT, NOT SYMPTOMATIC PT ATE 2 SAURABH CRACKERS & DRANK 4 OUNCES OF MILK 0046-BS 63-PT ATE 2 PACKAGES OF PEANUT BUTTER 0109-BS 91 0129-THIS RN CONTACTED DR. LEOS TO INFORM HER OF THIS SITUATION-NEW ORDERS RECEIVED.
[2018-11-14 06:17] LABS: BASOPHILS % (AUTO) 0 % (0-10); EOSINOPHILS # (AUTO) 0.1 10^3/uL (0.0-0.3); EOSINOPHILS % (AUTO) 1 % (0-10); HEMATOCRIT 36 % (40-54); HEMOGLOBIN 12.2 G/DL (13.3-17.7); LYMPHOCYTES # (AUTO) 2.3 X 10^3 (1.0-4.0); LYMPHOCYTES % (AUTO) 19 % (12-44); MEAN CORPUSCULAR HEMOGLOBIN 32 PG (25-34); MEAN CORPUSCULAR HGB CONC 34 G/DL (32-36); MEAN CORPUSCULAR VOLUME 95 FL (80-99); MEAN PLATELET VOLUME 10.6 FL (7.4-10.4); MONOCYTES # (AUTO) 1.1 X 10^3 (0.0-1.0); MONOCYTES % (AUTO) 9 % (0-12); NEUTROPHILS # (AUTO) 8.7 X 10^3 (1.8-7.8); NEUTROPHILS % (AUTO) 71 % (42-75); PLATELET COUNT 259 10^3/uL (130-400); RED CELL DISTRIBUTION WIDTH 14.3 % (10.0-14.5); WHITE BLOOD COUNT 12.2 10^3/uL (4.3-11.0)
[2018-11-14 06:49] LABS: ALANINE AMINOTRANSFERASE 22 U/L (0-55); ALBUMIN 3.2 GM/DL (3.2-4.5); ALKALINE PHOSPHATASE 59 U/L (40-136); BILIRUBIN,TOTAL 0.4 MG/DL (0.1-1.0); BUN/CREATININE RATIO 12; CALCIUM 7.9 MG/DL (8.5-10.1); CARBON DIOXIDE 22 MMOL/L (21-32); CHLORIDE 107 MMOL/L (98-107); CREATININE SERUM 0.73 MG/DL (0.60-1.30); GFR ESTIMATED > 60; GLUCOSE 183 MG/DL (70-105); POTASSIUM 4.2 MMOL/L (3.6-5.0); SODIUM 137 MMOL/L (135-145); TOTAL PROTEIN 5.4 GM/DL (6.4-8.2)
--- NOTE | 2018-11-14 06:54 | Pulmonary Progress Note ---
Subjective Time Seen by a Provider: 09:40 Subjective/Events-last exam Pt is not requiring oxygen. No complications noted. Sepsis Event Evaluation Height, Weight, BMI Height: 5'3.00" Weight: 84lbs. 4.0oz. 38.995634pc; 16.32 BMI Method:Stated Focused Exam Lactate Level 11/12/18 14:00: Lactic Acid Level 5.24*H 11/13/18 06:08: Lactic Acid Level 2.21*H 11/13/18 08:35: Lactic Acid Level 2.29*H Exam Exam Vital Signs Date Time Temp Pulse Resp B/P (MAP) Pulse Ox O2 Delivery O2 Flow Rate FiO2 11/14/18 04:00 37.4 83 16 129/89 (102) 94 Room Air 11/14/18 00:01 37.2 83 18 121/83 (96) 96 Room Air 11/13/18 21:00 Room Air 11/13/18 20:00 37.6 87 18 125/83 (97) 95 Room Air 11/13/18 12:00 37.4 93 20 129/84 (99) 93 Room Air 11/13/18 12:00 Room Air 11/13/18 08:00 Room Air 11/13/18 07:00 74 13 111/79 (90) 93 Room Air 11/13/18 07:00 76 I & O 11/14/18 06:59 Intake Total 3086 ml Output Total 100 ml Balance 2986 ml Height & Weight Height: 5'3.00" Weight: 84lbs. 4.0oz. 38.456485rg; 16.32 BMI Method:Stated General Appearance: No Apparent Distress, WD/WN HEENT: Other (2 semi-laceration over the lateral aspect of the right eyebrow) Neck: Full Range of Motion, Other (is in a rigid cervical collar which is serving entirely no purposes as he refuses to hold still) Respiratory: No Accessory Muscle Use, No Respiratory Distress Cardiovascular: Regular Rate, Rhythm, Normal Peripheral Pulses Capillary Refill: Less Than 3 Seconds Gastrointestinal: non tender, soft Extremity: Normal Capillary Refill, Normal Inspection Neurologic/Psychiatric: Alert Skin: Normal Color, Warm/Dry (breathing treatment and a) Lymphatic: No Adenopathy Results Lab Laboratory Tests 11/12/18 11:30 11/13/18 03:40 11/14/18 06:10 Assessment/Plan Assessment/Plan Hypoglycemia upon presentation - monitor -Increase D5 Facial and upper extremity trauma -Surgery following CT of head - reviewed CXR of chest and Right upper extrmity - fracture of distal clavicle on right - ortho consulted Rhabdomyolsis and lactic acidosis (8.69 @ 1200 --> 5.24 @ 1400 on 11/12) - IVF -- Repeat labs pending Leukocytosis - improving - likely d/t trauma - repeat QD Schizoaffective and mentation disorder - Home meds -Monitor Pt is doing well from pulmonary standpoint. I am going to sign off. Please call with any questions. BIANCA ACUÑA DO Nov 14, 2018 06:54
--- NOTE | 2018-11-14 07:06 | NUR ---
0500 THIS RN WAS IN THE ROOM ASSISTING THIS PT TO THE RESTROOM. THIS PT INFORMED THIS RN THAT HE IS TIRED OF LIVING, PT STATED "MY BIRTHDAY IS ON SUNDAY AND I HOPE THAT I DON'T SEE IT." PT STATED "WHEN I GO HOME I AM TAKING ALL MY INSULIN AND NOT EATING WITH IT SO I WILL . I JUST WANT TO ." THIS PT FURTHER INFORMED ME THAT HE FEELS LIKE HIS MOTHER DOESN'T CARE ABOUT HIM AND THAT HE FEELS LIKE PEOPLE DON'T UNDERSTAND INSULIN WORKS. PT STATED THAT HE IS TIRED OF BEING IN AND OUT OF THE HOSPITAL. THIS RN ATTEMPTED THERAPEUTIC COMMUNICATION, THIS PT RESPONDED WITH "I DON'T GIVE A FUCK ANYMORE, DON'T TRY TO PRETEND LIKE YOU DO. NOBODY UNDERSTANDS WHAT IT IS LIKE TO BE A DIABETIC." PT SIGNED A NO HARM CONTRACT & PT STATES THAT HE FULLY UNDERSTANDS WHAT THE CONTRACT MEANS-PT RECITED BACK THE INFORMATION. 0530-PT TELESITTER SET UP, EDUCATION PROVIDED 0700-DR. LEOS INFORMED OF THESE SUICIDAL THOUGHTS
[2018-11-14 07:20] LABS: MAGNESIUM 1.7 MG/DL (1.6-2.4)
[2018-11-14] MEDS ORDERED: ARIPIPRAZOLE 20 MG PO SCH (09:00)
[2018-11-14] MEDS: SERTRALINE 50 MG (ZOLOFT) TABLET PO SCH (10:34)
[2018-11-14] MEDS: SENNA W/DOCUSATE (SENOKOT S) TABLET PO SCH ×2 (10:34→21:50)
[2018-11-14] MEDS: POLYETHYLENE GLYCOL 17 GM (MIRALAX) PACK PO SCH ×2 (10:36→21:50)
--- NOTE | 2018-11-14 11:43 | Progress Note - Hospitalist ---
[facility] 11/14/18 1143: Subjective HPI/CC On Admission Date Seen by Provider: Nov 14, 2018 Time Seen by Provider: 11:10 CC: Found down at home HPI: This is a 42yoWM with severe chronic disability who presents to the ER after being found down for an undetermined amount of time. Pt was found to have mild rhabdomyolysis but the rest of his labs remained normal but he suffered a laceration to his lip and face but no significant facial fractures. He continues to live a lone which social work has been consulted. Accu chek at that point in the ER was 27 and responded to medication Amped D 50, he is on Levemir and Januviance and required a protocol for hypoglycemia of have an Amp of D 50 very four hrs prn. Currently the pt is cursing because he has so much pain but he appears to be stable, Labs were reviewed and overall appears stable enough to be transferred to the 4th floor. Subjective/Events-last exam Vitals are normal and stable. Slept poorly. Agitated that mother hasn't visited. Talked about birthday on sunday and wanting to be released. Eating and drinking well. Voiding and stooling well. No other complaints Review of Systems General: No Chills, No Night Sweats, No Fatigue, No Malaise, No Appetite, No Other HEENT: No Head Aches, No Visual Changes, No Eye Pain, No Ear Pain, No Dysphasia, No Sinus Congestion, No Post Nasal Drip, No Sore Throat, No Other Pulmonary: No Dyspnea, No Cough, No Pleuritic Chest Pain, No Other Cardiovascular: No: Chest Pain, Palpitations, Orthopnea, Paroxysmal Noc. Dyspnea, Edema, Lt Headedness, Other Gastrointestinal: No: Nausea, Vomiting, Abdominal Pain, Diarrhea, Constipation, Melena, Hematochezia, Other Genitourinary: No Dysuria, No Frequency, No Incontinence, No Hematuria, No Retention, No Other Musculoskeletal: shoulder pain Neurological: No: Weakness, Numbness, Incoordination, Change in speech, Confusion, Seizures, Other Focused Exam Lactate Level 11/13/18 06:08: Lactic Acid Level 2.21*H 11/13/18 08:35: Lactic Acid Level 2.29*H 11/14/18 07:20: Lactic Acid Level 1.84 Objective Exam Vital Signs Vital Signs Date Time Temp Pulse Resp B/P (MAP) Pulse Ox O2 Delivery O2 Flow Rate FiO2 11/14/18 07:45 37.4 82 16 116/81 (93) 95 Room Air Capillary Refill : Less Than 3 SecondsLess Than 3 Seconds General Appearance: No Apparent Distress, WD/WN HEENT: PERRL/EOMI, Normal ENT Inspection Respiratory: Chest Non Tender, Lungs Clear, Normal Breath Sounds, No Accessory Muscle Use, No Respiratory Distress Cardiovascular: Regular Rate, Rhythm, No Edema, No Gallop, No JVD, No Murmur, Normal Peripheral Pulses Gastrointestinal: Normal Bowel Sounds, Non Tender, Soft Neurologic/Psychiatric: Alert, Oriented x3, No Motor/Sensory Deficits, Normal Mood/Affect, puppet engineer II-XII Norm as Tested Skin: Normal Color, Warm/Dry Lymphatic: No Adenopathy Results/Procedures Lab Laboratory Tests 11/14/18 06:00 11/14/18 06:10 Patient resulted labs reviewed. Assessment/Plan Assessment and Plan Assess & Plan/Chief Complaint Assessment: 1. Low blood sugars 2. Agitation 3. History of mental illness Plan: 1. Continue to monitor insulin treatment and sugars 2. Continue to give antidepressant and mood stablizers 3. Possible consult with Behavioral specalist Clinical Quality Measures DVT/VTE Risk/Contraindication: Risk Factor Score Per Nursin RFS Level Per Nursing on Admit: 4+=Very High TANIKA LEOS DO 11/14/18 1754: Subjective Subjective/Events-last exam Ran low blood sugar last night again. D10 at 50 CCs per hour ordered. Stated he is suicidal so will place telesitter and consult psych. Very difficult situation. Checked meds and labs. Conferred with RN. Assessment/Plan Assessment and Plan Assess & Plan/Chief Complaint D10 IVF Monitor insulin and glucose levels Diagnosis/Problems Diagnosis/Problems (1) Suicidal ideation (2) Fall Status: Acute (3) Facial fracture Status: Acute Qualifiers: Qualified Codes: S02.40DA - Maxillary fracture, left side, initial encounter for closed fracture (4) Amanda Status: Acute (5) Rhabdomyolysis Status: Acute Qualifiers: Qualified Codes: T79.6XXA - Traumatic ischemia of muscle, initial encounter (6) Leukocytosis Status: Acute Qualifiers: Qualified Codes: D72.829 - Elevated white blood cell count, unspecified (7) Mentally disabled Status: Chronic (8) DVT prophylaxis Status: Acute (9) Hypertension Status: Chronic (10) Hyponatremia Status: Acute (11) Schizoaffective disorder Status: Chronic (12) Weight loss Status: Acute Supervisory-Addendum Brief Verification & Attestation Participated in pt care: history, MDM, physical Personally performed: exam, history, MDM, supervision of care Care discussed with: Medical Student Procedures: n/a Results interpretation: Verified all documentation Verification and Attestation of Medical Student E/M Service A medical student performed and documented this service in my presence. I reviewed and verified all information documented by the medical student and made modifications to such information, when appropriate. I personally performed the physical exam and medical decision making. Tanika Leos, Nov 14, 2018,17:54 [facility] Nov 14, 2018 11:43 TANIKA LEOS DO Nov 14, 2018 17:54
--- NOTE | 2018-11-14 17:39 | Progress Note - Surgery ---
[facility] 11/14/18 1739: Subjective Date Seen by a Provider: Nov 14, 2018 Time Seen by a Provider: 10:40 Subjective/Events-last exam Patients right eye swelling has decreased and he is able to see better. Pt was encouraged again to wear a sling for his R clavicular fracture. Pt expressed feelings of wanting to commit suicide to his nurse and he signed a no harm contract. Patient was AO x3. Review of Systems General: No Chills, No Night Sweats HEENT: No Visual Changes Pulmonary: No Dyspnea, No Cough Cardiovascular: No: Chest Pain, Edema Gastrointestinal: No: Nausea, Vomiting, Abdominal Pain, Diarrhea, Constipation Genitourinary: No Dysuria Musculoskeletal: shoulder pain (R clavicular fracture) Neurological: No: Change in speech, Seizures Focused Exam Lactate Level 11/13/18 06:08: Lactic Acid Level 2.21*H 11/13/18 08:35: Lactic Acid Level 2.29*H 11/14/18 07:20: Lactic Acid Level 1.84 Objective Exam Vital Signs Date Time Temp Pulse Resp B/P (MAP) Pulse Ox O2 Delivery O2 Flow Rate FiO2 11/14/18 16:00 37.1 80 18 134/93 (107) 96 Room Air 11/14/18 11:41 37.2 90 16 139/93 (108) 95 Room Air 11/14/18 09:00 Room Air 11/14/18 07:45 37.4 82 16 116/81 (93) 95 Room Air 11/14/18 04:00 37.4 83 16 129/89 (102) 94 Room Air 11/14/18 00:01 37.2 83 18 121/83 (96) 96 Room Air 11/13/18 21:00 Room Air 11/13/18 20:00 37.6 87 18 125/83 (97) 95 Room Air I & O 11/14/18 07:00 Intake Total 3086 ml Output Total 100 ml Balance 2986 ml Capillary Refill : Less Than 3 SecondsLess Than 3 Seconds General Appearance: No Apparent Distress, WD/WN HEENT: PERRL/EOMI, Normal ENT Inspection, Pharynx Normal Neck: Full Range of Motion, Other (is in a rigid cervical collar which is serving entirely no purposes as he refuses to hold still) Respiratory: Chest Non Tender, Lungs Clear, Normal Breath Sounds, No Accessory Muscle Use, No Respiratory Distress Cardiovascular: Regular Rate, Rhythm, No Edema, No Gallop, No JVD, No Murmur, Normal Peripheral Pulses Gastrointestinal: non tender, soft Extremity: Normal Capillary Refill, Normal Inspection Neurologic/Psychiatric: Alert, Oriented x3, No Motor/Sensory Deficits, Normal Mood/Affect, academic director II-XII Norm as Tested Skin: Normal Color, Warm/Dry Lymphatic: No Adenopathy Results Lab Laboratory Tests 11/13/18 21:11: Glucometer 193H 11/14/18 00:25: Glucometer 44*L 11/14/18 00:46: Glucometer 63L 11/14/18 01:10: Glucometer 91 11/14/18 03:47: Glucometer 196H 11/14/18 06:00: Sodium Level 137, Potassium Level 4.2, Chloride Level 107, Carbon Dioxide Level 22, Anion Gap 8, Blood Urea Nitrogen 9, Creatinine 0.73, Estimat Glomerular Filtration Rate > 60, BUN/Creatinine Ratio 12, Glucose Level 183H, Calcium Level 7.9L, Corrected Calcium 8.5, Phosphorus Level 3.0, Magnesium Level 1.7, Total Bilirubin 0.4, Aspartate Amino Transf (AST/SGOT) 59H, Alanine Aminotransferase (ALT/SGPT) 22, Alkaline Phosphatase 59, Total Creatine Kinase 752H, Total Protein 5.4L, Albumin 3.2 11/14/18 06:10: White Blood Count 12.2H, Red Blood Count 3.80L, Hemoglobin 12.2L, Hematocrit 36L , Mean Corpuscular Volume 95, Mean Corpuscular Hemoglobin 32, Mean Corpuscular Hemoglobin Concent 34, Red Cell Distribution Width 14.3, Platelet Count 259, Mean Platelet Volume 10.6H, Neutrophils (%) (Auto) 71, Lymphocytes (%) (Auto) 19, Monocytes (%) (Auto) 9, Eosinophils (%) (Auto) 1, Basophils (%) (Auto) 0, Neutrophils # (Auto) 8.7H, Lymphocytes # (Auto) 2.3, Monocytes # (Auto) 1.1H, Eosinophils # (Auto) 0.1, Basophils # (Auto) 0.0 11/14/18 07:20: Lactic Acid Level 1.84 11/14/18 07:42: Glucometer 140H 11/14/18 11:35: Glucometer 141H 11/14/18 16:26: Glucometer 206H Microbiology 11/12/18 Blood Culture - Preliminary, Resulted No growth 11/12/18 MRSA Screen - Final, Complete MRSA not isolated Assessment/Plan Assessment/Plan Assessment/Plan Right clavicle fracture, comminuted with slight oblique orientation displaced frontal process fracture of R maxilla, non displaced fracture of frontal process of L maxilla Leukocytosis - white cell count has decreased Diabetes Laceration face already repaired medical management no traumatic surgical issues refused to wear sling, encouraged to wear diet as tolerates c spine cleared in er Clinical Quality Measures DVT/VTE Risk/Contraindication: Risk Factor Score Per Nursin RFS Level Per Nursing on Admit: 4+=Very High JAMES WANG DO 11/14/181954: Subjective Subjective/Events-last exam Patient now able to see well out of right eye with swelling decreasing. Pain in the right shoulder is his only complaint. Still not wearing sling. Patient told nurse wanted to commit suicide. On suicide precautions. CK and lactic down. Objective Exam General Appearance: No Apparent Distress, WD/WN HEENT: PERRL/EOMI Neck: Full Range of Motion Respiratory: Chest Non Tender, No Respiratory Distress Cardiovascular: Regular Rate, Rhythm Gastrointestinal: non tender, soft Extremity: Other (right shoulder/clavicle tenderness) Neurologic/Psychiatric: Alert, Oriented x3, academic director II-XII Norm as Tested Skin: Normal Color, Warm/Dry, Other (laceration right eyebrow repaired and decreased swelling) Assessment/Plan Assessment/Plan Assessment/Plan right clavicle fracture fall right maxillary and left maxillary fractures dm laceration face rhabdomyolysis schizophrenia suicidal ideation ck and lactic improved tolerating diet no general surgical issues at this time will need follow up with possible ortho and OMFS or ENT will sign off call if needed. Supervisory-Addendum Brief Verification & Attestation Participated in pt care: history, MDM, physical Personally performed: exam, history, MDM, supervision of care Care discussed with: Medical Student Procedures: n/a Results interpretation: Verified all documentation Verification and Attestation of Medical Student E/M Service A medical student performed and documented this service in my presence. I reviewed and verified all information documented by the medical student and made modifications to such information, when appropriate. I personally performed the physical exam and medical decision making. James Wang, Nov 14, 2018,20:01 [facility] Nov 14, 2018 17:39 JAMES WANG DO Nov 14, 2018 19:55
[2018-11-14] MEDS: ENOXAPARIN 30 MG/0.3 ML (LOVENOX) SYR SC SCH (20:38)
--- NOTE | 2018-11-14 21:00 | NUR ---
Dr Ayoub notified of elevated BP, no new orders
[2018-11-14] MEDS: MIRTAZAPINE 15 MG (REMERON) TAB PO SCH (21:50)
[2018-11-14] MEDS: MELATONIN 3 MG TABLET PO PRN (21:50)
[2018-11-15] MEDS: DEXTROSE 10% IV SOLUTION 1,000 ML IV SCH (01:10)
[2018-11-15] MEDS: inSUlin ASPART (NovoLOG) 1 UNIT/0.01 ML (CHARGE PER UNIT) SC SCH ×5 (04:41→21:30)
[2018-11-15 04:46] LABS: BASOPHILS % (AUTO) 0 % (0-10); EOSINOPHILS # (AUTO) 0.2 10^3/uL (0.0-0.3); EOSINOPHILS % (AUTO) 2 % (0-10); HEMATOCRIT 35 % (40-54); HEMOGLOBIN 12.4 G/DL (13.3-17.7); LYMPHOCYTES # (AUTO) 1.7 X 10^3 (1.0-4.0); LYMPHOCYTES % (AUTO) 13 % (12-44); MEAN CORPUSCULAR HEMOGLOBIN 33 PG (25-34); MEAN CORPUSCULAR HGB CONC 35 G/DL (32-36); MEAN CORPUSCULAR VOLUME 92 FL (80-99); MEAN PLATELET VOLUME 10.8 FL (7.4-10.4); MONOCYTES # (AUTO) 1.2 X 10^3 (0.0-1.0); MONOCYTES % (AUTO) 9 % (0-12); NEUTROPHILS % (AUTO) 76 % (42-75); PLATELET COUNT 260 10^3/uL (130-400); RED CELL DISTRIBUTION WIDTH 13.3 % (10.0-14.5); WHITE BLOOD COUNT 13.1 10^3/uL (4.3-11.0)
[2018-11-15 04:55] VITALS: BP 108/71
[2018-11-15 05:08] LABS: BUN/CREATININE RATIO 8; CALCIUM 8.4 MG/DL (8.5-10.1); CARBON DIOXIDE 22 MMOL/L (21-32); CHLORIDE 96 MMOL/L (98-107); CREATININE SERUM 0.72 MG/DL (0.60-1.30); GFR ESTIMATED > 60; GLUCOSE 306 MG/DL (70-105); MAGNESIUM 1.2 MG/DL (1.6-2.4); POTASSIUM 4.4 MMOL/L (3.6-5.0); SODIUM 128 MMOL/L (135-145)
[2018-11-15 08:00] VITALS: BP 134/91
[2018-11-15] MEDS ORDERED: FUROSEMIDE 40 MG/4 ML INJ (LASIX) IVP ONE (08:00)
[2018-11-15] MEDS: MAGNESIUM 1 GM/100 ML IVPB 100 ML IV SCH ×2 (08:28→09:45)
[2018-11-15] MEDS: SERTRALINE 50 MG (ZOLOFT) TABLET PO SCH (08:29)
[2018-11-15] MEDS: POLYETHYLENE GLYCOL 17 GM (MIRALAX) PACK PO SCH ×2 (08:29→21:30)
[2018-11-15] MEDS: SENNA W/DOCUSATE (SENOKOT S) TABLET PO SCH ×2 (08:29→22:02)
[2018-11-15 12:00] VITALS: BP 125/82
--- NOTE | 2018-11-15 12:35 | Progress Note - Hospitalist ---
[facility] 11/15/18 1235: Subjective HPI/CC On Admission Date Seen by Provider: Nov 15, 2018 Time Seen by Provider: 11:10 CC: Found down at home HPI: This is a 42yoWM with severe chronic disability who presents to the ER after being found down for an undetermined amount of time. Pt was found to have mild rhabdomyolysis but the rest of his labs remained normal but he suffered a laceration to his lip and face but no significant facial fractures. He continues to live a lone which social work has been consulted. Accu chek at that point in the ER was 27 and responded to medication Amped D 50, he is on Levemir and Januviance and required a protocol for hypoglycemia of have an Amp of D 50 very four hrs prn. Currently the pt is cursing because he has so much pain but he appears to be stable, Labs were reviewed and overall appears stable enough to be transferred to the 4th floor. Subjective/Events-last exam Vitals are normal and stable. Slept better last night. Eating and drinking well. Voiding and stooling well. Patient was waking up from nap, so a little lethargic. He was in a pleasant mood Review of Systems General: No Chills, No Night Sweats, No Fatigue, No Malaise, No Appetite, No Other HEENT: No Head Aches, No Visual Changes, No Eye Pain, No Ear Pain, No Dysphasia, No Sinus Congestion, No Post Nasal Drip, No Sore Throat, No Other Pulmonary: No Dyspnea, No Cough, No Pleuritic Chest Pain, No Other Cardiovascular: No: Chest Pain, Palpitations, Orthopnea, Paroxysmal Noc. Dyspnea, Edema, Lt Headedness, Other Gastrointestinal: No: Nausea, Vomiting, Abdominal Pain, Diarrhea, Constipation, Melena, Hematochezia, Other Genitourinary: No Dysuria, No Frequency, No Incontinence, No Hematuria, No Retention, No Other Musculoskeletal: shoulder pain; No: other, neck pain, arm pain, back pain, hand pain, leg pain, foot pain Neurological: No: Weakness, Numbness, Incoordination, Change in speech, Confusion, Seizures, Other Focused Exam Lactate Level 11/13/18 06:08: Lactic Acid Level 2.21*H 11/13/18 08:35: Lactic Acid Level 2.29*H 11/14/18 07:20: Lactic Acid Level 1.84 Objective Exam Vital Signs Vital Signs Date Time Temp Pulse Resp B/P (MAP) Pulse Ox O2 Delivery O2 Flow Rate FiO2 11/15/18 09:00 94 Room Air 11/15/18 08:00 37.3 88 18 134/91 (105) Capillary Refill : Less Than 3 SecondsLess Than 3 Seconds General Appearance: No Apparent Distress, WD/WN HEENT: PERRL/EOMI, Normal ENT Inspection, Moist Mucous Membranes Respiratory: Chest Non Tender, Lungs Clear, Normal Breath Sounds, No Accessory Muscle Use, No Respiratory Distress Cardiovascular: Regular Rate, Rhythm, No Edema, No Gallop, No JVD, No Murmur, Normal Peripheral Pulses Gastrointestinal: Normal Bowel Sounds, Soft Neurologic/Psychiatric: Alert Skin: Normal Color, Warm/Dry Lymphatic: No Adenopathy Results/Procedures Lab Laboratory Tests 11/15/18 04:25 Patient resulted labs reviewed. Assessment/Plan Assessment and Plan Assess & Plan/Chief Complaint Assessment: 1. Low blood sugars 2. Agitation 3. History of mental illness Plan: 1. Continue to monitor insulin treatment and sugars 2. Continue to give antidepressant and mood stablizers 3. Possible consult with Behavioral specalist Clinical Quality Measures DVT/VTE Risk/Contraindication: Risk Factor Score Per Nursin RFS Level Per Nursing on Admit: 4+=Very High TANIKA LEOS DO 11/15/182127: Subjective Subjective/Events-last exam Pt doing well Will need to get up and around with PT to see if he has any option of going home Telesitter still in place due to suicidal ideation Pt hard of hearing making it very difficult to communicate Checked meds and labs Very difficult case Assessment/Plan Assessment and Plan Assess & Plan/Chief Complaint DC D10 IVF Monitor closely Diagnosis/Problems Diagnosis/Problems (1) Fall Status: Acute (2) Suicidal ideation (3) Mentally disabled Status: Chronic (4) DVT prophylaxis Status: Acute (5) Hypertension Status: Chronic (6) Schizoaffective disorder Status: Chronic (7) Hyponatremia Status: Acute (8) Facial fracture Status: Acute Qualifiers: Qualified Codes: S02.40DA - Maxillary fracture, left side, initial encounter for closed fracture (9) Amanda Status: Acute (10) Rhabdomyolysis Status: Acute Qualifiers: Qualified Codes: T79.6XXA - Traumatic ischemia of muscle, initial encounter (11) Leukocytosis Status: Acute Qualifiers: Qualified Codes: D72.829 - Elevated white blood cell count, unspecified Supervisory-Addendum Brief Verification & Attestation Participated in pt care: history, MDM, physical Personally performed: exam, history, MDM, supervision of care Care discussed with: Medical Student Procedures: n/a Results interpretation: Verified all documentation Verification and Attestation of Medical Student E/M Service A medical student performed and documented this service in my presence. I reviewed and verified all information documented by the medical student and made modifications to such information, when appropriate. I personally performed the physical exam and medical decision making. Tanika Leos, Nov 15, 2018,21:28 [facility] Nov 15, 2018 12:35 TANIKA LEOS DO Nov 15, 2018 21:28
--- NOTE | 2018-11-15 13:42 | Physical Therapy Evaluation ---
PT Evaluation-General Medical Diagnosis Admission Date Nov 12, 2018 at 12:28 Medical Diagnosis: rhabdomyolisis/leukocytosis Onset Date: Nov 12, 2018 Therapy Diagnosis Therapy Diagnosis: debility/weakness Height/Weight Height (Feet): 5 Height (Inches): 3.00 Weight (Pounds): 84 Weight (Ounces): 4.0 Precautions Precautions/Isolations: Fall Prevention Referral Physician: Sheyla Reason for Referral: Evaluation/Treatment Medical History Pertinent Medical History: CAD, DM Current History EMS secondary to found on floor with a blood glucose of 27 Reviewed History: Yes Social History Home: Apartment Current Living Status: Alone Prior/Core FIM Prior Level of Function Therapy Code Descriptions/Definitions Functional [place] Measure: 0=Not Assessed/NA 4=Minimal Assistance 1=Total Assistance 5=Supervision or Setup 2=Maximal Assistance 6=Modified [place] 3=Moderate Assistance 7=Complete [place] Therapy Quality Codes: 6 Independent with activity with or without an assistive device 5 Patient requires set up or clean up by helper. Patient completes activity by themselves 4 Supervision or touching assist (CGA). [place] provide cues , steadying assist 3 The helper provides less than half the effort to complete the activity 2 The helper provides more than half the effort to complete the activity 1 Dependent. The helper does all the effort to complete an activity 7 Patient refused to complete or attempt activity 9 The patient did not perform the activity before the current illness or injury 88 Not attempted due to Medical conditions or safety concerns Functional Abilities and Goals: Independent: Patient completed the activities by him/herself, with or without an assistive device, with no assistance from a helper. Needed Some Help: Patient needed partial assistance from another person to complete activities. Dependent: A helper completed the activities for the patient. Unknown: Not Applicable: Bed Mobility: 7 Transfers (B,C,W/C) (FIM): 7 Gait: 7 Indoor Mobility (Ambulation): Independent Prior Devices Use: None PT Evaluation-Current Subjective Patient is very slow with all responses. Agrees to PT. Pain Numeric Pain Scale: 0-No Pain Location: No Pain Reported Objective Patient Orientation: Person, Time, Situation Problem Solving: Poor ROM/Strength ROM Lower Extremities bilateral LE WFL Strength Lower Extremities 4-/5 grossly bilateral LE Integumentary/Posture Integumentary refer to nursing notes Bowel Incontinence: No Bladder Incontinence: No Posture WFL Neuromuscular (Tone, Coordination, Reflexes) ataxic/diminished coordination Sensory Vision: Wears Glasses Hearing: Impaired Sensation Right Lower Extremit: Impaired Sensation Left Lower Extremity: Impaired Transfers Therapy Code Descriptions/Definitions Functional [place] Measure: 0=Not Assessed/NA 4=Minimal Assistance 1=Total Assistance 5=Supervision or Setup 2=Maximal Assistance 6=Modified [place] 3=Moderate Assistance 7=Complete [place] Transfers (B, C, W/C) (FIM): 7 Scootin Rollin Supine to/from Sit: 7 Sit to/from Stand: 7 Gait Mode of Locomotion: Walk Anticipated Mode of Locomotion: Walk Gait (FIM): 5 Distance (FIM): 3=150 ft Distance: 500' Gait Level of Assist: 5 Gait Assistive Device: None Comments/Gait Description WBOS gait sequence Balance Sitting Static: Normal Sitting Dynamic: Normal Standing Static: Fair Standing Dynamic: Fair Assessment/Needs Patient declined FWW use. Patient is slightly unsteady with gait. This may be a chronic issue due to medical history. PT to address functional strength and mobility to ensure safe return to home. Rehab Potential: Fair Post Rehab Potential-Barriers: compliance PT Rail Manager Goals Rail Manager Goals PT Rail Manager Goals Time Frame: Nov 22, 2018 Transfers (B,C,W/C) (FIM): 7 Gait (FIM): 7 Gait distance (FIM): 3=150 ft Distance: >500' Gait Level of Assist: 7 Gait Assistive Device: None PT Plan Problem List Problem List: Activity Tolerance, Functional Strength, Safety, Balance, Gait, Transfer Treatment/Plan Treatment Plan: Continue Plan of Care Treatment Plan: Bed Mobility, Education, Functional Activity Chris, Functional Strength, Gait, Safety, Therapeutic Exercise, Transfers Treatment Duration: Nov 22, 2018 Frequency: 6 times per week Estimated Hrs Per Day: .25 hour per day Patient and/or Family Agrees t: Yes Safety Risks/Education Patient Education: Safety Issues Teaching Recipient: Patient Teaching Methods: Discussion Response to Teaching: Reinforcement Needed Time/GCodes Time In: 1245 Time Out: 1255 Total Billed Treatment Time: 10 Total Billed Treatment 1 visit EVLowC 10 min SUDHEER ANN PT Nov 15, 2018 13:41
--- NOTE | 2018-11-15 13:48 | Occupational Therapy Eval ---
OT Evaluation-General/PLF Medical Diagnosis Admission Date Nov 12, 2018 at 12:28 Medical Diagnosis: rhabdomyolisis/leukocytosis Onset Date: Nov 12, 2018 Therapy Diagnosis Therapy Diagnosis: decreased self care skills Height/Weight Height (Feet): 5 Height (Inches): 3.00 Weight (Pounds): 84 Weight (Ounces): 4.0 Precautions Precautions/Isolations: Fall Prevention Safety Interventions: None Medical History Pertinent Medical History: CAD, DM Additional Medical History CHF, renal insufficiency, schizoafftective disorder, anxiety, depression, asthma Current History Pt found unresponsive at home. Pt has a fracture of the right distal clavicle and facial fracture. Social History Per chart, pt lives at home alone. Pt unable to provide detailed information regarding PLOF. ADL-Prior Level of Function Therapy Code Descriptions/Definitions Functional [place] Measure: 0=Not Assessed/NA 4=Minimal Assistance 1=Total Assistance 5=Supervision or Setup 2=Maximal Assistance 6=Modified [place] 3=Moderate Assistance 7=Complete [place] Therapy Quality Codes: 6 Independent with activity with or without an assistive device 5 Patient requires set up or clean up by helper. Patient completes activity by themselves 4 Supervision or touching assist (CGA). [place] provide cues , steadying assist 3 The helper provides less than half the effort to complete the activity 2 The helper provides more than half the effort to complete the activity 1 Dependent. The helper does all the effort to complete an activity 7 Patient refused to complete or attempt activity 9 The patient did not perform the activity before the current illness or i njury 88 Not attempted due to Medical conditions or safety concerns Functional Abilities and Goals: Independent: Patient completed the activities by him/herself, with or without an assistive device, with no assistance from a helper. Needed Some Help: Patient needed partial assistance from another person to complete activities. Dependent: A helper completed the activities for the patient. Unknown: Not Applicable: OT Current Status Subjective Pt sitting in chair, following PT, agreeable to therapy. Pt is very slow to respond during session. Current Upper Extremity ROM Right UE not assessed secondary to clavicle fracture. Pt reports pain in right shoulder, but does not rate. Per chart, pt is refusing to wear sling. ADL-Treatment ADL-Current Pt sitting in chair. When given a washcloth pt partially washed the sides of his face, but did not wash anywhere else. Did not want assist with completing the task. Pt declined to comb hair. Pt sit to stand with supervision. Transfer to EOB with hand held assist. Pt able to perform sit to supine. Meal tray arrived. Assisted pt to reposition in bed for eating. After tray was set up, pt was able to feed self. Pt in bed eating lunch with other needs met. Bed alarm on and telesitter in room. Therapy Code Descriptions/Definitions Functional [place] Measure: 0=Not Assessed/NA 4=Minimal Assistance 1=Total Assistance 5=Supervision or Setup 2=Maximal Assistance 6=Modified [place] 3=Moderate Assistance 7=Complete [place] Therapy Quality Codes: 6 Independent with activity with or without an assistive device 5 Patient requires set up or clean up by helper. Patient completes activity by themselves 4 Supervision or touching assist (CGA). [place] provide cues , steadying assist 3 The helper provides less than half the effort to complete the activity 2 The helper provides more than half the effort to complete the activity 1 Dependent. The helper does all the effort to complete an activity 7 Patient refused to complete or attempt activity 9 The patient did not perform the activity before the current illness or injury 88 Not attempted due to Medical conditions or safety concerns Grooming (FIM): 5 Transfers (B, C, W/C) (FIM): 5 Education OT Patient Education: Rehab process Teaching Recipient: Patient Response to Teaching: Unable to Comprehend OT Short Term Goals Short Term Goals 1=Demonstrate adherence to instructed precautions during ADL tasks. 2=Patient will verbalize/demonstrate understanding of assistive devices/mo difications for ADL. 3=Patient will improve strength/tolerance for activity to enable patient to perform ADL's. OT Snf Goals Graphite Grinder Goals Time Frame: Nov 22, 2018 Eating (FIM): 6 Grooming(FIM): 6 Upper Body Dressing(FIM): 6 Lower Body Dressing(FIM): 6 Toileting(FIM): 6 Toilet/Commode Transfer(FIM): 6 Additional Goals: 1-Demonstrate ADL Tasks, 2-Verbalize Understanding, 3- ImproveStrength/Chris 1=Demonstrate adherence to instructed precautions during ADL tasks. 2=Patient will verbalize/demonstrate understanding of assistive devices/modifications for ADL. 3=Patient will improve strength/tolerance for activity to enable patient to perform ADL's. OT Education/Plan Problem List/Assessment Assessment: Decreased Activ Tolerance, Decreased UE Strength, Dependent Transf ers, Impaired Self-Care Skills Pt admitted after being found unresponsive at home. Pt had blood glucose of 27 and has facial and right distal clavicle fracture. Pt demonstrates decreased mobility and ADL functioning. Pt to benefit from skilled OT intervention for ADL training, transfers, strengthening, and safety education to maximize level of function and allow safe discharge plan. Discharge Recommendations Plan/Recommendations: Continue POC Treatment Plan/Plan of Care Treatment,Training & Education: Yes Patient would benefit from OT for education, treatment and training to promote independence in ADL's, mobility, safety and/or upper extremity function for ADL's. Plan of Care: ADL Retraining, Functional Mobility, UE Funct Exercise/Act Treatment Duration: Nov 22, 2018 Frequency: 5 times per week Estimated Hrs Per Day: .25 hour per day Rehab Potential: Fair Time/GCodes Start Time: 13:00 Stop Time: 13:13 Total Time Billed (hr/min): 13 Billed Treatment Time 1 visit, JANE(13minutes) MARIBEL GOLDMAN OT Nov 15, 2018 13:48
[2018-11-15 16:00] VITALS: BP 113/72
--- NOTE | 2018-11-15 16:16 | NUR ---
CM/SS. Continued activity toward discharge planning. Review Sunday regarding behavioral health status and make referrals as necessary. Patient is under care of [facility] psychiatrist Dian Paredes, which is telemed. He is established overall with [facility] for health and mental health. Unit RN did report to patient's mother his verbalizations about suicide, this will be followed closely for appropriate response. Mother indicated he has done this at times in response to being anxietal and/or not getting what he wanted, she did speak with him by phone after these verbalizations. Medical Esthetician attempted to find a viable in-home service, explored [facility] and possible referral through [facility] for eligibility. Patient would need to have [employer] benefits for these services, or private pay. Mother Caterina did followup with [facility] Adriana Alston who apparently thought patient would not qualify for [employer]. Will make referral with [facility]/Maggie Blood ([phone]) Sunday. Caterina has given permission for aMggie to call her directly to see if they can work something out for him. Caterina is patient's main support person in all areas of his life. She stated she is on his checking account and does assist with bills, but that he is his own payee. Parents are supplementing with their own money on his behalf. Complex issues, it would be anticipated that patient will not want to go anywhere but home, although he seems to need some oversight for IDDM Rx, maintenance, and proper nutrition.
[2018-11-15] MEDS: ENOXAPARIN 30 MG/0.3 ML (LOVENOX) SYR SC SCH (20:20)
[2018-11-15] MEDS: MELATONIN 3 MG TABLET PO PRN (22:02)
[2018-11-15] MEDS: MIRTAZAPINE 15 MG (REMERON) TAB PO SCH (22:02)
[2018-11-15 23:25] VITALS: BP 123/83
[2018-11-16 04:58] LABS: BASOPHILS % (AUTO) 0 % (0-10); EOSINOPHILS # (AUTO) 0.3 10^3/uL (0.0-0.3); EOSINOPHILS % (AUTO) 2 % (0-10); HEMATOCRIT 39 % (40-54); HEMOGLOBIN 13.9 G/DL (13.3-17.7); LYMPHOCYTES # (AUTO) 2.4 X 10^3 (1.0-4.0); LYMPHOCYTES % (AUTO) 19 % (12-44); MEAN CORPUSCULAR HEMOGLOBIN 32 PG (25-34); MEAN CORPUSCULAR HGB CONC 36 G/DL (32-36); MEAN CORPUSCULAR VOLUME 89 FL (80-99); MEAN PLATELET VOLUME 10.5 FL (7.4-10.4); MONOCYTES # (AUTO) 1.1 X 10^3 (0.0-1.0); MONOCYTES % (AUTO) 9 % (0-12); NEUTROPHILS % (AUTO) 70 % (42-75); PLATELET COUNT 304 10^3/uL (130-400); RED CELL DISTRIBUTION WIDTH 13.2 % (10.0-14.5); WHITE BLOOD COUNT 12.8 10^3/uL (4.3-11.0)
[2018-11-16 05:20] LABS: BUN/CREATININE RATIO 13; CALCIUM 9.8 MG/DL (8.5-10.1); CARBON DIOXIDE 25 MMOL/L (21-32); CHLORIDE 93 MMOL/L (98-107); CREATININE SERUM 0.71 MG/DL (0.60-1.30); GFR ESTIMATED > 60; GLUCOSE 179 MG/DL (70-105); MAGNESIUM 1.6 MG/DL (1.6-2.4); PHOSPHORUS 4.1 MG/DL (2.3-4.7); POTASSIUM 4.7 MMOL/L (3.6-5.0); SODIUM 129 MMOL/L (135-145)
[2018-11-16] MEDS: inSUlin ASPART (NovoLOG) 1 UNIT/0.01 ML (CHARGE PER UNIT) SC SCH ×4 (05:46→21:44)
[2018-11-16 07:25] VITALS: BP 134/91
[2018-11-16] MEDS: SENNA W/DOCUSATE (SENOKOT S) TABLET PO SCH ×2 (08:38→21:44)
[2018-11-16] MEDS: SERTRALINE 50 MG (ZOLOFT) TABLET PO SCH (08:38)
[2018-11-16] MEDS: POLYETHYLENE GLYCOL 17 GM (MIRALAX) PACK PO SCH ×2 (08:38→21:44)
--- NOTE | 2018-11-16 11:06 | Physical Therapy Daily Note ---
PT Daily Note-Current Subjective Pt. agrees to therapy after therapist encouragement, states "I want to go home." Transfers Therapy Code Descriptions/Definitions Functional [place] Measure: 0=Not Assessed/NA 4=Minimal Assistance 1=Total Assistance 5=Supervision or Setup 2=Maximal Assistance 6=Modified [place] 3=Moderate Assistance 7=Complete [place] Therapy Quality Codes: 6 Independent with activity with or without an assistive device 5 Patient requires set up or clean up by helper. Patient completes activity by themselves 4 Supervision or touching assist (CGA). [place] provide cues , steadying assist 3 The helper provides less than half the effort to complete the activity 2 The helper provides more than half the effort to complete the activity 1 Dependent. The helper does all the effort to complete an activity 7 Patient refused to complete or attempt activity 9 The patient did not perform the activity before the current illness or injury 88 Not attempted due to Medical conditions or safety concerns Transfers (B, C, W/C) (FIM): 6 Supine to/from Sit: 6 Sit to/from Stand: 6 Gait Training Gait (FIM): 5 Distance (FIM): 3=150 ft Distance: 400 ft Gait Level of Assist: 5 Gait Persons Needed: 1 Gait Assistive Device: None pt. walks along hallway rails, wide ARSLAN, no distinct LOB Assessment Current Status: Good Progress Pt. does well with ambulation. He occasionally has missteps during gait but self-corrects. Pt. prefers to walk along hallway railings. Pt. returned to bed post session with call light and all needs met. PT Prison Goals Prison Goals PT Prison Goals Time Frame: Nov 22, 2018 Transfers (B,C,W/C) (FIM): 7 Gait (FIM): 7 Gait distance (FIM): 3=150 ft Distance: >500' Gait Level of Assist: 7 Gait Assistive Device: None PT Plan Treatment/Plan Treatment Plan: Continue Plan of Care Treatment Plan: Bed Mobility, Education, Functional Activity Chris, Functional Strength, Gait, Safety, Therapeutic Exercise, Transfers Treatment Duration: Nov 22, 2018 Frequency: 6 times per week Estimated Hrs Per Day: .25 hour per day Patient and/or Family Agrees t: Yes Time/GCodes Time In: 945 Time Out: 955 Total Billed Treatment Time: 10 Total Billed Treatment 1, GT 10' MYESHA DENISE PT Nov 16, 2018 11:06
--- NOTE | 2018-11-16 12:59 | Progress Note - Hospitalist ---
Subjective HPI/CC On Admission Date Seen by Provider: Nov 16, 2018 Time Seen by Provider: 12:00 CC: Found down at home HPI: This is a 42yoWM with severe chronic disability who presents to the ER after being found down for an undetermined amount of time. Pt was found to have mild rhabdomyolysis but the rest of his labs remained normal but he suffered a laceration to his lip and face but no significant facial fractures. He continues to live a lone which social work has been consulted. Accu chek at that point in the ER was 27 and responded to medication Amped D 50, he is on Levemir and Januviance and required a protocol for hypoglycemia of have an Amp of D 50 very four hrs prn. Currently the pt is cursing because he has so much pain but he appears to be stable, Labs were reviewed and overall appears stable enough to be transferred to the 4th floor. Subjective/Events-last exam Patient doing well Working with physical therapy Bowels are really moving mine blood sugars are good Hyponatremia resolving since hep locking D10 drip initiated due to recurrent hypoglycemia Sleeps a lot Review of Systems General: Fatigue Focused Exam Lactate Level 11/14/18 07:20: Lactic Acid Level 1.84 Objective Exam Vital Signs Vital Signs Date Time Temp Pulse Resp B/P (MAP) Pulse Ox O2 Delivery O2 Flow Rate FiO2 11/16/18 09:00 95 Room Air 11/16/18 07:25 37.2 80 20 134/91 (105) Capillary Refill : Less Than 3 SecondsLess Than 3 Seconds General Appearance: No Apparent Distress, WD/WN, Cachetic, Other Respiratory: Lungs Clear Cardiovascular: Regular Rate, Rhythm Results/Procedures Lab Laboratory Tests 11/16/18 04:32 Patient resulted labs reviewed. Assessment/Plan Assessment and Plan Assess & Plan/Chief Complaint Assessment: Fall Mentally challenged Recurrent hypoglycemia Hyponatremia from D10 IV fluid Status post rhabdomyolysis Suicidal ideation Plan: Continue supportive care Monitor sodium level Insulin Diagnosis/Problems Diagnosis/Problems (1) Fall Status: Acute (2) Suicidal ideation (3) Mentally disabled Status: Chronic (4) DVT prophylaxis Status: Acute (5) Hypertension Status: Chronic (6) Schizoaffective disorder Status: Chronic (7) Hyponatremia Status: Acute (8) Facial fracture Status: Acute Qualifiers: Encounter type: initial encounter Facial bone/location: unspecified site of maxillary bone Fracture type: closed Laterality: left Qualified Codes: S02.40DA - Maxillary fracture, left side, initial encounter for closed fracture (9) Amanda Status: Acute (10) Rhabdomyolysis Status: Acute Qualifiers: Rhabdomyolysis type: traumatic Encounter type: initial encounter Qualified Codes: T79.6XXA - Traumatic ischemia of muscle, initial encounter (11) Leukocytosis Status: Acute Qualifiers: Leukocytosis type: unspecified Qualified Codes: D72.829 - Elevated white blood cell count, unspecified Clinical Quality Measures DVT/VTE Risk/Contraindication: Risk Factor Score Per Nursin RFS Level Per Nursing on Admit: 4+=Very High JOHNATHAN LEOS DO Nov 16, 2018 12:59
[2018-11-16 15:38] VITALS: BP 128/97
[2018-11-16] MEDS: MIRTAZAPINE 15 MG (REMERON) TAB PO SCH (21:43)
[2018-11-16] MEDS: ENOXAPARIN 30 MG/0.3 ML (LOVENOX) SYR SC SCH (21:44)
[2018-11-17] VITALS: BP 130/90
[2018-11-17 05:34] LABS: BASOPHILS % (AUTO) 0 % (0-10); EOSINOPHILS # (AUTO) 0.3 10^3/uL (0.0-0.3); EOSINOPHILS % (AUTO) 2 % (0-10); HEMATOCRIT 40 % (40-54); HEMOGLOBIN 14.5 G/DL (13.3-17.7); LYMPHOCYTES # (AUTO) 2.2 X 10^3 (1.0-4.0); LYMPHOCYTES % (AUTO) 19 % (12-44); MEAN CORPUSCULAR HEMOGLOBIN 32 PG (25-34); MEAN CORPUSCULAR HGB CONC 36 G/DL (32-36); MEAN CORPUSCULAR VOLUME 90 FL (80-99); MEAN PLATELET VOLUME 10.9 FL (7.4-10.4); MONOCYTES # (AUTO) 1.2 X 10^3 (0.0-1.0); MONOCYTES % (AUTO) 10 % (0-12); NEUTROPHILS # (AUTO) 7.9 X 10^3 (1.8-7.8); NEUTROPHILS % (AUTO) 68 % (42-75); PLATELET COUNT 325 10^3/uL (130-400); RED CELL DISTRIBUTION WIDTH 13.2 % (10.0-14.5); WHITE BLOOD COUNT 11.6 10^3/uL (4.3-11.0)
[2018-11-17] MEDS: inSUlin ASPART (NovoLOG) 1 UNIT/0.01 ML (CHARGE PER UNIT) SC SCH ×4 (05:44→21:40)
[2018-11-17 06:06] LABS: ALANINE AMINOTRANSFERASE 23 U/L (0-55); ALKALINE PHOSPHATASE 77 U/L (40-136); BUN/CREATININE RATIO 22; CALCIUM 9.1 MG/DL (8.5-10.1); CARBON DIOXIDE 23 MMOL/L (21-32); CHLORIDE 95 MMOL/L (98-107); CREATININE SERUM 0.73 MG/DL (0.60-1.30); GFR ESTIMATED > 60; GLUCOSE 132 MG/DL (70-105); MAGNESIUM 1.6 MG/DL (1.6-2.4); PHOSPHORUS 4.5 MG/DL (2.3-4.7); POTASSIUM 4.4 MMOL/L (3.6-5.0); SODIUM 131 MMOL/L (135-145); TOTAL PROTEIN 7.1 GM/DL (6.4-8.2)
[2018-11-17 07:55] VITALS: BP 127/88
--- NOTE | 2018-11-17 09:29 | Progress Note - Hospitalist ---
Subjective HPI/CC On Admission Date Seen by Provider: Nov 17, 2018 Time Seen by Provider: 08:30 CC: Found down at home HPI: This is a 42yoWM with severe chronic disability who presents to the ER after being found down for an undetermined amount of time. Pt was found to have mild rhabdomyolysis but the rest of his labs remained normal but he suffered a laceration to his lip and face but no significant facial fractures. He continues to live a lone which social work has been consulted. Accu chek at that point in the ER was 27 and responded to medication Amped D 50, he is on Levemir and Januviance and required a protocol for hypoglycemia of have an Amp of D 50 very four hrs prn. Currently the pt is cursing because he has so much pain but he appears to be stable, Labs were reviewed and overall appears stable enough to be transferred to the 4th floor. Subjective/Events-last exam Patient did pretty good through the night Getting around better No pain is reported Awaiting social work to figure out what the next step is since he had suicidal ideation late last week No falls Check meds and labs Conferred with information technology associate of Systems General: Fatigue Objective Exam Vital Signs Vital Signs Date Time Temp Pulse Resp B/P (MAP) Pulse Ox O2 Delivery O2 Flow Rate FiO2 11/17/18 09:00 95 Room Air 11/17/18 07:55 36.8 85 20 127/88 (101) Capillary Refill : Less Than 3 SecondsLess Than 3 Seconds General Appearance: No Apparent Distress, WD/WN, Anxious, Chronically ill, Thin Respiratory: Chest Non Tender, Lungs Clear, Normal Breath Sounds, No Accessory Muscle Use, No Respiratory Distress Cardiovascular: Regular Rate, Rhythm, No Edema, No Gallop, No JVD, No Murmur, Normal Peripheral Pulses Neurologic/Psychiatric: Alert, Oriented x3, No Motor/Sensory Deficits, Normal Mood/Affect Results/Procedures Lab Laboratory Tests 11/17/18 04:40 Patient resulted labs reviewed. Assessment/Plan Assessment and Plan Assess & Plan/Chief Complaint Assessment: Fall Mentally challenged Recurrent hypoglycemia now resolved Hyponatremia from D10 IV fluid now improved Status post rhabdomyolysis now cleared Suicidal ideation Plan: Continue supportive care Monitor sodium level Insulin Diagnosis/Problems Diagnosis/Problems (1) Fall Status: Acute (2) Suicidal ideation (3) Mentally disabled Status: Chronic (4) DVT prophylaxis Status: Acute (5) Hypertension Status: Chronic (6) Schizoaffective disorder Status: Chronic (7) Hyponatremia Status: Acute (8) Facial fracture Status: Acute Qualifiers: Encounter type: initial encounter Facial bone/location: unspecified site of maxillary bone Fracture type: closed Laterality: left Qualified Codes: S02.40DA - Maxillary fracture, left side, initial encounter for closed fracture (9) Amanda Status: Acute (10) Rhabdomyolysis Status: Acute Qualifiers: Rhabdomyolysis type: traumatic Encounter type: initial encounter Qualified Codes: T79.6XXA - Traumatic ischemia of muscle, initial encounter (11) Leukocytosis Status: Acute Qualifiers: Leukocytosis type: unspecified Qualified Codes: D72.829 - Elevated white blood cell count, unspecified Clinical Quality Measures DVT/VTE Risk/Contraindication: Risk Factor Score Per Nursin RFS Level Per Nursing on Admit: 4+=Very High JOHNATHAN LEOS DO Nov 17, 2018 09:29
[2018-11-17] MEDS: SENNA W/DOCUSATE (SENOKOT S) TABLET PO SCH ×2 (09:36→21:40)
[2018-11-17] MEDS: POLYETHYLENE GLYCOL 17 GM (MIRALAX) PACK PO SCH ×2 (09:36→21:40)
[2018-11-17] MEDS: SERTRALINE 50 MG (ZOLOFT) TABLET PO SCH (09:36)
[2018-11-17 15:45] VITALS: BP 128/88
[2018-11-17] MEDS: ENOXAPARIN 30 MG/0.3 ML (LOVENOX) SYR SC SCH (21:39)
[2018-11-17] MEDS: MIRTAZAPINE 15 MG (REMERON) TAB PO SCH (21:40)
--- NOTE | 2018-11-17 22:40 | NUR ---
PATIENT HAS NOT URINATED SINCE BEFORE 1500. PATIENT STATES DOESNT FEEL HE NEEDS TO URINATE. BLADDER SCANNED [address] LEOS. RECEIVED ORDER TO STRAIGHT CATH PRN >400.
--- NOTE | 2018-11-17 23:14 | NUR ---
STRAIGHT CATHETER PATIENT. 600 ON BLADDER SCANNER; 800 OUT. PATIENT REPORTS FEELING BETTER AFTER CATHETERIZATION
[2018-11-18] VITALS: BP 108/71
[2018-11-18 06:28] LABS: BASOPHILS % (AUTO) 0 % (0-10); EOSINOPHILS # (AUTO) 0.3 10^3/uL (0.0-0.3); EOSINOPHILS % (AUTO) 3 % (0-10); HEMATOCRIT 42 % (40-54); HEMOGLOBIN 14.7 G/DL (13.3-17.7); LYMPHOCYTES # (AUTO) 2.1 X 10^3 (1.0-4.0); LYMPHOCYTES % (AUTO) 20 % (12-44); MEAN CORPUSCULAR HEMOGLOBIN 32 PG (25-34); MEAN CORPUSCULAR HGB CONC 35 G/DL (32-36); MEAN CORPUSCULAR VOLUME 91 FL (80-99); MEAN PLATELET VOLUME 10.4 FL (7.4-10.4); MONOCYTES # (AUTO) 1.3 X 10^3 (0.0-1.0); MONOCYTES % (AUTO) 12 % (0-12); NEUTROPHILS # (AUTO) 6.8 X 10^3 (1.8-7.8); NEUTROPHILS % (AUTO) 65 % (42-75); PLATELET COUNT 381 10^3/uL (130-400); RED CELL DISTRIBUTION WIDTH 13.7 % (10.0-14.5); WHITE BLOOD COUNT 10.5 10^3/uL (4.3-11.0)
[2018-11-18 06:44] LABS: BUN/CREATININE RATIO 31; CARBON DIOXIDE 23 MMOL/L (21-32); CHLORIDE 97 MMOL/L (98-107); CREATININE SERUM 0.75 MG/DL (0.60-1.30); POTASSIUM 4.4 MMOL/L (3.6-5.0); SODIUM 134 MMOL/L (135-145)
[2018-11-18 06:45] LABS: CALCIUM 9.4 MG/DL (8.5-10.1); GFR ESTIMATED > 60; GLUCOSE 163 MG/DL (70-105); MAGNESIUM 1.7 MG/DL (1.6-2.4)
[2018-11-18] MEDS: inSUlin ASPART (NovoLOG) 1 UNIT/0.01 ML (CHARGE PER UNIT) SC SCH ×2 (06:46→11:43)
[2018-11-18 08:00] VITALS: BP 107/71
--- NOTE | 2018-11-18 10:11 | Occ Therapy Progress Note ---
Therapy Progress Note Attempted to see pt. Pt opened eyes for a few seconds and mumbled responses to questions then stated he just wanted to go home. Pt then closed eyes and would not respond to any other questions. Attempted to encourage pt to participate in therapy, pt ignored FLORES. Will attempt later. JAYLIN HANEY Nov 18, 2018 10:11
--- NOTE | 2018-11-18 11:14 | Physical Therapy Daily Note ---
PT Daily Note-Current Subjective Patient much more alert and cooperative on this date. Agrees to PT. Mental Status Patient Orientation: Person, Time, Situation Transfers Therapy Code Descriptions/Definitions Functional [place] Measure: 0=Not Assessed/NA 4=Minimal Assistance 1=Total Assistance 5=Supervision or Setup 2=Maximal Assistance 6=Modified [place] 3=Moderate Assistance 7=Complete [place] Therapy Quality Codes: 6 Independent with activity with or without an assistive device 5 Patient requires set up or clean up by helper. Patient completes activity by themselves 4 Supervision or touching assist (CGA). [place] provide cues , steadying assist 3 The helper provides less than half the effort to complete the activity 2 The helper provides more than half the effort to complete the activity 1 Dependent. The helper does all the effort to complete an activity 7 Patient refused to complete or attempt activity 9 The patient did not perform the activity before the current illness or injury 88 Not attempted due to Medical conditions or safety concerns Transfers (B, C, W/C) (FIM): 7 Scootin Rollin Supine to/from Sit: 7 Sit to/from Stand: 7 Gait Training Gait (FIM): 7 Distance (FIM): 3=150 ft Distance: >600' Gait Level of Assist: 7 Gait Assistive Device: None WBOS/functional gait sequence Assessment Patient returned to bed with needs met. Patient is currently at [facility] safely. PT to dismiss patient from services at this time. PT Lace Stripper Goals Lace Stripper Goals PT Lace Stripper Goals Time Frame: Nov 22, 2018 Transfers (B,C,W/C) (FIM): 7 Gait (FIM): 7 Gait distance (FIM): 3=150 ft Distance: >500' Gait Level of Assist: 7 Gait Assistive Device: None PT Plan Treatment/Plan Treatment Plan: Discontinue PT, goals met Treatment Plan: Bed Mobility, Education, Functional Activity Chris, Functional Strength, Gait, Safety, Therapeutic Exercise, Transfers Treatment Duration: Nov 22, 2018 Frequency: 6 times per week Estimated Hrs Per Day: .25 hour per day Patient and/or Family Agrees t: Yes Time/GCodes Time In: 1035 Time Out: 1044 Total Billed Treatment Time: 9 Total Billed Treatment 1 visit FA 9 min SUDHEER ANN PT Nov 18, 2018 11:14
[2018-11-18] MEDS: SERTRALINE 50 MG (ZOLOFT) TABLET PO SCH (11:43)
[2018-11-18] MEDS: POLYETHYLENE GLYCOL 17 GM (MIRALAX) PACK PO SCH (11:43)
[2018-11-18] MEDS: SENNA W/DOCUSATE (SENOKOT S) TABLET PO SCH (11:43)
[2018-11-18] MEDS ORDERED: SERT50TA9 PO (12:17)
[2018-11-18] MEDS ORDERED: ARIP20TA9 PO (12:17)
[2018-11-18] MEDS ORDERED: METF-478 PO (12:17)
--- NOTE | 2018-11-18 12:22 | D/C HH Face to Face Order ---
D/C Face to Face Orders Reconcile Patient Problems Problems Reviewed?: Yes Instructions for Patient Via [employer], Patient Instructions/FollowUp: Follow up with Roxanne Robles APRN (Nurse practitioner with Dr. Nash) on Sunday at 1:20 pm at [facility]. Physician to follow Patient: Saad Discharge Diet for Home: ADA Diet Patient Problems: Diabetes Facial fractures Schizophrenia Hearing impairment Patient Data-Allergies,Ht & Wt Patient Allergies: Coded Allergies: No Known Drug Allergies (Unverified , 03/03/13) Height (Feet): 5 Height (Inches): 3.00 Weight (Pounds): 84 Weight (Ounces): 4.0 Home Health Need/Face to Face Date of Face to Face: Nov 18, 2018 Clinical Findings: Instability, Other-list in note Marked impaired functioning due to severe behavioral health disorder. I have seen Pt [id number]: Yes Discharged To: Home Diagnosis/Conditions: See patient problems Patient is Homebound due to: CognItive deficits, Kassie fall risk due to instabilty Homebound Status Due to the above stated illness, injury or surgical procedure (medical condition or diagnosis) and associated clinical findings, the patient is homebound because of his/her inability to leave home except with aid of a supportive device and/or person AND leaving the home requires a considerable and taxing effort or is medically contraindicated. Pt req the following assistanc: Aid of another person Home Health Nursing Orders Home Health Services Order: Nursing Services, Physical Therapy-Evaluate & Treat Home Health Infusion Therapy Line Start Date: Nov 12, 2018 Therapy Orders Therapy Orders: Physical Therapy Certify Stmt I certify that this patient is under my care and that I, a nurse practitioner or a physician; a professional nursing assistant working with me, had a face to face encounter that - meets the physician face to face encounter requirements with this patient as dated. CATHY NASH MD Nov 18, 2018 12:22
--- NOTE | 2018-11-18 12:26 | Discharge Summary ---
Discharge Summary Hospital Course Hospital Course Date of Admission: Nov 12, 2018 at 12:28 Admission Diagnosis : Family Physician/Provider: Camilla/[facility] Date of Discharge: 11/18/18 Discharge Diagnosis: DMII with hypoglycemic episode Bilateral maxillary fractures Right clavicle fracture. Hospital Course: Pt was admitted and given D50, facial laceration repaired in ER. Shoulder placed in sling. His blood sugar remained in relatively good control with no insulin, so insulin was held on d/c, continue metformin and Jardiance. Labs and Pending Lab Test: Laboratory Tests 11/17/18 15:45: Glucometer 150H 11/18/18 05:26: White Blood Count 10.5, Red Blood Count 4.63, Hemoglobin 14.7, Hematocrit 42, Mean Corpuscular Volume 91, Mean Corpuscular Hemoglobin 32, Mean Corpuscular Hemoglobin Concent 35, Red Cell Distribution Width 13.7, Platelet Count 381, Me an Platelet Volume 10.4, Neutrophils (%) (Auto) 65, Lymphocytes (%) (Auto) 20, Monocytes (%) (Auto) 12, Eosinophils (%) (Auto) 3, Basophils (%) (Auto) 0, Neutrophils # (Auto) 6.8, Lymphocytes # (Auto) 2.1, Monocytes # (Auto) 1.3H, Eosinophils # (Auto) 0.3, Basophils # (Auto) 0.0, Sodium Level 134L, Potassium Level 4.4, Chloride Level 97L, Carbon Dioxide Level 23, Anion Gap 14, Blood Urea Nitrogen 23H, Creatinine 0.75, Estimat Glomerular Filtration Rate > 60, BUN/Creatinine Ratio 31, Glucose Level 163H, Calcium Level 9.4, Phosphorus Level 4.0, Magnesium Level 1.7 11/18/18 11:14: Glucometer 179H Microbiology 11/12/18 Blood Culture - Final, Complete No growth 11/12/18 MRSA Screen - Final, Complete MRSA not isolated Home Meds Active Metformin HCl ER (Metformin HCl) 500 Mg Tab.er.24 1,000 Mg PO BID LAST FILLED #360 04-02-18 Aripiprazole 20 Mg Tablet 20 Mg PO DAILY #30 FILLED 08-30-18 Sertraline HCl 50 Mg Tablet 50 Mg PO DAILY LAST FILLED #30 08-30-18 Reported Mirtazapine 15 Mg Tablet 15 Mg PO HS Jardiance (Empagliflozin) 10 Mg Tablet 10 Mg PO DAILY Levemir Flextouch (Insulin Detemir) 100 Unit/1 Ml Insuln.pen 25 Units SC HS Ventolin Hfa (Albuterol Sulfate) 18 Gm Hfa.aer.ad 2 Puff INH Q4H PRN Assessment/Pt DC Instructions See above. Orders-Post D/C & Referrals Pneu Vac Indicated: Yes Discharge Physical Examination Allergies: Coded Allergies: No Known Drug Allergies (Unverified , 03/03/13) Discharge Summary Date of Admission Nov 12, 2018 at 12:28 Date of Discharge Discharge Date: Nov 18, 2018 Admission Diagnosis Assessment: Found down Hypoglycemia due to insulin and PO DM meds Mentally challenged Rhabdomyolysis Plan: Hold insulin and home DM meds Lovenox SW consult Home meds Discharge Diagnosis (1) Fall Status: Acute (2) Suicidal ideation Status: Resolved (3) Mentally disabled Status: Chronic (4) Hypertension Status: Chronic (5) Schizoaffective disorder Status: Chronic (6) Hyponatremia Status: Acute (7) Facial fracture Status: Acute Qualifiers: Qualified Codes: S02.40DA - Maxillary fracture, left side, initial encounter for closed fracture (8) Rhabdomyolysis Status: Resolved Qualifiers: Qualified Codes: T79.6XXA - Traumatic ischemia of muscle, initial encounter (9) Leukocytosis Status: Resolved Qualifiers: Qualified Codes: D72.829 - Elevated white blood cell count, unspecified Clinical Quality Measures DVT/VTE Risk/Contraindication: Risk Factor Score Per Nursin RFS Level Per Nursing on Admit: 4+=Very High CATHY BLACK MD Nov 18, 2018 12:25
--- NOTE | 2018-11-18 13:43 | NUR ---
CM/SS. Discussed patient with Dr. Nash this a.m. She has explored suicidal ideation, patient denies. He is talking to all he encounters about going home today. She indicates as did mother that patient often makes statements during times of frustration and anxiety. HHC: Coordinated with mother's preferred agency, [facility], due to successful history with this agency. Agency understands to call mother to coordinate visits, she will attend with him so that she is aware of interventions and recommendations and can assist with follow through. Updated Maggie Blood of [facility] that patient is discharging as it pertains to timeliness of followup for possible in-home services. Mother Caterina reports that she did receive a followup call and was directed to [facility] and another agency for possible services appropriate for patient. [facility] will follow for health and mental health needs.
--- NOTE | 2018-11-18 13:52 | Occupational Ther Daily Note ---
OT Current Status-Daily Note Subjective Pt alert sitting in bed. Pt agrees to therapy. Pt states he wants to go home. No c/o of pain. Mental Status/Objective Patient Orientation: Person, Place, Time, Situation Therapy Code Descriptions/Definitions Functional [place] Measure: 0=Not Assessed/NA 4=Minimal Assistance 1=Total Assistance 5=Supervision or Setup 2=Maximal Assistance 6=Modified [place] 3=Moderate Assistance 7=Complete [place] Attachments: IV Other Treatment Pt participated in 5 L UE exercises 1x 10 reps to increase UE strength for daily functional tasks. Completed only L UE due to medical issues with R UE. Skilled instructions needed by therapist for positioning and correct technique. Pt required increased time due to decreased activity tolerance. Pt was unfocused and required VC's throughout therapy session. Pt sitting in bed, call light and phone in reach, all needs met in room. OT Short Term Goals Short Term Goals 1=Demonstrate adherence to instructed precautions during ADL tasks. 2=Patient will verbalize/demonstrate understanding of assistive devices/modifications for ADL. 3=Patient will improve strength/tolerance for activity to enable patient to perform ADL's. OT Horse Breeder Goals Intermediate Goals Time Frame: Nov 22, 2018 Eating (FIM): 6 Grooming(FIM): 6 Upper Body Dressing(FIM): 6 Lower Body Dressing(FIM): 6 Toileting(FIM): 6 Toilet/Commode Transfer(FIM): 6 Additional Goals: 1-Demonstrate ADL Tasks, 2-Verbalize Understanding, 3-ImproveStrength/Chris 1=Demonstrate adherence to instructed precautions during ADL tasks. 2=Patient will verbalize/demonstrate understanding of assistive devices/modifications for ADL. 3=Patient will improve strength/tolerance for activity to enable patient to perform ADL's. OT Education/Plan Problem List/Assessment Assessment: Decreased Activ Tolerance, Decreased UE Strength, Impaired Coordination, Restricted Funct UE ROM Pt admitted after being found unresponsive at home. Pt had blood glucose of 27 and has facial and right distal clavicle fracture. Pt demonstrates decreased mobility and ADL functioning. Pt to benefit from skilled OT intervention for ADL training, transfers, strengthening, and safety education to maximize level of function and allow safe discharge plan. Discharge Recommendations Plan/Recommendations: Continue POC Treatment Plan/Plan of Care Patient would benefit from OT for education, treatment and training to promote independence in ADL's, mobility, safety and/or upper extremity function for ADL's. Plan of Care: ADL Retraining, Functional Mobility, UE Funct Exercise/Act Treatment Duration: Nov 22, 2018 Frequency: 5 times per week Estimated Hrs Per Day: .25 hour per day Rehab Potential: Fair Time/GCodes Start Time: 13:35 Stop Time: 13:45 Total Time Billed (hr/min): 10 Billed Treatment Time 1 visit- ADL 1 (10 min) JAYLIN HANEY Nov 18, 2018 13:51
--- NOTE | 2018-11-18 15:22 | NUR ---
TORIE CAMPOS demonstrates understanding of discharge instructions and accurately returns instructions upon questioning. Copy of Post-Discharge Instructions and Medication Discharge Instructions given to patient and his mother. TORIE CAMPOS is able to manage continuing needs after discharge. Patients belongings returned to patient. Skin dry and intact; no breakdown noted. Patient discharged from [facility]- on 11/18/2018 at 1522. TORIE CAMPOS left floor via wheelchair, accompanied by staff.
== END 2018-11-18 15:20 | disposition home health service (06) | DRG 988 ==
LOC: EDUNIT# 11:24 → ER 11:25 → ICU 12:28 → 4TH 11-13 13:00
PROVIDERS: ADMIT Internal Medicine; ATTEND Family Medicine
PROC: 0JQ10ZZ Repair Face Subcutaneous Tissue and Fascia, Open Approach (ICD-10-PCS; principal; 2018-11-12)
PROC: 0CQ0XZZ Repair Upper Lip, External Approach (ICD-10-PCS; 2018-11-12)
DX: E11.649 Type 2 diabetes mellitus with hypoglycemia without coma (principal); T79.6XXA Traumatic ischemia of muscle, initial encounter; S02.40DA Maxillary fracture, left side, initial encounter for closed fracture; S02.40CA Maxillary fracture, right side, initial encounter for closed fracture; S42.031A Displaced fracture of lateral end of right clavicle, initial encounter for closed fracture; S01.111A Laceration without foreign body of right eyelid and periocular area, initial encounter; S01.511A Laceration without foreign body of lip, initial encounter; E87.1 Hypo-osmolality and hyponatremia; R45.851 Suicidal ideations; I11.0 Hypertensive heart disease with heart failure; I50.9 Heart failure, unspecified; F25.0 Schizoaffective disorder, bipolar type; F41.9 Anxiety disorder, unspecified; F32.9 Major depressive disorder, single episode, unspecified; E78.5 Hyperlipidemia, unspecified; F17.210 Nicotine dependence, cigarettes, uncomplicated; J45.909 Unspecified asthma, uncomplicated; Z79.4 Long term (current) use of insulin; Z23 Encounter for immunization; W19.XXXA Unspecified fall, initial encounter; Y92.009 Unspecified place in unspecified non-institutional (private) residence as the place of occurrence of the external cause
CPT/HCPCS: 36415; 51702; 70450; 71045; 72125; 73030; 80048; 80053; 80306; 80320; 81000; 82550; 82962; 83605; 83735; 84100; 85007; 85025; 85027; 87040; 87081; 90471; 90715; 96361; 96372; 96374; 96375

== ENCOUNTER → 2019-07-31 | Outpatient (CLI) | payer MEDICARE ==
[~2019-07-31] MED LIST changes: +ARIP20TA9 PO; -ARIP30TA10 PO; +ARIP30TA21 PO; +EMPA10TA PO; +INSU100I29 SC; +METF-478 PO; +METF-865 PO; -METF500T8 PO; -METO-370 PO; +METO50TA7 PO; +MIRT15TA6 PO
== END ==
LOC: CARD 12:48
PROVIDERS: ATTEND Physician Assistant
DX: I11.0 Hypertensive heart disease with heart failure (principal); I50.9 Heart failure, unspecified; Z72.0 Tobacco use; I08.1 Rheumatic disorders of both mitral and tricuspid valves
CPT/HCPCS: 93306

== ENCOUNTER 2019-08-05 16:42 | Observation (INO) | payer MEDICARE ==
[~2019-08-05] VITALS: Ht 175 cm; Wt 39.7 kg
[2019-08-05 17:09] LABS: BASOPHILS % (AUTO) 0 % (0-10); EOSINOPHILS % (AUTO) 0 % (0-10); HEMATOCRIT 53 % (40-54); LYMPHOCYTES # (AUTO) 0.8 X 10^3 (1.0-4.0); LYMPHOCYTES % (AUTO) 7 % (12-44); MEAN CORPUSCULAR HEMOGLOBIN 32 PG (25-34); MEAN CORPUSCULAR HGB CONC 34 G/DL (32-36); MEAN CORPUSCULAR VOLUME 94 FL (80-99); MEAN PLATELET VOLUME 12.6 FL (7.4-10.4); MONOCYTES # (AUTO) 0.7 X 10^3 (0.0-1.0); MONOCYTES % (AUTO) 7 % (0-12); NEUTROPHILS # (AUTO) 8.9 X 10^3 (1.8-7.8); NEUTROPHILS % (AUTO) 86 % (42-75); PLATELET COUNT 217 10^3/uL (130-400); RED CELL DISTRIBUTION WIDTH 15.5 % (10.0-14.5); WHITE BLOOD COUNT 10.3 10^3/uL (4.3-11.0)
[2019-08-05] MEDS ORDERED: ENOXAPARIN 30 MG/0.3 ML (LOVENOX) SYR SC ONE (17:15)
[2019-08-05] MEDS ORDERED: ASPIRIN 81 MG CHEW (CHILDREN'S ASA) PO ONE (17:15)
[2019-08-05 17:21] LABS: INR 1.4 (0.8-1.4); PROTHROMBIN TIME PATIENT 18.1 SEC (12.2-14.7)
[2019-08-05 17:28] LABS: ALANINE AMINOTRANSFERASE 71 U/L (0-55); ALBUMIN 3.4 GM/DL (3.2-4.5); ALKALINE PHOSPHATASE 230 U/L (40-136); BILIRUBIN,TOTAL 1.1 MG/DL (0.1-1.0); BUN/CREATININE RATIO 30; CALCIUM 8.8 MG/DL (8.5-10.1); CARBON DIOXIDE 12 MMOL/L (21-32); CHLORIDE 102 MMOL/L (98-107); CREATININE SERUM 1.08 MG/DL (0.60-1.30); GFR ESTIMATED > 60; POTASSIUM 5.3 MMOL/L (3.6-5.0); SODIUM 134 MMOL/L (135-145); TOTAL PROTEIN 5.9 GM/DL (6.4-8.2)
--- NOTE | 2019-08-05 17:29 | Diagnostic Imaging Report ---
INDICATION: Lower extremity swelling and pain. TIME OF EXAM: 05:15 p.m. Correlation is made with prior chest from 11/13/2018. FINDINGS: Heart appears to be moderately enlarged. Lungs are clear. There is no failure or infiltrate. No effusion or pneumothorax is seen. IMPRESSION: Cardiomegaly. No other significant abnormality is detected. Dictated by: Dictated on workstation # [id number]
[2019-08-05 17:33] LABS: GLUCOSE 498 MG/DL (70-105)
[2019-08-05] MEDS ORDERED: inSUlin (REGULAR) HUMAN 1 UNIT/0.01 ML (CHARGE PER UNIT) SC STA (17:36)
--- NOTE | 2019-08-05 17:38 | ED Lower Extremity ---
General Chief Complaint: Lower Extremity Stated Complaint: PE LL, DIFFICULTY WALKING, FEET SWOLLEN Nursing Triage Note: PT ARRIVED PER EMS, PT CO OF LOWER EXT SWELLING AND PAIN. STATES UNABLE TO WALK D/T SWELLING, PT STATES HAS SOA AND RECENT HEART CATH Nursing Sepsis Screen: No Definite Risk History of Present Illness Date Seen by Provider: Aug 05, 2019 Time Seen by Provider: 16:42 Initial Comments 43-year-old male presents via EMS for bilateral lower extremity swelling and difficulty walking. The patient is emaciated and has been in poor health and noncompliant for several years. He wore a life vest for several years. He had an echocardiogram by Dr. Durand,07/31/19 10-15% ejection fraction and clots in both ventricles. Has been on Xarelto. His insulin was stopped because he lives alone and can't care for himself. His mother reports she can't care for him. Pain/Injury Location: bilateral foot (swelling) Method of Injury: unknown Allergies and Home Medications Allergies Coded Allergies: No Known Drug Allergies (Unverified , 03/03/13) Home Medications Albuterol Sulfate 18 Gm Hfa.aer.ad, 2 PUFF INH Q4H PRN for SHORTNESS OF BREATH, (Reported) Aripiprazole 20 Mg Tablet, 20 MG PO DAILY #30 FILLED 08-30-18 Prescribed by: CATHY BLACK on 11/18/181216 Empagliflozin 10 Mg Tablet, 10 MG PO DAILY, (Reported) Metformin HCl 500 Mg Tab.er.24, 1,000 MG PO BID LAST FILLED #360 04-02-18 Prescribed by: CATHY BLACK on 11/18/18 1217 Mirtazapine 15 Mg Tablet, 15 MG PO HS, (Reported) Sertraline HCl 50 Mg Tablet, 50 MG PO DAILY LAST FILLED #30 08-30-18 Prescribed by: CATHY BLACK on 11/18/18 1217 Patient Home Medication List Home Medication List Reviewed: Yes Review of Systems Constitutional: no symptoms reported, see HPI Cardiovascular: see HPI; No chest pain; edema, Hx of Intervention Musculoskeletal: see HPI, joint pain (ankles/feet, secondary to swelling) All Other Systems Reviewed Negative Unless Noted: Yes Past Izmhvap-Aehwrg-Kltbdw Hx Past Med/Social Hx: Reviewed Nursing Past Med/Soc Hx Patient Social History Alcohol Use: Past History Recreational Drug Use: No Smoking Status: Current Everyday Smoker Type Used: Cigarettes 2nd Hand Smoke Exposure: Yes Recent Foreign Travel: No Contact w/Someone Who Travel: No Recent Infectious Disease Expo: No Recent Hopitalizations: Yes (HEART CATH) Physical Abuse: No Sexual Abuse: No Immunizations Up To Date Date of Influenza Vaccine: Nov 19, 2017 Seasonal Allergies Seasonal Allergies: No Past Medical History Surgeries: Yes (maybe appendix) Respiratory: Yes Asthma Cardiac: No Neurological: No Developmental Disorder Reproductive Disorders: No Gastrointestinal: No Musculoskeletal: No Endocrine: Yes Diabetes, Insulin dep HEENT: No Cancer: No Psychosocial: Yes Anxiety, Schizophrenia, Depression Integumentary: No Blood Disorders: No Family Medical History Patient reports no known family medical history. No Pertinent Family Hx Physical Exam Vital Signs Vital Signs - First Documented 08/05/19 16:42 Temp 36.4 Pulse 101 Resp 19 B/P (MAP) 121/108 (112) Pulse Ox 96 O2 Delivery Room Air Capillary Refill : Less Than 3 Seconds Height, Weight, BMI Height: 5'3.00" Weight: 84lbs. 4.0oz. 38.374247id; 12.00 BMI Method:Stated General Appearance: WD/WN, no apparent distress, cachetic, thin HEENT: normal ENT inspection, pharynx normal Neck: non-tender, full range of motion, supple, normal inspection Cardiovascular: normal peripheral pulses (Pedal pulses 1+, cap refill < 3 sec. ), regular rate, rhythm Respiratory: chest non-tender, lungs clear, decreased breath sounds Gastrointestinal: normal bowel sounds, non tender, soft Legs: bilateral leg other (Neg Kirstin's) Ankles: bilateral ankle soft tissue tenderness, bilateral ankle swelling Neurologic/Psychiatric: no motor/sensory deficits, alert, normal mood/affect, oriented x 3 Skin: normal color Progress/Results/Core Measures Results/Orders Lab Results Laboratory Tests Test 08/05/19 16:50 Range/Units White Blood Count 10.3 4.3-11.0 10^3/uL Red Blood Count 5.60 4.35-5.85 10^6/uL Hemoglobin 18.0 H 13.3-17.7 G/DL Hematocrit 53 40-54 % Mean Corpuscular Volume 94 80-99 FL Mean Corpuscular Hemoglobin 32 25-34 PG Mean Corpuscular Hemoglobin Concent 34 32-36 G/DL Red Cell Distribution Width 15.5 H 10.0-14.5 % Platelet Count 217 130-400 10^3/uL Mean Platelet Volume 12.6 H 7.4-10.4 FL Neutrophils (%) (Auto) 86 H 42-75 % Lymphocytes (%) (Auto) 7 L 12-44 % Monocytes (%) (Auto) 7 0-12 % Eosinophils (%) (Auto) 0 0-10 % Basophils (%) (Auto) 0 0-10 % Neutrophils # (Auto) 8.9 H 1.8-7.8 X 10^3 Lymphocytes # (Auto) 0.8 L 1.0-4.0 X 10^3 Monocytes # (Auto) 0.7 0.0-1.0 X 10^3 Eosinophils # (Auto) 0.0 0.0-0.3 10^3/uL Basophils # (Auto) 0.0 0.0-0.1 10^3/uL Neutrophils % (Manual) 87 % Lymphocytes % (Manual) 5 % Monocytes % (Manual) 5 % Eosinophils % (Manual) 0 % Basophils % (Manual) 0 % Band Neutrophils 0 % Reactive Lymphocytes 3 % Blood Morphology Comment NORMAL Prothrombin Time 18.1 H 12.2-14.7 SEC INR Comment 1.4 0.8-1.4 Activated Partial Thromboplast Time 27 24-35 SEC Sodium Level 134 L 135-145 MMOL/L Potassium Level 5.3 H 3.6-5.0 MMOL/L Chloride Level 102 98-107 MMOL/L Carbon Dioxide Level 12 L 21-32 MMOL/L Anion Gap 20 H 5-14 MMOL/L Blood Urea Nitrogen 32 H 7-18 MG/DL Creatinine 1.08 0.60-1.30 MG/DL Estimat Glomerular Filtration Rate > 60 BUN/Creatinine Ratio 30 Glucose Level 498 *H 70-105 MG/DL Calcium Level 8.8 8.5-10.1 MG/DL Corrected Calcium 9.3 8.5-10.1 MG/DL Total Bilirubin 1.1 H 0.1-1.0 MG/DL Aspartate Amino Transf (AST/SGOT) 74 H 5-34 U/L Alanine Aminotransferase (ALT/SGPT) 71 H 0-55 U/L Alkaline Phosphatase 230 H 40-136 U/L Troponin I 0.169 H <0.028 NG/ML B-Type Natriuretic Peptide 9700.3 H <100.0 PG/ML Total Protein 5.9 L 6.4-8.2 GM/DL Albumin 3.4 3.2-4.5 GM/DL My Orders Orders - SELENA CASPER BNP (08/05/19 16:54) Cbc With Automated Diff (08/05/19 16:54) Comprehensive Metabolic Panel (08/05/19 16:54) Protime With Inr (08/05/19 16:54) Partial Thromboplastin Time (08/05/19 16:54) Chest 1 View, Ap/Pa Only (08/05/19 16:54) Enoxaparin Injection (Lovenox Injection) (08/05/19 17:15) Aspirin Chewable Tablet (Baby Aspirin Ch (08/05/19 17:15) Manual Differential (08/05/19 16:50) Furosemide Injection (Lasix Injection) (08/06/19 09:00) Ns (Ivpb) (Sodium Chloride 0.9%) (08/05/19 17:45) Insulin (Regular) Human (Novolin R (Per (08/05/19 17:36) Troponin I (08/05/19 17:39) Ua Culture If Indicated (08/05/19 17:39) Furosemide Injection (Lasix Injection) (08/05/19 17:47) Medications Given in ED Current Medications Medications Dose Ordered Sig/Elan Route Start Time Stop Time Status Last Admin Dose Admin Aspirin 324 mg ONCE ONCE PO 08/05/19 17:15 08/05/19 17:16 DC 08/05/19 17:18 324 MG Enoxaparin Sodium 30 mg ONCE ONCE SC 08/05/19 17:15 08/05/19 17:16 DC 08/05/19 17:19 30 MG Sodium Chloride 250 ml @ 999 mls/hr Q16M ONCE IV 08/05/19 17:45 08/05/19 18:00 DC 08/05/19 17:50 999 MLS/HR Vital Signs/I&O 08/05/19 16:42 Temp 36.4 Pulse 101 Resp 19 B/P (MAP) 121/108 (112) Pulse Ox 96 O2 Delivery Room Air Blood Pressure Mean: 112 Progress Progress Note : Time: 16:42 Progress Note Patient seen and evaluated, will obtain labs, chest x-ray and EKG. Spoke to Dr. Durand about the patient recommended adding Lovenox and Lasix to diurese, recommended admission. 173 spoke to patient and mother by phone, agreed to make the patient DO NOT RESUSCITATE. We'll have social service consult on the patient tomorrow to consider long-term care or hospice placement. 174 Glucose 498, will give Insulin 5 units and NS 250 ml. Lasix 20 mg IV, Lovenox 30 mg SC. [address] Carrion, agreed to admit patient. [address] Durand of BNP and Troponin. Diagnostic Imaging Diagonstic Imaging: Xray Plain Films/CT/US/NM/MRI: chest Comments NAME: TORIE CAMPOS MED REC#: [id number] PT STATUS: REG ER : 1975 PHYSICIAN: SELENA CASPER ADMIT DATE: 08/05/19/ER Signed Date of Exam:08/05/19 CHEST 1 VIEW, AP/PA ONLY INDICATION: Lower extremity swelling and pain. TIME OF EXAM: 05:15 p.m. Correlation is made with prior chest from 11/13/2018. FINDINGS: Heart appears to be moderately enlarged. Lungs are clear. There is no failure or infiltrate. No effusion or pneumothorax is seen. IMPRESSION: Cardiomegaly. No other significant abnormality is detected. Dictated by: Dictated on workstation # [id number] Dict: 08/05/19 1721 Trans: 08/05/19 172 [id number] Interpreted by: RICHY LAWSON MD Electronically signed by: RICHY LAWSON MD 08/05/19 172 Reviewed: Reviewed by Me Departure Impression Primary Impression: Heart failure Qualified Codes: I50.42 - Chronic combined systolic (congestive) and diastolic (congestive) heart failure Additional Impressions: Edema of both lower extremities Hyperglycemia Disposition: ADMITTED INPATIENT Condition: Critical Admissions Decision to Admit Reason: Admit from ER (General) Decision to Admit/Date: Aug 05, 2019 Time/Decision to Admit Time: 17:00 Departure-Patient Inst. Referrals: [facility] (PCP/Family) Primary Care Physician Copy Copies To 1: JUNIE HAYES DO Copies To 2: SHANIGLO LUNDBERG MD, AMY ARNP Aug 05, 2019 17:38
[2019-08-05] MEDS ORDERED: NS (IVPB) 250 ML IV ONE (17:45)
[2019-08-05] MEDS ORDERED: FUROSEMIDE 40 MG/4 ML INJ (LASIX) ONE (17:47)
[2019-08-05 17:49] LABS: BAND NEUTROPHILS 0 %; BASOPHILS % (MANUAL) 0 %; EOSINOPHILS % (MANUAL) 0 %; LYMPHOCYTES % (MANUAL) 5 %; MONOCYTES % (MANUAL) 5 %; NEUTROPHILS % (MANUAL) 87 %; RBC MORPH NORMAL; REACTIVE LYMPHOCYTES 3 %
[2019-08-05 18:29] LABS: BILIRUBIN,URINE NEGATIVE (NEGATIVE); CLARITY,URINE CLEAR; COLOR,URINE YELLOW; GLUCOSE, URINE (UA) 3+ (NEGATIVE); KETONES,URINE TRACE (NEGATIVE); LEUKOCYTE ESTERASE ,URINE NEGATIVE (NEGATIVE); NITRITE,URINE NEGATIVE (NEGATIVE); PH,URINE 5.5 (5-9); PROTEIN,URINE TRACE (NEGATIVE)
[2019-08-05 18:37] LABS: BACTERIA,URINE NEGATIVE /HPF; SQUAMOUS EPITHELIAL CELL,UR RARE /HPF
[2019-08-05] MEDS ORDERED: NS IV 1000 ML 1,000 ML ONE (19:39)
[2019-08-05 19:45] VITALS: BP 107/82
[2019-08-05] MEDS ORDERED: ACETAMINOPHEN 500 MG TAB (TYLENOL) PO PRN (20:15)
[2019-08-05] MEDS ORDERED: CALCIUM CARBONATE 500 MG (TUMS) TAB.CHEW PO PRN (20:15)
[2019-08-05] MEDS ORDERED: DOCUSATE SODIUM 100 MG (COLACE) CAP PO PRN (20:15)
[2019-08-05] MEDS ORDERED: ONDANSETRON 4 MG/2 ML (SDV) Z0FRAN IVP PRN (20:15)
[2019-08-05] MEDS ORDERED: ONDANSETRON 4 MG (ZOFRAN) ORAL DISSOLVE TAB PO PRN (20:15)
[2019-08-05] MEDS ORDERED: LOPERAMIDE 2 MG (IMODIUM) TABLET PO PRN (20:15)
[2019-08-05] MEDS ORDERED: diphenhydrAMINE 25 MG TAB (BENADRYL) PO PRN (20:15)
[2019-08-05] MEDS ORDERED: LACTULOSE SYRUP 10GM/15ML (ENULOSE) 30ML UDC PO PRN (20:15)
[2019-08-05] MEDS ORDERED: MELATONIN 3 MG TABLET PO PRN (20:15)
[2019-08-05] MEDS ORDERED: ALPRAZolam 0.25 MG (XANAX) TAB PO PRN (20:15)
[2019-08-05] MEDS ORDERED: HYDROcodone/APAP 5 MG/325 MG (LORTAB) TAB PO PRN (20:15)
[2019-08-05] MEDS ORDERED: ACETAMINOPHEN 325 MG TABLET PO PRN (20:30)
[2019-08-05] MEDS: NS IV 1000 ML 1,000 ML IV SCH (20:32)
[2019-08-05] MEDS: SENNA W/DOCUSATE (SENOKOT S) TABLET PO SCH (23:10)
[2019-08-05] MEDS: ENOXAPARIN 40 MG/0.4 ML (LOVENOX) SYR SC SCH ×3 (23:17→23:22)
[2019-08-05] MEDS: inSUlin ASPART (NovoLOG) 1 UNIT/0.01 ML (CHARGE PER UNIT) SC SCH (23:17)
[2019-08-05 23:28] VITALS: BP 105/74
[2019-08-06 03:17] LABS: BASOPHILS % (AUTO) 0 % (0-10); EOSINOPHILS # (AUTO) 0.1 10^3/uL (0.0-0.3); EOSINOPHILS % (AUTO) 1 % (0-10); HEMATOCRIT 47 % (40-54); HEMOGLOBIN 16.6 G/DL (13.3-17.7); LYMPHOCYTES # (AUTO) 1.7 X 10^3 (1.0-4.0); LYMPHOCYTES % (AUTO) 20 % (12-44); MEAN CORPUSCULAR HEMOGLOBIN 33 PG (25-34); MEAN CORPUSCULAR HGB CONC 35 G/DL (32-36); MEAN CORPUSCULAR VOLUME 93 FL (80-99); MEAN PLATELET VOLUME 12.5 FL (7.4-10.4); MONOCYTES # (AUTO) 0.7 X 10^3 (0.0-1.0); MONOCYTES % (AUTO) 8 % (0-12); NEUTROPHILS # (AUTO) 6.2 X 10^3 (1.8-7.8); NEUTROPHILS % (AUTO) 72 % (42-75); PLATELET COUNT 205 10^3/uL (130-400); RED CELL DISTRIBUTION WIDTH 15.3 % (10.0-14.5); WHITE BLOOD COUNT 8.7 10^3/uL (4.3-11.0)
[2019-08-06 03:30] LABS: ALBUMIN 3.2 GM/DL (3.2-4.5)
[2019-08-06 03:31] LABS: CHLORIDE 103 MMOL/L (98-107); POTASSIUM 4.5 MMOL/L (3.6-5.0); SODIUM 136 MMOL/L (135-145)
[2019-08-06 03:32] LABS: CALCIUM 8.2 MG/DL (8.5-10.1)
[2019-08-06 03:33] LABS: GLUCOSE 99 MG/DL (70-105); TOTAL PROTEIN 5.6 GM/DL (6.4-8.2)
[2019-08-06 03:34] LABS: CARBON DIOXIDE 18 MMOL/L (21-32)
[2019-08-06 03:35] LABS: BILIRUBIN,TOTAL 0.8 MG/DL (0.1-1.0)
[2019-08-06 03:36] LABS: ALKALINE PHOSPHATASE 219 U/L (40-136)
[2019-08-06 03:37] LABS: CREATININE SERUM 0.77 MG/DL (0.60-1.30); GFR ESTIMATED > 60
[2019-08-06 03:38] LABS: BUN/CREATININE RATIO 34
[2019-08-06 03:40] LABS: ALANINE AMINOTRANSFERASE 66 U/L (0-55)
[2019-08-06 04:25] VITALS: BP 112/67
[2019-08-06] MEDS: inSUlin ASPART (NovoLOG) 1 UNIT/0.01 ML (CHARGE PER UNIT) SC SCH ×4 (06:30→20:41)
[2019-08-06] MEDS: SENNA W/DOCUSATE (SENOKOT S) TABLET PO SCH ×2 (07:39→21:16)
[2019-08-06 07:42] VITALS: BP 107/76
[2019-08-06] MEDS ORDERED: FUROSEMIDE 40 MG/4 ML INJ (LASIX) IVP SCH ×2 (08:00→09:00)
[2019-08-06] MEDS: ASPIRIN E.C. 81 MG (ECOTRIN) TAB PO SCH (08:27)
[2019-08-06] MEDS ORDERED: ENOXAPARIN 30 MG/0.3 ML (LOVENOX) SYR SC SCH ×2 (09:00→17:00)
--- NOTE | 2019-08-06 09:40 | Consultation-Cardiology ---
HPI-Cardiology Cardiology Consultation Date of Consultation 08/06/19 Date of Admission Time Seen by Provider: 09:00 Indication: CHF, peripheral edema HPI Patient is a 43 y/o male with history of nonischemic cardiomyopathy, history of ETOH use, diabetes mellitus. Presented to the ER with complaints of increased peripheral edema over the past week with difficulty walking. Denies any chest pain or dyspnea. Denies any dizziness, lightheadedness or syncope. Was recently started on Xarelto after 2D Echo done 07/31/2019 revealed bilateral ventricular thrombus. Home Medications & Allergies Allergies: Coded Allergies: No Known Drug Allergies (Unverified , 03/03/13) Home Medication List Reviewed: Yes NFI-Nvhypq-Cvgqun Hx Patient Social History Marital Status: single Employed/Student: unemployed Alcohol Use: Past History Recreational Drug Use: No Smoking Status: Current Everyday Smoker Type Used: Cigarettes 2nd Hand Smoke Exposure: Yes Recent Foreign Travel: No Recent Infectious Disease Expo: No Recent Hopitalizations: Yes (HEART CATH) Immunizations Up To Date Date of Influenza Vaccine: Nov 19, 2017 Past Medical History CHF, DM, Hx ETOH use, noncompliance. Family Medical History Significant Family History: No Pertinent Family Hx Family History: Patient reports no known family medical history. Review of Systems-General Review of Systems Constitutional: no symptoms reported, see HPI; No chills, No diaphoresis, No dizziness, No fever; malaise EENTM: see HPI, no symptoms reported; No blurred vision, No double vision, No vision loss Respiratory: no symptoms reported, see HPI; No cough, No dyspnea on exertion, No short of breath Cardiovascular: see HPI; No chest pain; edema; No syncope Gastrointestinal: No abdominal pain, No constipation, No diarrhea Genitourinary: No dysuria, No frequency Musculoskeletal: see HPI, joint pain (ankles/feet, secondary to swelling) All Other Systems Reviewed Negative Unless Noted: Yes Reviewed Test Results Reviewed Test Results Lab Laboratory Tests 08/05/19 16:50: White Blood Count 10.3, Red Blood Count 5.60, Hemoglobin 18.0H, Hematocrit 53, Mean Corpuscular Volume 94, Mean Corpuscular Hemoglobin 32, Mean Corpuscular Hemoglobin Concent 34, Red Cell Distribution Width 15.5H, Platelet Count 217, Mean Platelet Volume 12.6H, Neutrophils (%) (Auto) 86H, Lymphocytes (%) (Auto) 7L, Monocytes (%) (Auto) 7, Eosinophils (%) (Auto) 0, Basophils (%) (Auto) 0, Neutrophils # (Auto) 8.9H, Lymphocytes # (Auto) 0.8L, Monocytes # (Auto) 0.7, Eosinophils # (Auto) 0.0, Basophils # (Auto) 0.0, Neutrophils % (Manual) 87, Lymphocytes % (Manual) 5, Monocytes % (Manual) 5, Eosinophils % (Manual) 0, Basophils % (Manual) 0, Band Neutrophils 0, Reactive Lymphocytes 3, Blood Morphology Comment NORMAL, Prothrombin Time 18.1H, INR Comment 1.4, Activated Partial Thromboplast Time 27, Sodium Level 134L, Potassium Level 5.3H, Chloride Level 102, Carbon Dioxide Level 12L, Anion Gap 20H, Blood Urea Nitrogen 32H, Creatinine 1.08, Estimat Glomerular Filtration Rate > 60, BUN/Creatinine Ratio 30, Glucose Level 498*H, Calcium Level 8.8, Corrected Calcium 9.3, Total Bilirubin 1.1H, Aspartate Amino Transf (AST/SGOT) 74H, Alanine Aminotransferase (ALT/SGPT) 71H, Alkaline Phosphatase 230H, Troponin I 0.169H, B-Type Natriuretic Peptide 9700.3H, Total Protein 5.9L, Albumin 3.4 08/05/19 18:24: Urine Color YELLOW, Urine Clarity CLEAR, Urine pH 5.5, Urine Specific [place] 1.010L, Urine Protein TRACEH, Urine Glucose (UA) 3+H, Urine Ketones TRACEH, Urine Nitrite NEGATIVE, Urine Bilirubin NEGATIVE, Urine Urobilinogen 0.2, Urine Leukocyte Esterase NEGATIVE, Urine RBC (Auto) TRACE-L, Urine RBC NONE, Urine WBC NONE, Urine Squamous Epithelial Cells RARE, Urine Crystals NONE, Urine Bacteria NEGATIVE, Urine Casts NONE, Urine Mucus NEGATIVE, Urine Culture Indicated NO 08/05/19 18:48: Glucometer 348H 08/05/19 19:55: Glucometer 287H 08/05/19 23:10: Glucometer 260H 08/06/19 02:45: White Blood Count 8.7, Red Blood Count 5.06, Hemoglobin 16.6, Hematocrit 47, Mean Corpuscular Volume 93, Mean Corpuscular Hemoglobin 33, Mean Corpuscular Hemoglobin Concent 35, Red Cell Distribution Width 15.3H, Platelet Count 205, Mean Platelet Volume 12.5H, Neutrophils (%) (Auto) 72, Lymphocytes (%) (Auto) 20, Monocytes (%) (Auto) 8, Eosinophils (%) (Auto) 1, Basophils (%) (Auto) 0, Neutrophils # (Auto) 6.2, Lymphocytes # (Auto) 1.7, Monocytes # (Auto) 0.7, Eosinophils # (Auto) 0.1, Basophils # (Auto) 0.0, Sodium Level 136, Potassium Level 4.5, Chloride Level 103, Carbon Dioxide Level 18L, Anion Gap 15H, Blood Urea Nitrogen 26H, Creatinine 0.77, Estimat Glomerular Filtration Rate > 60, BUN/Creatinine Ratio 34, Glucose Level 99, Calcium Level 8.2L, Corrected Calcium 8.8, Total Bilirubin 0.8, Aspartate Amino Transf (AST/SGOT) 63H, Alanine Aminotransferase (ALT/SGPT) 66H, Alkaline Phosphatase 219H, Total Protein 5.6L, Albumin 3.2 Physical Exam Physical Exam Vital Signs Vital Signs - First Documented 08/05/19 16:42 Temp 36.4 Pulse 101 Resp 19 B/P (MAP) 121/108 (112) Pulse Ox 96 O2 Delivery Room Air Capillary Refill : Less Than 3 Seconds Height, Weight, BMI Height: 5'3.00" Weight: 84lbs. 4.0oz. 38.171779hk; 13.15 BMI Method:Stated General Appearance: No Apparent Distress, WD/WN, Anxious, Cachetic HEENT: PERRL/EOMI, Normal ENT Inspection Neck: Non Tender, Supple Respiratory: Chest Non Tender, Decreased Breath Sounds Cardiovascular: Regular Rate, Rhythm, No JVD, No Murmur, Other (+2-3 pitting edema bilaterally) Gastrointestinal: No Pulsatile Mass, Non Tender, Soft Back: No CVA Tenderness, CVA Tenderness (L) Extremity: Calf Tenderness, Pedal Edema, Swelling Neurologic/Psychiatric: Alert, Oriented x3, card grinder helper II-XII Norm as Tested A/P-Cardiology Admission Diagnosis CHF peripheral edema CAD HTN Assessment/Plan Congestive heart failure, nonischemic cardiomyopathy with EF 35-40 percent October 2016. 2D Echo done January 2018 revealed EF improved to 55-60 percent. Unable to tolerate FRANKLIN or ARB secondary to history of hyperkalemia while on Entresto, had been unable to tolerate beta fabien in the past secondary to hypotension. 2D Echo done 07/31/2019 revealed severe diffuse hypokinesia with EF 10-15%, large right and left ventricular thrombus present. Started on Xarelto on 07/31/2019. Patient with increased peripheral edema over the last week, I will diurese as tolerated. Evaluate BLE venous doppler. Right and Left ventricular thrombus noted on most recent echo, started on Xarelto on 07/31/2019. Coronary artery disease, status post cardiac catheterization February 2013 due to an elevated troponin level. Showing mild disease nonobstructive disease, continue to monitor, no changes. History of Right groin abscess-resolved. Hypertension, continue to monitor. Tobaccoism, patient was educated and instructed on smoking cessation. Alcoholism, patient states he has stopped drinking. Bronchial asthma, clinically stable. Continue to monitor. Significant hearing loss. Diabetes mellitus-poorly controlled, is seeing Dr. Avila. Discussed his EtOH use contributing to his difficult to control diabetes Thank you for allowing us to participate in the management of Mr. Kay. This is Mehreen Jason PA-C, as a scribe for Dr. Durand. Patient was seen and evaluated with Mehreen, examination performed, management plan was discussed, agree with the current scribed note, I made few changes to the note using Italic font Patient was laying down in bed, feeling better, having significant pedal edema, started on diuretics. Impressive echo finding was severe cardiomyopathy with biventricular failure and heavy thrombus burden within both ventricles. Has been on Xarelto. I started him on Lovenox at this time. Continue with aggressive care. Planning to switch him to Xarelto 15 mg twice a day at this time and monitor tolerance and response Continue to monitor closely. Clinical Quality Measures DVT/VTE Risk/Contraindication: Risk Factor Score Per Nursin RFS Level Per Nursing on Admit: 4+=Very High MEHREEN KANG Aug 06, 2019 9:40 am GLO DURAND MD Aug 06, 2019 1:00 pm
--- NOTE | 2019-08-06 10:30 | History & Physical-Hospitalist ---
History of Present Illness HPI/Chief Complaint CC: End stage CHF HPI: This a 43yoWM who has a history of end stage cardiomyopathy and ejection fraction of 10% who presented to the hospital with lower extremity edema and no longer able to care for himself at home and he lives at home alone. His mother is involved in his care. Dr. Durand is familiar with his case, found the pt to be a hospice candidate so that will be arranged. At this current time pt is very cachectic, weighs about 85 lbs, and at the very end stage of his life although he is not in an impending , he does need hospice. He is sleeping soundly and does not awaken. Source: RN/MD Exam Limitations: clinical condition Date Seen 08/06/19 Time Seen by a Provider: 10:00 Attending Physician Tanika Carrion DO [facility] [place],[facility] Referring Physician Date of Admission Aug 05, 2019 at 18:00 Home Medications & Allergies Home Medications Reviewed patient Home Medication Reconciliation performed by pharmacy medication reconciliations body art technician and/or nursing. Patients Allergies have been reviewed. Allergies Allergies Coded Allergies No Known Drug Allergies (Unverified03/03/13) Past Awsfaoj-Buvxjw-Zndpvi Hx Past Med/Social Hx: Reviewed Nursing Past Med/Soc Hx, Reviewed and Corrections made Patient Social History Marrital Status: single Employed/Student: unemployed Alcohol Use: Past History Recreational Drug Use: No Smoking Status: Current Everyday Smoker Type Used: Cigarettes 2nd Hand Smoke Exposure: Yes Recent Foreign Travel: No Contact w/other who traveled: No Recent Hopitalizations: Yes (HEART CATH) Recent Infectious Disease Expo: No Immunizations Up To Date Date of Influenza Vaccine: Nov 19, 2017 Seasonal Allergies Seasonal Allergies: No Past Medical History Neurological: Developmental Disorder Reproductive: No Endocrine: Diabetes, Insulin dep Psychosocial: Anxiety, Schizophrenia, Depression History of Blood Disorders: No Family History Patient reports no known family medical history. No Pertinent Family Hx Review of Systems Constitutional: see HPI, weakness Cardiovascular: edema Physical Exam Physical Exam Vital Signs Vital Signs - First Documented 08/05/19 16:42 Temp 36.4 Pulse 101 Resp 19 B/P (MAP) 121/108 (112) Pulse Ox 96 O2 Delivery Room Air Capillary Refill : Less Than 3 Seconds Height, Weight, BMI Height: 5'3.00" Weight: 84lbs. 4.0oz. 38.352851uv; 13.15 BMI Method:Stated General Appearance: Chronically ill, Cachetic Respiratory: Lungs Clear, Normal Breath Sounds Cardiovascular: Regular Rate, Rhythm Results Results/Procedures Labs Laboratory Tests 08/05/19 16:50 08/06/19 02:45 Patient resulted labs reviewed. 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 Admission Status: Observation Diagnosis/Problems Diagnosis/Problems (1) Heart failure Status: Chronic Qualifiers: Heart failure type: combined systolic and diastolic Heart failure chronicity: chronic Qualified Codes: I50.42 - Chronic combined systolic (congestive) and diastolic (congestive) heart failure (2) Diabetes mellitus Status: Chronic (3) Weight loss Status: Acute (4) Schizoaffective disorder Status: Chronic (5) Mentally disabled Status: Chronic Clinical Quality Measures DVT/VTE Risk/Contraindication: Risk Factor Score Per Nursin RFS Level Per Nursing on Admit: 4+=Very High TANIKA CARRION DO Aug 06, 2019 10:30
--- NOTE | 2019-08-06 11:00 | NUR ---
Pastoral care visit with pts mother at bedside, provided listening and support.
[2019-08-06] MEDS ORDERED: GLYB5TAB6 PO (11:48)
[2019-08-06] MEDS ORDERED: INSU100I32 SC (11:48)
[2019-08-06] MEDS ORDERED: METF-865 PO (11:48)
[2019-08-06] MEDS ORDERED: RIVA20TA PO (11:48)
--- NOTE | 2019-08-06 11:49 | NUR ---
UNABLE TO SPEAK WITH THE PT-USED THE EXT MED HISTORY, [facility] AND A LIST FROM [facility] TO COMPLETE THE MED REC THE PTS CURRENT MED LIST FROM [facility] DOES NOT SEEM TO BE UP TO DATE (I WILL ATTACH A COPY ON HIS CHART)- THERE WERE MULTIPLE MEDICATIONS LISTED THAT THE PT HAD SINCE 2018 ( HE WAS HERE AT THAT TIME AT MEDICATIONS WERE SENT TO HIS PHARMACY AT THAT TIME) I ONLY INCLUDED ITEMS ON THE MED REC THAT HAVE BEEN FILLED RECENTLY IT STATED ON THE ED PROVIDER REPORT" His insulin was stopped because he lives alone and can't care for himself" FOR THAT REASON I DID NOT INCLUDE INSULINS ON THE MED REC (THEY WERE ALL PAST DUE ALSO)
[2019-08-06 12:00] VITALS: BP 110/75
--- NOTE | 2019-08-06 13:02 | NUR ---
PALLIATIVE CARE RN received call to come talk to the regarding hospice election. Spent 30 min in with mother taking about his needs, hospice benefit and medicaid needs. Patient has HF w EF of 10-15%, uncontrolled diabetes as well. He is learning disabled but lives independently and makes his won decisions. It is anticipated that patient will return to his home with hospice of choice at discharge. Mother is going to call or go by the choice offices and let me know who she has chosen. She is encouraged to apply for Medicaid so that his room and board will be covered. Patient does not appear eminently dying. He will not be comfort care measures only in the hospital.
[2019-08-06] MEDS ORDERED: RIVAROXABAN 15 MG TABLET (XARELTO) PO SCH (13:15)
--- NOTE | 2019-08-06 13:22 | NUR ---
CM/SS had social service consult; however, the palliative RN Mark has spoke with family and patient about hospice and home living conditions. They are interested in hospice. This ss signing off. Follow palliative notes. Addendum: 08/06/19 at 1324 by ARJUN RAMOS SSS CM/SS will assist with any needs.
[2019-08-06 13:45] VITALS: BP 110/75
--- NOTE | 2019-08-06 13:55 | Diagnostic Imaging Report ---
CLINICAL INDICATION: Patient with lower extremity edema, heart failure and hyperglycemia. COMPARISON: None. PROCEDURE: Real-time bilateral lower extremity venous Doppler duplex evaluation is performed from the inguinal region through the popliteal fossa. The calf venous structures are also evaluated. FINDINGS: The deep venous system is well visualized and is easily compressible. There is no evidence of deep venous thrombosis, valvular incompetence, or significant collateral circulation. There is note of pulsatile bilateral common femoral arteries. Bilateral lower extremity edema is noted. IMPRESSION: There is no ultrasound Doppler evidence of deep venous thrombosis in the bilateral lower extremities. Dictated by: Dictated on workstation # [id number]
--- NOTE | 2019-08-06 14:11 | NUR ---
DISCHARGE PLANNING: Received call from [facility] saying that the mother, Caterina, had chosen them to provide services at discharge. I have sent them clinical information so that they can be prepaired for his admission.
[2019-08-06] MEDS ORDERED: RT-ALBUTEROL/IPRATROPIUM 3 ML (DUONEB) VIAL INH PRN (15:00)
[2019-08-06] MEDS: RIVAROXABAN 15 MG TABLET (XARELTO) PO SCH ×2 (15:16→21:15)
[2019-08-06 15:25] VITALS: BP 109/77
[2019-08-06] MEDS: NS IV 1000 ML 1,000 ML IV SCH (16:13)
[2019-08-06] MEDS: FUROSEMIDE 40 MG/4 ML INJ (LASIX) IVP SCH (16:14)
[2019-08-06] MEDS: RT-ALBUTEROL/IPRATROPIUM 3 ML (DUONEB) VIAL INH SCH (19:07)
[2019-08-06 19:36] VITALS: BP 114/81
[2019-08-07 00:05] VITALS: BP 100/67
[2019-08-07 04:00] VITALS: BP 121/79
[2019-08-07 05:17] LABS: BASOPHILS % (AUTO) 0 % (0-10); EOSINOPHILS # (AUTO) 0.1 10^3/uL (0.0-0.3); EOSINOPHILS % (AUTO) 1 % (0-10); HEMATOCRIT 49 % (40-54); HEMOGLOBIN 16.7 G/DL (13.3-17.7); LYMPHOCYTES # (AUTO) 1.1 X 10^3 (1.0-4.0); LYMPHOCYTES % (AUTO) 14 % (12-44); MEAN CORPUSCULAR HEMOGLOBIN 32 PG (25-34); MEAN CORPUSCULAR HGB CONC 34 G/DL (32-36); MEAN CORPUSCULAR VOLUME 96 FL (80-99); MEAN PLATELET VOLUME 12.5 FL (7.4-10.4); MONOCYTES # (AUTO) 0.5 X 10^3 (0.0-1.0); MONOCYTES % (AUTO) 7 % (0-12); NEUTROPHILS # (AUTO) 6.3 X 10^3 (1.8-7.8); NEUTROPHILS % (AUTO) 78 % (42-75); PLATELET COUNT 205 10^3/uL (130-400); RED CELL DISTRIBUTION WIDTH 15.6 % (10.0-14.5); WHITE BLOOD COUNT 8.1 10^3/uL (4.3-11.0)
[2019-08-07 05:37] LABS: ALANINE AMINOTRANSFERASE 69 U/L (0-55); ALBUMIN 2.8 GM/DL (3.2-4.5); ALKALINE PHOSPHATASE 189 U/L (40-136); BILIRUBIN,TOTAL 0.6 MG/DL (0.1-1.0); BUN/CREATININE RATIO 30; CALCIUM 7.4 MG/DL (8.5-10.1); CARBON DIOXIDE 25 MMOL/L (21-32); CHLORIDE 99 MMOL/L (98-107); GFR ESTIMATED > 60; POTASSIUM 4.6 MMOL/L (3.6-5.0); SODIUM 136 MMOL/L (135-145); TOTAL PROTEIN 4.9 GM/DL (6.4-8.2)
[2019-08-07 05:42] LABS: GLUCOSE 457 MG/DL (70-105)
[2019-08-07] MEDS: inSUlin ASPART (NovoLOG) 1 UNIT/0.01 ML (CHARGE PER UNIT) SC SCH ×2 (06:04→11:19)
[2019-08-07] MEDS: FUROSEMIDE 40 MG/4 ML INJ (LASIX) IVP SCH (06:04)
[2019-08-07] MEDS: ASPIRIN E.C. 81 MG (ECOTRIN) TAB PO SCH (06:59)
[2019-08-07] MEDS: SENNA W/DOCUSATE (SENOKOT S) TABLET PO SCH (06:59)
[2019-08-07] MEDS: RIVAROXABAN 15 MG TABLET (XARELTO) PO SCH (06:59)
[2019-08-07 07:04] VITALS: BP 118/85
--- NOTE | 2019-08-07 07:13 | Discharge Summary ---
Discharge Summary Hospital Course Was the Problem List Reviewed?: Yes Problems/Dx: (1) Heart failure Status: Chronic Qualifiers: Qualified Codes: I50.42 - Chronic combined systolic (congestive) and diastolic (congestive) heart failure (2) Diabetes mellitus Status: Chronic (3) Weight loss Status: Acute (4) Schizoaffective disorder Status: Chronic (5) Mentally disabled Status: Chronic Hospital Course Date of Admission: Aug 05, 2019 at 18:00 Admission Diagnosis : Family Physician/[place] [place] Date of Discharge: 08/07/19 Discharge Diagnosis: end stage CHF enrolled on hospice Hospital Course: Hospital course: Pt had a short hospital course, he was admitted for unable to care for himself at home and hospice enrollment for severe cardiomyopathy ejection fraction 10% and just unable to recover. He had [facility] enroll him at time of discharge, all medications were sent to hospice and Pt was deemed stable for discharge. Poor prognosis long-term. Labs and Pending Lab Test: Laboratory Tests 08/06/19 10:51: Glucometer 358H 08/06/19 15:06: Glucometer 156H 08/06/19 20:17: Glucometer 173H 08/07/19 04:43: White Blood Count 8.1, Red Blood Count 5.16, Hemoglobin 16.7, Hematocrit 49, Mean Corpuscular Volume 96, Mean Corpuscular Hemoglobin 32, Mean Corpuscular Hemoglobin Concent 34, Red Cell Distribution Width 15.6H, Platelet Count 205, Mean Platelet Volume 12.5H, Neutrophils (%) (Auto) 78H, Lymphocytes (%) (Auto) 14, Monocytes (%) (Auto) 7, Eosinophils (%) (Auto) 1, Basophils (%) (Auto) 0, Neutrophils # (Auto) 6.3, Lymphocytes # (Auto) 1.1, Monocytes # (Auto) 0.5, Eosinophils # (Auto) 0.1, Basophils # (Auto) 0.0, Sodium Level 136, Potassium Level 4.6, Chloride Level 99, Carbon Dioxide Level 25, Anion Gap 12, Blood Urea Nitrogen 30H, Creatinine 1.00, Estimat Glomerular Filtration Rate > 60, BUN/Creatinine Ratio 30, Glucose Level 457*H, Calcium Level 7.4L, Corrected Calcium 8.4L, Total Bilirubin 0.6, Aspartate Amino Transf (AST/SGOT) 59H, A lanine Aminotransferase (ALT/SGPT) 69H, Alkaline Phosphatase 189H, Total Protein 4.9L, Albumin 2.8L Home Meds Active Reported Glyburide 5 Mg Tablet 5 Mg PO DAILY W/ BREAKFAST LAST FILLED 06-06-2019 #30 Xarelto (Rivaroxaban) 20 Mg Tablet 20 Mg PO HS Metformin HCl ER (Metformin HCl) 500 Mg Tab.er.24h 1,000 Mg PO BID TAKES 2(500MG) TAB TWICE DAILY Ventolin Hfa (Albuterol Sulfate) 18 Gm Hfa.aer.ad 2 Puff INH Q4H PRN Assessment/Pt Instructions Hospice Discharge Planning: <30 minutes discharge planning Discharge Instructions Discharge Diet: No Restrictions Discharge Physical Examination Vital Signs Vital Signs Date Time Temp Pulse Resp B/P (MAP) Pulse Ox O2 Delivery O2 Flow Rate FiO2 08/07/19 07:04 36.8 73 20 118/85 (96) 99 Room Air 08/06/19 19:36 2.00 General Appearance: No Apparent Distress, Chronically ill, Cachetic Allergies: Coded Allergies: No Known Drug Allergies (Unverified , 03/03/13) Discharge Summary Date of Admission Aug 05, 2019 at 18:00 Date of Discharge Discharge Date: Aug 07, 2019 Admission Diagnosis Assessment: End stage CHF 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 Discharge Diagnosis (1) Heart failure Status: Chronic Qualifiers: Qualified Codes: I50.42 - Chronic combined systolic (congestive) and diastolic (congestive) heart failure (2) Diabetes mellitus Status: Chronic (3) Weight loss Status: Acute (4) Schizoaffective disorder Status: Chronic (5) Mentally disabled Status: Chronic Clinical Quality Measures DVT/VTE Risk/Contraindication: Risk Factor Score Per Nursin RFS Level Per Nursing on Admit: 4+=Very High JOHNATHAN LEOS DO Aug 07, 2019 07:13
[2019-08-07] MEDS ORDERED: glyBURIDE 5 MG (MICRONASE) TAB PO SCH (07:21)
--- NOTE | 2019-08-07 08:52 | Cardiology Progress Note ---
Subjective Date Seen by Provider: Aug 07, 2019 Time Seen by Provider: 08:50 Subjective/Events-last exam Patient is laying down in bed, still having significant pedal edema. No chest pain Review of Systems General: No Chills, No Night Sweats; Fatigue, Malaise; No Appetite, No Other HEENT: No Head Aches, No Visual Changes, No Eye Pain, No Ear Pain, No Dysphasia, No Sinus Congestion, No Post Nasal Drip, No Sore Throat, No Other Pulmonary: Dyspnea; No Cough, No Pleuritic Chest Pain, No Other Cardiovascular: Edema; No: Chest Pain, Palpitations, Orthopnea, Paroxysmal Noc. Dyspnea, Lt Headedness, Other Objective-Cardiology Exam Last Set of Vital Signs Vital Signs 08/06/19 08/07/19 08/07/19 19:36 07:04 08:00 Temp 36.8 Pulse 73 Resp 20 B/P (MAP) 118/85 (96) Pulse Ox 99 O2 Delivery Room Air O2 Flow Rate 2.00 Capillary Refill : Less Than 3 Seconds I&O Intake and Output 08/07/19 00:00 Intake Total 1160 ml Balance 1160 ml Intake Oral 1160 ml # Voids 11 General: Alert, Oriented X3, Cooperative HEENT: Atraumatic, PERRLA Neck: Supple, No JVD, No Thyromegaly Lungs: Clear to Auscultation, Normal Air Movement Heart: Regular Rate, Normal S1, Normal S2, Gallops, Other (systolic murmur) Abdomen: Normal Bowel Sounds, Soft, No Tenderness, No Hepatosplenomegaly, No Masses Extremities: No Clubbing, No Cyanosis, Normal Pulses, No Tenderness/Swelling, Other (+3 edema) Skin: No Rashes, No Breakdown, No Significant Lesion Neuro: Normal Speech, Strength at 5/5 X4 Ext, Normal Tone, Sensation Intact Psych/Mental Status: Mood NL Results Lab Laboratory Tests 08/07/19 04:43 A/P-Cardiology Admission Diagnosis CHF peripheral edema CAD HTN Assessment/Plan Congestive heart failure, nonischemic cardiomyopathy with EF 35-40 percent October 2016. 2D Echo done January 2018 revealed EF improved to 55-60 percent. Unable to tolerate FRANKLIN or ARB secondary to history of hyperkalemia while on Entresto, had been unable to tolerate beta fabien in the past secondary to hypotension. 2D Echo done 07/31/2019 revealed severe diffuse hypokinesia with EF 10-15%, large right and left ventricular thrombus present. Started on Xarelto on 07/31/2019. Patient with increased peripheral edema over the last week, I continue with diuretics Right and Left ventricular thrombus noted on most recent echo, started on Xarelto on 07/31/2019. I have increase the dose to 50 mg twice daily and monitor tolerance and response Coronary artery disease, status post cardiac catheterization February 2013 due to an elevated troponin level. Showing mild disease nonobstructive disease, continue to monitor, no changes. History of Right groin abscess-resolved. Hypertension, continue to monitor. Tobaccoism, patient was educated and instructed on smoking cessation. Alcoholism, patient states he has stopped drinking. Bronchial asthma, clinically stable. Continue to monitor. Significant hearing loss. Diabetes mellitus-poorly controlled, is seeing Dr. Avila. Discussed his EtOH use contributing to his difficult to control diabetes Clinical Quality Measures DVT/VTE Risk/Contraindication: Risk Factor Score Per Nursin RFS Level Per Nursing on Admit: 4+=Very High GLO MCLEOD MD Aug 07, 2019 08:52
[2019-08-07] MEDS ORDERED: FUROSEMIDE 40 MG/4 ML INJ (LASIX) IVP SCH (09:00)
[2019-08-07] MEDS: RT-ALBUTEROL/IPRATROPIUM 3 ML (DUONEB) VIAL INH SCH (09:10)
--- NOTE | 2019-08-07 09:29 | NUR ---
FINAL DISCHARGE PLAN: Patient will discharge to home with [facility]. Mother will transport. Nurse has faxed discharge orders and [facility] is aware
[2019-08-07] MEDS: NS IV 1000 ML 1,000 ML IV SCH (11:04)
== END 2019-08-07 07:11 | disposition hospice, home (50) ==
LOC: EDUNIT# 16:42 → ER 16:44 → CSD 18:00 → UNDOADMOB 18:00 → CSD 19:37 → UNDODISOB 08-07 11:30
PROVIDERS: ADMIT Internal Medicine; ATTEND Internal Medicine
DX: I11.0 Hypertensive heart disease with heart failure (principal); I50.84 End stage heart failure; I50.42 Chronic combined systolic (congestive) and diastolic (congestive) heart failure; E11.65 Type 2 diabetes mellitus with hyperglycemia; I21.9 Acute myocardial infarction, unspecified; I25.10 Atherosclerotic heart disease of native coronary artery without angina pectoris; J45.909 Unspecified asthma, uncomplicated; I42.8 Other cardiomyopathies; F41.9 Anxiety disorder, unspecified; F32.9 Major depressive disorder, single episode, unspecified; F25.9 Schizoaffective disorder, unspecified; F79 Unspecified intellectual disabilities; F89 Unspecified disorder of psychological development; H91.90 Unspecified hearing loss, unspecified ear; F17.210 Nicotine dependence, cigarettes, uncomplicated; R63.4 Abnormal weight loss; Z79.51 Long term (current) use of inhaled steroids; Z79.01 Long term (current) use of anticoagulants; Z79.4 Long term (current) use of insulin; Z79.899 Other long term (current) drug therapy
CPT/HCPCS: 36415; 71045; 80053; 81000; 82962; 83880; 84484; 85007; 85025; 85027; 85610; 85730; 93005; 93970; 94640; 94760